=== PATIENT | male | born 1950 | race Caucasian/White ===

== ENCOUNTER 2019-01-13 21:15 | Inpatient (IN) | payer MEDICARE, OTHER ==
[~2019-01-13] VITALS: Ht 175.3 cm; Wt 74.3 kg
[2019-01-13 21:15] VITALS: BP 132/87
[~2019-01-13 21:15] MED LIST: MIDAZOLAM HCL 2 MG/2 ML VIAL ONE
[2019-01-14] VITALS (8 sets, daily range): BP systolic 121–137; BP diastolic 71–87
[2019-01-14] MEDS ORDERED: BISACODYL5 MG PR (00:28)
[2019-01-14] MEDS ORDERED: ASCORBIC ACID500 MG PO (00:28)
[2019-01-14] MEDS ORDERED: PANTOPRAZOLE SO40 MG PO (00:28)
[2019-01-14] MEDS ORDERED: LACTULOSE20 GM/30 M PO (00:28)
[2019-01-14] MEDS ORDERED: HEMATINIC-FOLI1 EACH PO (00:28)
[2019-01-14] MEDS ORDERED: ONDANSETRON ODT8 MG PO (00:28)
[2019-01-14] MEDS ORDERED: AMLODIPINE BESY10 MG PO (00:28)
[2019-01-14] MEDS ORDERED: MULTI-VITAMIN1 EACH PO (00:28)
[2019-01-14] MEDS ORDERED: VENELEX OINTMEN60 GM TOP (00:28)
[2019-01-14] MEDS ORDERED: MEGESTROL400 MG/10 PO (00:28)
[2019-01-14] MEDS ORDERED: MEROPENEM500 MG IV (00:28)
[2019-01-14] MEDS ORDERED: BACLOFEN10 MG PO (00:28)
[2019-01-14] MEDS ORDERED: ENOXAPARIN40 MG/0.4 SC (00:28)
[2019-01-14] MEDS ORDERED: SENNA-DOCUSATE1 EACH PO (00:28)
[2019-01-14] MEDS ORDERED: PROCHLORPERAZIN10 MG PO (00:28)
[2019-01-14] MEDS ORDERED: DOCUSATE SODIU100 MG PO (00:28)
[2019-01-14] MEDS ORDERED: FERROUS FUMARA324 MG PO (00:28)
[2019-01-14] MEDS ORDERED: FLEET ENEMA133 ML PR (00:28)
[2019-01-14] MEDS ORDERED: BISACODYL5 MG PO (00:28)
[2019-01-14] MEDS ORDERED: TRAZODONE HCL50 MG PO (00:28)
[2019-01-14] MEDS ORDERED: VANCOMYCIN HCL1 GM IV (00:28)
[2019-01-14] MEDS ORDERED: VALACYCLOVIR500 MG PO (00:28)
[2019-01-14] MEDS ORDERED: ZINC SULFATE220 M1 PO (00:28)
[2019-01-14] MEDS ORDERED: SOD PHOSPHATE/SOD BIPHOSPHATE ENEMA 132 ML BTL PR PRN (00:30)
[2019-01-14] MEDS ORDERED: PROCHLORPERAZINE MALEATE TAB 10 MG TAB PO PRN (00:30)
[2019-01-14] MEDS ORDERED: ONDANSETRON HCL 4 MG ORAL DISINTEGRATING TAB PO PRN (00:30)
[2019-01-14] MEDS ORDERED: DULCOLAX SUPP10 MG RC (00:39)
[2019-01-14] MEDS ORDERED: BISACODYL 10 MG SUPP PR PRN (00:45)
[2019-01-14] MEDS ORDERED: LACTULOSE SYRUP 20 GM/30 ML UDC PO PRN (00:45)
[2019-01-14] MEDS ORDERED: SODIUM CHLORIDE 0.9% 250ML 250 ML ONE (05:08)
[2019-01-14] MEDS: PANTOPRAZOLE SOD 40 MG TABEC PO SCH (05:28)
[2019-01-14] MEDS: MEROPENEM 500MG/ NS 50ML 500 MG in MEROPENEM 500MG/ NS 50ML 50 ML IV SCH ×3 (05:28→23:30)
[2019-01-14 05:30] LABS: BASOPHILS % 0.6 % (0.0-1.0); EOSINOPHILS # (AUTO) 0.3 (0.0-0.4); EOSINOPHILS % 5.6 % (0.0-6.0); HEMATOCRIT 32.5 % (38.2-49.6); HEMOGLOBIN 10.3 g/dL (14.0-18.0); LYMPHOCYTES # (AUTO) 1.5 (1.0-3.2); LYMPHOCYTES % 30.4 % (18.0-39.1); MEAN CORPUSCULAR HEMOGLOBIN 23.5 pg (28-32); MEAN CORPUSCULAR HGB CONC 31.7 g/dL (31-35); MONOCYTES # (AUTO) 0.5 (0.2-0.8); MONOCYTES % 9.4 % (4.4-11.3); NEUTROPHILS # (AUTO) 2.7 (2.1-6.9); NEUTROPHILS % 53.8 % (38.7-80.0); PLATELET COUNT 221 x10e3/uL (140-360); RED BLOOD COUNT 4.39 x10e6/uL (4.3-5.7); RED CELL DISTRIBUTION WIDTH 21.2 % (11.7-14.4)
[2019-01-14 05:44] LABS: ANION GAP 17.2 mmol/L (8-16); BLOOD UREA NITROGEN 14 mg/dL (7-26); BUN/CREATININE RATIO 22 (6-25); CARBON DIOXIDE 25 mmol/L (22-29); CHLORIDE 99 mmol/L (98-107); CREATININE, SERUM 0.63 mg/dL (0.72-1.25); EST GLOMERULAR FILTRATION RATE > 60 ML/MIN (60-); GLUCOSE 70 mg/dL (74-118); POTASSIUM 4.2 mmol/L (3.5-5.1); SODIUM 137 mmol/L (136-145)
[2019-01-14] MEDS ORDERED: MEROPENEM 500 MG VIAL IV SCH (06:00)
--- NOTE | 2019-01-14 07:30 | NUR ---
REC'D PT AAOX3, PICC LINE TO UPPER RIGHT ARM DOUBLE LUMEN CLEAR AND PATENT, ON ROOM AIR, DRESSING TO SACRUM STAGE 4 IS DRY AND INTACT, BRIEF IN PLACE, [place] [address]. PATIENT REPOSITIONED TO RIGHT SIDE. BED IN LOWEST POSITION, SIDE RAILS UP X2, AND CALL CASTILLO WITHIN REACH.
[2019-01-14] MEDS: AMLODIPINE BESYLATE 10 MG TAB PO SCH (09:00)
[2019-01-14] MEDS ORDERED: VANCOMYCIN HCL 1 GM VIAL IV SCH (09:00)
[2019-01-14] MEDS: SENNA-S TABLET PO SCH (09:00)
[2019-01-14] MEDS: FOLIC ACID PO SCH (09:00)
[2019-01-14] MEDS: BISACODYL 5 MG TAB EC PO SCH (09:00)
[2019-01-14] MEDS: MEGACE 400MG/ 10ML CUP PO SCH (09:00)
[2019-01-14] MEDS: [UNRECOGNIZED DRUG - OTHER] PO SCH (09:00)
[2019-01-14] MEDS: DOCUSATE SODIUM 100 MG CAP PO SCH ×2 (09:00→17:00)
[2019-01-14] MEDS: FERROUS FUMARATE PO SCH (09:00)
[2019-01-14] MEDS: VALACYCLOVIR HCL 500 MG TAB PO SCH (09:00)
[2019-01-14] MEDS: ZINC SULFATE 220 MG CAP PO SCH (09:00)
[2019-01-14] MEDS: ASCORBIC ACID 500 MG TAB PO SCH ×2 (09:00→17:00)
[2019-01-14] MEDS: MULTIVITAMINS/MINERALS TAB PO SCH (09:00)
--- NOTE | 2019-01-14 09:10 | NUR ---
DR. BERUMEN AND DR. MCMANUS IN ROOM WITH PATIENT DISCUSSING SURGERY FOR COLOSTOMY AND WOUND.
[2019-01-14] MEDS: VANCOMYCIN 1GM/NS 250 ML 250 ML IV SCH ×2 (09:41→22:00)
--- NOTE | 2019-01-14 10:00 | NUR ---
GOT CONSENT FROM PATIENT FOR PROCEDURE.
--- NOTE | 2019-01-14 10:25 | Consultation ---
DATE OF CONSULTATION: 01/14/2019 CHIEF COMPLAINT: Diverting colostomy for sacral ulcer. 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 The patient developed a sacral wound, which is nonhealing and a diverting colostomy with myocutaneous flap coverage would be required. PAST MEDICAL HISTORY: Significant for multiple myeloma diagnosed in July 2018. Paraplegia secondary to the above. Fecal incontinence. PAST SURGICAL HISTORY: Unremarkable. ALLERGIES: HE HAS NO KNOWN DRUG ALLERGIES. SOCIAL HABITS: No history of smoking or alcohol abuse. REVIEW OF SYSTEMS: No chest pain. No shortness of breath. PHYSICAL EXAMINATION: VITAL SIGNS: Stable. Afebrile. GENERAL: He is awake, alert, in no apparent distress. HEENT: Sclerae are nonicteric. NECK: Supple. LUNGS: Clear. HEART: Regular rate and rhythm. ABDOMEN: Soft and nontender. EXTREMITY: Hypotrophic. No motor or sensory function. LABORATORY DATA: White cell count is 5, hemoglobin of 10.3, platelet count of 221, creatinine of 0.6. ASSESSMENT: Decubitus ulcer in the sacral area secondary to paraplegia arising from multiple myeloma complicating the thoracic spine. PLAN: Placement of sigmoid colostomy for diversion of fecal stream. Attendant risks discussed. Adi Machado MD DNL/MODL /[id number]
--- NOTE | 2019-01-14 11:10 | NUR ---
PATIENT TURNED TO LEFT SIDE. PERFORMED SOAP SUDS ENEMA FOR PROCEDURE. PATIENT TOLERATED WELL. STOOL/LIQUID WENT FROM BROWN TO CLEAR. SIDE RAILS UPX2, PATIENT REPOSITIONED, AND CALL CASTILLO WITHIN REACH.
--- NOTE | 2019-01-14 12:10 | NUR ---
CALLED DR. BERUMEN'S OFFICE BACK REGARDING WOUND SURGERY. SURGERY IS SCHEDULED FOR JANUARY 16, 2019 AT 9:30AM. NOTIFIED PATIENT.
[2019-01-14] MEDS ORDERED: BUPIVACAINE 0.25%/EPI 30ML SDV INJ ONE (12:22)
[2019-01-14] MEDS ORDERED: LACTATED RINGER'S 1,000 ML ONE (12:50)
[2019-01-14] MEDS: BALSAM PERU/CASTOR OIL 60 GM OINT...G. TP SCH (13:33)
--- NOTE | 2019-01-14 13:57 | Consultation ---
DATE OF CONSULTATION: 01/14/2019 REQUESTING PHYSICIAN: Yareli Kimball MD. REASON FOR CONSULTATION: Stage 4 sacral pressure ulcer. HISTORY OF PRESENT ILLNESS: The patient is a 68-year-old male, who has multiple myeloma and is paraplegic. He had developed a stage 4 sacral ulcer, which apparently has been taken care of while the patient was in an LTAC. He was transferred last night to be admitted to the hospital. He is going to have a diverting colostomy placed. Once the diverting colostomy is functioning well, the patient is requesting closure of the stage 4 ulcer, that is the reason for the consultation today. PAST MEDICAL HISTORY: As noted above. PERTINENT PHYSICAL EXAMINATION: The patient is afebrile. Vital signs are stable. With the help of a nurse, he was rolled over onto his left lateral decubitus side. There is a 10 cm diameter full-thickness stage 4 pressure ulcer, which does not have significant devitalized tissue nor significant areas of obvious infection. IMPRESSION: Stage 4 sacral ulcer. PLAN: A diverting colostomy would be helpful to prevent fecal contamination of the proposed closure of the wound. The patient's most recent nutritional assessment reveals adequate nutrition for wound healing and recovery from chemotherapy for his multiple myeloma. I discussed the risks, benefits, and alternatives to treatment with the patient in detail. I have further explained to him that these flap closures do not always heal as expected and there may be small areas, which require local wound care. The patient is anxious to restart his chemotherapy for his multiple myeloma. I further explained to him that the chemotherapy would need to be held until the sacral flap closure is fully healed and this could be some 2-3 months. The patient is aware of this. I will discuss the case with Dr. Kimball and make plans to perform a flap closure once the colostomy has been performed. Thank you for allowing me to participate in the care of your patient. MD FREDDIE Hodges/VANEL /[id number]
--- NOTE | 2019-01-14 14:53 | NUR ---
WOUND CARE CONSULTATION: THIS IS A 68 YEAR OLD MALE PATIENT ADMITTED FOR MULTIPLE MYELOMA AND STAGE 4 SACRAL PRESSURE ULCER. PATIENT HAS A HISTORY OF PARAPLEGIA AND IS BED AND CHAIR BOUND. PATIENT IS SCHEDULED TODAY TO HAVE COLECTOMY SURGERY AND THEN HE IS SCHEDULED ON January TO HAVE A SKIN FLAP PROCEDURE TO THE STAGE 4 PRESSURE ULCER TO THE SACRUM BY DR. BERUMEN. HEAD TO TOE SKIN ASSESSMENT PERFORMED. PATIENT HAS A LEFT HEEL CALLUS MEASURING 2X2.5CM. PATIENT HAS A RIGHT HEEL CALLUS MEASURING 0.7X1CM. PATIENT HAS A STAGE 4 PRESSURE ULCER TO THE SACRUM MEASURING 7X6.5X4.4CM, WITH UNDERMINING FROM 9 O'CLOCK TO 5 O'CLOCK AT 6.2CM, WOUND BED IS 100% RED AND GRANULAR. FAMILY AT BEDSIDE DURING PATIENT ASSESSMENT. PATIENT LIVES AT HOME WITH HIS BROTHER, WHO ASSISTS HIM WITH HIS CARE. LABS: WBC5.0 [id number] MEDICATIONS: VANCOMYCIN MEROPENEM RECOMMENDATION: -CONTINUE ROTATING ALTERNATING PRESSURE RELIEF MATTRESS. -CONTINUE BILATERAL HEEL PROTECTORS WITH PILLOW SUSPENSION. -STRICT TURN EVERY 2 HOURS AND PRN. -NURSING TO CLEAN STAGE 4 PRESSURE ULCER TO SACRUM WITH NORMAL SALINE, PAT DRY, PACK WITH NORMAL SALINE MOISTENED AMD GAUZE, THEN COVER WITH ALLEVYN FOAM DRESSING; CHANGE DAILY AND PRN. THANK YOU FOR THIS WOUND CARE CONSULT. Addendum: 01/14/19 at 1507 by Susana Leal RN Amended: Links added.
--- NOTE | 2019-01-14 15:58 | Consultation ---
DATE OF CONSULTATION: 01/14/2019 REASON FOR CONSULTATION: Decubitus ulcer, osteomyelitis of the sacral area HISTORY OF PRESENT ILLNESS: Mr. Diaz is very pleasant and well known to me from [facility]. The patient who was recently diagnosed with multiple myeloma. He became paralyzed. He developed decubitus ulcer. He has been to several cities in [place]. Finally, he was admitted for IV antibiotic and local care in [place]. The patient was admitted and started on IV antibiotic. They plan for him to have a muscle flap, but he also may benefit from a colostomy, so he was transferred here. He has been seen by surgery and Plastic surgery was consulted. The patient is currently lying in bed, comfortable. REVIEW OF SYSTEMS: HEENT: Negative. PULMONARY: Negative. CARDIAC: Negative. : Negative. GI: Negative. SKIN: There is no other rash. A 14-point reviewed with the patient, all negative. MEDICATIONS: His home medication list reviewed. He is currently on vancomycin, meropenem, iron sulfate, valacyclovir, Dulcolax. PHYSICAL EXAMINATION: GENERAL: He is currently alert, oriented, does not seem to be in acute distress. VITAL SIGNS: Stable, currently afebrile. HEENT: Not icteric. NECK: Supple. CHEST: Clear. HEART: S1, S2. No murmur. ABDOMEN: Soft. Bowel sounds are present. No tenderness. EXTREMITIES: No edema. SKIN: No rash. He did have a stage IV decubitus ulcer in sacral area about 10 cm. There is no redness, no swelling. IMPRESSION: 1. Stage 4 sacral decubitus ulcer. 2. Osteomyelitis. 3. Multiple myeloma. 4. Agree with colostomy. 5. Agree with closure of the flap. The patient has the IV antibiotic for a few weeks. The patient does have history of multiple myeloma. 6. Discussed the patient the importance of meticulous care because he is at risk for developing decubitus ulcer and failure. He understands that. 7. Weekly CBC by weekly Chem panel by weekly vancomycin trough. Discussed with the patient at length. MD ROXY Carpenter/HUMA /[id number]
--- NOTE | 2019-01-14 16:00 | NUR ---
COLOSTOMY PROCEDURE TO BE SCHEDULED FOR TOMORROW AT 7AM PER DR. MCMANUS. CONSENT SIGNED ALREADY. TO BE NPO AFTER MIDNIGHT.
--- NOTE | 2019-01-14 16:06 | NUR ---
DISCUSSED IN BARRIER ROUNDS, ON 2 IV ABX, ON ROOM AIR, GETTING COLOSTOMY ON CONTACT ISO, WILL RETURN TO [facility] FOR DISCHARGE, NO ORDER AT THIS TIME FOR DISCHARGE.
--- NOTE | 2019-01-14 16:28 | NUR ---
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 Pt developed a sacral wound, which is non-healing. Planned for placement of sigmoid colostomy for diversion of fecal stream today. Visited pt in the room prior to surgery. Pt was diagnosed with multiple myeloma since 07/2018. Prior to cancer, pt weighted at 190lb. Pt started losing weight during chemotherapy. Pt was prescribed appetite stimulant, which has helped him to regain appetite and weight. He has gained ~20lbs in the past few months with adequate protein/ calorie intake. 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 No complains of nausea or vomiting. Pt complained of hunger but was NPO. Explained menu and ordering system in the hospital. No known food allergy. Pt denied any chewing or swallowing difficulty. Will continue to monitor and follow. Principal Problems/Diagnoses: multiple myeloma, stage IV sacral wound PMH: multiple myeloma diagnosed in July 2018, paraplegia, fecal incontinence GI: abdomen soft, non-tender, flatus present, LBM 01/14 Skin: stage 4 pressure ulcer, per wound care Labs: (01/14) creatinine 0.63 L, glucose 70 L Meds: vancomycin, zinc sulfate, protonix, MVi w/ minerals, megace, vitamin C, colace, dulcolax Ht: 69in Wt: 162.06lb BMI: 23.9kg/m2 IBW: 160lb +/- 10% Malnutrition Evaluation (01/14/2019) The patient does not meet criteria for a specified degree of malnutrition at this time. Will re-evaluate at follow-up as appropriate. Energy intake: Adequate intake Weight loss: Weight has fluctuated. 190lb > 144lb > 162lb Fat loss: None Muscle loss: None Supporting Evidence: Fluid accumulation: None Functional Status: paraplegia Nutrition Prescription (Diet Order): NPO Estimated Nutritional Needs: Calories: 2220 2590kcal(30-35kcal/kg/d) Weight used: CBW Protein: 111 148g(1.5-2g/kg/d) Weight used: CBW Diet Adequacy: Not meeting calorie needs, Not meeting protein needs Diet Education Needs Assessment: Diet education indicated, but patient not appropriate for education at this time. Nutrition Care Level: Mod Nutrition Diagnosis: Increase protein needs related to altered skin integrity as evidenced by stage IV sacral ulcer. Goal: Patient will meet 75-100% of estimated needs by follow up Progress: N/A Interventions: General healthful diet, Commercial beverage, Commercial food, Multivitamin/mineral supplement therapy, Collaboration with other providers Monitoring/Evaluation: Total energy intake, Total protein intake, Prescription medication, Modified diet, Liquid supplement, Weight change Signed: Georgina Phillips, MS, RD, LD
[2019-01-14] MEDS ORDERED: ENOXAPARIN SOD INJ 40 MG/0.4 ML SYR SC SCH (17:00)
--- NOTE | 2019-01-14 18:55 | NUR ---
PATIENT REPOSITIONED TO LEFT SIDE. NO S/S OF DISTRESS. BED IN LOWEST POSITION, SIDE RAILS UP X2, AND CALL CASTILLO WITHIN REACH.
--- NOTE | 2019-01-14 21:55 | NUR ---
PATIENT MOVED TO LEFT SIDE. DRESSING ON SACRUM CHANGED, WOUND IS CLEAN NO DRAINAGE NOTED. BED IN LOWEST POSITION, CALL LIGHT WITHIN EASY REACH WILL CONTINUE TO MONITOR.
[2019-01-14] MEDS: TRAZODONE HCL 50 MG TAB PO SCH (22:00)
[2019-01-14] MEDS: LACTATED RINGER'S 1,000 ML IV SCH (22:00)
[2019-01-15] VITALS (7 sets, daily range): BP systolic 120–128; BP diastolic 63–77
[2019-01-15] MEDS: PANTOPRAZOLE SOD 40 MG TABEC PO SCH (06:00)
[2019-01-15] MEDS: MEROPENEM 500MG/ NS 50ML 500 MG in MEROPENEM 500MG/ NS 50ML 50 ML IV SCH ×3 (06:00→22:45)
--- NOTE | 2019-01-15 06:16 | NUR ---
PATIENT PICKED UP BY OR FOR COLOSTOMY PROCEDURE.
[2019-01-15] MEDS ORDERED: BUPIVACAINE 0.5%/EPI 30 ML SDV INJ ONE (06:19)
--- NOTE | 2019-01-15 06:43 | NUR ---
MEROPENEM TAKEN FROM [employer] TO OR.
[2019-01-15] MEDS: DOCUSATE SODIUM 100 MG CAP PO SCH ×2 (09:00→16:30)
[2019-01-15] MEDS: SENNA-S TABLET PO SCH (09:00)
[2019-01-15] MEDS: FOLIC ACID PO SCH (09:00)
[2019-01-15] MEDS: MEGACE 400MG/ 10ML CUP PO SCH (09:00)
[2019-01-15] MEDS: ZINC SULFATE 220 MG CAP PO SCH (09:00)
[2019-01-15] MEDS: ASCORBIC ACID 500 MG TAB PO SCH ×2 (09:00→16:30)
[2019-01-15] MEDS: FERROUS FUMARATE PO SCH (09:00)
[2019-01-15] MEDS: [UNRECOGNIZED DRUG - OTHER] PO SCH (09:00)
[2019-01-15] MEDS: VALACYCLOVIR HCL 500 MG TAB PO SCH (09:00)
[2019-01-15] MEDS: MULTIVITAMINS/MINERALS TAB PO SCH (09:00)
[2019-01-15] MEDS: AMLODIPINE BESYLATE 10 MG TAB PO SCH (09:00)
[2019-01-15] MEDS: BISACODYL 5 MG TAB EC PO SCH (09:00)
[2019-01-15] MEDS ORDERED: MORPHINE SULFATE 5 MG/ML VIAL IV PRN (09:15)
[2019-01-15] MEDS ORDERED: FENTANYL CITRATE/PF 100MCG/2 ML INJ ONE ×2 (09:33→18:31)
--- NOTE | 2019-01-15 10:10 | NUR ---
Back from procedure. AAOX3 to time, person, place. Respirations even and unlabored. New colostomy to left abdomen. scant bloody drainage noted. Instructed to use call light for assistance. Voiced understanding.
[2019-01-15] MEDS: MORPHINE SULFATE INJ 4 MG/ML INJ 1ML IV PRN ×2 (10:34→21:25)
[2019-01-15] MEDS: VANCOMYCIN 1GM/NS 250 ML 250 ML IV SCH ×2 (10:34→21:30)
--- NOTE | 2019-01-15 11:23 | Operative Report ---
DATE OF PROCEDURE: 01/15/2019 SURGEON: Adi Machado MD PREOPERATIVE DIAGNOSES: Sacral decubitus ulcer and paraplegia. POSTOPERATIVE DIAGNOSES: Sacral decubitus ulcer, paraplegia, and sigmoid diverticulitis. OPERATIVE PROCEDURE: Laparoscopic sigmoid resection, splenic flexure mobilization, and colostomy. ANESTHESIA: General, Dr. Mcneil. INDICATIONS: This is a 68-year-old male with history of paraplegia from thoracic multiple myeloma. The patient developed extensive sacral ulcer, which required fecal diversion for planned myocutaneous rotational flap coverage. PROCEDURAL FINDINGS: Chronic sigmoid diverticulitis. DESCRIPTION: The patient brought to the OR intubated, abdomen prepped and draped in a sterile fashion. A supraumbilical incision was made and a 5 mm port inserted. Insufflation then began under direct vision, another port site placed in the right lower quadrant and suprapubic region. The sigmoid colon was noted to be adherent to the abdominal wall in the left lower quadrant from diverticulitis. With blunt and sharp dissection using the cautery of the LigaSure instrument, the sigmoid colon attachment to the abdominal wall was taken down. The sigmoid colon was then mobilized along the white line of Toldt towards the splenic flexure, which was taken down under direct vision. We then proceeded to transect the distal sigmoid colon at the rectosigmoid junction with the Endo EMILY stapler green load, the corresponding mesentery to the sigmoid colon was taken close to the mesenteric aspect of the colon using the LigaSure instrument and the operative field was then irrigated. Hemostasis was achieved. We then created a colostomy site in the left lower quadrant midway between the left anterior superior iliac spine and the umbilicus taking a circular piece of skin and subcutaneous tissue. The underlying anterior fascia was opened in a cruciate fashion and the rectus muscle was split and posterior fascia opened transversely allowing two fingers to pass easily. We then exteriorized the sigmoid colon through this opening and the area of noninflamed proximal sigmoid colon was divided with cautery, specimen removed from the operative field, and the colostomy was matured with eversion of the colonic edge to the skin with interrupted 3-0 Vicryl stitches. All ports removed under direct vision. Hemostasis achieved. We closed fascia with 0 Vicryl and skin with subcuticular stitch with Dermabond on the incisions. Dressing applied. The patient tolerated the procedure, was extubated and transported to recovery room. ESTIMATED BLOOD LOSS: 30 mL. MD CHRISTINA Alejo/HUMA /[id number]
[2019-01-15] MEDS: BALSAM PERU/CASTOR OIL 60 GM OINT...G. TP SCH (12:00)
[2019-01-15] MEDS: LACTATED RINGER'S 1,000 ML IV SCH ×3 (12:24→16:00)
--- NOTE | 2019-01-15 18:30 | NUR ---
Resting in bed, mid fowlers position, side rails upx3, call light within reach, talking on the phone. AAOX3 to time, person,place. Respirations even and unlabored. Dressing to sacrum clean, dry, and intact. Report to be given to oncoming nurse of patient's status.
--- NOTE | 2019-01-15 19:00 | NUR ---
RECEIVED PATIENT IN REPORT. PATIENT REPORTS SOME PAIN IN L SHOULDER, STATES HE BELIEVES IT IS GAS THE PAIN IS MOVING AROUND. NO S&S OF DISTRESS NOTED. BED LOCKED IN LOWEST POSITION, SIDE RAILS UPX2, CALL LIGHT IN REACH.
[2019-01-15] MEDS: TRAZODONE HCL 50 MG TAB PO SCH (21:30)
[2019-01-16] VITALS (8 sets, daily range): BP systolic 111–146; BP diastolic 67–83
[2019-01-16] MEDS: LACTATED RINGER'S 1,000 ML IV SCH ×2 (00:15→15:39)
[2019-01-16] MEDS: PANTOPRAZOLE SOD 40 MG TABEC PO SCH (06:00)
[2019-01-16] MEDS: MEROPENEM 500MG/ NS 50ML 500 MG in MEROPENEM 500MG/ NS 50ML 50 ML IV SCH ×3 (06:19→15:39)
[2019-01-16] MEDS: FOLIC ACID PO SCH (09:00)
[2019-01-16] MEDS: DOCUSATE SODIUM 100 MG CAP PO SCH ×2 (09:00→17:18)
[2019-01-16] MEDS: [UNRECOGNIZED DRUG - OTHER] PO SCH (09:00)
[2019-01-16] MEDS: ASCORBIC ACID 500 MG TAB PO SCH ×2 (09:00→17:18)
[2019-01-16] MEDS: FERROUS FUMARATE PO SCH (09:00)
--- NOTE | 2019-01-16 09:10 | NUR ---
TAKEN FOR PROCEDURE. NO S/S OF ACUTE DISTRESS NOTED
--- NOTE | 2019-01-16 11:50 | Operative Report ---
DATE OF PROCEDURE: 01/16/2019 SURGEON: Lewis Duong MD PREOPERATIVE DIAGNOSIS: Stage 4 sacral pressure ulcer. POSTOPERATIVE DIAGNOSIS: Stage 4 sacral pressure ulcer. PROCEDURE: Excision of sacral ulcer in preparation for flap closure. ANESTHESIA: MAC. HISTORY: The patient is a 68-year-old paraplegic secondary to multiple myeloma. He has a large stage 4 sacral ulcer. He underwent performance of a diverting colostomy yesterday and is now being taken to the OR for excision of the sacral ulcer in preparation for flap closure. The risks, benefits, and alternatives of treatment were discussed with the patient. He is prepared to undergo the procedure as outlined. PROCEDURE IN DETAIL: The patient was marked preoperatively in the holding area. He was brought to the operating theater and after the induction of adequate IV sedation, he was prepped and draped in the left lateral decubitus position. A time-out was performed. The procedure was begun by excising all of the devitalized tissue through the skin and subcutaneous as well as the superior portion of the gluteus viet muscles. The wounds were then made hemostatic using the electrocautery. At this point, once all the devitalized and infected tissue had appeared to be removed, the wound was pulse lavaged with 3 L of antibiotic-containing solution. Once again, the wound was inspected for hemostasis which was noted to be absolute. The wound was then packed with a saline-soaked Kerlix and ABD pads are applied. The patient was made supine and was returned to recovery room in satisfactory condition. The estimated blood loss for the procedure was approximately 50 mL. MD FREDDIE Hodges/MODL /[id number]
[2019-01-16] MEDS: VANCOMYCIN 1GM/NS 250 ML 250 ML IV SCH ×2 (11:53→22:08)
[2019-01-16] MEDS: ZINC SULFATE 220 MG CAP PO SCH (13:00)
[2019-01-16] MEDS: BISACODYL 5 MG TAB EC PO SCH (13:00)
[2019-01-16] MEDS: SENNA-S TABLET PO SCH (13:00)
[2019-01-16] MEDS: BALSAM PERU/CASTOR OIL 60 GM OINT...G. TP SCH (13:00)
[2019-01-16] MEDS: AMLODIPINE BESYLATE 10 MG TAB PO SCH (13:00)
[2019-01-16] MEDS: VALACYCLOVIR HCL 500 MG TAB PO SCH (13:00)
[2019-01-16] MEDS: MEGACE 400MG/ 10ML CUP PO SCH (13:00)
[2019-01-16] MEDS: MULTIVITAMINS/MINERALS TAB PO SCH (13:00)
[2019-01-16] MEDS: MORPHINE SULFATE INJ 4 MG/ML INJ 1ML IV PRN ×2 (15:40→21:00)
--- NOTE | 2019-01-16 16:27 | NUR ---
WOUND CARE CONSULTATION: RECONSULTATION FOR WOUND CARE FOR COLOSTOMY TEACHING. PATIENT HAD A DIVERSION SURGERY OF THE LARGE COLON YESTERDAY AND NOW HAS A LLQ COLOSTOMY IN PLACE. STOMA APPEARS RED, NONIRRITATED,AND APPLIANCE IS INTACT AND APPROPRIATE SIZE CUT TO FIT AROUND STOMA. BROWN, SEMI LOOSE STOOL NOTED TO DRAINAGE BAG. PATIENT HAS BEEN LOOKING AT HIS STOMA AND HIS APPLIANCE SINCE HIS SURGERY YESTERDAY AND IS WILLING AND READY FOR TEACHING. HANDOUTS GIVEN TO PATIENT ABOUT DIFFERENT OSTOMY TYPES, DIFFERENT APPLIANCES AND SUPPLIES USED TO SECURE APPLIANCE, AND MEDICATIONS THAT CAN AFFECT COLOSTOMY OUTPUT. I SHOWED THE PATIENT DIFFERENT APPLIANCE TYPES, WENT OVER SKIN CARE FOR STOMA AND SKIN SURROUNDING STOMA SITE. I SHOWED PATIENT HOW TO CUT THE WAFER TO FIT THE STOMA APPROPRIATELY. PATIENT VERBALIZED UNDERSTANDING OF SKIN AND STOMA CARE, INFORMATION ABOUT APPLIANCE, AND ALL QUESTIONS ANSWERED FOR PATIENT AND PATIENT'S BROTHER AT THE BEDSIDE, WHICH HE LIVES WITH. PATIENT HAD A EXCISION PROCEDURE OF A STAGE 4 SACRAL PRESSURE ULCER TODAY IN PREPARATION FOR FLAP CLOSURE SURGERY ON SUNDAY THE BOTH BY DR. BERUMEN. SURGICAL DRESSING IS INTACT, DRY, AND IN PLACE. PATIENT HAD A DRY CALLUS TO THE RIGHT HEEL FROM PREVIOUS SKIN ASSESSMENT THAT HAS LIFTED AND COME OFF REVEALING INTACT SKIN, ONLY A SMALL AREA OF 100% BLANCHABLE REDNESS NOTED MEASURING 0.3X0.5CM IS NOW NOTED WITH REASSESSMENT. PATIENT HAS HEEL PROTECTORS IN PLACE TO BILATERAL FEET WITH PILLOW SUSPENSION. RECOMMENDATION: -CONTINUE ALTERNATING ROTATING PRESSURE RELIEF MATTRESS. -CONTINUE BILATERAL HEEL PROTECTORS WITH PILLOW SUSPENSION. -STRICT TURN EVERY 2 HOURS AND PRN. -NURSING TO CONTINUE TO REEDUCATE AND ASSIST PATIENT WITH STOMA AND COLOSTOMY CARE NEEDED. RECONSULT WOUND CARE IF PATIENT IS NEEDING FURTHER EDUCATION/CONCERNS. -NURSING TO APPLY VENELEX THEN FOAM DRESSING TO RIGHT HEEL AREA OF BLANCHABLE REDNESS DAILY AND PRN. THANK YOU FOR THIS WOUND CARE CONSULTATION. Addendum: 01/16/19 at 1653 by Susana Leal RN Amended: Links added.
--- NOTE | 2019-01-16 17:16 | NUR ---
Patient refuses to have PICC line dressing changed at this time. Educated importance of changing dressing weekly or as needed. Patient voiced understanding and prefers to have it changed later on tonight. Dressing clean, dry, and intact. Report to be given to oncoming nurse.
[2019-01-16] MEDS: ENOXAPARIN SOD INJ 40 MG/0.4 ML SYR SC SCH (17:18)
--- NOTE | 2019-01-16 19:10 | NUR ---
Report given to oncoming nurse of patient's status. Resting in bed. No s/s of acute distress noted.
[2019-01-16] MEDS: TRAZODONE HCL 50 MG TAB PO SCH (22:08)
--- NOTE | 2019-01-16 23:20 | NUR ---
PICC LINE DRESSING CHANGED AT THIS TIME, STERILE PROCEDURE FOLLOWED. PATIENT TOLERATED WELL.
[2019-01-17] VITALS (8 sets, daily range): BP systolic 107–139; BP diastolic 57–80
[2019-01-17] MEDS: LACTATED RINGER'S 1,000 ML IV SCH ×5 (01:45→23:15)
[2019-01-17] MEDS: PANTOPRAZOLE SOD 40 MG TABEC PO SCH (06:23)
[2019-01-17] MEDS: MEROPENEM 500MG/ NS 50ML 500 MG in MEROPENEM 500MG/ NS 50ML 50 ML IV SCH ×3 (06:23→23:15)
--- NOTE | 2019-01-17 07:00 | NUR ---
RECEIVED BEDSIDE REPORT FROM NIGHT RN. PT DENIES NEEDS AT THIS TIME.
[2019-01-17 07:55] LABS: BASOPHILS % 0.4 % (0.0-1.0); EOSINOPHILS # (AUTO) 0.3 (0.0-0.4); EOSINOPHILS % 5.2 % (0.0-6.0); HEMATOCRIT 28.7 % (38.2-49.6); HEMOGLOBIN 9.3 g/dL (14.0-18.0); LYMPHOCYTES # (AUTO) 1.2 (1.0-3.2); LYMPHOCYTES % 24.4 % (18.0-39.1); MEAN CORPUSCULAR HEMOGLOBIN 23.6 pg (28-32); MEAN CORPUSCULAR HGB CONC 32.4 g/dL (31-35); MEAN CORPUSCULAR VOLUME 72.8 fL (81-99); MONOCYTES # (AUTO) 0.4 (0.2-0.8); NEUTROPHILS # (AUTO) 3.1 (2.1-6.9); NEUTROPHILS % 61.6 % (38.7-80.0); PLATELET COUNT 174 x10e3/uL (140-360); RED BLOOD COUNT 3.94 x10e6/uL (4.3-5.7); RED CELL DISTRIBUTION WIDTH 20.4 % (11.7-14.4)
[2019-01-17 08:22] LABS: ANION GAP 13.8 mmol/L (8-16); BLOOD UREA NITROGEN 13 mg/dL (7-26); BUN/CREATININE RATIO 20 (6-25); CALCIUM 9.1 mg/dL (8.4-10.2); CARBON DIOXIDE 25 mmol/L (22-29); CHLORIDE 101 mmol/L (98-107); CREATININE, SERUM 0.66 mg/dL (0.72-1.25); EST GLOMERULAR FILTRATION RATE > 60 ML/MIN (60-); GLUCOSE 86 mg/dL (74-118); POTASSIUM 3.8 mmol/L (3.5-5.1); SODIUM 136 mmol/L (136-145)
[2019-01-17] MEDS: [UNRECOGNIZED DRUG - OTHER] PO SCH (09:00)
[2019-01-17] MEDS: BISACODYL 5 MG TAB EC PO SCH ×2 (09:00→09:18)
[2019-01-17] MEDS: FERROUS FUMARATE PO SCH (09:00)
[2019-01-17] MEDS: FOLIC ACID PO SCH (09:00)
[2019-01-17] MEDS: VANCOMYCIN 1GM/NS 250 ML 250 ML IV SCH ×3 (09:00→21:40)
[2019-01-17] MEDS: AMLODIPINE BESYLATE 10 MG TAB PO SCH (09:18)
[2019-01-17] MEDS: DOCUSATE SODIUM 100 MG CAP PO SCH ×2 (09:18→17:31)
[2019-01-17] MEDS: MEGACE 400MG/ 10ML CUP PO SCH (09:18)
[2019-01-17] MEDS: BALSAM PERU/CASTOR OIL 60 GM OINT...G. TP SCH (09:18)
[2019-01-17] MEDS: ASCORBIC ACID 500 MG TAB PO SCH ×2 (09:18→17:31)
[2019-01-17] MEDS: VALACYCLOVIR HCL 500 MG TAB PO SCH (09:18)
[2019-01-17] MEDS: MULTIVITAMINS/MINERALS TAB PO SCH (09:18)
[2019-01-17] MEDS: BALSAM PERU/CASTOR OIL 5 GM OINT...G. TP SCH (09:18)
[2019-01-17] MEDS: SENNA-S TABLET PO SCH (09:18)
[2019-01-17] MEDS: ZINC SULFATE 220 MG CAP PO SCH (09:18)
--- NOTE | 2019-01-17 11:00 | NUR ---
EVER SPOKE TO DR. BERUMEN REGARDING PATIENT PLAN OF CARE AND DISCHARGE PLAN. AT THIS TIME PATIENT HAS RECEIVED I & D ON ON SACRAL WOUND. PATIENT TO RECEIVE FLAP ON NEXT SCHEDULED OR DAY SUNDAY 01/21. PATIENT CURRENTLY ON TWO IV ABX. EVER SPOKE TO DR. DE SOUZA REGARDING DISCHARGE PLAN. DUE TO PATIENT AGE, PATIENT MAY NEED HOME WITH HOME HEALTH WOUND CARE MANAGEMENT. PENDING POST PROCEDURE.
--- NOTE | 2019-01-17 11:44 | NUR ---
PT REFUSED TO BE TURNED.
[2019-01-17] MEDS: ENOXAPARIN SOD INJ 40 MG/0.4 ML SYR SC SCH (17:31)
--- NOTE | 2019-01-17 17:39 | NUR ---
Nutrition Follow-up Note RD Recommendation(s) for Physician: - Continue current diet as ordered - Continue MVi w/minerals, vitamin C and zinc sulfate for wound healing Plan of Care: RD following, monitoring for tolerance and adequacy Nutrition reason for involvement: Follow up RD Assessment 01/17 Visited pt in the room. Pt complained of portion size being too small. RN ordered regular diet with double portion. Pt with great appetite and 50-100% PO intake recorded. No complains of nausea or vomiting. Colostomy place on 01/15 and is working well. Discussed menu options. Pt has been asking family to bring pizza and fast foods for him. Current diet is adequate. Please consult if needed. 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 Pt developed a sacral wound, which is non-healing. Planned for placement of sigmoid colostomy for diversion of fecal stream today. Visited pt in the room prior to surgery. Pt was diagnosed with multiple myeloma since 07/2018. Prior to cancer, pt weighted at 190lb. Pt started losing weight during chemotherapy. Pt was prescribed appetite stimulant, which has helped him to regain appetite and weight. He has gained ~20lbs in the past few months with adequate protein/ calorie intake. 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 No complains of nausea or vomiting. Pt complained of hunger but was NPO. Explained menu and ordering system in the hospital. No known food allergy. Pt denied any chewing or swallowing difficulty. Will continue to monitor and follow. Principal Problems/Diagnoses: multiple myeloma, stage IV sacral wound PMH: multiple myeloma diagnosed in July 2018, paraplegia, fecal incontinence GI: abdomen soft, non-tender, flatus present, + colostomy Skin: stage 4 pressure ulcer, per wound care Labs: (01/17) Creatinine 0.66 L (01/14) creatinine 0.63 L, glucose 70 L Meds: lovenox, lactated ringer, colace, vitamin C, vancomycin, zinc sulfate, MVi w/ minerals, megace, protonix Ht: 69in Wt: 162.06lb; 163lb BMI: 23.9kg/m2 IBW: 160lb +/- 10% Malnutrition Evaluation (01/14/2019) The patient does not meet criteria for a specified degree of malnutrition at this time. Will re-evaluate at follow-up as appropriate. Energy intake: Adequate intake Weight loss: Weight has fluctuated. 190lb > 144lb > 162lb Fat loss: None Muscle loss: None Supporting Evidence: Fluid accumulation: None Functional Status: paraplegia Nutrition Prescription (Diet Order): Regular diet (double portion) Estimated Nutritional Needs: Calories: 2220 2590kcal (30-35kcal/kg/d) Weight used: CBW Protein: 111 148g (1.5-2g/kg/d) Weight used: CBW Diet Adequacy: Meeting calorie needs, meeting protein needs Diet Education Needs Assessment: Diet education indicated, but patient not appropriate for education at this time. Nutrition Care Level: Low Nutrition Diagnosis: Increase protein needs related to altered skin integrity as evidenced by stage IV sacral ulcer. Goal: Patient will meet 75-100% of estimated needs by follow up Progress: Goal met Interventions: General healthful diet, Multivitamin/mineral supplement therapy Monitoring/Evaluation: Total energy intake, Total protein intake, Diet, Weight change Signed: Georgina Phillips MS, RD, LD
--- NOTE | 2019-01-17 19:00 | NUR ---
RECEIVED PATIENT IN REPORT. PATIENT REPORTS NO PAIN AT THIS TIME. PATIENT RESTING IN BED IN GOOD SPIRITS. NO S&S OF DISTRESS NOTED. BED LOCKED IN LOWEST POSITION, SIDE RAILS UPX2, CALL LIGHT IN REACH.
[2019-01-17] MEDS: TRAZODONE HCL 50 MG TAB PO SCH (21:40)
[2019-01-17] MEDS: BACLOFEN 10 MG TAB PO PRN (21:57)
[2019-01-18] MEDS: MORPHINE SULFATE INJ 4 MG/ML INJ 1ML IV PRN (00:08)
[2019-01-18 00:53] VITALS: BP 127/60
[2019-01-18 06:02] VITALS: BP 122/63
[2019-01-18] MEDS: PANTOPRAZOLE SOD 40 MG TABEC PO SCH (06:14)
[2019-01-18] MEDS: MEROPENEM 500MG/ NS 50ML 500 MG in MEROPENEM 500MG/ NS 50ML 50 ML IV SCH ×3 (06:15→23:40)
--- NOTE | 2019-01-18 07:00 | NUR ---
RECEIVED BEDSIDE REPORT FROM NIGHT RN. PT DENIES NEEDS AT THIS TIME.
[2019-01-18 08:36] VITALS: BP 131/75
[2019-01-18] MEDS: DOCUSATE SODIUM 100 MG CAP PO SCH ×2 (08:36→17:19)
[2019-01-18] MEDS: FOLIC ACID PO SCH (08:36)
[2019-01-18] MEDS: BISACODYL 5 MG TAB EC PO SCH (08:36)
[2019-01-18] MEDS: [UNRECOGNIZED DRUG - OTHER] PO SCH (08:36)
[2019-01-18] MEDS: FERROUS FUMARATE PO SCH (08:36)
[2019-01-18] MEDS: VANCOMYCIN 1GM/NS 250 ML 250 ML IV SCH ×2 (08:36→22:10)
[2019-01-18] MEDS: LACTATED RINGER'S 1,000 ML IV SCH ×2 (08:37→17:19)
[2019-01-18] MEDS: ASCORBIC ACID 500 MG TAB PO SCH ×2 (08:37→17:19)
[2019-01-18] MEDS: MULTIVITAMINS/MINERALS TAB PO SCH (08:37)
[2019-01-18] MEDS: MEGACE 400MG/ 10ML CUP PO SCH (08:37)
[2019-01-18] MEDS: VALACYCLOVIR HCL 500 MG TAB PO SCH (08:37)
[2019-01-18] MEDS: SENNA-S TABLET PO SCH (08:37)
[2019-01-18] MEDS: AMLODIPINE BESYLATE 10 MG TAB PO SCH (08:37)
[2019-01-18] MEDS: BALSAM PERU/CASTOR OIL 60 GM OINT...G. TP SCH (08:37)
[2019-01-18] MEDS: ZINC SULFATE 220 MG CAP PO SCH (08:37)
[2019-01-18] MEDS: BALSAM PERU/CASTOR OIL 5 GM OINT...G. TP SCH (08:37)
[2019-01-18 09:00] VITALS: BP 131/75
[2019-01-18] MEDS ORDERED: ALTEPLASE RECOMBINANT 2 MG/2 ML VIAL IV PRN (13:45)
--- NOTE | 2019-01-18 14:48 | NUR ---
STAGE 4 SACRAL WOUND CHANGED AT THIS TIME PER ORDERS.
[2019-01-18 16:11] VITALS: BP 118/66
[2019-01-18] MEDS: ENOXAPARIN SOD INJ 40 MG/0.4 ML SYR SC SCH (17:19)
[2019-01-18] MEDS: BACLOFEN 10 MG TAB PO PRN (18:11)
--- NOTE | 2019-01-18 18:51 | NUR ---
CATHFLO TOLERATED AND AFTER DWELLING 30 MIN AND ASPIRATED, SUCCESSFUL.
--- NOTE | 2019-01-18 20:11 | Progress Note ---
DATE: 01/18/2019 SUBJECTIVE: Mr. Diaz is doing better. There is no complaint. REVIEW OF SYSTEMS: HEENT: Negative. PULMONARY: Negative. CARDIAC: Negative. PHYSICAL EXAMINATION: GENERAL: He is currently alert, oriented, does not seem to be in acute distress. VITAL SIGNS: Stable. Currently afebrile. HEENT: He is not icteric. NECK: Supple. CHEST: Clear. HEART: S1, S2. No S3, S4, or murmur. ABDOMEN: Soft. Bowel sounds present. No tenderness. EXTREMITIES: No edema. SKIN: There is no rash. All symptoms within normal limits. LABORATORY DATA: Reviewed. Chart reviewed. IMPRESSION AND PLAN: 1. Osteomyelitis, decubitus ulcer in the patient, who has been on IV antibiotics, treated. Plan for him to for flap closure on Sunday. Continue the current choice of IV antibiotics. 2. History of multiple myeloma. 3. Debility. 4. 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 5. Anemia of chronic disease. 6. We will follow. MD ROXY Carpenter/HUMA /[id number]
[2019-01-18 20:27] VITALS: BP 128/72
[2019-01-18] MEDS: TRAZODONE HCL 50 MG TAB PO SCH (22:10)
[2019-01-19] VITALS (7 sets, daily range): BP systolic 114–144; BP diastolic 62–72
[2019-01-19] MEDS: LACTATED RINGER'S 1,000 ML IV SCH ×3 (04:42→17:20)
[2019-01-19] MEDS: PANTOPRAZOLE SOD 40 MG TABEC PO SCH (05:28)
[2019-01-19] MEDS: MEROPENEM 500MG/ NS 50ML 500 MG in MEROPENEM 500MG/ NS 50ML 50 ML IV SCH ×3 (05:28→21:36)
--- NOTE | 2019-01-19 07:00 | NUR ---
RECEIVED BEDSIDE REPORT FROM NIGHT RN. PT DENIES NEEDS AT THIS TIME.
[2019-01-19] MEDS: FOLIC ACID PO SCH (09:00)
[2019-01-19] MEDS: FERROUS FUMARATE PO SCH (09:00)
[2019-01-19] MEDS: [UNRECOGNIZED DRUG - OTHER] PO SCH (09:00)
[2019-01-19] MEDS: BISACODYL 5 MG TAB EC PO SCH (09:13)
[2019-01-19] MEDS: MULTIVITAMINS/MINERALS TAB PO SCH (09:13)
[2019-01-19] MEDS: VANCOMYCIN 1GM/NS 250 ML 250 ML IV SCH ×2 (09:13→21:36)
[2019-01-19] MEDS: MEGACE 400MG/ 10ML CUP PO SCH (09:13)
[2019-01-19] MEDS: DOCUSATE SODIUM 100 MG CAP PO SCH ×2 (09:13→17:19)
[2019-01-19] MEDS: ASCORBIC ACID 500 MG TAB PO SCH ×2 (09:14→17:19)
[2019-01-19] MEDS: BALSAM PERU/CASTOR OIL 5 GM OINT...G. TP SCH (09:14)
[2019-01-19] MEDS: BALSAM PERU/CASTOR OIL 60 GM OINT...G. TP SCH (09:14)
[2019-01-19] MEDS: SENNA-S TABLET PO SCH (09:14)
[2019-01-19] MEDS: AMLODIPINE BESYLATE 10 MG TAB PO SCH (09:14)
[2019-01-19] MEDS: VALACYCLOVIR HCL 500 MG TAB PO SCH (09:14)
[2019-01-19] MEDS: ZINC SULFATE 220 MG CAP PO SCH (09:14)
--- NOTE | 2019-01-19 15:50 | NUR ---
Visit made by the Spiritual Care Department Pastoral Visitor, Meet Galan. PV provided pastoral presence, hospitality, and supportive listening. Pastoral Visitor informed pt/family of the scope of Modeling Agent Services and availability. TABBY GARCÍA E Commerce Strategist Spiritual Care Department O: [phone] Pager: [phone] ([phone] calling from)
[2019-01-19] MEDS: ENOXAPARIN SOD INJ 40 MG/0.4 ML SYR SC SCH (17:19)
--- NOTE | 2019-01-19 21:26 | Progress Note ---
DATE: 01/19/2019 SUBJECTIVE: Mr. Diaz is doing well. There are no new complaints. PHYSICAL EXAMINATION: GENERAL: He is currently alert, oriented, does not seem in acute distress. HEENT: Not icteric. NECK: Supple. No JVD. No lymphadenopathy. No thyromegaly. CHEST: Clear bilateral. HEART: S1, S2. No S3, no murmur. ABDOMEN: Soft. Bowel sounds present. No tenderness. EXTREMITIES: No edema. LABORATORY DATA: Reviewed. Chart reviewed. IMPRESSION: 1. From Infectious Disease point of view, the patient remained stable. 2. Osteomyelitis, decubitus ulcer, on intravenous antibiotic as ordered. Surgery on Sunday. 3. Continue monitoring him by weekly CBC, chemistry panel, vancomycin trough. 4. History of multiple myeloma, history of debility, and paraplegic. Discussed with the patient. MD ROXY Carpenter/HUMA /[id number]
[2019-01-19] MEDS: TRAZODONE HCL 50 MG TAB PO SCH (21:36)
[2019-01-20] VITALS (7 sets, daily range): BP systolic 111–127; BP diastolic 58–73
[2019-01-20 06:17] LABS: BASOPHILS % 0.4 % (0.0-1.0); EOSINOPHILS # (AUTO) 0.4 (0.0-0.4); EOSINOPHILS % 7.6 % (0.0-6.0); HEMATOCRIT 25.7 % (38.2-49.6); HEMOGLOBIN 8.3 g/dL (14.0-18.0); LYMPHOCYTES # (AUTO) 1.3 (1.0-3.2); LYMPHOCYTES % 27.4 % (18.0-39.1); MEAN CORPUSCULAR HEMOGLOBIN 23.4 pg (28-32); MEAN CORPUSCULAR HGB CONC 32.3 g/dL (31-35); MEAN CORPUSCULAR VOLUME 72.4 fL (81-99); MONOCYTES # (AUTO) 0.4 (0.2-0.8); MONOCYTES % 9.1 % (4.4-11.3); NEUTROPHILS # (AUTO) 2.7 (2.1-6.9); NEUTROPHILS % 55.1 % (38.7-80.0); PLATELET COUNT 225 x10e3/uL (140-360); RED BLOOD COUNT 3.55 x10e6/uL (4.3-5.7); RED CELL DISTRIBUTION WIDTH 20.4 % (11.7-14.4)
[2019-01-20] MEDS: PANTOPRAZOLE SOD 40 MG TABEC PO SCH (06:21)
[2019-01-20] MEDS: MEROPENEM 500MG/ NS 50ML 500 MG in MEROPENEM 500MG/ NS 50ML 50 ML IV SCH ×3 (06:21→22:30)
[2019-01-20 06:33] LABS: ANION GAP 14.9 mmol/L (8-16); BLOOD UREA NITROGEN 10 mg/dL (7-26); BUN/CREATININE RATIO 18 (6-25); CALCIUM 9.2 mg/dL (8.4-10.2); CARBON DIOXIDE 24 mmol/L (22-29); CHLORIDE 106 mmol/L (98-107); CREATININE, SERUM 0.56 mg/dL (0.72-1.25); EST GLOMERULAR FILTRATION RATE > 60 ML/MIN (60-); GLUCOSE 83 mg/dL (74-118); POTASSIUM 3.9 mmol/L (3.5-5.1); SODIUM 141 mmol/L (136-145)
[2019-01-20] MEDS: FOLIC ACID PO SCH (09:00)
[2019-01-20] MEDS: [UNRECOGNIZED DRUG - OTHER] PO SCH (09:00)
[2019-01-20] MEDS: FERROUS FUMARATE PO SCH (09:00)
[2019-01-20] MEDS: LACTATED RINGER'S 1,000 ML IV SCH ×3 (09:45→17:02)
[2019-01-20] MEDS: BALSAM PERU/CASTOR OIL 5 GM OINT...G. TP SCH (09:49)
[2019-01-20] MEDS: VALACYCLOVIR HCL 500 MG TAB PO SCH (09:49)
[2019-01-20] MEDS: BISACODYL 5 MG TAB EC PO SCH (09:49)
[2019-01-20] MEDS: SENNA-S TABLET PO SCH (09:49)
[2019-01-20] MEDS: MEGACE 400MG/ 10ML CUP PO SCH (09:49)
[2019-01-20] MEDS: VANCOMYCIN 1GM/NS 250 ML 250 ML IV SCH ×2 (09:49→21:09)
[2019-01-20] MEDS: DOCUSATE SODIUM 100 MG CAP PO SCH ×2 (09:49→17:02)
[2019-01-20] MEDS: BALSAM PERU/CASTOR OIL 60 GM OINT...G. TP SCH (09:49)
[2019-01-20] MEDS: MULTIVITAMINS/MINERALS TAB PO SCH (09:49)
[2019-01-20] MEDS: ASCORBIC ACID 500 MG TAB PO SCH ×2 (09:49→17:02)
[2019-01-20] MEDS: AMLODIPINE BESYLATE 10 MG TAB PO SCH (09:49)
[2019-01-20] MEDS: ZINC SULFATE 220 MG CAP PO SCH (09:49)
[2019-01-20] MEDS ORDERED: SODIUM CHLORIDE 0.9% 250ML 250 ML IV ONE (12:45)
[2019-01-20] MEDS ORDERED: SOD PHOSPHATE/SOD BIPHOSPHATE ENEMA 132 ML BTL PR ONE (14:30)
[2019-01-20] MEDS: ENOXAPARIN SOD INJ 40 MG/0.4 ML SYR SC SCH (15:39)
[2019-01-20] MEDS: TRAZODONE HCL 50 MG TAB PO SCH (21:09)
[2019-01-21] VITALS (7 sets, daily range): BP systolic 102–119; BP diastolic 57–69
--- NOTE | 2019-01-21 02:03 | NUR ---
THE PATIENT IS AAOX3 REPORTS NO PAIN AT THIS TIME. LAYING IN SPECIALTY BED WITH HOB SLIGHTLY ELEVATED. RIGHT UPPER ARM PICC LINE FLUSHES EASILY AND HAS BRISK BLOOD RETURN IN BOTH PORTS. ABDOMEN IS SOFT AND NON DISTENDED. COLOSTOMY BAG FULL AND NEW BAG WAS PLACED. HIS STOMA STILL RED/PINK WITH SCANT SEROSANGUINEOUS DRAINAGE WHEN CLEANING AROUND IT. NO S/S OF INFECTION NOTED. WELLINGTON PATENT, STRAPPED TO LEG AND DRAINING TO GRAVITY BELOW THE BLADDER. PATIENT HAS SOFT BOOTS IN BILATERAL FEET. HEELING AREAS NOTED ON BILATERAL HEELS AND UNDER PINKIE TOES. NO OPEN AREAS. DRESSING TO SACRUM INTACT. PATIENT AWARE OF BEING NPO AFTER MIDNIGHT FOR PROCEDURE. WILL CONTINUE MONITORING. Addendum: 01/21/19 at 0208 by Tara Lucas RN ASSESSMENT DONE ON 01/20/19 @ 1930
[2019-01-21] MEDS: LACTATED RINGER'S 1,000 ML IV SCH ×4 (04:18→22:50)
[2019-01-21] MEDS: MEROPENEM 500MG/ NS 50ML 500 MG in MEROPENEM 500MG/ NS 50ML 50 ML IV SCH ×3 (05:14→23:00)
[2019-01-21] MEDS: PANTOPRAZOLE SOD 40 MG TABEC PO SCH (05:17)
[2019-01-21] MEDS ORDERED: MUPIROCIN 2% OINT 22 GM TUBE ONE (06:29)
--- NOTE | 2019-01-21 06:41 | NUR ---
The patient is laying in bed, AAOx4 . 24hr report and pre-check list for surgery done and placed in chart. Right PICC line was disconnected and LR placed next to patient. Patient confirmed that he had not had anything to eat since last night. OR Staff taking the patient in bed for surgery.
[2019-01-21] MEDS ORDERED: LIDOCAINE 1% W/EPINEPHRINE 20 ML VIAL ONE (07:03)
[2019-01-21] MEDS ORDERED: BACITRACIN 50,000 UNIT VIAL ONE (07:19)
[2019-01-21] MEDS: FERROUS FUMARATE PO SCH (09:00)
[2019-01-21] MEDS: FOLIC ACID PO SCH (09:00)
[2019-01-21] MEDS: [UNRECOGNIZED DRUG - OTHER] PO SCH (09:00)
[2019-01-21] MEDS: BALSAM PERU/CASTOR OIL 60 GM OINT...G. TP SCH (09:00)
--- NOTE | 2019-01-21 10:10 | NUR ---
Patient s/p flap to the sacrum. In the OR, neg pressure therapy per flap protocol applied. Skin draped with NPWT drape to good skin over flap and edwina flap outside suture lines. Suture lines were already covered with Xeroform gauze and Bactroban per surgeon. Off set of track foam to left side. [employer] NPWT machine attatched and set to 80 mmHG continuous therapy. Stomahesive paste used for seal at the gluteal fold to obtain a seal. Good suction to sponge. No leak detected.
--- NOTE | 2019-01-21 13:25 | Operative Report ---
DATE OF PROCEDURE: 01/21/2019 SURGEON: Lewis Duong MD PREOPERATIVE DIAGNOSIS: Stage IV sacral ulcer with possible osteomyelitis. POSTOPERATIVE DIAGNOSIS: Stage IV sacral ulcer with possible osteomyelitis. PROCEDURES: 1. Debridement of sacrum. 2. Muscular cutaneous flap closures, stage IV sacral ulcer. ANESTHESIA: General. HISTORY: The patient is a 68-year-old male with a 10 cm x 8 cm stage IV sacral ulcer secondary to multiple myeloma and paraplegia. The patient underwent limited debridement last week with excision of the ulcer and he presents for definitive closure of the ulcer today. The risks, benefits, and alternatives were discussed with the patient and the family, and they are prepared to undergo the procedure as outlined. PROCEDURE IN DETAIL: The patient was marked preoperatively in the holding area. He was brought to the operating theater. After the induction of adequate general anesthesia, he was then placed in the prone position and prepped and draped, and a time-out was performed. The procedure was begun by first pulse lavaging the wound with antibiotic-containing solution, a total of 3 L was used. At this point, the prominence of the sacrum was taken down using a mallet and an osteotome. The bone was sent for quantitative bone culture to rule out osteomyelitis. Once the wound was clean, the ulcer was excised with a 1 cm margin into a good healthy tissue, the bleeding was controlled using electrocautery. The ulcer appeared to be more left-sided than the right side. Therefore, V to Y musculocutaneous flap based on superior portion of the gluteus viet muscle was marked out. The incision line was then infiltrated with 1% Xylocaine with epinephrine for hemostasis. The incision was made through the skin and subcutaneous tissue. Bleeding was controlled using electrocautery. The incision was deepened through the deep subcutaneous tissue until the gluteus viet muscle was identified. At this point, keeping the dominant vascular supply of the muscle in line, the muscle was then incised using the electrocautery. Once the muscle had been released, it was advanced towards the midline and to the patient's right side without any undue tension. At this point, the flap was inset into the left side of the ulcer wound for securing the muscle with 2-0 Vicryl sutures in an interrupted fashion. Once the muscle had been completely approximated and covered the entire depth of the wound, two 10 flat OTILIO drains were then placed percutaneously and tunneled underneath the muscular layer. They were secured to the skin using 3-0 nylon suture. At this point, the V to Y flap was inset on the deep dermal level using 3-0 Vicryl in an interrupted fashion to approximate the deep dermis. Finally, the skin was inset using 3-0 nylon in an interrupted horizontal mattress fashion. The capillary refill of the transposed flap was noted to be 2 seconds and without significant delay or briskness, and the incision was hemostatic. Bactroban ointment and Xeroform gauze were applied directly to the incision, then a VAC dressing was placed over the flap inset for pressure of 80 mmHg continuous suction. The seal was noted to be satisfactory. At this point, the drains were placed on suction. The patient was made supine onto the [facility] bed. He was returned to recovery room in satisfactory condition. He received 1 unit of packed red blood cells intraoperatively. The estimated blood loss of procedure was approximately 100 mL. The patient tolerated the procedure well and brought to his room in satisfactory condition for further care and treatment. MD FREDDIE Hodges/HUMA /[id number]
[2019-01-21] MEDS: AMLODIPINE BESYLATE 10 MG TAB PO SCH (13:43)
[2019-01-21] MEDS: MEGACE 400MG/ 10ML CUP PO SCH (13:43)
[2019-01-21] MEDS: DOCUSATE SODIUM 100 MG CAP PO SCH ×2 (13:43→17:30)
[2019-01-21] MEDS: BALSAM PERU/CASTOR OIL 5 GM OINT...G. TP SCH (13:43)
[2019-01-21] MEDS: BISACODYL 5 MG TAB EC PO SCH (13:43)
[2019-01-21] MEDS: SENNA-S TABLET PO SCH (13:43)
[2019-01-21] MEDS: VANCOMYCIN 1GM/NS 250 ML 250 ML IV SCH ×2 (13:43→21:33)
[2019-01-21] MEDS: ASCORBIC ACID 500 MG TAB PO SCH ×2 (13:43→17:30)
[2019-01-21] MEDS: MULTIVITAMINS/MINERALS TAB PO SCH (13:43)
[2019-01-21] MEDS: ZINC SULFATE 220 MG CAP PO SCH (13:43)
[2019-01-21] MEDS: ENOXAPARIN SOD INJ 40 MG/0.4 ML SYR SC SCH (17:30)
[2019-01-21] MEDS ORDERED: FENTANYL CITRATE/PF 100MCG/2 ML INJ ONE (18:09)
[2019-01-21] MEDS ORDERED: MIDAZOLAM HCL 2 MG/2 ML VIAL ONE (18:09)
[2019-01-21] MEDS ORDERED: ONDANSETRON HCL INJ 2MG/ML 2ML 2 MG/ML VIAL ONE (18:34)
[2019-01-21] MEDS ORDERED: DEXAMETHASONE SOD PHOS INJ 4 MG/ML VIAL ONE (18:34)
[2019-01-21] MEDS ORDERED: LIDOCAINE HCL 2% LOCAL INJ 5 ML SDV VIAL INJ ONE (18:34)
[2019-01-21] MEDS ORDERED: PROPOFOL IV EMULSION 10 MG/ML 20 ML VIAL ONE (18:34)
[2019-01-21] MEDS ORDERED: SEVOFLURANE INHAL SOLN 250 ML PEN BTL ONE (18:34)
--- NOTE | 2019-01-21 19:18 | NUR ---
WALKING ROUNDS PERFORMED, RECEIVED PT LAYING SEMI FOWLERS IN BED, AAOX3, RR EVEN AND NON-LABORED, ON ROOM AIR. NO S/SX OF DISTRESS NOTED. (L) LOWER ABDOMEN COLOSTOMY NOTED TO BE DRAINING SEMI SOLID STOOL. LEFT PT LAYING SEMI FOWLERS IN BED, BED IN LOW LOCKED POSITION, SIDE RAILS UPX2, CALL LIGHT AND PHONE WITHIN REACH.
--- NOTE | 2019-01-21 20:28 | NUR ---
SPOKE WITH MD Yareli DE SOUZA CONCERNING VANCOMYCIN TROUGH. NEW ORDER RECEIVED FOR VANC TROUGH AND TO HOLD VANCOMYCIN IF VANC TROUGH HIGHER THAN 20.
[2019-01-21] MEDS: TRAZODONE HCL 50 MG TAB PO SCH (21:33)
[2019-01-22] VITALS (8 sets, daily range): BP systolic 104–137; BP diastolic 58–71
[2019-01-22] MEDS: MEROPENEM 500MG/ NS 50ML 500 MG in MEROPENEM 500MG/ NS 50ML 50 ML IV SCH ×3 (06:01→21:59)
[2019-01-22] MEDS: PANTOPRAZOLE SOD 40 MG TABEC PO SCH (06:01)
[2019-01-22] MEDS: BALSAM PERU/CASTOR OIL 5 GM OINT...G. TP SCH (06:03)
[2019-01-22] MEDS: [UNRECOGNIZED DRUG - OTHER] PO SCH (09:00)
[2019-01-22] MEDS: FERROUS FUMARATE PO SCH (09:00)
[2019-01-22] MEDS: FOLIC ACID PO SCH (09:00)
[2019-01-22] MEDS: BALSAM PERU/CASTOR OIL 60 GM OINT...G. TP SCH (09:00)
[2019-01-22] MEDS: VANCOMYCIN 1GM/NS 250 ML 250 ML IV SCH ×2 (09:21→22:30)
[2019-01-22] MEDS: MEGACE 400MG/ 10ML CUP PO SCH (09:21)
[2019-01-22] MEDS: DOCUSATE SODIUM 100 MG CAP PO SCH ×2 (09:21→17:41)
[2019-01-22] MEDS: BISACODYL 5 MG TAB EC PO SCH (09:21)
[2019-01-22] MEDS: ZINC SULFATE 220 MG CAP PO SCH (09:22)
[2019-01-22] MEDS: ASCORBIC ACID 500 MG TAB PO SCH ×2 (09:22→17:41)
[2019-01-22] MEDS: MULTIVITAMINS/MINERALS TAB PO SCH (09:22)
[2019-01-22] MEDS: LACTATED RINGER'S 1,000 ML IV SCH ×2 (09:22→17:06)
[2019-01-22] MEDS: SENNA-S TABLET PO SCH (09:22)
[2019-01-22] MEDS: AMLODIPINE BESYLATE 10 MG TAB PO SCH (09:26)
[2019-01-22 12:27] LABS: BASOPHILS % 0.2 % (0.0-1.0); EOSINOPHILS # (AUTO) 0.3 (0.0-0.4); EOSINOPHILS % 2.9 % (0.0-6.0); HEMATOCRIT 24.4 % (38.2-49.6); HEMOGLOBIN 8.1 g/dL (14.0-18.0); LYMPHOCYTES # (AUTO) 1.2 (1.0-3.2); LYMPHOCYTES % 13.8 % (18.0-39.1); MEAN CORPUSCULAR HEMOGLOBIN 24.4 pg (28-32); MEAN CORPUSCULAR HGB CONC 33.2 g/dL (31-35); MEAN CORPUSCULAR VOLUME 73.5 fL (81-99); MONOCYTES # (AUTO) 0.6 (0.2-0.8); MONOCYTES % 7.1 % (4.4-11.3); NEUTROPHILS # (AUTO) 6.4 (2.1-6.9); NEUTROPHILS % 75.4 % (38.7-80.0); PLATELET COUNT 238 x10e3/uL (140-360); RED BLOOD COUNT 3.32 x10e6/uL (4.3-5.7); RED CELL DISTRIBUTION WIDTH 21.4 % (11.7-14.4)
[2019-01-22 12:39] LABS: BLOOD UREA NITROGEN 14 mg/dL (7-26); BUN/CREATININE RATIO 23 (6-25); CALCIUM 9.3 mg/dL (8.4-10.2); CARBON DIOXIDE 25 mmol/L (22-29); CHLORIDE 101 mmol/L (98-107); EST GLOMERULAR FILTRATION RATE > 60 ML/MIN (60-); GLUCOSE 105 mg/dL (74-118); SODIUM 137 mmol/L (136-145)
[2019-01-22] MEDS: ENOXAPARIN SOD INJ 40 MG/0.4 ML SYR SC SCH (17:41)
[2019-01-22] MEDS: TRAZODONE HCL 50 MG TAB PO SCH (21:59)
[2019-01-23] VITALS (8 sets, daily range): BP systolic 106–145; BP diastolic 56–65
[2019-01-23] MEDS: LACTATED RINGER'S 1,000 ML IV SCH ×4 (04:55→21:54)
[2019-01-23 05:20] LABS: BASOPHILS % 0.3 % (0.0-1.0); EOSINOPHILS # (AUTO) 0.4 (0.0-0.4); EOSINOPHILS % 5.9 % (0.0-6.0); LYMPHOCYTES # (AUTO) 1.2 (1.0-3.2); MEAN CORPUSCULAR HEMOGLOBIN 23.7 pg (28-32); MEAN CORPUSCULAR VOLUME 74.2 fL (81-99); MONOCYTES # (AUTO) 0.5 (0.2-0.8); MONOCYTES % 8.5 % (4.4-11.3); NEUTROPHILS % 64.6 % (38.7-80.0); PLATELET COUNT 237 x10e3/uL (140-360); RED BLOOD COUNT 3.37 x10e6/uL (4.3-5.7); RED CELL DISTRIBUTION WIDTH 21.4 % (11.7-14.4)
[2019-01-23 05:24] LABS: ANION GAP 14.8 mmol/L (8-16); BLOOD UREA NITROGEN 19 mg/dL (7-26); BUN/CREATININE RATIO 32 (6-25); CALCIUM 9.1 mg/dL (8.4-10.2); CARBON DIOXIDE 24 mmol/L (22-29); CHLORIDE 103 mmol/L (98-107); CREATININE, SERUM 0.59 mg/dL (0.72-1.25); EST GLOMERULAR FILTRATION RATE > 60 ML/MIN (60-); GLUCOSE 120 mg/dL (74-118); POTASSIUM 3.8 mmol/L (3.5-5.1); SODIUM 138 mmol/L (136-145)
[2019-01-23] MEDS: MEROPENEM 500MG/ NS 50ML 500 MG in MEROPENEM 500MG/ NS 50ML 50 ML IV SCH ×3 (06:00→21:54)
[2019-01-23] MEDS: FOLIC ACID PO SCH (09:00)
[2019-01-23] MEDS: [UNRECOGNIZED DRUG - OTHER] PO SCH (09:00)
[2019-01-23] MEDS: FERROUS FUMARATE PO SCH (09:00)
[2019-01-23] MEDS: BALSAM PERU/CASTOR OIL 60 GM OINT...G. TP SCH (09:00)
[2019-01-23] MEDS: SENNA-S TABLET PO SCH (09:35)
[2019-01-23] MEDS: BISACODYL 5 MG TAB EC PO SCH (09:35)
[2019-01-23] MEDS: PANTOPRAZOLE SOD 40 MG TABEC PO SCH (09:35)
[2019-01-23] MEDS: DOCUSATE SODIUM 100 MG CAP PO SCH ×2 (09:35→17:27)
[2019-01-23] MEDS: VANCOMYCIN 1GM/NS 250 ML 250 ML IV SCH ×2 (09:35→22:15)
[2019-01-23] MEDS: MULTIVITAMINS/MINERALS TAB PO SCH (09:35)
[2019-01-23] MEDS: ZINC SULFATE 220 MG CAP PO SCH (09:35)
[2019-01-23] MEDS: MEGACE 400MG/ 10ML CUP PO SCH (09:35)
[2019-01-23] MEDS: AMLODIPINE BESYLATE 10 MG TAB PO SCH (09:36)
[2019-01-23] MEDS: BALSAM PERU/CASTOR OIL 5 GM OINT...G. TP SCH (09:36)
[2019-01-23] MEDS: ASCORBIC ACID 500 MG TAB PO SCH ×2 (09:36→17:27)
--- NOTE | 2019-01-23 11:42 | NUR ---
WOUND CARE TREATMENT NOTE: WOUND VAC CHANGED TO SACRAL FLAP S/P SUNDAY SURGERY BY DR. BERUMEN. POST SURGICAL MEASUREMENTS ARE 38I59O1.1CM, SUTURES INTACT, NO DRAINAGE NOTED TO INCISION LINES. WOUND VAC CHANGED PER FLAP PROTOCOL; CLEANED INCISION LINES WITH NS AND PAT DRY, THEN APPLIED VAC DRAPE TO PROTECT THE SKIN, APPLIED XEROFORM TO INCISION; THEN COVERED WITH BLACK FOAM AND NPWT APPLIED AT 80mmHg CONT SUCTION; DR. BERUMEN NOTIFIED OF APPEARANCE OF FLAP INCISION. NO NEW ORDERS AT THIS TIME. Addendum: 01/23/19 at 1148 by Susana Leal RN Amended: Links added. Addendum: 01/23/19 at 1150 by Susana Leal RN (LATE ENTRY) PATIENT PLACED PRONE FOR POSITIONING TO PERFORM WOUND VAC DRESSING CHANGE PER DR. BERUMEN.
--- NOTE | 2019-01-23 13:00 | NUR ---
CM SPOKE TO PATIENT AT BEDSIDE REGARDING DISCHARGE PLAN. PATIENT AWARE OF NURSING HOME ACUTE CARE PLACEMENT. PATIENT GIVEN CHOICES OF ACADEMIC DIRECTOR ACUTE CARE PLACEMENTS. PATIENT SIGNED CHOICE TO RETURN TO [facility]. DOLORES LIATEE BANDA NOTIFIED AND PICKING UP CLINICAL. PENDING INSURANCE AUTH AND BED FOR TRANSFER. [facility] Address: [address], [place] [address] MOT INITIATED. PENDING AUTH AND BED ASSIGNMENT FOR TRANSFER Addendum: 01/23/19 at 1555 by Catie Ocampo CM CM SPOKE TO [facility] LIAISON SOLO VILLASEÑOR. PATIENT WILL BE NEEDING [facility] AT [facility]. SHE STATES SHE HAS A BED WITH THE SAME CAPABILITIES BUT DIFFERENT BRAND. EVER INFORMS LIAISON THAT DR. BERUMEN MADE IT CLEAR THAT HE IS TO HAVE SPECIALTY BED SET UP PRIOR TO TRANSFER DUE TO RECENT FLAP.
[2019-01-23] MEDS: TRAZODONE HCL 50 MG TAB PO SCH (21:54)
[2019-01-24] VITALS (7 sets, daily range): BP systolic 108–120; BP diastolic 58–68
[2019-01-24] MEDS: PANTOPRAZOLE SOD 40 MG TABEC PO SCH (06:17)
--- NOTE | 2019-01-24 07:00 | NUR ---
BEDSIDE SHIFT REPORT RECEIVED FROM THE [employer] RN. PT DENIES NEEDS AT THIS TIME.
[2019-01-24] MEDS: BALSAM PERU/CASTOR OIL 60 GM OINT...G. TP SCH (09:00)
[2019-01-24] MEDS: FOLIC ACID PO SCH (09:00)
[2019-01-24] MEDS: FERROUS FUMARATE PO SCH (09:00)
[2019-01-24] MEDS: [UNRECOGNIZED DRUG - OTHER] PO SCH (09:00)
[2019-01-24] MEDS: DOCUSATE SODIUM 100 MG CAP PO SCH ×2 (09:30→17:27)
[2019-01-24] MEDS: BISACODYL 5 MG TAB EC PO SCH (09:30)
[2019-01-24] MEDS: ZINC SULFATE 220 MG CAP PO SCH (09:30)
[2019-01-24] MEDS: MEGACE 400MG/ 10ML CUP PO SCH (09:30)
[2019-01-24] MEDS: AMLODIPINE BESYLATE 10 MG TAB PO SCH (09:30)
[2019-01-24] MEDS: MULTIVITAMINS/MINERALS TAB PO SCH (09:30)
[2019-01-24] MEDS: ASCORBIC ACID 500 MG TAB PO SCH ×2 (09:30→17:27)
[2019-01-24] MEDS: BALSAM PERU/CASTOR OIL 5 GM OINT...G. TP SCH (09:30)
[2019-01-24] MEDS: SENNA-S TABLET PO SCH (09:30)
[2019-01-24] MEDS: LACTATED RINGER'S 1,000 ML IV SCH ×2 (09:45→15:11)
--- NOTE | 2019-01-24 17:16 | NUR ---
PT STILL PENDING [facility] EVAL, BED HAS TO BE IN PLACE PRIOR TO DISCHARGE PER MD NOTE.
--- NOTE | 2019-01-24 17:19 | NUR ---
PAGED DR. RICHARDSON REGARDING ANTIBIOTICS.
--- NOTE | 2019-01-24 17:44 | NUR ---
RENEW THE ANTIBIOTICS MEROPENEM AND VANCOMYCIN FOR [address] RICHARDSON. INFORMED PHARMACY THE SAME.
[2019-01-24] MEDS: MEROPENEM 500MG/ NS 50ML 50 ML IV SCH (18:02)
--- NOTE | 2019-01-24 19:00 | NUR ---
BEDSIDE SHIFT REPORT GIVEN TO THE RN CARDIOLOGY RN. PT DENIED FURTHER NEEDS.
--- NOTE | 2019-01-24 19:30 | NUR ---
Pt visited in room during nursing rounds. Patient alert and oriented x3. Pt lying on air mattress on a specialty (bariatric) bed. Pt has stage 4 sacral ulcer and being treated with wound vac. Allevyn dressing (C/D/I) to right heel wound. Colostomy on lower abdomen with soft brown stool output. Two OTILIO drains (RLQ and LLQ) draining serosanguinous fluid. Gonzales catheter in place. Pt is paraplegic (bilateral lower extremities paralyzed). Pt on IVF (LR at 125ml/hr) and on scheduled IV antibiotics. Call cesar within reach. Will monitor closely.
[2019-01-24] MEDS: VANCOMYCIN 1GM/NS 250 ML 250 ML IV SCH (21:00)
[2019-01-24] MEDS: TRAZODONE HCL 50 MG TAB PO SCH (22:00)
[2019-01-25] VITALS (7 sets, daily range): BP systolic 107–119; BP diastolic 58–65
[2019-01-25] MEDS: MEROPENEM 500MG/ NS 50ML 50 ML IV SCH ×3 (02:55→19:50)
[2019-01-25] MEDS: LACTATED RINGER'S 1,000 ML IV SCH (03:00)
[2019-01-25] MEDS: PANTOPRAZOLE SOD 40 MG TABEC PO SCH (06:00)
--- NOTE | 2019-01-25 07:30 | NUR ---
REC'D PT SLEEPING WITH NO S/S OF DISTRESS. CHEST RISING UP AND DOWN EFFORTLESSLY. WOUND VAC IN SACRUM, RIGHT UA PICC LINE INTACT AND PATENT, COLOSTOMY BAG TO LLQ, OTILIO DRAINS ON RLQ AND LLQ, AND WELLINGTON IN PLACE. SIDE RAILS UP X3, BED IN LOWEST POSITION, AND CALL CASTILLO WITHIN REACH.
[2019-01-25] MEDS: FERROUS FUMARATE PO SCH (09:00)
[2019-01-25] MEDS: [UNRECOGNIZED DRUG - OTHER] PO SCH (09:00)
[2019-01-25] MEDS: FOLIC ACID PO SCH (09:00)
[2019-01-25] MEDS: BISACODYL 5 MG TAB EC PO SCH (09:05)
[2019-01-25] MEDS: DOCUSATE SODIUM 100 MG CAP PO SCH ×2 (09:05→17:13)
[2019-01-25] MEDS: MULTIVITAMINS/MINERALS TAB PO SCH (09:05)
[2019-01-25] MEDS: ZINC SULFATE 220 MG CAP PO SCH (09:05)
[2019-01-25] MEDS: MEGACE 400MG/ 10ML CUP PO SCH (09:05)
[2019-01-25] MEDS: ASCORBIC ACID 500 MG TAB PO SCH ×2 (09:05→17:13)
[2019-01-25] MEDS: SENNA-S TABLET PO SCH (09:08)
[2019-01-25] MEDS: AMLODIPINE BESYLATE 10 MG TAB PO SCH (09:08)
[2019-01-25] MEDS: VANCOMYCIN 1GM/NS 250 ML 250 ML IV SCH ×2 (10:11→21:00)
[2019-01-25] MEDS: BALSAM PERU/CASTOR OIL 60 GM OINT...G. TP SCH (10:11)
[2019-01-25] MEDS: BALSAM PERU/CASTOR OIL 5 GM OINT...G. TP SCH (10:12)
--- NOTE | 2019-01-25 11:07 | NUR ---
PT ACCEPTED TO [facility] CALL REPORT TO [phone] ROOM 223 BED IS ORDERED AND WILL BE AVAILABLE TO PT SOON DELIVERED TODAY. GAVE INFORMATION TO NURSE.
--- NOTE | 2019-01-25 12:00 | NUR ---
[facility] ELMORE NOTIFIED THAT PATIENT CANNOT BE TRANSFERRED OVER TO THEIR FACILITY UNTIL THE SPECIAL BED ARRIVES. STAFF SAID THEY WILL CALL BACK WHEN BED ARRIVES. NOTIFIED CHARGE NURSE AND IGNITION EXPERT.
--- NOTE | 2019-01-25 17:54 | NUR ---
PT RESTING IN BED QUIETLY. WELLINGTON IN PLACE, COLOSTOMY BAG INTACT, WOUND VAC INTACT. NO S/S OF DISTRESS. BED IN LOWEST POSITION, SIDE RAILS UP X3, AND CALL CASTILLO WITHIN REACH.
--- NOTE | 2019-01-25 19:30 | NUR ---
Pt visited in room during nursing rounds. Patient alert and oriented x3. Pt lying on air mattress on a specialty (bariatric) bed. Pt has stage 4 sacral ulcer and being treated with wound vac. Allevyn dressing (C/D/I) to right heel wound. Colostomy on lower abdomen with soft brown stool output. Two OTILIO drains (RLQ and LLQ) draining serosanguinous fluid. Gonzales catheter in place. Pt is paraplegic (bilateral lower extremities paralyzed). Pt on scheduled IV antibiotics. Call cesar within reach. Will monitor closely.
[2019-01-25] MEDS ORDERED: SODIUM CHLORIDE 0.9% 250ML 250 ML ONE (19:45)
[2019-01-25] MEDS: TRAZODONE HCL 50 MG TAB PO SCH (21:00)
[2019-01-26 00:34] VITALS: BP 118/60
[2019-01-26] MEDS: MEROPENEM 500MG/ NS 50ML 50 ML IV SCH ×2 (03:00→11:30)
[2019-01-26 05:15] VITALS: BP 123/66
[2019-01-26] MEDS: PANTOPRAZOLE SOD 40 MG TABEC PO SCH (06:52)
[2019-01-26 06:58] LABS: BASOPHILS % 0.4 % (0.0-1.0); EOSINOPHILS # (AUTO) 0.4 (0.0-0.4); EOSINOPHILS % 8.4 % (0.0-6.0); HEMATOCRIT 25.4 % (38.2-49.6); HEMOGLOBIN 8.1 g/dL (14.0-18.0); LYMPHOCYTES # (AUTO) 1.1 (1.0-3.2); MEAN CORPUSCULAR HEMOGLOBIN 23.3 pg (28-32); MEAN CORPUSCULAR HGB CONC 31.9 g/dL (31-35); MONOCYTES # (AUTO) 0.5 (0.2-0.8); MONOCYTES % 9.5 % (4.4-11.3); NEUTROPHILS # (AUTO) 2.7 (2.1-6.9); NEUTROPHILS % 57.3 % (38.7-80.0); PLATELET COUNT 276 x10e3/uL (140-360); RED BLOOD COUNT 3.48 x10e6/uL (4.3-5.7); RED CELL DISTRIBUTION WIDTH 21.2 % (11.7-14.4)
[2019-01-26 07:19] LABS: ALANINE AMINOTRANSFERASE 11 IU/L (0-55); ALBUMIN/GLOBULIN RATIO 0.3 (0.8-2.0); ALKALINE PHOSPHATASE 63 IU/L (40-150); ANION GAP 17.5 mmol/L (8-16); BLOOD UREA NITROGEN 15 mg/dL (7-26); BUN/CREATININE RATIO 24 (6-25); CALCIUM 9.9 mg/dL (8.4-10.2); CARBON DIOXIDE 24 mmol/L (22-29); CHLORIDE 105 mmol/L (98-107); CREATININE, SERUM 0.62 mg/dL (0.72-1.25); EST GLOMERULAR FILTRATION RATE > 60 ML/MIN (60-); GLUCOSE 78 mg/dL (74-118); POTASSIUM 4.5 mmol/L (3.5-5.1); SODIUM 142 mmol/L (136-145)
[2019-01-26 07:30] VITALS: BP 127/61
--- NOTE | 2019-01-26 07:30 | NUR ---
REC'D PT AAOX3, LAYING ON SPECIAL MATTRESS. PICC LINE TO THE RIGHT UPPER ARM INTACT AND PATENT. WOUND VAC INTACT, COLOSTOMY BAG INTACT, AND WELLINGTON CATHETER IN PLACE. SIDE RAILS UP3, BED IN LOWEST POSITION, AND CALL CASTILLO WITHIN REACH.
[2019-01-26 07:35] VITALS: BP 127/61
[2019-01-26] MEDS: [UNRECOGNIZED DRUG - OTHER] PO SCH (09:00)
[2019-01-26] MEDS: FERROUS FUMARATE PO SCH (09:00)
[2019-01-26] MEDS: FOLIC ACID PO SCH (09:00)
[2019-01-26] MEDS: VANCOMYCIN 1GM/NS 250 ML 250 ML IV SCH (09:17)
[2019-01-26] MEDS: MULTIVITAMINS/MINERALS TAB PO SCH (09:18)
[2019-01-26] MEDS: DOCUSATE SODIUM 100 MG CAP PO SCH ×2 (09:18→17:44)
[2019-01-26] MEDS: BISACODYL 5 MG TAB EC PO SCH (09:18)
[2019-01-26] MEDS: MEGACE 400MG/ 10ML CUP PO SCH (09:18)
[2019-01-26] MEDS: SENNA-S TABLET PO SCH (09:18)
[2019-01-26] MEDS: AMLODIPINE BESYLATE 10 MG TAB PO SCH (09:19)
[2019-01-26] MEDS: ASCORBIC ACID 500 MG TAB PO SCH ×2 (09:19→17:44)
[2019-01-26] MEDS: ZINC SULFATE 220 MG CAP PO SCH (09:19)
[2019-01-26] MEDS: BALSAM PERU/CASTOR OIL 60 GM OINT...G. TP SCH (09:20)
[2019-01-26] MEDS: BALSAM PERU/CASTOR OIL 5 GM OINT...G. TP SCH (09:20)
--- NOTE | 2019-01-26 11:04 | NUR ---
CALLED DR. RODRIGUEZ TO INFORM THAT [facility] HAS THE SPECIAL BED READY FOR PATIENT. DR. RODRIGUEZ SAID HE COULD BE TRANSFERED. ORDER HAS BEEN PLACED. Addendum: 01/26/19 at 1126 by HEDY PEÑA RN DR. RODRIGUEZ ALSO SAID TO CON'T ALL HIS MEDICATIONS AT [facility].
[2019-01-26 11:35] VITALS: BP 113/58
--- NOTE | 2019-01-26 11:36 | NUR ---
Dictated DC summary: [id number]
--- NOTE | 2019-01-26 12:11 | Discharge Summary ---
ADMIT DIAGNOSES: 1. Stage IV sacral decubitus ulcer. 2. Paraplegia secondary to multiple myeloma. 3. Multiple myeloma. 4. Severe protein calorie malnutrition. 5. Anemia secondary to chronic disease. DISCHARGE DIAGNOSES: 1. Status post laparoscopic sigmoid resection with diverting colostomy placement. 2. Status post sacral ulcer excision in preparation for flap closure. 3. Status post sacral debridement with muscular cutaneous flap closure of stage IV sacral decubitus ulcer. 4. Paraplegia secondary to multiple myeloma. 5. Multiple myeloma. 6. Anemia secondary to chronic disease. 7. Severe protein calorie malnutrition. HOSPITAL COURSE: This is a 68-year-old white man, who was initially admitted to [facility] with diagnosis of stage IV sacral decubitus ulcer. This gentleman has this sacral wound because of his paraplegia, which stems from his multiple myeloma. During this hospitalization, he was also found to have findings consistent with severe protein calorie malnutrition as well as anemia secondary to chronic disease. During this hospitalization, patient was seen by a plastic surgeon, namely Dr. Lewis Duong, who performed successful laparoscopic sigmoid resection with diverting colostomy placement. This procedure was performed to keep the sacral wound clean from any possible stool contamination. During this hospital stay, the same plastic surgeon, namely Dr. Lewis Duong initially performed sacral ulcer excision in preparation for flap closure. Five days later on January 21, 2019, the plastic surgeon performed a sacral wound debridement with muscular cutaneous flap closure. The patient tolerated this procedure quite well. The patient was placed on a special air mattress after the surgery. The decision was made to transfer patient to a long-term acute care facility namely [facility], where he could receive intravenous antibiotics as well as daily physician management and close observation of his recent sacral wound flap closure. On day of discharge, the patient's BUN and creatinine 15 and 0.62 respectively. Also on day of discharge, albumin was 2.0 g/dL. On day of discharge, hemoglobin was 8.1 g/dL. Also on day of discharge, white blood cell count was 4700 with 57% segmenters. CONDITION ON TRANSFER: Stable. DISCHARGE MEDICATIONS: 1. Zinc sulfate 220 mg daily. 2. Vitamin C 500 mg b.i.d. 3. Amlodipine 10 mg daily. 4. Senokot once daily. 5. Multivitamin daily. 6. Megace 400 mg daily. 7. Colace 100 mg b.i.d. 8. Bisacodyl 10 mg daily. 9. Vancomycin 1 g intravenous every 12 hours. 10. Pantoprazole 40 mg daily. 11. Meropenem 1 g q.8 hours. 12. Trazodone 100 mg at bedtime. 13. Baclofen 10 mg q.8 hours p.r.n. spasms. FOLLOWUP INSTRUCTIONS: As previously stated, the patient will be transferred to a local long-term acute care facility namely [facility], where he will be under the care of Dr. Reece Kimball. Now resolved correctly. MD ROCHELLE Villa/HUMA /[id number] cc: MD Reece Hodges MD MTDD
[2019-01-26 15:44] VITALS: BP 116/76
--- NOTE | 2019-01-26 18:44 | NUR ---
PT IS RESTING IN BED WITH NO S/S OF DISTRESS. BROTHER AT BEDSIDE. SIDE RAILS UP X3, CALL CASTILLO WITHIN REACH, AND BED IN LOWEST POSITION.
--- NOTE | 2019-01-26 19:15 | NUR ---
PT TRANSFERED TO [facility]. RIGHT UPPER ARM PICC LINE INTACT AND PATENT, COLOSTOMY BAG CLEAN, AND WELLINGTON IN PLACE. NO S/S OF DISTRESS. EMS PICKED UP PATIENT.
== END 2019-01-26 19:15 | DRG 579 ==
LOC: MED/SURG2 21:15
PROC: 0D1N4Z4 Bypass Sigmoid Colon to Cutaneous, Percutaneous Endoscopic Approach (ICD-10-PCS; principal; 2019-01-15 07:00)
PROC: 0KBP0ZZ Excision of Left Hip Muscle, Open Approach (ICD-10-PCS; 2019-01-16)
PROC: 0KBN0ZZ Excision of Right Hip Muscle, Open Approach (ICD-10-PCS; 2019-01-16)
PROC: 0QB10ZZ Excision of Sacrum, Open Approach (ICD-10-PCS; 2019-01-21)
PROC: 0KU Muscles, Supplement (ICD-10-PCS; 2019-01-21)
PROC: 30233N1 Transfusion of Nonautologous Red Blood Cells into Peripheral Vein, Percutaneous Approach (ICD-10-PCS; 2019-01-21)
DX: L89.154 Pressure ulcer of sacral region, stage 4 (principal); E43 Unspecified severe protein-calorie malnutrition; C90.00 Multiple myeloma not having achieved remission; G82.20 Paraplegia, unspecified; K57.32 Diverticulitis of large intestine without perforation or abscess without bleeding; M86.8X8 Other osteomyelitis, other site; R15.9 Full incontinence of feces; D63.8 Anemia in other chronic diseases classified elsewhere; I10 Essential (primary) hypertension; K59.00 Constipation, unspecified; B96.4 Proteus (mirabilis) (morganii) as the cause of diseases classified elsewhere; Z68.23 Body mass index [BMI] 23.0-23.9, adult
CPT/HCPCS: 36415; 80048; 80053; 80202; 82948; 85025; 86850; 86870; 86880; 86900; 86905; 86920; 86922; 87071; 87075; 87186; 87205; 88304; 88305; 88307; 88311; 93005; 97606; 99001; J1100; J1650; J2001; J2185; J2250; J2270; J2405; J2997; J3010; J3370; J7050; J7121; P9016; Q0162

== ENCOUNTER 2020-02-01 12:44 | Inpatient (IN) | payer MEDICARE, OTHER ==
[~2020-02-01] VITALS: Ht 175.3 cm; Wt 75.6 kg
[~2020-02-01 12:44] MED LIST changes: +AMLODIPINE BESY10 MG PO; +ASCORBIC ACID500 MG PO; +BACLOFEN10 MG PO; +BISACODYL5 MG PO; +BISACODYL5 MG PR; +DOCUSATE SODIU100 MG PO; +DULCOLAX SUPP10 MG RC; +ENOXAPARIN40 MG/0.4 SC; +FERROUS FUMARA324 MG PO; +FLEET ENEMA133 ML PR; +HEMATINIC-FOLI1 EACH PO; +LACTULOSE20 GM/30 M PO; +MEGESTROL400 MG/10 PO; +MEROPENEM500 MG IV; -MIDAZOLAM HCL 2 MG/2 ML VIAL ONE; +MULTI-VITAMIN1 EACH PO; +ONDANSETRON ODT8 MG PO; +PANTOPRAZOLE SO40 MG PO; +PROCHLORPERAZIN10 MG PO; +SENNA-DOCUSATE1 EACH PO; +TRAZODONE HCL50 MG PO; +VALACYCLOVIR500 MG PO; +VANCOMYCIN HCL1 GM IV; +VENELEX OINTMEN60 GM TOP; +ZINC SULFATE220 M1 PO
[2020-02-01] MEDS ORDERED: SODIUM CHLORIDE 0.9% 1000ML 1,000 ML IV STA (13:21)
[2020-02-01] MEDS ORDERED: VANCOMYCIN 1GM/NS 250 ML 250 ML IV ONE (13:30)
[2020-02-01 14:01] LABS: BASOPHILS % 0.5 % (0.0-1.0); EOSINOPHILS # (AUTO) 0.1 (0.0-0.4); EOSINOPHILS % 2.6 % (0.0-6.0); LYMPHOCYTES # (AUTO) 0.9 (1.0-3.2); LYMPHOCYTES % 22.9 % (18.0-39.1); MEAN CORPUSCULAR HEMOGLOBIN 22.5 pg (28-32); MEAN CORPUSCULAR HGB CONC 30.8 g/dL (31-35); MEAN CORPUSCULAR VOLUME 72.8 fL (81-99); MONOCYTES # (AUTO) 0.5 (0.2-0.8); MONOCYTES % 11.6 % (4.4-11.3); NEUTROPHILS # (AUTO) 2.4 (2.1-6.9); NEUTROPHILS % 61.9 % (38.7-80.0); PLATELET COUNT 147 x10e3/uL (140-360); RED CELL DISTRIBUTION WIDTH 19.4 % (11.7-14.4)
[2020-02-01 14:21] LABS: HEMOGLOBIN 6.2 g/dL (14.0-18.0)
[2020-02-01] MEDS: PIPER-TAZ 3.375 GM 50 ML IV SCH ×2 (14:21→18:00)
[2020-02-01 14:22] LABS: HEMATOCRIT 20.1 % (38.2-49.6); INR 1.37; PROTHROMBIN TIME 17.7 seconds (11.9-14.5); RED BLOOD COUNT 2.76 x10e6/uL (4.3-5.7)
[2020-02-01 14:23] LABS: PARTIAL THROMBOPLASTIN TIME 52.6 seconds (23.8-35.5)
[2020-02-01 14:32] LABS: CLARITY,URINE CLEAR (CLEAR); COLOR,URINE YELLOW (YELLOW); LEUKOCYTE ESTERASE ,URINE SMALL (NEGATIVE)
[2020-02-01 14:33] LABS: BILIRUBIN,URINE NEGATIVE (NEGATIVE); KETONES,URINE NEGATIVE (NEGATIVE); NITRITE,URINE POSITIVE (NEGATIVE); PROTEIN,URINE DIPSTICK >=300 (NEGATIVE); URINE UROBILINOGEN 0.2 mg/dL (0.2 - 1)
[2020-02-01 14:34] LABS: ALANINE AMINOTRANSFERASE 6 IU/L (0-55); ALBUMIN 1.9 g/dL (3.5-5.0); ALBUMIN/GLOBULIN RATIO 0.2 (0.8-2.0); ALKALINE PHOSPHATASE 34 IU/L (40-150); ANION GAP 19.3 mmol/L (8-16); BLOOD UREA NITROGEN 32 mg/dL (7-26); BUN/CREATININE RATIO 24 (6-25); CALCIUM 9.9 mg/dL (8.4-10.2); CARBON DIOXIDE 19 mmol/L (22-29); CHLORIDE 107 mmol/L (98-107); CREATINE KINASE 78 IU/L (30-200); CREATININE, SERUM 1.36 mg/dL (0.72-1.25); EST GLOMERULAR FILTRATION RATE 52 ML/MIN (60-); GLUCOSE 141 mg/dL (74-118); POTASSIUM 4.3 mmol/L (3.5-5.1); SODIUM 141 mmol/L (136-145)
[2020-02-01 14:39] LABS: BACTERIA,URINE MODERATE /HPF; EPITHELIAL CELLS,URINE FEW /LPF; RBC,URINE 21-50 /HPF (0-5); WBC,URINE (MAN) 21-50 /HPF (0-5)
--- NOTE | 2020-02-01 15:26 | Diagnostic Imaging Report ---
EXAMINATION: CHEST SINGLE (PORTABLE) INDICATION: SACRAL PRESSURE ULCERS COMPARISON: None FINDINGS: AP view TUBES and LINES: None. . LUNGS/PLEURA: Lungs are well inflated. There are bilateral patchy opacities. There is no pleural effusion or pneumothorax. HEART AND MEDIASTINUM: The cardiomediastinal silhouette is unremarkable. BONES AND SOFT TISSUES: No acute osseous lesion. Soft tissues are unremarkable. UPPER ABDOMEN: No free air under the diaphragm. IMPRESSION: Bilateral patchy opacities could represent multifocal pneumonia or edema. Signed by: Shun Boyd MD on 02/01/2020 3:23 PM
[2020-02-01] MEDS ORDERED: MORPHINE SULFATE 2 MG/ML SYR 1ML IV PRN (15:45)
--- NOTE | 2020-02-01 16:02 | Emergency Department Note ---
History of Present Illnes History of Present Illness Chief Complaint: General Medicine Complaints History of Present Illness This is a 69 year old male wounds to his lower back and his wound care nurse told him it looked infected, draining foul-smelling purulent discharge Historian: Patient Arrival Mode: Acadian Additional Treatment PODIATRY TEACHER: n/a Pesticide Applicator Required: No Onset (how long ago): day(s) Location: sacrum & buttocks Quality: discharge Radiation: Reports non-radiation Severity: moderate Onset quality: gradual Timing of current episode: constant Progression: worsening Chronicity: new Relieving factors: none Exacerbating factors: none Associated symptoms: Reports denies other symptoms Treatments prior to arrival: none Past Medical/Family History Physician Review I have reviewed the patient's past medical and family history. Any updates have been documented here. Past Medical History Recent Fever: No Clinical Suspicion of Infectio: No New/Unexplained Change in Ment: No Past Medical History: Hypertension, CHF Other Medical History: MULTIPLE MYELOMA CHEMOTHERAPY PARAPLEGIC Other Surgery: LAMINECTOMY Social History Smoking Cessation: Never Smoker Counseling Performed: No Alcohol Use: None Any Illegal Drug Use: No Physically hurt or threatened: No Family History Family history of heart diseas: No Other Any Pre-Existing Lines (PICC,: No Review of Systems Review of Systems Constitutional: Reports no symptoms EENTM: Reports no symptoms Cardiovascular: Reports no symptoms Respiratory: Reports no symptoms Gastrointestinal: Reports no symptoms Genitourinary: Reports no symptoms Musculoskeletal: Reports no symptoms Integumentary: Reports as per HPI Neurological: Reports no symptoms Psychological: Reports no symptoms Endocrine: Reports no symptoms Hematological/Lymphatic: Reports no symptoms Physical Exam Related Data Allergies: Coded Allergies: No Known Drug Allergies (Verified Allergy, Unknown, 01/13/19) Triage Vital Signs Vital Signs Date Time Temp Pulse Resp B/P (MAP) Pulse Ox O2 Delivery O2 Flow Rate FiO2 02/01/20 12:51 99.0 99 13 129/72 100 Room Air Vital signs reviewed: Yes Physical Exam CONSTITUTIONAL Constitutional: Present well-developed, Present well-nourished HENT HENT: Present normocephalic, Present atraumatic, Present oropharynx clear/moist, Present nose normal HENT L/R: Present left ext ear normal, Present right ext ear normal EYES Eyes: Reports PERRL, Reports conjunctivae normal NECK Neck: Present ROM normal PULMONARY Pulmonary: Present effort normal, Present breath sounds normal CARDIOVASCULAR Cardiovascular: Present regular rhythm, Present heart sounds normal, Present capillary refill normal, Present normal rate GASTROINTESTINAL Abdominal: Present soft, Present nontender, Present bowel sounds normal GENITOURINARY Genitourinary: Present exam deferred SKIN Skin: Present other (deep 3 cm Stage 4 ulcer left buttocks, stage 2 ulcers on right buttocks and sacrum, foul-smelling ds/c from left buttocks pressure ulcer) MUSCULOSKELETAL Musculoskeletal: Present ROM normal NEUROLOGICAL Neurological: Present alert, Present oriented x 3, Present weakness PSYCHOLOGICAL Psychological: Present mood/affect normal, Present judgement normal Results Laboratory Result Diagram: 02/01/20 1306 02/01/20 1306 Laboratory Laboratory Tests Test 02/01/20 13:06 White Blood Count 3.89 x10e3/uL (4.8-10.8) Red Blood Count 2.76 x10e6/uL (4.3-5.7) Hemoglobin 6.2 g/dL (14.0-18.0) Hematocrit 20.1 % (38.2-49.6) Mean Corpuscular Volume 72.8 fL (81-99) Mean Corpuscular Hemoglobin 22.5 pg (28-32) Mean Corpuscular Hemoglobin Concent 30.8 g/dL (31-35) Red Cell Distribution Width 19.4 % (11.7-14.4) Platelet Count 147 x10e3/uL (140-360) Neutrophils (%) (Auto) 61.9 % (38.7-80.0) Lymphocytes (%) (Auto) 22.9 % (18.0-39.1) Monocytes (%) (Auto) 11.6 % (4.4-11.3) Eosinophils (%) (Auto) 2.6 % (0.0-6.0) Basophils (%) (Auto) 0.5 % (0.0-1.0) Neutrophils # (Auto) 2.4 (2.1-6.9) Lymphocytes # (Auto) 0.9 (1.0-3.2) Monocytes # (Auto) 0.5 (0.2-0.8) Eosinophils # (Auto) 0.1 (0.0-0.4) Basophils # (Auto) 0.0 (0.0-0.1) Absolute Immature Granulocyte (auto 0.02 x10e3/uL (0-0.1) Prothrombin Time 17.7 seconds (11.9-14.5) Prothromb Time International Ratio 1.37 Activated Partial Thromboplast Time 52.6 seconds (23.8-35.5) Urine Color Yellow (YELLOW) Urine Clarity Clear (CLEAR) Urine pH 5.5 (5 - 7) Urine Specific [place] 1.025 (1.010-1.025) Urine Protein >=300 (NEGATIVE) Urine Glucose (UA) Negative (NEGATIVE) Urine Ketones Negative (NEGATIVE) Urine Blood Large (NEGATIVE) Urine Nitrite Positive (NEGATIVE) Urine Bilirubin Negative (NEGATIVE) Urine Urobilinogen 0.2 mg/dL (0.2 - 1) Urine Leukocyte Esterase Small (NEGATIVE) Urine RBC 21-50 /HPF (0-5) Urine WBC 21-50 /HPF (0-5) Urine Epithelial Cells Few /LPF (NONE) Urine Bacteria Moderate /HPF (NONE) Sodium Level 141 mmol/L (136-145) Potassium Level 4.3 mmol/L (3.5-5.1) Chloride Level 107 mmol/L (98-107) Carbon Dioxide Level 19 mmol/L (22-29) Anion Gap 19.3 mmol/L (8-16) Blood Urea Nitrogen 32 mg/dL (7-26) Creatinine 1.36 mg/dL (0.72-1.25) Estimat Glomerular Filtration Rate 52 ML/MIN (60-) BUN/Creatinine Ratio 24 (6-25) Glucose Level 141 mg/dL (74-118) Lactic Acid Level 1.0 mmol/L (0.5-2.0) Calcium Level 9.9 mg/dL (8.4-10.2) Total Bilirubin 0.4 mg/dL (0.2-1.2) Aspartate Amino Transf (AST/SGOT) 16 IU/L (5-34) Alanine Aminotransferase (ALT/SGPT) 6 IU/L (0-55) Alkaline Phosphatase 34 IU/L (40-150) Creatine Kinase 78 IU/L (30-200) Creatine Kinase MB 9.90 ng/mL (0-5.0) Troponin I < 0.001 ng/mL (0-0.300) Total Protein 11.2 g/dL (6.5-8.1) Albumin 1.9 g/dL (3.5-5.0) Globulin 9.3 g/dL (2.3-3.5) Albumin/Globulin Ratio 0.2 (0.8-2.0) Lab results reviewed: Yes Imaging Imaging results reviewed: Yes Impressions EXAMINATION: CHEST SINGLE (PORTABLE) INDICATION: SACRAL PRESSURE ULCERS COMPARISON: None FINDINGS: AP view TUBES and LINES: None. . LUNGS/PLEURA: Lungs are well inflated. There are bilateral patchy opacities. There is no pleural effusion or pneumothorax. HEART AND MEDIASTINUM: The cardiomediastinal silhouette is unremarkable. BONES AND SOFT TISSUES: No acute osseous lesion. Soft tissues are unremarkable. UPPER ABDOMEN: No free air under the diaphragm. IMPRESSION: Bilateral patchy opacities could represent multifocal pneumonia or edema. Signed by: Shun Boyd MD on 02/01/2020 3:23 PM Procedures 12 Lead ECG Interpretation ECG Interpretation : ECG: ECG 1 Pesticide Applicator: Interpreted by ED physician Date: Feb 01, 2020 Time: 12:57 Rhythm: sinus rhythm Rate: normal (97) QRS axis: normal ST segments normal: Yes T waves normal: Yes Clinical Impression: normal ECG Assessment & Plan Medical Decision Making MDM h/o multiple myeloma on chemo with infected pressure ulcers bilat buttocks and sacrum - check CBC, CHEM, CARDIACS, ECG, LACTIC, BLOOD CX'S, UA/CX, WOUND CX'S, CXR, COVID SWAB - R/O ANEMIA, LEUKOCYTOSIS, STEMI/NSTEMI, SEPSIS, UTI, PNEUMONIA, RENAL INSUFF, ELECTROLYTE ABNL Reassessment Reassessment D/W DR DE SOUZA FOR ADMISSION Assessment & Plan Final Impression: (1) Pressure ulcer of buttock (2) Pressure ulcer of sacrum (3) UTI (urinary tract infection) (4) Anemia (5) Multiple myeloma (6) Renal insufficiency Depart Disposition: ADMITTED Last Vital Signs Date Time Temp Pulse Resp B/P (MAP) Pulse Ox O2 Delivery O2 Flow Rate FiO2 02/01/20 15:00 84 16 123/75 100 Room Air 02/01/20 12:51 99.0 Home Meds Reported Medications Bisacodyl* (DULCOLAX SUPP*) 10 Mg Supp, 10 MG RC DAILY PRN for CONSTIPATION, SUPP 01/14/19 Zinc Sulfate (ZINC SULFATE) 220 Mg Capsule, 220 MG PO DAILY 01/14/19 Vancomycin Hcl (VANCOMYCIN HCL) 1 Gm Vial, 1 GM IV Q12H, VIAL 01/14/19 Valacyclovir Hcl (VALACYCLOVIR) 500 Mg Tablet, 500 MG PO DAILY, #30 TAB 01/14/19 Trazodone Hcl (TRAZODONE HCL) 50 Mg Tablet, 100 MG PO HS, #30 TAB 01/14/19 Sennosides/Docusate Sodium (SENNA-DOCUSATE SODIUM TABLET) 1 Each Tablet, 3 TAB PO DAILY 01/14/19 Prochlorperazine Maleate (PROCHLORPERAZINE MALEATE) 10 Mg Tablet, 10 MG PO Q6H PRN for NAUSEA 01/14/19 Na Phos,M-B/Na Phos,Di-Ba (FLEET ENEMA) 133 Ml Enema, 132 ML [place] Q48H PRN for CONSTIPATION, BOTTLE 01/14/19 Pantoprazole Sodium* (PROTONIX) 40 Mg Tablet.dr, 40 MG PO DAILY@0600, TAB 01/14/19 Ondansetron (ONDANSETRON ODT) 8 Mg Tab.rapdis, 8 MG PO Q8H PRN for NAUSEA 01/14/19 Multivitamin (MULTI-VITAMIN DAILY) 1 Each Tablet, 1 TAB PO DAILY 01/14/19 Meropenem (MEROPENEM) 500 Mg Vial, 500 MG IV Q8H 01/14/19 Megestrol Acetate (MEGESTROL ACETATE) 400 Mg/10 Ml Oral.susp, 400 MG PO DAILY, EA 01/14/19 Lactulose (LACTULOSE) 20 Gm/30 Ml Solution, 30 ML PO DAILY PRN for CONSTIPATION, EACH 01/14/19 Ferrous Fumarate/Folic Acid (HEMATINIC-FOLIC ACID TABLET) 1 Each Tablet, 1 TAB PO DAILY 01/14/19 Enoxaparin Sodium (ENOXAPARIN SODIUM) 40 Mg/0.4 Ml Disp.syrin, 40 MG SC DAILY@1700, SYR 01/14/19 Docusate Sodium (DOCUSATE SODIUM) 100 Mg Capsule, 100 MG PO BID, CAP 01/14/19 Bisacodyl (BISACODYL) 5 Mg Tablet.dr, 10 MG PO DAILY, TAB 01/14/19 Balsam [place] Oil (VENELEX OINTMENT) 60 Gm Oint...g., 1 APPLIC TOP DAILY 01/14/19 Baclofen (BACLOFEN) 10 Mg Tablet, 10 MG PO Q8H PRN for MUSCLE SPASMS, #90 TAB 01/14/19 Ascorbic Acid (ASCORBIC ACID) 500 Mg Tablet, 500 MG PO BID, #30 TAB 01/14/19 Amlodipine Besylate (AMLODIPINE BESYLATE) 10 Mg Tablet, 10 MG PO DAILY, #30 TAB 01/14/19 Medications in the ED Sodium Chloride 1,000 ml @ 0 mls/hr Q0M STAT IV Last administered on 02/01/20at 14:21; Admin Dose 999 MLS/HR; Start 02/01/20 at 13:21; Stop 02/01/20 at 13:25; Status DC Piperacillin Sod/ Tazobactam Sod 50 ml @ 50 mls/hr Q6H IV Last administered on 02/01/20at 14:21; Admin Dose 50 MLS/HR; Start 02/01/20 at 13:30; Stop 02/08/20 at 13:29 Vancomycin HCl 250 ml @ 200 mls/hr NOW ONCE IV Last administered on 02/01/20at 15:22; Admin Dose 200 MLS/HR; Start 02/01/20 at 13:30; Stop 02/01/20 at 14:44; Status DC JOANNA REDDY MD Feb 01, 2020 16:02
--- NOTE | 2020-02-01 16:49 | NUR ---
PATIENT ARRIVED ON THE UNIT AT 1626 PER STRETCHER FROM THE ER. PATIENT IS AWAKE, ALERT, AND IN STABLE CONDITION WITH NO S/S OF RESPIRATORY DISTRESS- NO PAIN VOICED. PATIENT ARRIVED WITH A WELLINGTON FROM HOME PER THE ER NURSE AND THE WELLINGTON WAS CHANGED OUT IN THE ER. COLOSTOMY NOTED TO LLQ. WOUNDS NOTED TO BILATERAL LOWER BUTTOCK AREAS, WOUND NOTED TO MEDIAL SACRUM AREA, AND SUSPECTED DTI NOTED TO LATERAL RIGHT SIDE OF SACRUM/UPPER BUTTOCK AREA- ALLEVYN PADS APPLIED TO ALL WOUND AREAS. PATIENT IS PARAPLEGIC; HEEL PROTECTORS APPLIED TO BILATERAL FEET. NO WOUNDS NOTED TO BILATERAL FEET. AIR PUMP APPLIED TO BED. CALL LIGHT IS WITHIN REACH, PATIENT INSTRUCTED TO CALL FOR ASSISTANCE NEEDED.
[2020-02-01 17:00] VITALS: BP 118/70
[2020-02-01 17:01] VITALS: BP 118/70
[2020-02-01 17:06] VITALS: BP 118/70
[2020-02-01] MEDS ORDERED: ELIQUIS2.5 MG PO (17:57)
[2020-02-01] MEDS ORDERED: ULTRAM50 MG PO (17:58)
[2020-02-01] MEDS ORDERED: FERROUS SULFAT325 MG PO (17:58)
[2020-02-01] MEDS ORDERED: DEXAMETHASONE4 MG PO (17:58)
[2020-02-01] MEDS ORDERED: NITROFURANTOIN100 MG PO (17:58)
[2020-02-01] MEDS ORDERED: MS CONTIN15 MG PO (17:58)
[2020-02-01] MEDS ORDERED: SODIUM CHLORIDE 0.9% 250ML 250 ML ONE ×2 (17:59→23:03)
[2020-02-01 19:15] VITALS: BP 115/68
--- NOTE | 2020-02-01 19:19 | NUR ---
PATIENT IN STABLE CONDITION WITH NO S/S OF RESPIRATORY DISTRESS. NO PAIN VOICED. IV SALINE LOCKED. HEEL PROTECTORS APPLIED. ALLEVYN PADS APPLIED TO WOUNDS. CALL LIGHT IS WITHIN REACH, PATIENT INSTRUCTED TO CALL FOR ASSISTANCE NEEDED. REPORT GIVEN TO ONCOMING NURSE.
--- NOTE | 2020-02-01 20:02 | NUR ---
RECEIVED PT IN BED AOX3 .PT HAS F/C , COLOSTOMY LLQ. WOUNDS AT BILATERAL LOWER BUTTOCK AND SACRUM AREA, L- ALLEVYN PADS THE WOUND AREA . PATIENT IS PARAPLEGIC; HEEL PROTECTORS TO BILATERAL FEET. CALL LIGHT IS WITHIN REACH, CONTINUE TO MONITOR
[2020-02-01 20:09] VITALS: BP 118/70
[2020-02-01 22:52] LABS: CREATINE KINASE MB 7.5 ng/mL (0-5.0)
[2020-02-02] VITALS (8 sets, daily range): BP systolic 112–131; BP diastolic 76–89
[2020-02-02] MEDS: ACETAMINOPHEN 325 MG TAB PO PRN (01:15)
[2020-02-02] MEDS ORDERED: SODIUM CHLORIDE 0.9% 250ML 250 ML ONE (02:06)
[2020-02-02] MEDS ORDERED: DEXAMETHASONE 4 MG TAB PO SCH (03:30)
[2020-02-02] MEDS: PIPER-TAZ 3.375 GM 50 ML IV SCH ×3 (06:00→11:01)
--- NOTE | 2020-02-02 06:00 | NUR ---
TRANSFUSED 2 UNIT OF [facility]BC NO REACTION NOTED ,CALL LIGHT WITH IN REACH ,CONTINUE TO MONITOR
--- NOTE | 2020-02-02 06:31 | NUR ---
PT HAD BED BATH AND CHANGED DRESSING,CONTINUE TO MONITOR
[2020-02-02 06:42] LABS: BASOPHILS % 0.3 % (0.0-1.0); EOSINOPHILS # (AUTO) 0.1 (0.0-0.4); EOSINOPHILS % 3.1 % (0.0-6.0); HEMATOCRIT 24.7 % (38.2-49.6); HEMOGLOBIN 7.9 g/dL (14.0-18.0); LYMPHOCYTES # (AUTO) 1.1 (1.0-3.2); LYMPHOCYTES % 29.2 % (18.0-39.1); MEAN CORPUSCULAR HEMOGLOBIN 23.4 pg (28-32); MEAN CORPUSCULAR VOLUME 73.1 fL (81-99); MONOCYTES # (AUTO) 0.4 (0.2-0.8); NEUTROPHILS % 55.1 % (38.7-80.0); PLATELET COUNT 161 x10e3/uL (140-360); RED BLOOD COUNT 3.38 x10e6/uL (4.3-5.7)
[2020-02-02 07:20] LABS: ALBUMIN 1.8 g/dL (3.5-5.0); ALBUMIN/GLOBULIN RATIO 0.2 (0.8-2.0); ANION GAP 19.4 mmol/L (8-16); CALCIUM 10.1 mg/dL (8.4-10.2); CREATININE, SERUM 1.31 mg/dL (0.72-1.25); POTASSIUM 4.4 mmol/L (3.5-5.1)
--- NOTE | 2020-02-02 07:21 | NUR ---
BEDSIDE REPORT GIVEN TO THE ONCOMING NURSE
--- NOTE | 2020-02-02 07:25 | NUR ---
PATIENT IS AWAKE, ALERT, AND IN STABLE CONDITION WITH NO S/S OF RESPIRATORY DISTRESS. PATIENT C/O OF GENERALIZE PAIN. WELLINGTON INTACT AND DRAINING; COLOSTOMY NOTED AND INTACT. DRESSING APPLIED TO BILATERAL BUTTOCK AND SACRUM WOUNDS. HEEL PROTECTORS APPLIED. PATIENT IS POSITION ON HIS RIGHT SIDE. CALL LIGHT IS WITHIN REACH, PATIENT INSTRUCTED TO CALL FOR ASSISTANCE NEEDED.
[2020-02-02 07:47] LABS: CREATINE KINASE MB 7.1 ng/mL (0-5.0)
[2020-02-02] MEDS: FERROUS SULFATE 325 MG TAB PO SCH ×2 (08:00→16:24)
[2020-02-02] MEDS: APIXAB 2.5 MG TABLET PO SCH ×2 (08:00→16:24)
[2020-02-02] MEDS: AMLODIPINE BESYLATE 10 MG TAB PO SCH (08:00)
[2020-02-02] MEDS: BACLOFEN 10 MG TAB PO SCH ×2 (08:00→16:24)
[2020-02-02] MEDS ORDERED: NITROFURANTOIN MACROCRYSTALS 100 MG CAP PO SCH (09:00)
[2020-02-02] MEDS ORDERED: VALACYCLOVIR HCL 500 MG TAB PO SCH (09:00)
--- NOTE | 2020-02-02 13:27 | NUR ---
WOUND CARE CONSULT FOR 69 YO MALE HX OF ANEMIA ,PRESSURE ULCERATIONS,MULTIPLE MYELOMA RIANA 17 ON MODERATE PUP STATUS AND INTERVENTIONS AND ALTERNATING PRESSURE MATTRESS LABS: WBC-3.59 HGB_7.9 GLUCOSE-76 SKIN ASSESSMENT COMPLETE PATIENT PRESENTS WITH SACRAL STAGE 2 ULCERATION SURROUNDED BY DTI AREA TOTAL MEASUREMENT IS 7CM X12CM X0.2CM RIGHT GLUTEAL LOWER UPPER THIGH CREASE UNSTAGEABLE ULCERATION ESCHAR LIGHT BROWN MEASURES 2.5CM X2.5CM LEFT GLUTEAL HAS STAGE 3 ULCERATION CLEAN GRANULAR WOUND BASE MEASURES 2CM X2.5CM X3CM RECOMMENDATIONS: NURSING TO CONTINUE TO MAINTAIN MODERATE PUP STATUS AND INTERVENTIONS AND ALTERNATING PRESSURE MATTRESS NURSING TO CONTINUE TO ASSIST PATIENT OUT OF BED FOR MEALS AND MUCH TOLERATED NURSING TO CONTINUE TO ASSIST PATIENT NEEDED WITH MEALS AND NUTRITIONAL SUPPLEMENTS TO ENSURE PROPER REQUIREMENTS FOR HEALING NURSING TO CONTINUE TO OFFLOAD FEET AND HEELS NEEDED WITH PILLOW SUSPENSION WHEN IN BED NURSING TO CLEAN SACRAL STAGE 2 ULCERATION WITH NORMAL SALINE DAILY AND APPLY VENELEX OINTMENT QUENTIN AREA AND COLLAGEN TO WOUND BASE COVER WITH ALLEVYN FOAM DRESSING NURSING TO CLEAN RIGHT GLUTEAL LOWER UPPER THIGH CREASE UNSTAGEABLE ULCERATION WITH NORMAL SALINE DAILY AND APPLY VENELEX OINTMENT AND ALLEVYN FOAM DRESSING NURSING TO CLEAN LEFT GLUTEAL HAS STAGE 3 ULCERATION WITH NORMAL SALINE SYRINGE LAVAGE AND APPLY NEGATIVE PRESSURE THERAPY BLACK FOAM CONTINUOUS SETTING AT [address] ON SUNDAY, SUNDAY ,SUNDAY CHANGE SCHEDULE IF LEAK DETECTED AND CAN'T BE RESEALED OR PRIOR TO DISCHARGE REMOVE BLACK FOAM AND PLACE WET TO DRY DRESSING UNTIL REAPPLICATION OF NEGATIVE PRESSURE THERAPY CAN BE ACHIEVED Addendum: 02/02/20 at 1344 by Shilo Harvey RN Amended: Links added.
--- NOTE | 2020-02-02 14:29 | NUR ---
Mr. Diaz is very pleasant and well known to me from [facility]. The patient who was recently diagnosed with multiple myeloma. He became paralyzed. He developed decubitus ulcer. He has been to several cities in [place]. Finally, he was admitted for IV antibiotic and local care in [place]. The patient was admitted and started on IV antibiotic. They plan for him to have a muscle flap, but he also may benefit from a colostomy, so he was transferred here. He has been seen by surgery and Plastic surgery was consulted. The patient is currently lying in bed, comfortable. REVIEW OF SYSTEMS: HEENT: Negative. PULMONARY: Negative. CARDIAC: Negative. : Negative. GI: Negative. SKIN: There is no other rash. [id number]
[2020-02-02] MEDS: CEFTRIAXONE SOD 1 GM/NS 50 ML 50 ML IV SCH (16:24)
--- NOTE | 2020-02-02 16:51 | NUR ---
Nutrition Intervention Note RD Recommendation(s) for Physician: -Recommend modifying diet to regular diet -If PO intake is <50% of meals, offer Ensure Enlive -Encourage Abhi BID and recommend zinc and vitamin C to promote wound healing Plan of Care: RD following, monitoring for tolerance and adequacy Nutrition reason for involvement: Nutrition Risk Trigger, pressure ulcer RD Assessment (02/02/20) Pt is a 69 year old male admitted with anemia, multiple myeloma, pressure ulcer of buttock, pressure ulcer of sacrum, renal insufficiency, and UTI. COVID test results are pending. RD called pt over the phone. Pt stated he has been eating about 50% of his meals. It is recorded pt consumed 100% of breakfast this morning. No weight loss reported and pt stated he usually weighs 170-175 lbs; however, pt currently has a weight of 183 lbs in chart. No N/V/D/C or chewing/swallowing issues. RD offered the pt Abhi to promote wound healing, but the pt declined. Will continue to monitor Principal Problems/Diagnoses: anemia, multiple myeloma, pressure ulcer of buttock, pressure ulcer of sacrum, renal insufficiency, and UTI PMH: multiple myeloma diagnosed in July 2018, paraplegia, fecal incontinence GI: soft, non-tender abdomen Skin: stage 2 sacral ulceration, right gluteal lower upper thigh crease unstageable ulceration, left gluteal stage 3 ulceration Labs: (02/01) Na 142, K 4.4, BUN 25, Cr 1.31, Glu 76 Meds: ferrous sulfate, antibiotic, dexmethasone, zofran Ht: 69 inches Wt: 183 lbs BMI: 27 kg/m2 IBW: 160 lbs Malnutrition Evaluation (02/02/20) The patient does not meet criteria for a specified degree of malnutrition at this time. Will re-evaluate at follow-up as appropriate. Nutrition Prescription (Diet Order): cardiac Estimated Nutritional Needs: 2717-9377 calories/day (30-35 kcal/kg CBW) 100-125 g protein/day (1.2-1.5 g pro/kg CBW) Diet Adequacy: Pt stated he has been eating about 50% of his meals. It is recorded pt consumed 100% of breakfast this morning. Tolerance: Tolerating PO Diet Education Needs Assessment: Diet education is not indicated Nutrition Care Level: low Nutrition Diagnosis: Increased nutrient needs related to increased demand for protein and calories as evidenced by pressure ulcers. Goal: Patient will meet 75-100% of estimated needs by follow up Progress: N/A Interventions: -General healthful diet, Commercial beverage, Recommended Modifications, Multivitamin/mineral supplement therapy Monitoring/Evaluation: -Total energy intake, Total protein intake, Liquid supplement, Weight change Signed: Crystal Gann RD, LD
[2020-02-02] MEDS: TRAMADOL HCL 50 MG TAB PO PRN (18:37)
--- NOTE | 2020-02-02 19:00 | NUR ---
Resumed care of patient. Patient awake and sitting up in bed, respirations even and unlabored on room air, no s/s of distress at this time. Gonzales catheter patent and draining to gravity, bag hung below bladder. Colostomy bag noted to LLQ, changed today per patient. Bed locked and in lowest position, side rails upx3, call light placed within reach. Patient instructed to call for assistance if needed, verbalized understanding. All safety measures in place.
--- NOTE | 2020-02-02 19:20 | NUR ---
PATIENT IN STABLE CONDITION WITH NO S/S OF RESPIRATORY DISTRESS. PATIENT RECENTLY RECEIVED ULTRAM. ALLEVYN DRESSINGS APPLIED TO POSTERIOR SACRUM AND BUTTOCK WOUNDS. WELLINGTON INTACT AND DRAINING; COLOSTOMY NOTED. BED ALARM APPLIED. HEEL PROTECTORS APPLIED. CALL LIGHT IS WITHIN REACH, PATIENT INSTRUCTED TO CALL FOR ASSISTANCE NEEDED. REPORT GIVEN TO ONCOMING NURSE.
[2020-02-02] MEDS: ONDANSETRON HCL INJ 2MG/ML 2ML 2 MG/ML VIAL IV PRN (19:46)
--- NOTE | 2020-02-02 20:00 | Consultation ---
DATE OF CONSULTATION: HISTORY OF PRESENT ILLNESS: Mr. Diaz is well known to me from previous admission. He is a very pleasant gentleman, who is bedbound. He was recently diagnosed with multiple myeloma, became paralyzed. He developed decubitus ulcer. He had surgical debridement. He has a flap back on 01/14/2019. He was sent to [place]. The patient from there went home. The patient, who is currently admitted because there were 3 wounds on the sacral area. The patient denies any fever or chills. He is otherwise lying in bed comfortably. PAST MEDICAL HISTORY: Multiple myeloma diagnosis. He was seen by MD Urias. PAST SURGICAL HISTORY: Otherwise is as above. ALLERGIES: NKA. SOCIAL HISTORY: There is no smoking, drug abuse, or alcohol abuse. FAMILY HISTORY: Unremarkable. REVIEW OF SYSTEMS: Otherwise, HEENT: Negative. PULMONARY: Negative. CARDIAC: Negative. LABORATORY DATA: The patient was anemic. When he first came, his hemoglobin was 6.2. Laboratory data reviewed. Chart reviewed. Wound also seen and examined. Sodium 142, potassium 4.4, and creatinine 1.31. IMPRESSION: 1. Decubitus ulcer. 2. Chronic kidney disease. 3. Multiple myeloma. 4. Bedridden. 5. The patient was started on Zosyn. He is also on valacyclovir. Recommend to change it to Rocephin 1 g daily. Surgical debridement once he is fit. He was given one dose of vancomycin. Continue dexamethasone. We will also discontinue nitrofurantoin. 6. Concerned about his kidney function. We will follow. MD ROXY Carpenter/MODL /[id number]
[2020-02-03] VITALS (8 sets, daily range): BP systolic 110–134; BP diastolic 59–81
[2020-02-03] MEDS: TRAMADOL HCL 50 MG TAB PO PRN (06:20)
[2020-02-03 08:40] LABS: BASOPHILS % 0.9 % (0.0-1.0); EOSINOPHILS # (AUTO) 0.2 (0.0-0.4); EOSINOPHILS % 4.7 % (0.0-6.0); HEMATOCRIT 24.3 % (38.2-49.6); HEMOGLOBIN 7.6 g/dL (14.0-18.0); LYMPHOCYTES # (AUTO) 1.1 (1.0-3.2); LYMPHOCYTES % 33.5 % (18.0-39.1); MEAN CORPUSCULAR HEMOGLOBIN 22.9 pg (28-32); MEAN CORPUSCULAR HGB CONC 31.3 g/dL (31-35); MEAN CORPUSCULAR VOLUME 73.2 fL (81-99); MONOCYTES # (AUTO) 0.5 (0.2-0.8); MONOCYTES % 14.7 % (4.4-11.3); NEUTROPHILS # (AUTO) 1.5 (2.1-6.9); NEUTROPHILS % 46.2 % (38.7-80.0); PLATELET COUNT 160 x10e3/uL (140-360); RED BLOOD COUNT 3.32 x10e6/uL (4.3-5.7); RED CELL DISTRIBUTION WIDTH 20.2 % (11.7-14.4)
[2020-02-03] MEDS: BALSAM PERU/CASTOR OIL 60 GM OINT...G. TP SCH (09:00)
[2020-02-03] MEDS: AMLODIPINE BESYLATE 10 MG TAB PO SCH (09:19)
[2020-02-03] MEDS: APIXAB 2.5 MG TABLET PO SCH ×2 (09:19→17:06)
[2020-02-03] MEDS: FERROUS SULFATE 325 MG TAB PO SCH ×2 (09:19→17:06)
[2020-02-03] MEDS: BACLOFEN 10 MG TAB PO SCH ×2 (09:19→17:06)
--- NOTE | 2020-02-03 09:33 | NUR ---
RECEIVED FAX FROM [facility] @ OFF: [phone] / FAX: [phone] REQUESTING DC ORDERS / SUMMARY TO RESUME HOME HEALTH SERVICES ONCE PT IS DISCHARGED FROM THE HOSPITAL.
[2020-02-03] MEDS: COLLAGENASE 5 GM TUBE TP SCH (12:00)
[2020-02-03] MEDS ORDERED: VANCOMYCIN 1GM/NS 250 ML 250 ML IV SCH (12:30)
--- NOTE | 2020-02-03 12:58 | NUR ---
WOUND CARE CONSULT FOR NEGATIVE PRESSURE THERAPY APPLICATION (ERNST&NEPHEW UNIT) BLACK FOAM PLACED IN LEFT GLUTEAL STAGE 3 ULCERATION QUENTIN SKIN PROTECTED SETTING CONTINUOUS AT 120MMHG PATIENT STATES NO COMPLAINT OF PAIN OR DISCOMFORT SEAL MAINTAINED CHANGE SCHEDULE TO BE SET FOR SUNDAY ,SUNDAY,SUNDAY CHANGE DAYS Addendum: 02/03/20 at 1303 by Shilo Harvey RN Amended: Links added.
--- NOTE | 2020-02-03 13:34 | Consultation ---
DATE OF CONSULTATION: Wound Consultation HISTORY OF PRESENT ILLNESS: A 69-year-old male patient, history of multiple myeloma, cervical laminectomy, paraplegic, suffers from chronic pressure ulcer. He had stage IV pressure ulcer in the past, for which he had flap. He had flap surgery by Dr. Lewis Duong on 01/21/2019. The patient developed new ulcer to the left ischium stage IV. The patient is admitted. He also has unstageable ulcer to the right ischium and coccyx and skin tear to the right upper buttock. PAST MEDICAL HISTORY: Multiple myeloma, paraplegia, history of pressure ulcer, and anemia. PERSONAL HISTORY: No history of smoking or alcohol. ALLERGIES: NONE. PHYSICAL EXAMINATION: VITAL SIGNS: Height 69 inches, weight 163 pounds. HEENT: Normal. NECK: No JVD. LUNGS: Bilaterally normal. ABDOMEN: Soft. The patient has colostomy and a Gonzales catheter. EXTREMITIES: Lower extremities, no edema. SKIN: Left ischium, the patient has stage IV pressure ulcer, measures 2 x 2 x 3 cm. Muscle exposed. Ischial bone palpable, not exposed. Right ischium has necrotic eschar, unstageable ulcer, measures 1.5 x 1.5 cm. Coccyx area, the patient has a previous flap surgery. At that surgical site, the patient has another area of pressure injury and unstageable ulcer with necrotic area. Right buttock, the patient has skin tears, pink. ASSESSMENT: Multiple pressure ulcer stage IV to the left ischium, unstageable to the sacrum and unstageable to the right ischium, and stage II to the right buttock. PLAN: Continue wound VAC as ordered by Dr. Duong to the left ischium with a black foam and Santyl, Hydrogel unstageable to the right ischium, and sacrum and collagen dressing to the right buttock. Thank you for consultation. We will follow up. MD RONNA Salazar/MODL /[id number]
[2020-02-03] MEDS: CEFTRIAXONE SOD 1 GM/NS 50 ML 50 ML IV SCH (15:37)
--- NOTE | 2020-02-03 19:00 | NUR ---
RECEIVED PATIENT IN BEDSIDE SHIFT REPORT. PATIENT RESTING AT THIS TIME. NO PAIN REPORTED. NO S&S OF DISTRESS NOTED. WELLINGTON DRAINING TO GRAVITY YELLOW URINE, SOME SEDIMENT NOTED, BAG OFF OF FLOOR. HELL PROTECTORS IN PLACE. AIR PUMP ACTIVE ON BED. WOUND VAC ACTIVE TO L BUTTOCK. TELE MONITOR ON AND ACTIVE. BED LOCKED IN LOWEST POSITION, SIDE RAILS UPX2, CALL LIGHT IN REACH.
--- NOTE | 2020-02-03 20:45 | Progress Note ---
DATE: SUBJECTIVE: Mr. Diaz is doing well. He is status post debridement. There is no new complaint. PHYSICAL EXAMINATION: GENERAL: He is currently alert and oriented. VITAL SIGNS: Stable, afebrile. HEENT: He is not icteric. NECK: Supple. CHEST: Clear. HEART: S1 and S2. No murmur. ABDOMEN: Soft. IMPRESSION: 1. Decubitus ulcer, infected. He is growing Enterobacter cloacae as well as methicillin-resistant Staphylococcus aureus, but clinically doing well. Continue with Rocephin and vancomycin. Await sensitivity modify. Plan on 2 weeks of antibiotic, weekly CBC, weekly chem panel. 2. Enterobacter cloacae sensitivity did come back. We will change him to meropenem 500 q.12. We will adjust vancomycin to 1 g q.24 kidney function, chronic kidney disease. 3. Anemia . Would need a PICC line, 2 weeks of antibiotic. To be evaluated by case management. MD ROXY Carpenter/HUMA /[id number]
[2020-02-03] MEDS: MEROPENEM 500MG/ NS 50ML 50 ML IV SCH (21:52)
[2020-02-03] MEDS: ACETAMINOPHEN 325 MG TAB PO PRN (21:57)
[2020-02-04] VITALS (8 sets, daily range): BP systolic 117–141; BP diastolic 72–80
--- NOTE | 2020-02-04 07:10 | NUR ---
PATIENT IS AWAKE, ALERT, AND IN STABLE CONDITION WITH NO S/S OF RESPIRATORY DISTRESS. NO PAIN VOICED. DRESSING APPLIED TO POSTERIOR SACRUM/BUTTOCK; WOUND VAC APPLIED. WELLINGTON INTACT AND DRAINING. COLOSTOMY NOTED TO LLQ- STOOL NOTED. HEEL PROTECTORS APPLIED TO BILATERAL FEET. CALL LIGHT IS WITHIN REACH, PATIENT INSTRUCTED TO CALL FOR ASSISTANCE NEEDED.
[2020-02-04] MEDS: BACLOFEN 10 MG TAB PO SCH ×2 (08:13→16:08)
[2020-02-04] MEDS: MEROPENEM 500MG/ NS 50ML 50 ML IV SCH (08:13)
[2020-02-04] MEDS: FERROUS SULFATE 325 MG TAB PO SCH ×2 (08:13→16:08)
[2020-02-04] MEDS: APIXAB 2.5 MG TABLET PO SCH ×2 (08:13→16:08)
[2020-02-04] MEDS: AMLODIPINE BESYLATE 10 MG TAB PO SCH (08:13)
[2020-02-04] MEDS: COLLAGENASE 5 GM TUBE TP SCH (09:00)
--- NOTE | 2020-02-04 09:01 | NUR ---
DR. DE SOUZA AND DR. RICHARDSON HAVE BEEN INFORMED OF URINE CULTURE RESULTS OF ESBL- NO ORDERS RECEIVED.
[2020-02-04] MEDS: BALSAM PERU/CASTOR OIL 60 GM OINT...G. TP SCH (11:20)
[2020-02-04] MEDS: VANCOMYCIN 1GM/NS 250 ML 250 ML IV SCH (11:20)
--- NOTE | 2020-02-04 19:15 | NUR ---
Patient visited in room during nursing rounds. Patient alert and oriented x3. Pt on strict bedrest at this time. Multiple wounds noted (left buttock - with wound VAC, right buttock - with Allevyn foam, stage 2 sacral ulcer - with Allevyn foam). Pt on Contact Isolation for MRSA of wound and ESBL of urine. LLQ colostomy noted draining watery brown stool. Call cesar within reach. Will monitor closely.
--- NOTE | 2020-02-04 19:28 | NUR ---
PATIENT IN STABLE CONDITION WITH NO S/S OF RESPIRATORY DISTRESS- NO PAIN VOICED. TELEMETRY APPLIED. COLOSTOMY AND WELLINGTON INTACT. HEEL PROTECTORS APPLIED. BED ALARM APPLIED. CALL LIGHT IS WITHIN REACH, PATIENT INSTRUCTED TO CALL FOR ASSISTANCE NEEDED. REPORT GIVEN TO ONCOMING NURSE.
--- NOTE | 2020-02-04 20:15 | Progress Note ---
DATE: SUBJECTIVE: Mr. Diaz is doing well. There are no new complaints. His cultures had MRSA. PHYSICAL EXAMINATION: GENERAL: Currently alert and oriented. VITAL SIGNS: Stable, afebrile. HEENT: He is not icteric. NECK: Supple. CHEST: Clear. IMPRESSION: Decubitus, ulcer infected, status post debridement. Can discontinue meropenem. Continue vancomycin. Continue with local care. We can do 2 weeks of IV medications of vancomycin. We will follow trough. Follow with trough for the next dose. MD ROXY Carpenter/MODL /[id number]
--- NOTE | 2020-02-04 22:00 | NUR ---
Patient laying in bed with HOB elevated 60 degrees. Patient felt nauseated and vomited. Patient refused to be turned in bed at this time. Will give patient Zofran 4mg IV.
[2020-02-04] MEDS: ONDANSETRON HCL INJ 2MG/ML 2ML 2 MG/ML VIAL IV PRN (22:10)
[2020-02-05] VITALS (8 sets, daily range): BP systolic 121–135; BP diastolic 71–80
--- NOTE | 2020-02-05 06:00 | NUR ---
Since 0200 (02/05/20), patient has been refusing to be turned in bed. Patient prefers to lay on his back.
--- NOTE | 2020-02-05 07:00 | NUR ---
RECEIVED BEDSIDE SHIFT REPORT FROM OFF GOING NIGHT NURSE. PATIENT IN STABLE CONDITION, NO S/S OF DISTRESS NOTED. TELEMETRY APPLIED. WELLINGTON APPLIED DRAINING YELLOW URINE INTO DRAINAGE BAG. WOUNDS NOTED, ALONG WITH A WOUND VAC, PATIENT IS RECEIVING WOUND CARE TREATMENT. IV SITE ASYMPTOMATIC AND PATENT, TRANSPARENT DRESSING C/D/I. HEELS PROCTORS APPLIED. BED IN LOWEST POSITION AND LOCKED, SIDE RAILS X 2, NONSKID SOCKS APPLIED.
[2020-02-05] MEDS: COLLAGENASE 5 GM TUBE TP SCH (09:00)
[2020-02-05] MEDS: BALSAM PERU/CASTOR OIL 60 GM OINT...G. TP SCH (09:00)
[2020-02-05] MEDS: APIXAB 2.5 MG TABLET PO SCH ×2 (09:17→18:19)
[2020-02-05] MEDS: AMLODIPINE BESYLATE 10 MG TAB PO SCH (09:18)
[2020-02-05] MEDS: FERROUS SULFATE 325 MG TAB PO SCH ×2 (09:18→18:19)
[2020-02-05] MEDS: BACLOFEN 10 MG TAB PO SCH ×2 (09:18→18:19)
[2020-02-05] MEDS ORDERED: ALPRAZOLAM 0.5 MG TAB PO ONE (09:45)
[2020-02-05] MEDS: VANCOMYCIN 1GM/NS 250 ML 250 ML IV SCH (12:09)
--- NOTE | 2020-02-05 15:56 | NUR ---
LTGILBERTO AMBROSE ORDERED CHOICE LETTER FOR [facility] RESENDIZ FAXED CLINICAL TO [facility] AT [phone] CONFIRMATION REC'D
[2020-02-05] MEDS: BUSPIRONE HCL 5 MG TAB PO SCH (18:19)
--- NOTE | 2020-02-05 23:32 | Progress Note ---
DATE: SUBJECTIVE: Mr. Diaz is doing well. There is no new complaint. He is weak. PHYSICAL EXAMINATION: GENERAL: He is currently alert, oriented. VITAL SIGNS: Stable, afebrile. HEENT: He is not icteric. NECK: Supple. CHEST: Clear. IMPRESSION: 1. Multiple wound debridement, infected decubitus ulcer, grew methicillin-resistant Staphylococcus aureus bacteremia, multiple pathogen. 2. Continue IV antibiotic. We will discuss with Dr. Kimball to continue discharge planning. Continue with local care. 3. The patient with multiple myeloma, history of paraplegic. MD ROXY Carpenter/HUMA /[id number]
[2020-02-06] VITALS (8 sets, daily range): BP systolic 124–138; BP diastolic 69–83
[2020-02-06] MEDS: COLLAGENASE 5 GM TUBE TP SCH (09:00)
[2020-02-06] MEDS: FERROUS SULFATE 325 MG TAB PO SCH ×2 (10:23→17:43)
[2020-02-06] MEDS: APIXAB 2.5 MG TABLET PO SCH ×2 (10:23→17:43)
[2020-02-06] MEDS: BUSPIRONE HCL 5 MG TAB PO SCH ×2 (10:23→17:42)
[2020-02-06] MEDS: BACLOFEN 10 MG TAB PO SCH ×2 (10:23→17:43)
[2020-02-06] MEDS: AMLODIPINE BESYLATE 10 MG TAB PO SCH (10:24)
[2020-02-06] MEDS: SERTRALINE HCL 50 MG TAB PO SCH (10:24)
[2020-02-06] MEDS: BALSAM PERU/CASTOR OIL 60 GM OINT...G. TP SCH (10:25)
[2020-02-06] MEDS: VANCOMYCIN 1GM/NS 250 ML 250 ML IV SCH (14:40)
--- NOTE | 2020-02-06 16:16 | NUR ---
WOUND CARE CONSULT TO APPLY NEGATIVE PRESSURE THERAPY (ERNST AND NEPHEW) @ [facility] CONTINUOS PRESSURE FOR 69 YO MALE AD[facility]ITTED TO [facility] WITH A PRESENT HX PRESSURE ULCERATIONS, ANEMIA, AND MULTIPLE MYELOMA. PT PRESENTS WITH A NEGATIVE PRESSURE THERAPY WOUND VAC TO LEFT BUTTOCKS PRESSURE ULCER STAGE 3, NEGATIVE PRESSURE REMOVED; 98% GRANULATION PRESENT AND 2% FIBRIN TO WOUND BED; MEASURES 2 CM X 2.4 CM X 2.8 CM. SEROSANGUINEOUS DRAINAGE PRESENT IN CANISTER. LEFT GLUTEAL ULCER PACKED WITH BLACK FOAM, PERIWOUND SKIN PROTECTED AND COVERED WITH DRAPE AND BRIDGED TO LEFT HIP AREA TO OFF LOAD SACRUM; SET AT [facility] CONTINUOS PRESSURE; SEALED. CANISTER CHANGED. PT REPORTS NO PAIN OR DISCOMFORT. WOUND VAC AND CANISTER TO BE CHANGED SUNDAY, SUNDAY AND SUNDAY. FLOOR NURSE INSTRUCTED TO MONITOR WOUND VAC SEAL, TO MAINTAIN SEAL, TO AVOID GETTING WET, TO MAINTAIN CONNECTION AND TO DO NOT DISCONNECT FOR MORE THAN 2 HOURS. IF UNABLE TO MAINTAIN SEAL FOR MORE THAN 2 HOURS, NOTIFY MD AND WOUND CARE NURSE AND APPLY A DRY DRESSING. THANK YOU FOR THIS CONSULTATION. Addendum: 02/06/20 at 1617 by Ruth Oakes RN Amended: Links added.
--- NOTE | 2020-02-06 16:53 | NUR ---
progress note Mr. Diaz is doing well. There is no new complaint. He is weak. PHYSICAL EXAMINATION: GENERAL: He is currently alert, oriented. VITAL SIGNS: Stable, afebrile. HEENT: He is not icteric. NECK: Supple. CHEST: Clear. IMPRESSION: 1. Multiple wound debridement, infected decubitus ulcer, grew methicillin-resistant Staphylococcus aureus bacteremia, multiple pathogen. 2. Continue IV antibiotic. We will discuss with Dr. Kimball to continue discharge planning. Continue with local care. 3. The patient with multiple myeloma, history of paraplegic.
--- NOTE | 2020-02-06 18:30 | Consultation ---
DATE OF CONSULTATION: Neurology Consultation HISTORY OF PRESENT ILLNESS: I am seeing Mr. Diaz for myoclonia. Mr. Diaz also has a known past medical history of multiple myeloma, hypertension. He has bilateral lower extremity paralysis and decubitus ulcer as well and he comes in now with concerns about wounds in the sacral area. Denies any fevers or chills, but does complain of . PAST MEDICAL HISTORY: Multiple myeloma. Past medical history also includes pressure ulcers and hypertension. The patient denies any history of seizures or tremors in the past. Denies head trauma. Denies strokes or physiological tremors. ALLERGIES: NO KNOWN DRUG ALLERGIES. SOCIAL HISTORY: Denies tobacco, alcohol, or drugs. FAMILY HISTORY: No history of tremors, essential tremors. REVIEW OF SYSTEMS: Negative myoclonia or asterixis that he has and paralysis. Otherwise, 10-point review of systems is negative. PHYSICAL EXAMINATION: GENERAL: Shows the patient is awake, alert, oriented x3, responsive and pleasant. HEENT: Extraocular muscles intact. Face symmetric. Tongue is midline. Speech is clear. There is no nuchal rigidity. CARDIOVASCULAR: Regular rate and rhythm. PULMONARY: Clear to auscultation. ABDOMEN: Soft and nontender. EXTREMITIES: Lower extremities are paralyzed to apparently 0/5 movement with some sensory, but minimal sensory modality, upper extremities are 5/5. Normal sensory. Not able to elicit the negative myoclonia, asterixis, or tremors at this time. VITAL SIGNS: Temperature is afebrile, blood pressure 131/76, and heart rate is 83. ASSESSMENT AND PLAN: I am seeing the patient for possible asterixis. We are going to check his uric acid and ammonia levels. Get an EEG and we will address it from there and EMG might be helpful as an outpatient, but not able to be done as an inpatient. Overall, there does not appear to be a concerning finding based on the patient's complaints so it does appear to be asterixis based on his description of it, however, I was not able to see it. MD ARELY HORN/HUMA /[id number]
--- OUTSIDE RECORDS SUMMARY | 2020-02-06 18:31 | XMS REPORT | Continuity of Care Document ---
Author Author [facility] t Organization [facility] Address [address] [place] [address] Phone Unavailable Care Team Providers Care Cut Off Man Name Role Phone AAN DE SOUZA MD PCP SYSTEM, NOT IN PROVIDER Attphys Unavailable REBEKAH NEWELL Attphys Unavailable ROSHNI LEMOS Attphys Unavailable Gage STEIN Attphys Unavailable Lei REDDY Attphys Unavailable Lei GRIMALDO Attphys Unavailable HALLIE ALONZO Attphys Unavailable Orquidea LOZANO Attphys Unavailable Orquidea LOZANO Admphys Unavailable Payers Payer Name Policy Type Policy Number Effective Date Expiration Date S tito [employer] CHOICE MEDICARE PPO [id number] 2018 00:00:00 MEDICAID [place] TRADITIONAL STAR [place] SSI [id number] 2019 00:00:00 Problems This patient has no known problems. Allergies, Adverse Reactions, Alerts This patient has no known allergies or adverse reactions. Medications Ordered Medication Name Filled Medication Name Start Date Stop Da te Current Medication? Ordering Clinician Indication Dosage Frequency Signature (SIG) Comments Components Source Amlodipine Besylate 10 Mg Tablet Amlodipine Besylate 10 Mg Tablet Yes 10 Daily [facility] Ascorbic Acid 500 Mg Tablet Ascorbic Acid 500 Mg Tablet Yes 500 Twice A Day [facility] Baclofen 10 Mg Tablet Baclofen 10 Mg Tablet Yes 10 Every 8 Hours as needed for Muscle Spasms [facility] Balsam [place] (Venelex Ointment) 60 Gm Oint.. .g. Balsam [place] (Venelex Ointment) 60 Gm Oint...g. Yes 1 Krysta ly [facility] Bisacodyl 5 Mg Tablet. Bisacodyl 5 Mg Tablet. Yes 10 Daily [facility] Bisacodyl (Dulcolax Supp*) 10 Mg Supp Bisacodyl (Dulcolax Supp*) 10 Mg Supp Yes 10 Daily as needed for Constipation [facility] Docusate Sodium 100 Mg Capsule Docusate Sodium 100 Mg Capsule Yes 100 Twice A Day [facility] Enoxaparin Sodium 40 Mg/0.4 Ml Disp.syrin Enoxaparin S odium 40 Mg/0.4 Ml Disp.syrin Yes 40 Daily@1700 [facility] Ferrous Fumarate/Folic Acid (Hematinic-Folic Acid Tabl et) 1 Each Tablet Ferrous Fumarate/Folic Acid (Hematinic-Folic Acid Tablet) 1 Each Tablet Yes 1 Daily [facility] Lactulose 20 Gm/30 Ml Solution Lactulose 20 Gm/30 Ml Solution Yes 30 Daily as needed for Constipation [facility] Megestrol Acetate 400 Mg/10 Ml Oral.susp Megestrol [place] 400 Mg/10 Ml Oral.susp Yes 400 Daily [facility] Meropenem 500 Mg Vial Meropenem 500 Mg Vial Yes 500 Every 8 Hours [facility] Multivitamin (Multi-Vitamin Daily) 1 Each Tablet Multi vitamin (Multi-Vitamin Daily) 1 Each Tablet Yes 1 Daily [facility] Na Phos,M-B/Na Phos,Di-Ba (Fleet Enema) 133 Ml Enema N a Phos,M-B/Na Phos,Di-Ba (Fleet Enema) 133 Ml Enema Yes 132 Every 48 Hours as needed for Constipation [facility] Ondansetron (Ondansetron Odt) 8 Mg Tab.rapdis Ondanset mayelin (Ondansetron Odt) 8 Mg Tab.rapdis Yes 8 Every 8 Hours as needed for Nausea [facility] Pantoprazole Sodium (Protonix) 40 Mg Tablet. Pantopr azole Sodium (Protonix) 40 Mg Tablet. Yes 40 Daily@[address] [facility] [address] [facility] Prochlorperazine Maleate 10 Mg Tablet Prochlorperazine Maleate 10 M g Tablet Yes 10 Every 6 Hours as needed for Nausea [facility] Sennosides/Docusate Sodium (Senna-Docusate Sodium Tabl et) 1 Each Tablet Sennosides/Docusate Sodium (Senna-Docusate Sodium Tablet) 1 Each Tablet Yes 3 Daily [facility] Trazodone Hcl 50 Mg Tablet Trazodone Hcl 50 Mg Tablet Yes 100 Bedtime [facility] Valacyclovir Hcl (Valacyclovir) 500 Mg Tablet Valacycl ovir Hcl (Valacyclovir) 500 Mg Tablet Yes 500 Daily [facility] Vancomycin Hcl 1 Gm Vial Vancomycin Hcl 1 Gm Vial Yes 1 Every 12 Hours [facility] Zinc Sulfate 220 Mg Capsule Zinc Sulfate 220 Mg Capsule Yes 220 Daily [facility] Bisacodyl 5 Mg Tablet., 10 Mg Rectal Bisacodyl 5 Mg Tablet.dr 10 Mg Rectal 2019-01-14 00:00:00 No 10 Daily as needed for Constipation [facility] Ferrous Fumarate 324 Mg Tablet, 324 Mg Oral Ferrous Fu marate 324 Mg Tablet, 324 Mg Oral 2019-01-14 00:00:00 No 324 Daily [facility] Procedures Procedure Date / Time Performed Performing Clinician [facility] Laparoscopic colectomy 2019-01-15 00:00:00 TANIA MCMANUS [facility] Colostomy 2019-01-15 00:00:00 TANIA MCMANUS [facility] Encounters Start Date/Time End Date/Time Encounter Type Admission Type [facility] Care Department Encounter ID Source 2020-01-13 10:53:17 Outpatient SYSTEM, PROVIDER PERLA DUNCAN [id number] [facility] 2019-12-31 10:04:12 Outpatient BRITNEY NEWELL MDA, MD [id number] [facility] 2019-12-05 10:12:43 Inpatient PERLA DUNCAN [id number] [facility] 2019-12-03 13:32:57 Inpatient ROSHNI LEMOS MDA, MD [id number] [facility] 2019-12-02 20:34:23 Inpatient ROSHNI LEMOS MDA, MD [id number] [facility] 2019-12-02 00:00:00 Inpatient MDA MDA [id number] MD [place] 2019-12-02 00:00:00 Inpatient MDA MDA [id number] MD [place] 2019-12-02 00:00:00 Inpatient MDA MDA [id number] MD [place] 2019-01-13 21:15:00 Admitted Inpatient [facility] [id number] [facility] 2020-02-05 00:00:00 2020-02-05 00:00:00 Outpatient GILDARDO JOHNSON MDA MDA [id number] MD [place] 2020-02-03 00:00:00 2020-02-03 00:00:00 Outpatient GILDARDO JOHNSON MDA MDA [id number] MD [place] 2020-01-16 00:00:00 2020-01-16 00:00:00 Outpatient GILDARDO JOHNSON MDA MDA [id number] MD [place] 2020-01-16 00:00:00 2020-01-16 00:00:00 Outpatient GILDARDO JOHNSON MDA MDA [id number] MD [place] 2020-01-14 00:00:00 2020-01-14 00:00:00 Outpatient NANETTE MAXWELL MDA MDA [id number] MD [place] 2020-01-08 14:00:00 2020-01-08 23:59:00 Outpatient GILDARDO JOHNSON MDA MDA [id number] MD [place] 2020-01-08 11:30:12 2020-01-08 14:08:30 Outpatient GILDARDO JOHNSON MDA MDA [id number] MD [place] 2020-01-08 11:00:00 2020-01-08 13:59:00 Outpatient GILDARDO JOHNSON MDA MDA [id number] MD [place] 2020-01-08 13:58:08 2020-01-08 13:58:08 Outpatient GILDARDO JOHNSON MDA MDA [id number] MD [place] 2020-01-08 00:00:00 2020-01-08 00:00:00 Outpatient GILDARDO JOHNSON MDA MDA [id number] MD [place] 2020-01-06 10:27:17 2020-01-06 10:35:54 Outpatient GILDARDO JOHNSON MDA MDA [id number] MD [place] 2020-01-01 00:00:00 2020-01-01 00:00:00 Outpatient GILDARDO JOHNSON MDA MDA [id number] MD [place] 2020-01-01 00:00:00 2020-01-01 00:00:00 Outpatient NANETTE MAXWELL PERLA MDA [id number] MD [place] 2019-12-17 13:25:48 2019-12-17 17:45:51 Outpatient GILDARDO JOHNSON PERLA MDA [id number] MD [place] 2019-12-02 07:07:32 2019-12-09 11:27:00 Inpatient ER [place] [facility] Lymphoma/Mye [id number] MD Urias 2019-12-08 16:06:28 2019-12-08 16:08:17 Inpatient RAIN LOZANO PERLA MDA [id number] MD [place] 2019-12-05 00:00:00 2019-12-05 00:00:00 Outpatient GILDARDO JOHNSON PERLA [facility] [id number] MD [place] Results Test Description Test Time Test Comments Results Result Comments Source CHEST SINGLE (PORTABLE) 2020-02-01 15:22:00 [place] [address] Patient Name: SHADI BERTRAND MR #: [id number] : 1950 Age/Sex: 69/M Req #: [id number] Adm Physician: Ordered by: JOANNA REDDY MD Report #: [id number] Location: ER Room/Bed: Procedure: [id number] DX/CHEST SINGLE (PORTABLE) Exam Date: 02/01/20 Exam Time: 1432 REPORT STATUS: Signed EXAMINATION: CHEST SINGLE (PORTABLE) INDICATION: SACRAL PRESSURE ULCERS COMPARISON: None FINDINGS: AP view TUBES and LINES: None. . LUNGS/PLEURA: Lungs are well inflated. There are bilateral patchy opacities. There is no pleural effusion or pneumothorax. HEART AND MEDIASTINUM: The cardiomediastinal silhouette is unremarkable. BONES AND SOFT TISSUES: No acute osseous lesion. Soft tissues are unremarkable. UPPER ABDOMEN: No free air under the diaphragm. IMPRESSION: Bilateral patchy opacities could represent multifocal pneumonia or edema. Signed by: Shun Nova MD on 02/01/2020 3:23 PM Dictated By: SHUN NOVA MD 1523 Transcribed By: TAM on 02/01/20 1523 COPY TO: JOANNA REDDY MD Sodium Level 2019-01-26 07:20:00 Test Item Sodium Level (test code = 2951-2) 142 136-145 [facility] Uasrx1037-75-29 07:20:00* Test Item Value Reference Range Interpretation Comments Potassium Level (test code = 2823-3) 4.5 3.5-5.1 [facility] TexasChloride Ftird2919-50-99 07:20:00* Test Item Value Reference Range Interpretation Comments Chloride Level (test code = 2075-0) 105 98-107 [facility] TexasCarbon Dioxide Exkjw5884-95-05 07:20:00* Test Item Value Reference Range Interpretation Comments Carbon Dioxide Level (test code = 2028-9) 24 - [facility] TexasAnion Ouu0976-28-27 07:20:00* Test Item Value Reference Range Interpretation Comments Anion Gap (test code = 64078-2) 17.5 8-16 H [facility] TexasBlood Urea Kdwbivhc9301-71-68 07:20:00* Test Item Value Reference Range Interpretation Comments Blood Urea Nitrogen (test code = 3094-0) 15 7-26 [facility] TexasCreatinine2019-07-21 07:20:00* Test Item Value Reference Range Interpretation Comments Creatinine (test code = 2160-0) 0.62 0.72-1.25 L [facility] TexasBUN/Creatinine Olnpx4721-76-84 07:20:00* Test Item Value Reference Range Interpretation Comments BUN/Creatinine Ratio (test code = 3097-3) 24 6-25 [facility] TexasEstimat Glomerular Filtration Rate 2019-01-26 07:20:00* Test Item Value Reference Range Interpretation Comments Estimat Glomerular Filtration Rate (test code = 795643918) > 60 >60 Ranges were taken from the National Kidney Disease Education Program and the [facility] Kidney Foundation literature.Reference ranges:60 or greater: Jaiclb01-15 ( for 3 consecutive months): Chronic kidney disease 15 or less: Kidney failureWoman's Hospital of TexasGlucose Hxwsf9818-02-06 07:20:00* Test Item Value Reference Range Interpretation Comments Glucose Level (test code = NRU8605) 78 74-118 [facility] TexasCalcium Qnuly0162-17-10 07:20:00* Test Item Value Reference Range Interpretation Comments Calcium Level (test code = 11166-3) 9.9 8.4-10.2 [facility] TexasTotal Nkakupgrz8064-54-92 07:20:00* Test Item Value Reference Range Interpretation Comments Total Bilirubin (test code = 1975-2) 0.3 0.2-1.2 [facility] TexasAspartate Amino Transf (AST/SGOT) 2019-01-26 07:20:00* Test Item Value Reference Range Interpretation Comments Aspartate Amino Transf (AST/SGOT) (test code = Aspartate Amino Transf (AST/SGOT)) 20 5-34 [facility] TexasAlanine Aminotransferase (ALT/SGPT) 2019-01-26 07:20:00* Test Item Value Reference Range Interpretation Comments Alanine Aminotransferase (ALT/SGPT) (test code = 1742-6) 11 0-55 [facility] TexasTotal Ipqutao7636-79-37 07:20:00* Test Item Value Reference Range Interpretation Comments Total Protein (test code = 2885-2) 8.6 6.5-8.1 H [facility] TexasAlbumin2019-07-21 07:20:00* Test Item Value Reference Range Interpretation Comments Albumin (test code = 1751-7) 2.0 3.5-5.0 L [facility] TexasGlobulin2019-07-21 07:20:00* Test Item Value Reference Range Interpretation Comments Globulin (test code = 98772-0) 6.6 2.3-3.5 H [facility] TexasAlbumin/Globulin Srckg0518-65-09 07:20:00 * Test Item Value Reference Range Interpretation Comments Albumin/Globulin Ratio (test code = 1759-0) 0.3 0.8-2.0 L [facility] TexasAlkaline Lhvcgxkwypj7198-77-44 07:20:00* Test Item Value Reference Range Interpretation Comments Alkaline Phosphatase (test code = 6768-6) 63 40-150 [facility] TexasWhite Blood Rlyyy8830-87-54 06:59:00* Test Item Value Reference Range Interpretation Comments White Blood Count (test code = 6690-2) 4.75 4.8-10.8 L [facility] TexasRed Blood Sbegg8723-27-35 06:59:00* Test Item Value Reference Range Interpretation Comments Red Blood Count (test code = 789-8) 3.48 4.3-5.7 L [facility] TexasHemoglobin2019-07-21 06:59:00* Test Item Value Reference Range Interpretation Comments Hemoglobin (test code = 83657-7) 8.1 14.0-18.0 L [facility] TexasHematocrit2019-07-21 06:59:00* Test Item Value Reference Range Interpretation Comments Hematocrit (test code = 4544-3) 25.4 38.2-49.6 L [facility] TexasMean Corpuscular Vrqtqx6287-74-49 06:59:00* Test Item Value Reference Range Interpretation Comments Mean Corpuscular Volume (test code = 787-2) 73.0 81-99 L [facility] TexasMean Corpuscular Unfrarefrk7238-40-85 06:59:00* Test Item Value Reference Range Interpretation Comments Mean Corpuscular Hemoglobin (test code = 785-6) 23.3 28-32 L [facility] TexasMean Corpuscular Hemoglobin Concent 2019-01-26 06:59:00* Test Item Value Reference Range Interpretation Comments Mean Corpuscular Hemoglobin Concent (test code = 786-4) 31.9 31-35 [facility] TexasRed Cell Distribution Fflpm6266-12-84 06:59:00* Test Item Value Reference Range Interpretation Comments Red Cell Distribution Width (test code = 70553-5) 21.2 11.7 -14.4 H [facility] TexasPlatelet Ncvic1967-60-19 06:59:00* Test Item Value Reference Range Interpretation Comments Platelet Count (test code = 777-3) 276 140-360 [facility] TexasNeutrophils (%) (Auto)2019-01-26 06:59:00 * Test Item Value Reference Range Interpretation Comments Neutrophils (%) (Auto) (test code = 91698-1) 57.3 38.7-80.0 [facility] TexasLymphocytes (%) (Auto)2019-01-26 06:59:00 * Test Item Value Reference Range Interpretation Comments Lymphocytes (%) (Auto) (test code = 736-9) 24.0 18.0-39.1 [facility] TexasMonocytes (%) (Auto)2019-01-26 06:59:00* Test Item Value Reference Range Interpretation Comments Monocytes (%) (Auto) (test code = 5905-5) 9.5 4.4-11.3 [facility] TexasEosinophils (%) (Auto)2019-01-26 06:59:00 * Test Item Value Reference Range Interpretation Comments Eosinophils (%) (Auto) (test code = 713-8) 8.4 0.0-6.0 H [facility] TexasBasophils (%) (Auto)2019-01-26 06:59:00* Test Item Value Reference Range Interpretation Comments Basophils (%) (Auto) (test code = 706-2) 0.4 0.0-1.0 [facility] TexasIM GRANULOCYTES %2019-01-26 06:59:00* Test Item Value Reference Range Interpretation Comments IM GRANULOCYTES % (test code = IM GRANULOCYTES %) 0.4 0.0- 1.0 [facility] TexasNeutrophils # (Auto)2019-01-26 06:59:00* Test Item Value Reference Range Interpretation Comments Neutrophils # (Auto) (test code = 751-8) 2.7 2.1-6.9 [facility] TexasLymphocytes # (Auto)2019-01-26 06:59:00* Test Item Value Reference Range Interpretation Comments Lymphocytes # (Auto) (test code = 69486-1) 1.1 1.0-3.2 [facility] TexasMonocytes # (Auto)2019-01-26 06:59:00* Test Item Value Reference Range Interpretation Comments Monocytes # (Auto) (test code = 742-7) 0.5 0.2-0.8 [facility] TexasEosinophils # (Auto)2019-01-26 06:59:00* Test Item Value Reference Range Interpretation Comments Eosinophils # (Auto) (test code = 711-2) 0.4 0.0-0.4 [facility] TexasBasophils # (Auto)2019-01-26 06:59:00* Test Item Value Reference Range Interpretation Comments Basophils # (Auto) (test code = 704-7) 0.0 0.0-0.1 [facility] TexasAbsolute Immature Granulocyte (auto 2019-01-26 06:59:00* Test Item Value Reference Range Interpretation Comments Absolute Immature Granulocyte (auto (misha t code = Absolute Immature Granulocyte (auto) 0.02 0-0.1 [facility] TexasVancomycin Level Bvsgse1317-80-87 09:42:00* Test Item Value Reference Range Interpretation Comments Vancomycin Level Trough (test code = 4092-3) 10.2 5.0-10.0 Results repeated and called to JERI PEÑA RN at 0941 on 01/25/19 by Aida wei. Read back and verified.[facility] TexasWound Ayaglby1849-97-72 07:21:00* Test Item Value Reference Range Interpretation Comments Wound Culture (test code = 6462-6) Organism: PROTEUS MIRABILIS [facility] TexasBedside Iuvjlrs8596-27-40 06:42:00* Test Item Value Reference Range Interpretation Comments Bedside Glucose (test code = 40771-6) 97 70-120 Meter ID[id number]
--- OUTSIDE RECORDS SUMMARY | 2020-02-06 18:35 | XMS REPORT | Continuity of Care Document ---
Author Author [facility] t Organization [facility] Address [address] Sarmiento [address] [place] [id number] Phone Unavailable Care Team Providers Care Injection Specialist Name Role Phone NOLVIA LAZCANO, ANA PCP SYSTEM, NOT IN PROVIDER Attphys Unavailable REBEKAH NEWELL Attphys Unavailable ZOFIA LEMOS Attphys Unavailable Gage ZEPEDA Attphys Unavailable Duane LAZCANO, Gage Rubalcava Attphys Lei REDDY Attphys Unavailable Anurag HAND STAMPER, Lei Youngy Attphys Lei GRIMALDO NESHA Attphys Unavailable Heidi RN, Alan Attphys Unavailable Phyllis LAZCANOiv, Doug Joshi Attphys Unavailable Jovan MORALES MSN, Blanco Attphys Unavailable Vipul LAZCANO, Toney Attphys Ben Hoyos RN Attphys Unavailable Obey MORALES, R Anabel Attphys Yoav GOLDEN, Nicole Copeland Attphys Mavis MORALES, Ben Ventura Attphys Rivas WALLACE, Gracia Rico Attphys HALLIE ALONZO Attphys Unavailable Nicolas LAZCANO, Tomasa Attphys Low LAZCANO, Orquidea Galarza Attphys Hallie Alonzo MD Attphys Magdaleno HAND STAMPER, Moriah Sy Attphys Orquidea KELSEY Attphys Unavailable Alec HAND STAMPER, G Salena Attphys Cherri LAZCANO, Chester Attphys Mazin RN, Rebekah Xavier Attphys Unavailable Omer RN, Katelynn Jay Attphys Unavailable Sobia RN, E Ramachandran Attphys Unavailable Johnnie HAND STAMPER, Verona Attphys Soco HAND STAMPER, P Allyson Attphys Robert LAZCANO, John Flores Attphys Jenny LAZCANO, Aelx Attphys Iraida LAZCANO, Julio Attphys Pierce LAZCANO, Mitra Attphys Nik HAND STAMPER, T Jaimole Attphys Kelvin LAZCANO, Ester Attphys Ehsan MORALES, P Mikayla Attphys Unavailable Ann-Marie RN, Roxana Coleman Attphys Unavailable Glenn HAND STAMPER, R Shahrzad Attphys Daniel RN, Tonja Attphys Unavailable Mary LAZCANO, Presley Attphys Joao Romero MD, T Ruth Attphys Sean HAND STAMPER, Yanna Attphys Clive LAZCANO, Bandar Attphys [phone] Mady CABRERA, Roxana Lennon Attphys Greg HAND STAMPER, Veronika Attphys Rivas LAZCANO, Nicole Alonzo Attphys Mike MORALES, Italia Attphys Unavailable Kassidy RN, P Estefany Attphys Unavailable Hardik RN, A James Attphys Unavailable Fletcher MORALES, B Herb Attphys Unavailable Sung LAZCANO, Rosalind Attphys Sybil RN, L Anabelle Attphys Sylvain LAZCANO, Aren Garcia Attphys Brandin PA, Reshma Attphys Saroj LAZCANO, A Lexy Attphys Unavailable Rob HAND STAMPER, Umm Attphys Esdras LAZCANO, Shirley Attphys Rey RN, D Ana Attphys Nik WET CROWN BLOCKING OPERATOR, D Anju Attphys Milad RN, E Madelyn Attphys Unavailable Giovanni HAND STAMPER, Venus Berkowitz Attphys Tresa HAND STAMPER, C Wendy Attphys Samantha RN, Ruth Attphys Unavailable Herve LAZCANO PhD, June Joshi Attphys William RN, B Chester Attphys Unavailable Rolando HAND STAMPER, Zofia Attphys Marily LAZCANO, Darell Attphys Kylie LAZCANO, Yuan Attphys Rolando OD, Raphael Attphys Kasi LAZCANO, Karlee Attphys Javier RN, Dario Venegas Attphys [phone] Boudreaux RN, Bebe Attphys Unavailable Azul MORALES, S Aimee Attphys Unavailable Marcus MORALES, O Nia Attphys Unavailable Rajan RN, A Sonia Attphys Unavailable Shawn RN, Kim Attphys Unavailable Rishabh MORALES, A Josephine Attphys Rozina LAZCANO, Gisel Peters Attphys Adan Hamilton MDiv Attphys Douglas LAZCANO, Rashi Attphys Unavailable Ever LAZCANO, Antoinette Attphys Chelsea Hamilton MD Attphys Migue LAZCANO, Colby Vogt Attphys Orquidea KELSEY Admphys Unavailable Payers Payer Name Policy Type Policy Number Effective Date Expiration Date S tito [employer] CHO[employer] MEDICARE PPO [id number] 2018 00:00:00 [place]ICAID [place] TRADITIONAL ST[place] SSI [id number] 2019 00:00:00 Problems Condition Name Condition Details Condition Category Status Onset Date Resolution Date Last Treatment Date Treating Clinician Comments Source At risk of deep vein thrombosis At risk of deep vein thrombosis Dis ease Active 2019-12-30 00:00:00 MD Bogdan gomez Anemia due to antineoplastic chemotherapy Anemia due t o antineoplastic chemotherapy Disease Active 2019-11-06 00:00:00 MD Tenorio Encounter for other specified prophylactic measure Enc ounter for other specified prophylactic measure Disease Active 2019-11-06 00:00:00 MD eTnorio Physical deconditioning Physical deconditioning Disease Active 2019-10-24 00:00:00 MD Tenorio Fatigue Fatigue Disease Active 2019-10-19 00:00:00 MD Tenorio Elevated liver enzymes level Elevated liver enzymes level Disease Active 2019-09-27 00:00:00 Bogdan patricia Unstageable pressure ulcer of left heel Unstageable pressure ulcer of left heel Disease Active 2019-09-26 00:00:00 MD Tenorio Stage 3 pressure ulcer of other site Stage 3 pressure ulcer of other site Disease Active 2019-09-26 00:00:00 Overview: Stage 3 PI left Ishium MD Tenorio Neoplasm related pain (acute) (chronic) Neoplasm related sebastian n (acute) (chronic) Disease Active 2019-09-26 00:00:00 MD Tenorio Fall (on) (from) unspecified stairs and steps Fall (on ) (from) unspecified stairs and steps Disease Active 2019-08-28 00:00:00 MD Tenorio Pain and tenderness Pain and tenderness Disease Active 2019-08-28 00:00 :00 MD Tenorio Pain in left shoulder Pain in left shoulder Disease Active 00:00:00 MD Tenorio Pathological fracture of left clavicle Pathological fracture of left clavicle Disease Active 2019-08-27 00:00:00 MD Tenorio 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 Disease Active 2019-08-11 00:00:00 MD Tenorio Dyspepsia Dyspepsia Disease Active 2019-08-02 00:00:00 MD Tenorio 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 Disease Active 2019-08-02 00:00:00 MD Tenorio Blurring of visual image Blurring of visual image Disease Acti ve 2019-07-10 00:00:00 MD Tenorio 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 Disease Active 2019-06-06 00:00:00 MD Tenorio Edema of lower leg Edema of lower leg Disease Active 2019-04-24 00:00:0 0 MD Tenorio Hypercalcemia Hypercalcemia Disease Active 2019-04-24 00:00:00 MD Tenorio Paraplegia with neurogenic bladder Paraplegia with neurogenic bl adder Disease Active 2019-04-11 00:00:00 MD Elinor garcia Anemia in malignant neoplastic disease Anemia in malignant n eoplastic disease Disease Active 2018-12-05 00:00:00 MD Tenorio Antibiotic prophylaxis indicated Antibiotic prophylaxis indicate d Disease Active 2018-11-05 00:00:00 MD Elinor garcia Multiple myeloma Multiple myeloma Disease Active 2018-09-19 00:00:00 MD Tenorio Headache Headache Disease Active 2018-09-19 00:00:00 MD Tenorio Constipation Constipation Disease Active 2018-09-19 00:00:00 MD Tenorio Elevated blood pressure Elevated blood pressure Disease Active 2018-09-18 00:00:00 MD Tenorio Anemia in neoplastic disease Anemia in neoplastic disease Disease Active 2018-09-18 00:00:00 MD Bogdan gomez Paraplegia Paraplegia Disease Active 2018-09-18 00:00:00 MD Tenorio High troponin I level High troponin I level Disease Active 201 03-11-13 00:00:00 MD Tneorio Chronic kidney disease stage 3 Chronic kidney disease stage 3 Disea se Active 2018-08-08 00:00:00 MD Bogdan gomez Spinal cord compression Spinal cord compression Disease Active 2018-08-08 00:00:00 MD Tenorio Benign essential hypertension Benign essential hypertension Disease Active 2018-07-16 00:00:00 MD Bogdan gomez Hyperlipidemia Hyperlipidemia Disease Active 2018-07-16 00:00:00 MD Tenorio Adjustment disorder with depressed mood Adjustment disorder with depressed mood Disease Active MD Kedar weaver Difficulty coping with grief responses Difficulty coping wit h grief responses Disease Active MD Kedar weaver Normal grief reaction Normal grief reaction Disease Active MD Tenorio Hypertension Hypertension Disease Active MD Tenorio Bacteremia Bacteremia Disease Resolved 2019-12-02 00:00:00 00:00:00 2019-12-30 17:09:20 MD Tenorio History of Past Illness Condition Name Condition Details Condition Category Status Onset Date Resolution Date Last Treatment Date Treating Clinician Comments Source Hypokalemia Hypokalemia Disease Resolved 2019-10-24 00:00:00 00:00:00 2019-12-30 17:09:16 MD Tenorio Hypomagnesemia Hypomagnesemia Disease Resolved 2019-10-24 00:00: 00 2019-12-30 00:00:00 2019-12-30 17:09:18 MD Tenorio Sepsis due to Gram negative bacteria Sepsis due to Gram nega tive bacteria Disease Resolved 2019-10-19 00:00:00 2019-12-30 00:00:00 2019-12-30 18:02:3 8 MD Tenorio Pneumonia Pneumonia Disease Resolved 2019-10-18 00:00:00 2019-12-30 00:00:00 2019-12-30 18:02:40 MD Tenorio Protein-calorie malnutrition Protein-calorie malnutrition Disease Resolved 2019-09-27 00:00:00 2019-12-30 00:00:00 2019-12-30 17:09:22 MD Tenorio Fever Fever Disease Resolved 2019-03-12 00:00:00 2019-12-30 00:00:00 2019-12-30 17:09:07 MD Tenorio Urinary tract infection Urinary tract infection Disease Resolv ed 2019-03-12 00:00:00 2019-12-30 00:00:00 2019-12-30 18:02:22 Gage Tenorio Pressure-induced deep tissue damage of other site Pres sure-induced deep tissue damage of other site Disease Resolved 2019-09-26 00:00:00 2019-10-20 00 :00:00 2019-10-20 19:20:55 MD Tenorio Stage 4 pressure ulcer of sacral region Stage 4 pressure ulc er of sacral region Disease Resolved 2018-09-18 00:00:00 2019-09-26 00:00:00 2019-09-26 20:30:5 1 MD Tenorio Epistaxis Epistaxis Disease Resolved 2019-04-24 00:00:00 2019-08-01 00:00:00 2019-08-01 18:54:28 MD Tenorio Thrombocytopenia Thrombocytopenia Disease Resolved 2019-06-09 00 :00:00 2019-06-20 00:00:00 2019-06-20 23:23:26 MD Bogdan gomez Orbital cellulitis Orbital cellulitis Disease Resolved 00:00:00 2019-06-20 00:00:00 2019-06-20 23:23:21 MD Bogdan gomez Upper respiratory infection Upper respiratory infection Disease Resolved 2019-06-06 00:00:00 2019-06-20 00:00:00 2019-06-20 23:23:20 MD Tenorio Gastrointestinal hemorrhage Gastrointestinal hemorrhage Disease Resolved 2019-03-12 00:00:00 2019-06-20 00:00:00 2019-06-20 23:22:59 MD Tenorio Hyposmolality and/or hyponatremia Hyposmolality and/or hyponatre adina Disease Resolved 2018-11-05 00:00:00 2019-06-20 00:00:00 2019-06-20 23:22:50 MD Tenorio Injury, unspecified Injury, unspecified Disease Resolved 2018-10 00:00:00 2019-06-20 00:00:00 2019-06-20 23:22:51 MD Bogdan gomez Chest pain Chest pain Disease Resolved 2018-09-19 00:00:00 00:00:00 2019-06-20 23:23:44 MD Tenorio Nausea alone Nausea alone Disease Resolved 2018-09-19 00:00:00 2 00:00:00 2019-06-20 23:23:45 MD Tenorio Severe protein-calorie malnutrition Severe protein-calorie malnu trition Disease Resolved 2018-09-19 00:00:00 2019-06-20 00:00:00 2019-06-20 23:22:44 MD Tenroio Melena Melena Disease Resolved 2018-09-18 00:00:00 2019-06-20 00:00:00 2019-06-20 23:22:48 MD Tenorio Allergies, Adverse Reactions, Alerts This patient has no known allergies or adverse reactions. Social History Social Habit Start Date Stop Date Quantity Comments Source Sex Assigned At MD Tenorio Exposure to SARS-CoV-2 (event) Not sure MD Tenorio Tobacco use and exposure 2019-12-02 00:00:00 2019-12-02 00:00:00 Lc fagan used MD Tenorio Alcohol intake 2019-12-02 00:00:00 2019-12-02 00:00:00 Current drinker of alcohol (finding) MD Tenorio Smoking Status Start Date Stop Date Source Never smoker MD Tenorio Medications Ordered Medication Name Filled Medication Name Start Date Stop Da te Current Medication? Ordering Clinician Indication Dosage Frequency Signature (SIG) Comments Components Source dexamethasone (DECADRON) 4 mg tablet 2020-01-16 00:00: 00 2020-02-08 04:59:00 Yes Multiple myeloma 40mg Take 10 tab lets (40 mg) by mouth once a week for 4 doses. on days 1, 8, 15, and 22 of each cycle. MD Tenorio dexamethasone (DECADRON) 4 mg tablet 2020-01-14 00:00: 00 2020-02-06 04:59:00 No Multiple myeloma 40mg Take 10 tab lets (40 mg) by mouth once a week for 4 doses. on days 1, 8, 15, and 22 of each cycle. MD Tenorio lenalidomide (REVLIMID) capsule 25 mg 2020-01-14 00:00 :00 2020-02-05 04:59:00 No Multiple myeloma 25mg Take 1 capsule (25 mg) by mouth daily for 21 days. MD Tenorio traMADol (ULTRAM) 50 mg tablet 2020-01-08 18:37:25 Yes 50mg Take 50 mg by mouth as needed. MD Tenorio ferrous sulfate 325 mg (65 mg elemental iron per tablet) tab let 2020-01-08 16:55:22 Yes 325mg Take 325 mg by mouth daily. 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 Begin on 12/15 MD Tenorio DAPTOmycin (CUBICIN) 50 mg/mL injection 00:00:00 2019-12-16 04:59:00 No Urinary tract infection, not otherwise specifie d 650mg Infuse 13 mL (650 mg) intravenously daily for 6 days. Thru 12/14 MD Tenorio fluconazole (Diflucan) 100 mg tablet 2019-11-29 00:00: 00 2019-12-09 00:00:00 No Candiduria 100mg Take 1 tablet (100 mg) by mouth daily . MD Tenorio nitrofurantoin (Macrodantin) 100 mg capsule 2019 00:00:00 2019-12-09 00:00:00 No Candiduria 100mg Take 1 capsule (100 mg) by mouth 4 (four) times a day. MD Tenorio megestroL (MEGACE ES) 625 mg/5 mL suspension 00:00:00 2020-01-08 00:00:00 No Take by mouth daily. MD Tenorio fluconazole (Diflucan) 100 mg tablet 2019-11-28 00:00: 00 2019-11-29 00:00:00 No Candiduria 100mg Take 1 tablet (100 mg) by mouth daily . MD Tenorio nitrofurantoin (Macrodantin) 100 mg capsule 2019 00:00:00 2019-11-29 00:00:00 No Candiduria 100mg Take 1 capsule (100 mg) by mouth 4 (four) times a day. MD Tenorio atorvastatin (LIPITOR) 10 mg tablet 2019-11-23 00:00:00 Yes 1{tbl} Take 1 tablet by mouth daily. MD Kedar weaver baclofen (LIORESAL) 10 mg tablet 2019-11-23 00:00:00 Yes 1{tbl} Take 1 tablet by mouth every morning. MD Andrea alcaraz apixaban (Eliquis) 2.5 mg tablet 2019-11-12 00:00:00 Yes Multiple myeloma 2.5mg Take 1 tablet (2.5 mg) by mouth every 12 (twelve) hour s. MD Tenorio dexamethasone (DECADRON) 4 mg tablet 2019-11-12 00:00: 00 2019-12-09 00:00:00 No Multiple myeloma 40mg Take 10 tab lets (40 mg) by mouth once a week for 5 doses. on days 1, 8, 15, and 22 of each cycle. MD Tenorio lenalidomide (REVLIMID) capsule 25 mg 2019-11-10 00:00 :00 2019-12-09 00:00:00 No Multiple myeloma 25mg Take 1 capsule (25 mg) by mouth daily for 21 days. MD Tenorio lenalidomide (REVLIMID) capsule 25 mg 2019-11-07 00:00 :00 2019-11-29 04:59:00 No Multiple myeloma 25mg Take 1 capsule (25 mg) by mouth daily for 21 days. MD Tenorio dexamethasone (DECADRON) 4 mg tablet 2019-11-07 00:00: 00 2019-11-12 00:00:00 No Multiple myeloma 40mg Take 10 tab lets (40 mg) by mouth once a week for 5 doses. on days 1, 8, 15, and 22 of each cycle. MD Tenorio apixaban (Eliquis) 2.5 mg tablet 2019-11-05 00:00:00 2019-11 00:00:00 No Multiple myeloma 2.5mg Take 1 tablet (2.5 m g) by mouth every 12 (twelve) hours. MD Tenorio polyethylene glycol (MIRALAX) 17 g packet 10-28 00:00:00 2019-12-17 00:00:00 No Multiple myeloma Stir and dissolve one packet of powder (17 g) in any 4 to 8 ounces of beverage (cold, hot or room temperature) then drink once a day. MD Tenorio baclofen 5 mg tab 2019-10-28 00:00:00 2019-12-02 00:00:00 No Other muscle spasm 5mg Take 5 mg by mouth e very 8 (eight) hours as needed for muscle spasms or hiccups. MD Tenorio sodium chloride (OCEAN) 0.65% nasal spray 2019-10-27 00:00:0 0 Yes Multiple myeloma 1{spray} Apply 1 spray to eac h nare every 6 (six) hours as needed (nasal dryness). MD Tenorio lidocaine (LIDODERM) 5% (700 mg/patch) transdermal patch 2019-10-27 00:00:00 2019-12-30 00:00:00 No Chronic pain 1{patch} Xiao ce 1 patch on the skin daily. Remove & Discard patch within 12 hours or as directed by . Remove old patch(es) before replacing new patch(es). MD Tenorio baclofen (LIORESAL) 10 mg tablet 2019-10-27 00:00:00 2019-10 00:00:00 No Paraplegia, not otherwise specified 10mg Take 1 tablet (10 mg) by mouth every 8 (eight) hours as needed for muscle spasms. MD Tenorio morphine (MSIR) 15 mg IR tablet 2019-10-22 00:00:00 Yes Neoplasm related pain (acute) (chronic) 15mg Take 1 tablet (15 mg) by mouth every 4 (four) hours as needed for moderate pain or severe pain. MD Tenorio docusate sodium (COLACE) 100 mg capsule 00:00:00 2019-12-17 00:00:00 No Multiple myeloma 100mg Take 1 c apsule (100 mg) by mouth twice daily. Hold for loose stools. MD Simental on levoFLOXacin (Levaquin) 500 mg tablet 2019-09-29 00:00 :00 2019-10-10 04:59:00 No Multiple myeloma 500mg Take 1 tabl et (500 mg) by mouth daily for 10 days. Starting on Day 8 of each cycle. fluconazole (Diflucan) 100 mg tablet 2019-09-29 00:00: 00 2019-10-10 04:59:00 No Multiple myeloma 100mg Take 1 tabl et (100 mg) by mouth daily for 10 days. Starting on Day 8 of each cycle. dexamethasone (DECADRON) 4 mg tablet 2019-09-29 00:00: 00 2019-09-30 04:59:00 No Multiple myeloma 40mg Take 10 tab lets (40 mg) by mouth once for 1 dose. Take 40 mg (10 tablets) by mouth in the morning on 10/04/2019. Take with food. MD Tenorio dexamethasone (DECADRON) 4 mg tablet 2019-09-26 00:00: 00 2019-09-29 00:00:00 No Multiple myeloma Take 40 mg (10 tablets) by mouth once daily on days 10, 11, 17 and 18. MD Tenorio morphine (MSIR) 15 mg IR tablet 2019-09-01 00:00:00 00:00:00 No Neoplasm related pain (acute) (chronic) 7.5mg Take 0.5-1 tablets (7.5-15 mg) by mouth every 4 (four) hours as needed for moderate pain. MD Tenorio morphine (MSIR) 15 mg IR tablet 2019-08-28 00:00:00 00:00:00 No Pain in left shoulder 15mg Take 1 tablet (15 mg) by mouth every 4 (four) hours as needed for severe pain. MD Tenorio nitrofurantoin (MACRODANTIN) 100 mg capsule 2019 00:00:00 2019-08-27 00:00:00 No Antibiotic prophylaxis indicated 100mg Take 1 capsule (100 mg) by mouth daily for 21 days. MD Tenorio fluconazole (DIFLUCAN) 100 mg tablet 2019-08-05 00:00: 00 2019-08-16 05:59:00 No Multiple myeloma 100mg Take 1 tabl et (100 mg) by mouth daily for 10 days. Starting on Day 8 of each cycle. levoFLOXacin (LEVAQUIN) 500 mg tablet 2019-08-05 00:00 :00 2019-08-16 05:59:00 No Multiple myeloma 500mg Take 1 tabl et (500 mg) by mouth daily for 10 days. Begin on Day 8 of each cycle. MD Simental on levoFLOXacin (LEVAQUIN) 250 mg tablet 2019-08-05 00:00 :00 2019-08-05 00:00:00 No Multiple myeloma 500mg Take 2 tabl ets (500 mg) by mouth once for 1 dose. Then take 250 mg (1 tablet) daily for 9 days.Starting on Day 8 of each cycle. MD Tenorio baclofen (LIORESAL) 10 mg tablet 2019-08-04 00:00:00 2019-10 00:00:00 No Paraplegia, not otherwise specified 5mg Take 0.5 tablets (5 mg) by mouth every 8 (eight) hours as needed for muscle spasms. MD Tenorio dexamethasone (DECADRON) 4 mg tablet 2019-08-02 00:00: 00 2019-08-27 00:00:00 No Multiple myeloma Take 40 mg (10 tablets) by mouth once daily on days 10, 11, 17 and 18. MD Tenorio acetaminophen (TYLENOL) 325 mg tablet 2019-07-22 01: :2019-07-21 00:00:00 No 650mg Take 650 mg by mouth every 4 (four) hours as needed for mild pain. MD Tenorio sulfamethoxazole-trimethoprim (BACTRIM DS) 800 mg-160 mg per tablet 2019-07-21 00:00:00 2019-07-29 05:59:00 No Urinary tract infection 1{tbl} Take 1 tablet by mouth twice daily for 7 days. MD Andrea alcaraz ergocalciferol (DRISDOL) 50,000 units capsule 20 26-06-19 00:51:51 2019-06-25 00:00:00 No [id number] Take 50,000 Units by mouth ever y 7 days. MD Tenorio valACYclovir (VALTREX) 500 mg tablet 2019-06-25 00:00:00 Yes Multiple myeloma 500mg Take 1 tablet (500 m g) by mouth daily. To prevent viral infection. MD Tenorio bacitracin 500 units/g pack ointment packet 2018 00:00:00 2019-10-28 00:00:00 No Multiple myeloma Apply to pically to affected area(s) at bedtime. MD Tenorio sodium chloride (OCEAN) 0.65% nasal spray 2018-07 00:00:00 2019-10-27 00:00:00 No Multiple myeloma 1{spray} Apply 1 spray to each nare 4 (four) times a day. MD Tenorio benzonatate (TESSALON PERLES) 100 mg capsule 201 03-20-18 00:00:00 2019-08-27 00:00:00 No Cough 100mg Take 1 capsule (100 mg) by mouth every 8 (eight) hours as needed for cough. MD Tenorio baclofen (LIORESAL) 10 mg tablet 2019-06-25 00:00:00 2019-07 00:00:00 No Paraplegia, not otherwise specified 10mg Take 1 tablet (10 mg) by mouth every 8 (eight) hours as needed for muscle spasms. MD Tenorio dexamethasone (DECADRON) 4 mg tablet 2019-06-22 00:00: 00 2019-07-21 00:00:00 No Multiple myeloma Take 20 mg (5 tablets) by mouth once on day 23. MD Tenorio linezolid (ZYVOX) 600 mg tablet 2019-06-14 00:00:00 00:00:00 No Multiple myeloma 600mg Take 1 tablet (600 m g) by mouth twice daily for 7 days. MD Tenorio senna-docusate (SENOKOT-S) 8.6 mg-50 mg tablet 2 00:00:00 2019-10-28 00:00:00 No Multiple myeloma 1{tbl} Take 1 t ablet by mouth 2 (two) times a day as needed for constipation. MD Bogdan gomez ciprofloxacin HCl (CIPRO) 500 mg tablet 00:00:00 2019-06-25 00:00:00 No Multiple myeloma 500mg Take 1 t ablet (500 mg) by mouth every 12 (twelve) hours for 8 days. MD Tenorio ibuprofen (ADVIL,MOTRIN) 400 mg tablet 6 00:00:00 2019-06-25 00:00:00 No Multiple myeloma 400mg Take 1 t ablet (400 mg) by mouth every 8 (eight) hours as needed for headaches (unrelieved by tramadol). MD Tenorio traMADol (ULTRAM) 50 mg tablet 2019-06-12 00:00:00 2019-08-10 4 00:00:00 No Headache 50mg Take 1 tablet (50 mg ) by mouth every 6 (six) hours as needed for severe pain. MD Tenorio baclofen (LIORESAL) 10 mg tablet 2019-05-28 00:00:00 2019-06 00:00:00 No Paraplegia, not otherwise specified 10mg Take 1 tablet (10 mg) by mouth every 8 (eight) hours as needed for muscle spasms. MD Tenorio benzonatate (TESSALON PERLES) 100 mg capsule 201 03-19-20 00:00:00 2019-06-25 00:00:00 No Cough 100mg Take 1 capsule (100 mg) by mouth every 8 (eight) hours as needed for cough. MD Tenorio levoFLOXacin (LEVAQUIN) 500 mg tablet 2019-05-24 00:00 :00 2019-06-04 05:59:00 No Multiple myeloma 500mg Take 1 tabl et (500 mg) by mouth daily for 10 days. Starting on Day 8 of each cycle. fluconazole (DIFLUCAN) 100 mg tablet 2019-05-24 00:00: 00 2019-06-04 05:59:00 No Multiple myeloma 100mg Take 1 tabl et (100 mg) by mouth daily for 10 days. Starting on Day 8 of each cycle. megestrol (MEGACE ES) 625 mg/5 mL suspension 201 03-18-22 18:16:58 2019-04-29 00:00:00 No 625mg Take 625 mg by mouth daily. MD Tenorio allopurinol (ZYLOPRIM) 300 mg tablet 2019-04-29 00:00: 00 2019-06-25 00:00:00 No Multiple myeloma 300mg Take 1 tablet (300 mg) by mouth daily. MD Tenorio chlorhexidine (PERIDEX) 0.12% solution 2019-04-28 00:00:00 Yes Multiple myeloma 15mL Swish and spit 15 mL twice daily. MD Tenorio fluoride, sodium, (DENTAGEL) 1.1% dental gel 2019-04-28 00:0 0:00 Yes Multiple myeloma Apply to teeth twice daily. MD Tenorio ondansetron (ZOFRAN) 8 mg tablet 2019-04-28 00:00:00 Yes Multiple myeloma 8mg Take 1 tablet (8 mg) by mout h every 8 (eight) hours as needed for nausea or vomiting. MD Tenorio prochlorperazine (COMPAZINE) 10 mg tablet 2019-04-28 00:00:0 0 Yes Multiple myeloma 10mg Take 1 tablet (10 mg ) by mouth every 6 (six) hours as needed for nausea or vomiting. MD Tenorio dexamethasone (DECADRON) 4 mg tablet 2019-04-28 00:00: 00 2019-04-29 04:59:00 No Multiple myeloma 40mg Take 10 tab lets (40 mg) by mouth once for 1 dose. On 05/17. MD Tenorio ciprofloxacin HCl (CIPRO) 500 mg tablet 00:00:00 2019-04-29 00:00:00 No Cystitis without hematuria, not otherwise speci fied 500mg Take 1 tablet (500 mg) by mouth twice daily. MD Tenorio traMADol (ULTRAM) 50 mg tablet 2019-03-15 18:18: 00:00:00 No pain 50mg Take 50 mg by mouth every 4 (four) hours as needed for moderate pain. MD Tenorio traZODone (DESYREL) 100 mg tablet 2019-03-15 18:18:02 2018 00:00:00 No 100mg Take 100 mg by mouth at bedtime. MD Tenorio ascorbic acid (ascorbic acid with henry hips) 500 mg tablet 2019-03-15 18:18:02 2019-03-15 00:00:00 No 500mg Take 500 mg by mary th twice daily. MD Tenorio zinc sulfate (ZINCATE) 220 mg capsule 2019-03-15 18:18 :02 2019-03-15 00:00:00 No 220mg Take 220 mg by mouth daily. MD Tenorio morphine (MSIR) 15 mg IR tablet 2019-03-15 18:18:02 00:00:00 No 7.5mg Take 7.5 mg by mouth every 4 (four) hours as needed for severe pain. MD Tenorio valACYclovir (VALTREX) 500 mg tablet 2019-03-15 00:00: 00 2019-06-25 00:00:00 No Multiple myeloma 500mg Take 1 tabl et (500 mg) by mouth daily. To prevent viral infection. MD Tenorio cefPODoxime (VANTIN) 200 mg tablet 2019-03-15 00:00:00 201 03-17-20 04:59:00 No Urinary tract infection 200mg Take 1 t ablet (200 mg) by mouth twice daily for 12 days. MD Tenorio ixazomib (NINLARO) capsule 4 mg 2019-03-14 00:00:00 00:00:00 No Multiple myeloma 4mg Take 1 capsule (4 mg ) by mouth once a week. Take at least 1 hour before or at least 2 hours after food on Days 1, 8, and 15 of each cycle. MD Tenorio lenalidomide (REVLIMID) capsule 25 mg 2019-03-14 00:00 :00 2019-03-15 00:00:00 No Multiple myeloma 25mg Take 1 capsule (25 mg) by mouth daily for 21 days. MD Tenorio dexamethasone (DECADRON) 4 mg tablet 2018-11-06 00:00: 00 2019-03-15 00:00:00 No Multiple myeloma 32mg Take 8 tabl ets (32 mg) by mouth daily with breakfast. On days 22 and 23 of chemotherapy. MD Tenorio bisacodyl (DULCOLAX) 5 mg EC tablet 2018-10-22 00:00:0 0 2019-03-15 00:00:00 No Constipation, not otherwise specified 10mg Take 2 tablets (10 mg) by mouth daily. Hold for loose stools. MD Simental on enoxaparin (LOVENOX) 40 mg/0.4 mL prefilled syringe 2018-10-22 00:00:00 2019-03-15 00:00:00 No Paraplegia, not otherwise specified 40 mg Inject 0.4 mL (40 mg) under the skin daily. Hold for platelets less than 50 k/uL or bleeding. MD Tenorio multivitamin (THERAGRAN) tablet 2018-10-22 00:00:00 00:00:00 No Severe protein-calorie malnutrition, not otherwise specified 1{tbl} Take 1 tablet by mouth daily. MD Tenorio valACYclovir (VALTREX) 500 mg tablet 2018-10-22 00:00: 00 2019-03-15 00:00:00 No Multiple myeloma 500mg Take 1 tabl et (500 mg) by mouth daily. To prevent viral infection. MD Tenorio senna-docusate (SENOKOT-S) 8.6 mg-50 mg tablet 2 00:00:00 2019-03-15 00:00:00 No Constipation, not otherwise specified 3{tbl} Take 3 tablets by mouth daily. Hold for loose stools. MD Tenorio baclofen (LIORESAL) 10 mg tablet 2018-10-21 00:00:00 2019-05 00:00:00 No Paraplegia, not otherwise specified 10mg Take 1 tablet (10 mg) by mouth every 8 (eight) hours as needed for muscle spasms. MD Tenorio calcium carbonate (TUMS) 500 mg (200 mg elemental calcium per tablet) chewable tablet 2018-10-21 00:00:00 2019-03-15 00:00:00 No Acid ref lux 500mg Chew 1 tablet (500 mg) every 4 (four) hours as needed for indigestion or heartburn. MD Tenorio prochlorperazine (COMPAZINE) 10 mg tablet 10-21 00:00:00 2019-03-15 00:00:00 No Nausea alone 10mg Take 1 table t (10 mg) by mouth every 6 (six) hours as needed for nausea or vomiting. Hold for sedation. MD Tenorio ondansetron (ZOFRAN) 8 mg tablet 2018-10-21 00:00:00 2019-03 00:00:00 No Nausea alone 8mg Take 1 tablet (8 mg) by mouth every 8 (eight) hours as needed for nausea or vomiting. Do not exceed a maximum daily dose of 24 mg/day. MD Tenorio pantoprazole (PROTONIX) 40 mg EC tablet 2018-07-21 00:00:00 Yes 1{tbl} Take 1 tablet by mouth daily. MD Tenorio amLODIPine (NORVASC) 10 mg tablet 2018-07-21 00:00:00 2019 00:00:00 No 1{tbl} Take 1 tablet by mouth daily. Hold for SBP less than 110mmHg. MD Tenorio Amlodipine Besylate 10 Mg Tablet Amlodipine Besylate 10 Mg Tablet Yes 10 Daily [facility] Ascorbic Acid 500 Mg Tablet Ascorbic Acid 500 Mg Tablet Yes 500 Twice A Day [facility] Baclofen 10 Mg Tablet Baclofen 10 Mg Tablet Yes 10 Every 8 Hours as needed for Muscle Spasms [facility] Balsam [place] Oil (Venelex Ointment) 60 Gm Oint.. .g. Balsam [place] Oil (Venelex Ointment) 60 Gm Oint...g. Yes 1 Krysta ly [facility] Bisacodyl 5 Mg Tablet. Bisacomadil 5 Mg Tablet. Yes 10 Daily [facility] Bisacodyl (Dulcolax Supp*) 10 Mg Supp Bisacodyl (Dulcolax Supp*) 10 Mg Supp Yes 10 Daily as needed for Constipation [facility] Docusate Sodium 100 Mg Capsule Docusate Sodium 100 Mg Capsule Yes 100 Twice A Day [facility] Enoxaparin Sodium 40 Mg/0.4 Ml Disp.syrin Enoxaparin S odium 40 Mg/0.4 Ml Disp.syrin Yes 40 Daily@1700 [facility] Ferrous Fumarate/Folic Acid (Hematinic-Folic Acid Tabl et) 1 Each Tablet Ferrous Fumarate/Folic Acid (Hematinic-Folic Acid Tablet) 1 Each Tablet Yes 1 Daily [facility] Lactulose 20 Gm/30 Ml Solution Lactulose 20 Gm/30 Ml Solution Yes 30 Daily as needed for Constipation [facility] Megestrol Acetate 400 Mg/10 Ml Oral.susp Megestrol Mariann montague 400 Mg/10 Ml Oral.susp Yes 400 Daily [facility] Meropenem 500 Mg Vial Meropenem 500 Mg Vial Yes 500 Every 8 Hours [facility] Multivitamin (Multi-Vitamin Daily) 1 Each Tablet Multi vitamin (Multi-Vitamin Daily) 1 Each Tablet Yes 1 Daily [facility] Na Phos,M-B/Na Phos,Di-Ba (Fleet Enema) 133 Ml Enema N a Phos,M-B/Na Phos,Di-Ba (Fleet Enema) 133 Ml Enema Yes 132 Every 48 Hours as needed for Constipation [facility] Ondansetron (Ondansetron Odt) 8 Mg Tab.rapdis Ondanset mayelin (Ondansetron Odt) 8 Mg Tab.rapdis Yes 8 Every 8 Hours as needed for Nausea [facility] Pantoprazole Sodium (Protonix) 40 Mg Tablet. Pantopr azole Sodium (Protonix) 40 Mg Tablet. Yes 40 Daily@0600 [facility] Prochlorperazine Maleate 10 Mg Tablet Prochlorperazine Maleate 10 M g Tablet Yes 10 Every 6 Hours as needed for Nausea [facility] Sennosides/Docusate Sodium (Senna-Docusate Sodium Tabl et) 1 Each Tablet Sennosides/Docusate Sodium (Senna-Docusate Sodium Tablet) 1 Each Tablet Yes 3 Daily [facility] Trazodone Hcl 50 Mg Tablet Trazodone Hcl 50 Mg Tablet Yes 100 Bedtime [facility] Valacyclovir Hcl (Valacyclovir) 500 Mg Tablet Valacycl ovir Hcl (Valacyclovir) 500 Mg Tablet Yes 500 Daily [facility] Vancomycin Hcl 1 Gm Vial Vancomycin Hcl 1 Gm Vial Yes 1 Every 12 Hours [facility] Zinc Sulfate 220 Mg Capsule Zinc Sulfate 220 Mg Capsule Yes 220 Daily [facility] Bisacodyl 5 Mg Tablet.dr, 10 Mg Rectal Bisacodyl 5 Mg Tablet.dr, 10 Mg Rectal 2019-01-14 00:00:00 No 10 Daily as needed for Constipation [facility] Ferrous Fumarate 324 Mg Tablet, 324 Mg Oral Ferrous Fu marate 324 Mg Tablet, 324 Mg Oral 2019-01-14 00:00:00 No 324 Daily [facility] Vital Signs Vital Name Observation Time Observation Value Comments Source Systolic blood pressure 2020-01-09 03:10:00 115 mm[Hg] MD Tenorio Diastolic blood pressure 2020-01-09 03:10:00 66 mm[Hg] MD Tenorio Heart rate 2020-01-09 03:10:00 73 /min MD Bogdan gomez Body temperature 2020-01-09 03:10:00 36.33 Sylvie MD Lei rico Respiratory rate 2020-01-09 03:10:00 19 /min MD Lei rico Oxygen saturation in Arterial blood by Pulse oximetry 01-07 23:16:00 98 /min MD Tenorio Body weight 2019-12-09 09:19:00 78.4 kg bed weight MD Bogdan gomez BMI 2019-12-09 09:19:00 26.50 kg/m2 MD Bogdan gomez Body height 2019-12-02 12:05:00 172 cm MD Bogdan gomez Procedures Procedure Date / Time Performed Performing Clinician [facility] e TRANSFUSE RED BLOOD CELLS 2020-01-09 03:42:13 Gildardo Zepeda MD CREATINE KINASE 2020-01-08 19:21:00 Gildardo Zepeda MD COMPLETE BLOOD COUNT W/ DIFFERENTIAL 2020-01-08 19:21:00 Gildardo Zepeda MD CALCIUM IONIZED, VENOUS 2020-01-08 19:21:00 Gildardo Zepeda MD CALCIUM LEVEL TOTAL 2020-01-08 19:21:00 Gildardo Zepeda MD Bogdanciara gomez Results CBC 2020-01-08 19:21:00 Gildardo Zepeda MD MANUAL DIFFERENTIAL 2020-01-08 19:21:00 Gildardo Zepeda MD PREPARE RBC 2020-01-08 18:34:00 Gildardo Zepeda MD AMB PATIENT NEEDS REFERRAL TO SPIRITUAL CARE 2020-01-08 17:02:30 Gildardo Zepeda MD TYPE AND SCREEN 2020-01-08 16:21:00 Gildardo Zepeda MD ANTIBODY SCREEN 2020-01-08 16:21:00 Gildardo Zepeda MD ABORH MANUAL 2020-01-08 16:21:00 Gildardo Zepeda MD TMP INTERP AUTO ANTIBODY SCREEN POSITIVE 2020-01-08 16:21:00 Web Gildardo urbina MD CLOT EXPIRATION DATE 2020-01-08 16:21:00 Gildardo Zepeda MD Andrea rson TMP ABORH DISCREPANCY INTERPRETATION 2020-01-08 16:21:00 Gildardo Zepeda MD TMP INTERPRETATION DIRECT ANTIGLOBULIN TEST 2020-01-08 16:21:00 Gildardo Zepeda MD TMP INTERPRETATION ANTIBODY IDENTIFICATION 2020-01-08 16:21:00 Gildardo Grullon MD TMP CROSSMATCH INTERPRETATION 2020-01-08 16:21:00 Gildardo Zepeda MD COMPLETE BLOOD COUNT W/ DIFFERENTIAL 2020-01-06 15:35:45 Gildardo Zepeda MD COMPREHENSIVE METABOLIC PANEL 2020-01-06 15:35:45 Gildardo Zepeda MD MAGNESIUM LEVEL 2020-01-06 15:35:45 Gildardo Zepeda MD PHOSPHORUS LEVEL 2020-01-06 15:35:45 Gildardo Zepeda MD URIC ACID 2020-01-06 15:35:45 Gildardo Zepeda MD IMMUNOGLOBULIN M SERUM 2020-01-06 15:35:45 Gildardo Zepeda MD derson FREE LAMBDA LIGHT CHAIN 2020-01-06 15:35:45 Gildardo Zepeda MD nderson BETA 2 MICROGLOBULIN 2020-01-06 15:35:45 Gildardo Zepeda MD Andrea rson LACTATE DEHYDROGENASE 2020-01-06 15:35:45 Gildardo Zepeda MD And erson Results CBC 2020-01-06 15:35:45 Gildardo Zepeda MD MANUAL DIFFERENTIAL 2020-01-06 15:35:45 Gildardo Zepeda MD Bogdan son GLUCOSE LEVEL 2020-01-06 15:35:45 Gildardo Zepeda MD BLOOD UREA NITROGEN 2020-01-06 15:35:45 [facility] 2020-01-06 15:35:45 Gildardo Zepeda MD Andbetoo n SERUM CREATININE 2020-01-06 15:35:45 Gildardo Zepeda MD .GLOMERULAR FILTRATION RATE 2020-01-06 15:35:45 Gildardo Zepeda MD CALCIUM LEVEL TOTAL 2020-01-06 15:35:45 Gildardo Zepeda MD Bogdan son ALBUMIN LEVEL 2020-01-06 15:35:45 Gildardo Zepeda MD ALKALINE PHOSPHATASE 2020-01-06 15:35:45 Gildardo Zepeda MD Andrea rson ALANINE AMINOTRANSFERASE 2020-01-06 15:35:45 Gildardo Zepeda MD ASPARTATE AMINOTRANSFERASE 2020-01-06 15:35:45 Gildardo Zepeda TOTAL PROTEIN 2020-01-06 15:35:45 Gildardo Zepeda MD FRACTIONATED BILIRUBIN 2020-01-06 15:35:45 Gildardo Zepeda MDson FREE KAPPA/FREE LAMBDA RATIO 2020-01-06 15:35:45 Gildardo Zepeda MD .DR. LI PROT ELEC PATH REVIEW 2020-01-06 15:35:45 Gume Zepeda MD .DR. LI YUMIKO PATH REVIEW 2020-01-06 15:35:45 Gildardo Zepeda US LEG VENOUS DOPPLER RIGHT 2019-12-17 22:00:02 Tata Grimaldo MD PROTEIN ELECTROPHORESIS, SERUM 2019-12-17 18:16:00 Lucía Cason MD IMMUNOGLOBULIN M SERUM 2019-12-17 18:16:00 Dinorah Cason MD FREE LAMBDA LIGHT CHAIN 2019-12-17 18:16:00 Dinorah Cason MD BETA 2 MICROGLOBULIN 2019-12-17 18:16:00 Dinorah Cason MD COMPLETE BLOOD COUNT W/ DIFFERENTIAL 2019-12-17 18:16:00 Dinorah Cason MD TOTAL PROTEIN 2019-12-17 18:16:00 Dinorah Cason MD Andjewels weaver ALBUMIN LEVEL 2019-12-17 18:16:00 Dinorah Cason MD Andjewels weaver ELECTROLYTE PANEL 2019-12-17 18:16:00 Dinorah Cason MD Bogdan son MAGNESIUM LEVEL 2019-12-17 18:16:00 Dinorah Cason MD Andjewels weaver PHOSPHORUS LEVEL 2019-12-17 18:16:00 Demeza, Dinorah G MD Hola on CALCIUM LEVEL TOTAL 2019-12-17 18:16:00 Dinorah Cason MD And erson GLUCOSE, RANDOM 2019-12-17 18:16:00 Dinorah Cason MD Andjewels weaver BLOOD UREA NITROGEN 2019-12-17 18:16:00 Dinorah Cason MD And erson SERUM CREATININE 2019-12-17 18:16:00 Dinorah Cason MD Hola on URIC ACID 2019-12-17 18:16:00 Dinorah Cason MD Andjewels n ALANINE AMINOTRANSFERASE 2019-12-17 18:16:00 Dinorah Cason ASPARTATE AMINOTRANSFERASE 2019-12-17 18:16:00 Dinorah Cason MD ALKALINE PHOSPHATASE 2019-12-17 18:16:00 Dinorah Cason MD derson FRACTIONATED BILIRUBIN 2019-12-17 18:16:00 Dinorah Cason MD LACTATE DEHYDROGENASE 2019-12-17 18:16:00 Dinorah Cason MD nderson Results CBC 2019-12-17 18:16:00 Dinorah Cason MD Andjewels weaver MANUAL DIFFERENTIAL 2019-12-17 18:16:00 Dinorah Cason MD And erson SERUM CREATININE 2019-12-17 18:16:00 Dinorah Cason MD Hola on .GLOMERULAR FILTRATION RATE 2019-12-17 18:16:00 Dinorah Cason MD FREE KAPPA/FREE LAMBDA RATIO 2019-12-17 18:16:00 Dinorah Cason MD .DR. WILDER PROT ELEC PATH REVIEW 2019-12-17 18:16:00 Lucía Cason MD URINE TOTAL PROTEIN 2019-12-17 18:01:00 Dinorah Cason MD And erson .TOTAL VOLUME 2019-12-17 18:01:00 Dinorah Cason MD .DR. JEN Haynes PROT ELEC PATH REVIEW 2019-12-17 18:01:00 Doug Cason MD COMPLETE BLOOD COUNT W/ DIFFERENTIAL 2019-12-09 10:22:00 Debbie Kelly MD SODIUM LEVEL 2019-12-09 10:22:00 Debbie Kelly MD POTASSIUM LEVEL 2019-12-09 10:22:00 Debbie Kelly MD CHLORIDE LEVEL 2019-12-09 10:22:00 Debbie Kelly MD CARBON DIOXIDE LEVEL 2019-12-09 10:22:00 Debbie Kelly MD And erson BLOOD UREA NITROGEN 2019-12-09 10:22:00 Debbie Kelly MD Andrea rson SERUM CREATININE 2019-12-09 10:22:00 Debbie Kelly MD GLUCOSE, RANDOM 2019-12-09 10:22:00 Debbie Kelly MD LACTATE DEHYDROGENASE 2019-12-09 10:22:00 Debbie Kelly MD derson URIC ACID 2019-12-09 10:22:00 Debbie Kelly MD PHOSPHORUS LEVEL 2019-12-09 10:22:00 Debbie Kelly MD FRACTIONATED BILIRUBIN 2019-12-09 10:22:00 Debbie Kelly MD nderson ALBUMIN LEVEL 2019-12-09 10:22:00 Debbie Kelly MD CALCIUM LEVEL TOTAL 2019-12-09 10:22:00 Debbie Kelly MD Andrea rson MAGNESIUM LEVEL 2019-12-09 10:22:00 Debbie Kelly MD ALANINE AMINOTRANSFERASE 2019-12-09 10:22:00 Debbie Kelly MD ASPARTATE AMINOTRANSFERASE 2019-12-09 10:22:00 Debbie Kelly MD ALKALINE PHOSPHATASE 2019-12-09 10:22:00 Debbie Kelly MD And erson CREATINE KINASE 2019-12-09 10:22:00 Dinorah Cason MD Andjewels weaver Results CBC 2019-12-09 10:22:00 Debbie Kelly MD MANUAL DIFFERENTIAL 2019-12-09 10:22:00 Debbie Kelly MD Andrae rson SERUM CREATININE 2019-12-09 10:22:00 Debbie Kelly MD .GLOMERULAR FILTRATION RATE 2019-12-09 10:22:00 Debbie Kelly MD ANION GAP 2019-12-09 10:22:00 Debbie Kelly MD TRANSFUSE RED BLOOD CELLS 2019-12-09 04:42:37 Dinorah Cason MD PREPARE RBC 2019-12-08 13:47:00 Dinorah Cason MD ANTIBODY SCREEN 2019-12-08 13:06:00 Nadia Briceño MD TMP INTERP AUTO ANTIBODY SCREEN POSITIVE 2019-12-08 13:06:00 Nadia Barnd MD ABORH MANUAL 2019-12-08 13:06:00 Nadia Briceño MD CLOT EXPIRATION DATE 2019-12-08 13:06:00 Nadia Briceño MD rson TMP INTERPRETATION DIRECT ANTIGLOBULIN TEST 2019-12-08 13:06:00 Nadia Briceño MD TMP INTERPRETATION ANTIBODY IDENTIFICATION 2019-12-08 13:06:00 Nadia Aleman MD TMP CROSSMATCH INTERPRETATION 2019-12-08 13:06:00 Nadia Briceño MD COMPLETE BLOOD COUNT W/ DIFFERENTIAL 2019-12-08 09:03:00 Debbie Kelly MD SODIUM LEVEL 2019-12-08 09:03:00 Debbie Kelly MD POTASSIUM LEVEL 2019-12-08 09:03:00 Debbie Kelly MD CHLORIDE LEVEL 2019-12-08 09:03:00 Debbie Kelyl MD CARBON DIOXIDE LEVEL 2019-12-08 09:03:00 Debbie Kelly MD And erson BLOOD UREA NITROGEN 2019-12-08 09:03:00 Debbie Kelly MD Andrea rson SERUM CREATININE 2019-12-08 09:03:00 Debbie Kelly MD GLUCOSE, RANDOM 2019-12-08 09:03:00 Debbie Kelly MD LACTATE DEHYDROGENASE 2019-12-08 09:03:00 Debbie Kelly MDson URIC ACID 2019-12-08 09:03:00 Debbie Kelly MD PHOSPHORUS LEVEL 2019-12-08 09:03:00 Debbie Kelly MD Andbetoo n FRACTIONATED BILIRUBIN 2019-12-08 09:03:00 Debbie Kelly MD A nderson ALBUMIN LEVEL 2019-12-08 09:03:00 Debbie Kelly MD CALCIUM LEVEL TOTAL 2019-12-08 09:03:00 Debbie Kelly MD Andrea rson MAGNESIUM LEVEL 2019-12-08 09:03:00 Debbie Kelly MD ALANINE AMINOTRANSFERASE 2019-12-08 09:03:00 Debbie Kelly MD ASPARTATE AMINOTRANSFERASE 2019-12-08 09:03:00 Debbie Kelly MD ALKALINE PHOSPHATASE 2019-12-08 09:03:00 Debbie Kelly MD And erson Results CBC 2019-12-08 09:03:00 Debbie Kelly MD MANUAL DIFFERENTIAL 2019-12-08 09:03:00 Debbie Kelly MD Andrea rson SERUM CREATININE 2019-12-08 09:03:00 Debbie Kelly MD Andjewels RussellGLOMERULAR FILTRATION RATE 2019-12-08 09:03:00 Debbie Kelly MD ANION GAP 2019-12-08 09:03:00 Debbie Kelly MD COMPLETE BLOOD COUNT W/ DIFFERENTIAL 2019-12-07 08:44:00 Debbie Kelly MD SODIUM LEVEL 2019-12-07 08:44:00 Dbebie Kelly MD POTASSIUM LEVEL 2019-12-07 08:44:00 Debbie Kelly MD CHLORIDE LEVEL 2019-12-07 08:44:00 Debbie Kelly MD CARBON DIOXIDE LEVEL 2019-12-07 08:44:00 Debbie Kelly MD And erson BLOOD UREA NITROGEN 2019-12-07 08:44:00 Debbie Kelly MD Andrea rson SERUM CREATININE 2019-12-07 08:44:00 KellyDebbie machuca MD GLUCOSE, RANDOM 2019-12-07 08:44:00 Debbie Kelly MD LACTATE DEHYDROGENASE 2019-12-07 08:44:00 Debbie Kelly MD derson URIC ACID 2019-12-07 08:44:00 Debbie Kelly MD PHOSPHORUS LEVEL 2019-12-07 08:44:00 Debbie Kelly MD FRACTIONATED BILIRUBIN 2019-12-07 08:44:00 Debbie Kelly MD nderson ALBUMIN LEVEL 2019-12-07 08:44:00 Debbie Kelly MD CALCIUM LEVEL TOTAL 2019-12-07 08:44:00 Debbie Kelly MD Andrea rson MAGNESIUM LEVEL 2019-12-07 08:44:00 Debbie Kelly MD ALANINE AMINOTRANSFERASE 2019-12-07 08:44:00 Debbie Kelly MD ASPARTATE AMINOTRANSFERASE 2019-12-07 08:44:00 Debbie Kelly MD ALKALINE PHOSPHATASE 2019-12-07 08:44:00 Debbie Kelly MD And erson Results CBC 2019-12-07 08:44:00 Debbie Kelly MD MANUAL DIFFERENTIAL 2019-12-07 08:44:00 Debbie Kelly MD Andrea rson SERUM CREATININE 2019-12-07 08:44:00 Debbie Kelly MD .GLOMERULAR FILTRATION RATE 2019-12-07 08:44:00 Debbie Kelly MD ANION GAP 2019-12-07 08:44:00 Debbie Kelly MD COMPLETE BLOOD COUNT W/ DIFFERENTIAL 2019-12-06 09:32:00 Debbie Kelly MD SODIUM LEVEL 2019-12-06 09:32:00 Debbie Kelly MD POTASSIUM LEVEL 2019-12-06 09:32:00 Debbie Kelly MD CHLORIDE LEVEL 2019-12-06 09:32:00 Debbie Kelly MD CARBON DIOXIDE LEVEL 2019-12-06 09:32:00 Debbie Kelly MD And erson BLOOD UREA NITROGEN 2019-12-06 09:32:00 Debbie Kelly MD Andrea rson SERUM CREATININE 2019-12-06 09:32:00 Debbie Kelly MD GLUCOSE, RANDOM 2019-12-06 09:32:00 Debbie Kelly MD LACTATE DEHYDROGENASE 2019-12-06 09:32:00 Debbie Kelly MD derson URIC ACID 2019-12-06 09:32:00 Debbie Kelly MD PHOSPHORUS LEVEL 2019-12-06 09:32:00 Debbie Kelly MD FRACTIONATED BILIRUBIN 2019-12-06 09:32:00 Debbie Kelly MD nderson ALBUMIN LEVEL 2019-12-06 09:32:00 Debbie Kelly MD CALCIUM LEVEL TOTAL 2019-12-06 09:32:00 Debbie Kelly MD Andrea rson MAGNESIUM LEVEL 2019-12-06 09:32:00 Debbie Kelly MD ALANINE AMINOTRANSFERASE 2019-12-06 09:32:00 Debbie Kelly MD ASPARTATE AMINOTRANSFERASE 2019-12-06 09:32:00 Debbie Kelly MD ALKALINE PHOSPHATASE 2019-12-06 09:32:00 Debbie Kelly MD And erson Results CBC 2019-12-06 09:32:00 Debbie Kelly MD MANUAL DIFFERENTIAL 2019-12-06 09:32:00 Debbie Kelly MD Andrea rson SERUM CREATININE 2019-12-06 09:32:00 Debbie Kelly MD .GLOMERULAR FILTRATION RATE 2019-12-06 09:32:00 Debbie Kelly MD ANION GAP 2019-12-06 09:32:00 Debbie Kelly MD ECHOCARDIOGRAM 2D COMPLETE 2019-12-05 17:18:08 Jamie Mckinney MD COMPLETE BLOOD COUNT W/ DIFFERENTIAL 2019-12-05 08:35:00 Debbie Kelly MD SODIUM LEVEL 2019-12-05 08:35:00 Debbie Kelly MD POTASSIUM LEVEL 2019-12-05 08:35:00 Debbie Kelly MD CHLORIDE LEVEL 2019-12-05 08:35:00 Debbie Kelly MD CARBON DIOXIDE LEVEL 2019-12-05 08:35:00 Debbie Kelly MD And erson BLOOD UREA NITROGEN 2019-12-05 08:35:00 Debbie Kelly MD Andrea rson SERUM CREATININE 2019-12-05 08:35:00 Debbie Kelly MD Andjewels weaver GLUCOSE, RANDOM 2019-12-05 08:35:00 Debbie Kelly MD LACTATE DEHYDROGENASE 2019-12-05 08:35:00 Debbie Kelly MD derson URIC ACID 2019-12-05 08:35:00 Debbie Kelly MD PHOSPHORUS LEVEL 2019-12-05 08:35:00 Debbie Kelly MD Andjewels weaver FRACTIONATED BILIRUBIN 2019-12-05 08:35:00 Debbie Kelly MD nderson ALBUMIN LEVEL 2019-12-05 08:35:00 Debbie Kelly MD CALCIUM LEVEL TOTAL 2019-12-05 08:35:00 Debbie Kelly MD Andrea rson MAGNESIUM LEVEL 2019-12-05 08:35:00 Debbie Kelly MD ALANINE AMINOTRANSFERASE 2019-12-05 08:35:00 Debbie Kelly MD ASPARTATE AMINOTRANSFERASE 2019-12-05 08:35:00 Debbie Kelly MD ALKALINE PHOSPHATASE 2019-12-05 08:35:00 Debbie Kelly MD And erson CREATINE KINASE 2019-12-05 08:35:00 Irene Narayan MD Results CBC 2019-12-05 08:35:00 Debbie Kelly MD MANUAL DIFFERENTIAL 2019-12-05 08:35:00 Debbie Kelly MD Andrea rson SERUM CREATININE 2019-12-05 08:35:00 Debbie Kelly MD .GLOMERULAR FILTRATION RATE 2019-12-05 08:35:00 Debbie Kelly MD ANION GAP 2019-12-05 08:35:00 Debbie Kelly MD EKG, 12-LEAD (PORTABLE) 2019-12-05 00:00:00 Jamie Mckinney MD PREPARE RBC 2019-12-04 12:30:00 Geovanni Kelsey MD COMPLETE BLOOD COUNT W/ DIFFERENTIAL 2019-12-04 08:23:00 Debbie Kelly MD SODIUM LEVEL 2019-12-04 08:23:00 Debbie Kelly MD POTASSIUM LEVEL 2019-12-04 08:23:00 Debbie Kelly MD CHLORIDE LEVEL 2019-12-04 08:23:00 Debbie Kelly MD CARBON DIOXIDE LEVEL 2019-12-04 08:23:00 Debbie Kelly erson BLOOD UREA NITROGEN 2019-12-04 08:23:00 Debbie Kelly MD Andrea rson SERUM CREATININE 2019-12-04 08:23:00 Debbie Kelly MD GLUCOSE, RANDOM 2019-12-04 08:23:00 Debbie Kelly MD LACTATE DEHYDROGENASE 2019-12-04 08:23:00 Debbie Kelly MD derson URIC ACID 2019-12-04 08:23:00 Debbie Kelly MD PHOSPHORUS LEVEL 2019-12-04 08:23:00 Debbie Kelly MD FRACTIONATED BILIRUBIN 2019-12-04 08:23:00 Debbie Kelly MD nderson ALBUMIN LEVEL 2019-12-04 08:23:00 Debbie Kelly MD CALCIUM LEVEL TOTAL 2019-12-04 08:23:00 Debbie Kelly MD Andrea rson MAGNESIUM LEVEL 2019-12-04 08:23:00 Debbie Kelly MD ALANINE AMINOTRANSFERASE 2019-12-04 08:23:00 Debbie Kelly MD ASPARTATE AMINOTRANSFERASE 2019-12-04 08:23:00 Debbie Kelly MD ALKALINE PHOSPHATASE 2019-12-04 08:23:00 Debbie Kelly MD And erson Results CBC 2019-12-04 08:23:00 Debbie Kelly MD MANUAL DIFFERENTIAL 2019-12-04 08:23:00 Debbie Kelly MD Andrea rson SERUM CREATININE 2019-12-04 08:23:00 Debbie Kelly MDGLOMERULAR FILTRATION RATE 2019-12-04 08:23:00 Debbie Kelly MD ANION GAP 2019-12-04 08:23:00 Debbie Kelly MD VANCOMYCIN LEVEL TROUGH 2019-12-04 00:21:00 Josy Schwartz MD nderson GENITAL CULTURE 2019-12-03 22:33:00 Zofia Lemos MD URINE TOTAL PROTEIN 2019-12-03 21:00:00 Geovanni Kelsey MD Bogdan son .TOTAL VOLUME 2019-12-03 21:00:00 Geovanni Kelsey MD .DR. JEN Haynes PROT ELEC PATH REVIEW 2019-12-03 21:00:00 Gage Kelly MD XR CHEST 1 VW 2019-12-03 19:09:47 Zofia Lemos MD VANCOMYCIN LEVEL RANDOM 2019-12-03 18:52:00 Josy Schwartz MDrson IMMUNOGLOBULIN M SERUM 2019-12-03 09:51:00 Debbie Kelly MDrson FREE LAMBDA LIGHT CHAIN 2019-12-03 09:51:00 Debbie Kelly MD IMMUNOFIXATION ELECTROPHORESIS 2019-12-03 09:51:00 Nelly Kelly MD COMPLETE BLOOD COUNT W/ DIFFERENTIAL 2019-12-03 09:51:00 Debbie Kelly MD SODIUM LEVEL 2019-12-03 09:51:00 Debbie Kelly MD POTASSIUM LEVEL 2019-12-03 09:51:00 Debbie Kelly MD CHLORIDE LEVEL 2019-12-03 09:51:00 Debbie Kelly MD CARBON DIOXIDE LEVEL 2019-12-03 09:51:00 Debbie Kelly MD And erson BLOOD UREA NITROGEN 2019-12-03 09:51:00 Debbie Kelly MD Andrea rson SERUM CREATININE 2019-12-03 09:51:00 Debbie Kelly MD Andjewels weaver GLUCOSE, RANDOM 2019-12-03 09:51:00 Debbie Kelly MD LACTATE DEHYDROGENASE 2019-12-03 09:51:00 Debbie Kelly MD derson URIC ACID 2019-12-03 09:51:00 Debbie Kelly MD PHOSPHORUS LEVEL 2019-12-03 09:51:00 Debbie Kelly MD FRACTIONATED BILIRUBIN 2019-12-03 09:51:00 Debbie Kelly MD nderson ALBUMIN LEVEL 2019-12-03 09:51:00 Debbie Kelly MD CALCIUM LEVEL TOTAL 2019-12-03 09:51:00 Debbie Kelly MD Andrea rson MAGNESIUM LEVEL 2019-12-03 09:51:00 Debbie Kelly MD ALANINE AMINOTRANSFERASE 2019-12-03 09:51:00 Debbie Kelly MD ASPARTATE AMINOTRANSFERASE 2019-12-03 09:51:00 Debbie Kelly MD ALKALINE PHOSPHATASE 2019-12-03 09:51:00 Debbie Kelly MD And erson Results CBC 2019-12-03 09:51:00 Debbie Kelly MD MANUAL DIFFERENTIAL 2019-12-03 09:51:00 Debbie Kelly MD Andrea rson SERUM CREATININE 2019-12-03 09:51:00 Debbie Kelly MD Andbetoo n .GLOMERULAR FILTRATION RATE 2019-12-03 09:51:00 Debbie Kelly MD ANION GAP 2019-12-03 09:51:00 Debbie Kelly MD ABORH MANUAL 2019-12-03 09:51:00 Debbie Kelly MD FREE KAPPA/FREE LAMBDA RATIO 2019-12-03 09:51:00 Jerry Kelly MD CLOT EXPIRATION DATE 2019-12-03 09:51:00 Debbie Kelly .DR. MURPHY PROT ELEC PATH REVIEW 2019-12-03 09:51:00 Edwardo Kelly MD .DR. MURPHY YUMIKO PATH REVIEW 2019-12-03 09:51:00 Debbie Kelly MD RENAL 2019-12-03 02:03:59 Zofia Lemos MD TRANSFUSE RED BLOOD CELLS 2019-12-03 00:35:40 Tomasa Valenzuela MD URINE CULTURE 2019-12-02 21:16:00 Tomasa Valenzuela MD URINALYSIS WITH MICROSCOPIC IF INDICATED 2019-12-02 [facility] URINALYS[facility] MICROSCOPIC 2019-12-02 21:16:00 Tomasa Valenzuela MD ANTIBODY SCREEN 2019-12-02 13:44:00 Tomasa Valenzuela MD ABORH MANUAL 2019-12-02 13:44:00 Tomasa Valenzuela MD TMP INTERP AUTO ANTIBODY SCREEN POSITIVE 2019-12-02 13:44[facility] CLOT EXPIRATION DATE 2019-12-02 13:44:00 Tomasa Valenzuela MD TMP INTERPRETATION ANTIBODY IDENTIFICATION 2019-12-02 13:44: 00 Tomasa Valenzuela MD TMP CROSSMATCH INTERPRETATION 2019-12-02 13:44:00 Sonny Valenzuela MD PREPARE RBC 2019-12-02 13:29:00 Tomasa Valenzuela MD BLOODCULTURE 2019-12-02 12:41:00 Tomasa Valenzuela MD COMPLETE BLOOD COUNT W/ DIFFERENTIAL 2019-12-02 12:41:00 Tomasa Toribio MD COMPREHENSIVE METABOLIC PANEL 2019-12-02 12:41:00 Sonny Valenzuela MD MAGNESIUM LEVEL 2019-12-02 12:41:00 Tomasa Valenzuela MD PHOSPHORUS LEVEL 2019-12-02 12:41:00 Tomasa Valenzuela MD on PROTHROMBIN TIME 2019-12-02 12:41:00 Tomasa Valenzuela MD Hola on PARTIAL THROMBOPLASTIN TIME 2019-12-02 12:41:00 Mika Valenzuela MD Results CBC 2019-12-02 12:41:00 Tomasa Valenzuela MD MANUAL DIFFERENTIAL 2019-12-02 12:41:00 Tomasa Valenzuela MD And erson GLUCOSE LEVEL 2019-12-02 12:41:00 Tomasa Valenzuela MD BLOOD UREA NITROGEN 2019-12-02 12:41:00 Tomasa Valenzuela MD And erson ELECTROLYTE PANEL 2019-12-02 12:41:00 Tomasa Valenzuela MD Bogdan son SERUM CREATININE 2019-12-02 12:41:00 Tomasa Valenzuela MD Hola on .GLOMERULAR FILTRATION RATE 2019-12-02 12:41:00 Mika Valenzuela MD CALCIUM LEVEL TOTAL 2019-12-02 12:41:00 Tomasa Valenzuela MD And erson ALBUMIN LEVEL 2019-12-02 12:41:00 Tomasa Valenzuela MD ALKALINE PHOSPHATASE 2019-12-02 12:41:00 Tomasa Valenzuela MD ALANINE AMINOTRANSFERASE 2019-12-02 12:41:00 Tomasa Valenzuela ASPARTATE AMINOTRANSFERASE 2019-12-02 12:41:00 Tomasa Valenzuela MD TOTAL PROTEIN 2019-12-02 12:41:00 Tomasa Valenzuela MD FRACTIONATED BILIRUBIN 2019-12-02 12:41:00 Tomasa Valenzuela MD TRANSFUSE RED BLOOD CELLS 2019-11-29 10:28:36 Chester Harley MD ANTIBODY SCREEN 2019-11-29 03:27:00 Chester Harley MD ABORH MANUAL 2019-11-29 03:27:00 Chester Harley MD CLOT EXPIRATION DATE 2019-11-29 03:27:00 Chester Harley MD rssummer TMP INTERP AUTO ANTIBODY SCREEN POSITIVE 2019-11-29 03:27:00 Chester Moe MD TMP INTERPRETATION DIRECT ANTIGLOBULIN TEST 2019-11-29 03:27:00 Chester Harley MD TMP INTERPRETATION ANTIBODY IDENTIFICATION 2019-11-29 03:27:00 T Chester lawton MD TMP CROSSMATCH INTERPRETATION 2019-11-29 03:27:00 Chester Harley MD PREPARE RBC 2019-11-29 03:09:00 Chester Harley MD URINE CULTURE 2019-11-29 02:24:00 Cherri, Chester Tenorio URINALYSIS WITH MICROSCOPIC IF INDICATED 2019-11-29 02:24:00 Chester Moe MD URINALYSIS MICROSCOPIC 2019-11-29 02:24:00 Chester Harley MD derson POC GLUCOSE SCREEN 2019-11-29 00:10:00 Chester Harleyers on BLOODCULTURE 2019-11-29 00:08:00 Chester Harley MD AMMONIA LEVEL 2019-11-29 00:08:00 Chester Harley MD COMPLETE BLOOD COUNT W/ DIFFERENTIAL 2019-11-29 00:08:00 Roxana Harley MD PROTHROMBIN TIME 2019-11-29 00:08:00 Chester Harley MD PARTIAL THROMBOPLASTIN TIME 2019-11-29 00:08:00 Chester Harley MD Results CBC 2019-11-29 00:08:00 Chester Harley MD MANUAL DIFFERENTIAL 2019-11-29 00:08:00 Chester Harley MD Bogdan son COMPLETE BLOOD COUNT W/ DIFFERENTIAL 2019-11-19 16:30:00 Nesha Wylie MD Results CBC 2019-11-19 16:30:00 [facility] 2019-11-19 16:30:00 Nesha [facility]imaldo [facility] MANUAL DIFFERENTIAL 2019-11-19 16:30:00 Nesha Grimaldo MD nderson ABORH MANUAL 2019-11-19 16:30:00 Nesha [facility]imaldo [facility] TMP INTERP AUTO ANTIBODY SCREEN POSITIVE 2019-11-19 16:30:00 Nesha Grimaldo MD CLOT EXPIRATION DATE 2019-11-19 16:30:00 Nesha Grimaldo MD PROTEIN ELECTROPHORESIS, SERUM 2019-11-05 13:32:00 Verona Blair MD FREE LAMBDA LIGHT CHAIN 2019-11-05 13:32:00 Verona Blair MD nderssummer TOTAL PROTEIN 2019-11-05 13:32:00 Verona Blair MD ALBUMIN LEVEL 2019-11-05 13:32:00 Verona Blair MD ELECTROLYTE PANEL 2019-11-05 13:32:00 Verona Blair MD MAGNESIUM LEVEL 2019-11-05 13:32:00 AoVerona lewis MD PHOSPHORUS LEVEL 2019-11-05 13:32:00 Verona Blair MD CALCIUM LEVEL TOTAL 2019-11-05 13:32:00 Verona Blair MD GLUCOSE, RANDOM 2019-11-05 13:32:00 AoVerona lewis MD BLOOD UREA NITROGEN 2019-11-05 13:32:00 AoVerona lewis MD SERUM CREATININE 2019-11-05 13:32:00 Verona Blair MD URIC ACID 2019-11-05 13:32:00 Verona Blair MD ALANINE AMINOTRANSFERASE 2019-11-05 13:32:00 AoVerona lewis MD ASPARTATE AMINOTRANSFERASE 2019-11-05 13:32:00 Verona Blair ALKALINE PHOSPHATASE 2019-11-05 13:32:00 Verona Blair MD Andrea rson FRACTIONATED BILIRUBIN 2019-11-05 13:32:00 AoVerona lewis MDson LACTATE DEHYDROGENASE 2019-11-05 13:32:00 Verona Blair MD And erson IMMUNOGLOBULIN G SERUM 2019-11-05 13:32:00 Verona Blair MD COMPLETE BLOOD COUNT W/ DIFFERENTIAL 2019-11-05 13:32:00 Verona Blair MD SERUM CREATININE 2019-11-05 13:32:00 Verona Blair MD .GLOMERULAR FILTRATION RATE 2019-11-05 13:32:00 Verona Blair MD Results CBC 2019-11-05 13:32:00 Verona Blair MD MANUAL DIFFERENTIAL 2019-11-05 13:32:00 Verona Blair MD FREE KAPPA/FREE LAMBDA RATIO 2019-11-05 13:32:00 Verona Blair MD .DR. LI PROT ELEC PATH REVIEW 2019-11-05 13:32:00 Verona Blair MD URINE TOTAL PROTEIN 2019-11-05 13:21:00 Verona Blair MD .TOTAL VOLUME 2019-11-05 13:21:00 Verona Blair MD .DR. JEN Haynes PROT ELEC PATH REVIEW 2019-11-05 13:21:00 Arlette Blair sa, MD FREE LAMBDA LIGHT CHAIN 2019-10-28 17:40:00 Verona Blair MD nderson IMMUNOGLOBULIN M SERUM 2019-10-28 17:40:00 Verona Blair MD FREE KAPPA/FREE LAMBDA RATIO 2019-10-28 17:40:00 Verona Blair MD IMMUNOFIXATION ELECTROPHORESIS 2019-10-28 17:40:00 Verona Blair MD .DR. MURPHY PROT ELEC PATH REVIEW 2019-10-28 17:40:00 Verona Blair MD .DR. MURPHY YUMIKO PATH REVIEW 2019-10-28 17:40:00 Verona Blair PHOSPHORUS LEVEL 2019-10-28 08:41:00 Naseem Vaca MD on MAGNESIUM LEVEL 2019-10-28 08:41:00 Naseem Vaca MD Anderso n COMPLETE BLOOD COUNT W/ DIFFERENTIAL 2019-10-28 08:41:00 Ciara Eason MD SODIUM LEVEL 2019-10-28 08:41:00 Tonya Eason MD POTASSIUM LEVEL 2019-10-28 08:41:00 Tonya Eason MD CHLORIDE LEVEL 2019-10-28 08:41:00 Tonya Eason MD CARBON DIOXIDE LEVEL 2019-10-28 08:41:00 Tonya Eason MD Andrea rson BLOOD UREA NITROGEN 2019-10-28 08:41:00 Tonya Eason MD Bogdan son SERUM CREATININE 2019-10-28 08:41:00 Tonya Eason MD GLUCOSE, RANDOM 2019-10-28 08:41:00 Tonya Eason MD LACTATE DEHYDROGENASE 2019-10-28 08:41:00 Tonya Eason MD And erson URIC ACID 2019-10-28 08:41:00 Tonya Eason MD FRACTIONATED BILIRUBIN 2019-10-28 08:41:00 Tonya Eason MDson ALBUMIN LEVEL 2019-10-28 08:41:00 Tonya Eason MD CALCIUM LEVEL TOTAL 2019-10-28 08:41:00 Tonya Eason MD Bogdan son ALANINE AMINOTRANSFERASE 2019-10-28 08:41:00 Tonya Eason MD ASPARTATE AMINOTRANSFERASE 2019-10-28 08:41:00 Tonya Eason ALKALINE PHOSPHATASE 2019-10-28 08:41:00 Tonya Eason MD Andrea rson SERUM CREATININE 2019-10-28 08:41:00 Tonya Eason MD .GLOMERULAR FILTRATION RATE 2019-10-28 08:41:00 Tonya Eason MD Results CBC 2019-10-28 08:41:00 Tonya Eason MD MANUAL DIFFERENTIAL 2019-10-28 08:41:00 Tonya Eason MD Bogdanciara gomez ANION GAP 2019-10-28 08:41:00 Tonya Eason MD PHOSPHORUS LEVEL 2019-10-27 08:37:00 Naseem Vaca MD Hola on MAGNESIUM LEVEL 2019-10-27 08:37:00 Naseem Vaca MD Andbeto n COMPLETE BLOOD COUNT W/ DIFFERENTIAL 2019-10-27 08:37:00 Ciara Eason MD SODIUM LEVEL 2019-10-27 08:37:00 Tonya Eason MD POTASSIUM LEVEL 2019-10-27 08:37:00 Tonya Eason MD CHLORIDE LEVEL 2019-10-27 08:37:00 Tonya Eason MD CARBON DIOXIDE LEVEL 2019-10-27 08:37:00 Tonya Eason MD Andrea rson BLOOD UREA NITROGEN 2019-10-27 08:37:00 Tonya Eason MD Bogdan patricia SERUM CREATININE 2019-10-27 08:37:00 Tonya Eason MD GLUCOSE, RANDOM 2019-10-27 08:37:00 Tonya Eason MD LACTATE DEHYDROGENASE 2019-10-27 08:37:00 Tonya Eason MD And erssummer URIC ACID 2019-10-27 08:37:00 Tonya Eason MD FRACTIONATED BILIRUBIN 2019-10-27 08:37:00 Tonya Eason MD derson ALBUMIN LEVEL 2019-10-27 08:37:00 Tonya Eason MD CALCIUM LEVEL TOTAL 2019-10-27 08:37:00 Tonya Eason MD Bogdanciara gomez ALANINE AMINOTRANSFERASE 2019-10-27 08:37:00 Tonya Eason MD ASPARTATE AMINOTRANSFERASE 2019-10-27 08:37:00 Tonya Eason ALKALINE PHOSPHATASE 2019-10-27 08:37:00 Tonya Eason MD Andrea rson SERUM CREATININE 2019-10-27 08:37:00 Tonya Eason MD .GLOMERULAR FILTRATION RATE 2019-10-27 08:37:00 Tonya Eason MD Results CBC 2019-10-27 08:37:00 Tonya Eason MD MANUAL DIFFERENTIAL 2019-10-27 08:37:00 Tonya Eaosn MD Bogdan patricia ANION GAP 2019-10-27 08:37:00 Tonya Eason MD PHOSPHORUS LEVEL 2019-10-26 09:43:00 Naseem Vaca MD on MAGNESIUM LEVEL 2019-10-26 09:43:00 Naseem Vaca MD Andbeto n COMPLETE BLOOD COUNT W/ DIFFERENTIAL 2019-10-26 09:43:00 Ciara Eason MD SODIUM LEVEL 2019-10-26 09:43:00 Tonya Eason MD POTASSIUM LEVEL 2019-10-26 09:43:00 Tonya Eason MD CHLORIDE LEVEL 2019-10-26 09:43:00 Tonya Eason MD CARBON DIOXIDE LEVEL 2019-10-26 09:43:00 Tonya Eason MD Andrea rson BLOOD UREA NITROGEN 2019-10-26 09:43:00 Tonya Easonciara gomez SERUM CREATININE 2019-10-26 09:43:00 Tonya Eason MD GLUCOSE, RANDOM 2019-10-26 09:43:00 Tonya Eason MD LACTATE DEHYDROGENASE 2019-10-26 09:43:00 Tonya Eason erson URIC ACID 2019-10-26 09:43:00 Tonya Eason MD FRACTIONATED BILIRUBIN 2019-10-26 09:43:00 Tonya Eason MD derson ALBUMIN LEVEL 2019-10-26 09:43:00 Tonya Eason MD CALCIUM LEVEL TOTAL 2019-10-26 09:43:00 Tonya Eason MD Bogdan gomez ALANINE AMINOTRANSFERASE 2019-10-26 09:43:00 Tonya Eason MD ASPARTATE AMINOTRANSFERASE 2019-10-26 09:43:00 Tonya Eason ALKALINE PHOSPHATASE 2019-10-26 09:43:00 Tonya Eason MD rson PROTHROMBIN TIME 2019-10-26 09:43:00 Tonya Eason MD PARTIAL THROMBOPLASTIN TIME 2019-10-26 09:43:00 Tonya Eason MD ANTIBODY SCREEN 2019-10-26 09:43:00 Tonya Eason MD SERUM CREATININE 2019-10-26 09:43:00 Tonya Eason MD .GLOMERULAR FILTRATION RATE 2019-10-26 09:43:00 Tonya Eason MD Results CBC 2019-10-26 09:43:00 Tonya Eason MD MANUAL DIFFERENTIAL 2019-10-26 09:43:00 Tonya Eason MD Bogdanciara gomez ANION GAP 2019-10-26 09:43:00 Tonya Eason MD TMP INTERP AUTO ANTIBODY SCREEN POSITIVE 2019-10-26 09:43:00 Tonya Veliz MD ABORH MANUAL 2019-10-26 09:43:00 Tonya Eason MD CLOT EXPIRATION DATE 2019-10-26 09:43:00 Tonya Eason MD rson PHOSPHORUS LEVEL 2019-10-25 08:37:00 Naseem Vaca MD on MAGNESIUM LEVEL 2019-10-25 08:37:00 Naseem Vaca MD [facility] n COMPLETE BLOOD COUNT W/ DIFFERENTIAL 2019-10-25 08:37:00 Ciara Eason MD SODIUM LEVEL 2019-10-25 08:37:00 Tonya Eason MD POTASSIUM LEVEL 2019-10-25 08:37:00 Tonya Eason MD CHLORIDE LEVEL 2019-10-25 08:37:00 Tonya Eason MD CARBON DIOXIDE LEVEL 2019-10-25 08:37:00 Tonya Eason MD rson BLOOD UREA NITROGEN 2019-10-25 08:37:00 Tonya Eason MD Bogdan patricia SERUM CREATININE 2019-10-25 08:37:00 Tonya Eason MD GLUCOSE, RANDOM 2019-10-25 08:37:00 Tonya Eason MD LACTATE DEHYDROGENASE 2019-10-25 08:37:00 Tonya Eason erson URIC ACID 2019-10-25 08:37:00 Tonya Eason MD FRACTIONATED BILIRUBIN 2019-10-25 08:37:00 Tonya Eason MD derson ALBUMIN LEVEL 2019-10-25 08:37:00 Tonya Eason MD CALCIUM LEVEL TOTAL 2019-10-25 08:37:00 Tonya Eason MD Bogdanciara gomez ALANINE AMINOTRANSFERASE 2019-10-25 08:37:00 Tonya Eason MD ASPARTATE AMINOTRANSFERASE 2019-10-25 08:37:00 Tonya Eason ALKALINE PHOSPHATASE 2019-10-25 08:37:00 Tonya Eason MD rson SERUM CREATININE 2019-10-25 08:37:00 Tonya Eason MD .GLOMERULAR FILTRATION RATE 2019-10-25 08:37:00 Tonya Eason MD Results CBC 2019-10-25 08:37:00 Tonya Eason MD MANUAL DIFFERENTIAL 2019-10-25 08:37:00 Tonya Eason MD Bogdan patricia ANION GAP 2019-10-25 08:37:00 Tonya Eason MD ERYTHROPOIETIN LEVEL 2019-10-24 12:34:00 Gildardo Zepeda MD Andrea rson PHOSPHORUS LEVEL 2019-10-24 09:46:00 Naseem Vaca MD Hola on MAGNESIUM LEVEL 2019-10-24 09:46:00 [facility] W/ DIFFERENTIAL 2019-10-24 09:46:00 Ciara Eason MD SODIUM LEVEL 2019-10-24 09:46:00 Tonya Eason MD POTASSIUM LEVEL 2019-10-24 09:46:00 Tonya Eason MD CHLORIDE LEVEL 2019-10-24 09:46:00 Tonya Eason MD CARBON DIOXIDE LEVEL 2019-10-24 09:46:00 Tonya Eason MD Andrea rson BLOOD UREA NITROGEN 2019-10-24 09:46:00 Tonya Eason MD Bogdan son SERUM CREATININE 2019-10-24 09:46:00 Tonya Eason MD GLUCOSE, RANDOM 2019-10-24 09:46:00 Tonya Eason MD LACTATE DEHYDROGENASE 2019-10-24 09:46:00 Tonya Eason MD And erson URIC ACID 2019-10-24 09:46:00 Tonya Eason MD FRACTIONATED BILIRUBIN 2019-10-24 09:46:00 Tonya Eason MDson ALBUMIN LEVEL 2019-10-24 09:46:00 Tonya Eason MD CALCIUM LEVEL TOTAL 2019-10-24 09:46:00 Tonya Eason MD ALANINE AMINOTRANSFERASE 2019-10-24 09:46:00 Tonya Eason MD ASPARTATE AMINOTRANSFERASE 2019-10-24 09:46:00 Tonya Eason ALKALINE PHOSPHATASE 2019-10-24 09:46:00 Tonya Eason MD rson SERUM CREATININE 2019-10-24 09:46:00 Tonya Eason MD .GLOMERULAR FILTRATION RATE 2019-10-24 09:46:00 Tonya Eason MD Results CBC 2019-10-24 09:46:00 Tonya Eason MD MANUAL DIFFERENTIAL 2019-10-24 09:46:00 Tonya Eason MD Bogdan patricia ANION GAP 2019-10-24 09:46:00 Tonya Eason MD POC GLUCOSE SCREEN 2019-10-23 17:02:00 Gildardo Zepeda MD on PHOSPHORUS LEVEL 2019-10-23 09:04:00 Naseem Vaca MD on MAGNESIUM LEVEL 2019-10-23 09:04:00 Naseem Vaca MD n COMPLETE BLOOD COUNT W/ DIFFERENTIAL 2019-10-23 09:04:00 Ciara Eason MD SODIUM LEVEL 2019-10-23 09:04:00 Tonya Eason MD POTASSIUM LEVEL 2019-10-23 09:04:00 Tonya Eason MD CHLORIDE LEVEL 2019-10-23 09:04:00 Tonya Eason MD CARBON DIOXIDE LEVEL 2019-10-23 09:04:00 Tonya Eason MD rson BLOOD UREA NITROGEN 2019-10-23 09:04:00 Tonya Eason MD SERUM CREATININE 2019-10-23 09:04:00 Tonya Eason MD GLUCOSE, RANDOM 2019-10-23 09:04:00 Tonya Eason MD LACTATE DEHYDROGENASE 2019-10-23 09:04:00 Tonya Eason MD And erssummer URIC ACID 2019-10-23 09:04:00 Tonya Eason MD FRACTIONATED BILIRUBIN 2019-10-23 09:04:00 Tonya Eason MD derson ALBUMIN LEVEL 2019-10-23 09:04:00 Tonya Eason MD CALCIUM LEVEL TOTAL 2019-10-23 09:04:00 Tonya Eason MD ALANINE AMINOTRANSFERASE 2019-10-23 09:04:00 Tonya Eason MD ASPARTATE AMINOTRANSFERASE 2019-10-23 09:04:00 Tonya Eason ALKALINE PHOSPHATASE 2019-10-23 09:04:00 Tonya Eason MD rson TYPE AND SCREEN 2019-10-23 09:04:00 Tonya Eason MD PROTHROMBIN TIME 2019-10-23 09:04:00 Tonya Eason MD PARTIAL THROMBOPLASTIN TIME 2019-10-23 09:04:00 Tonya Eason MD ANTIBODY SCREEN 2019-10-23 09:04:00 Tonya Eason MD SERUM CREATININE 2019-10-23 09:04:00 Tonya Eason MD .GLOMERULAR FILTRATION RATE 2019-10-23 09:04:00 Tonya Eason MD Results CBC 2019-10-23 09:04:00 Tonya Eason MD MANUAL DIFFERENTIAL 2019-10-23 09:04:00 Tonya Eason MD Bogdanciara gomez ANION GAP 2019-10-23 09:04:00 Tonya Eason MD ABORH MANUAL 2019-10-23 09:04:00 Tonya Eason MD TMP INTERP AUTO ANTIBODY SCREEN POSITIVE 2019-10-23 09:04:00 Tonya Veliz MD CLOT EXPIRATION DATE 2019-10-23 09:04:00 Tonya Eason MD rson TRANSFUSE RED BLOOD CELLS 2019-10-23 02:22:44 Gildardo Zepeda MD PROTEIN ELECTROPHORESIS URINE 2019-10-22 16:00:00 Verona Blair MD URINE TOTAL PROTEIN 2019-10-22 16:00:00 Gildardo Zepeda MD Bogdanciara gomez .TOTAL VOLUME 2019-10-22 16:00:00 Gildardo Zepeda MD .DR. JEFFREY Haynes PROT ELEC PATH REVIEW 2019-10-22 16:00:00 Arlette Blair sa, MD PETCT WB SUBSEQUENT TREATMENT STRATEGY 2019-10-22 15:56:43 Odilon Arellano MD PREPARE RBC 2019-10-22 13:00:00 Gildardo Zepeda MD PHOSPHORUS LEVEL 2019-10-22 12:05:00 Naseem Vaca MD on MAGNESIUM LEVEL 2019-10-22 12:05:00 Naseem Vaca MD COMPLETE BLOOD COUNT W/ DIFFERENTIAL 2019-10-22 12:05:00 Ciara Eason MD SODIUM LEVEL 2019-10-22 12:05:00 Tonya Eason MD POTASSIUM LEVEL 2019-10-22 12:05:00 Tonya Eason MD CHLORIDE LEVEL 2019-10-22 12:05:00 Tonya Eason MD CARBON DIOXIDE LEVEL 2019-10-22 12:05:00 Tonya Eason MD rson BLOOD UREA NITROGEN 2019-10-22 12:05:00 Tonya Eason MD Bogdan patricia SERUM CREATININE 2019-10-22 12:05:00 Tonya Eason MD GLUCOSE, RANDOM 2019-10-22 12:05:00 Tonya Eason MD LACTATE DEHYDROGENASE 2019-10-22 12:05:00 Tonya Eason erssummer URIC ACID 2019-10-22 12:05:00 Tonya Eason MD FRACTIONATED BILIRUBIN 2019-10-22 12:05:00 Tonya Eason MD derson ALBUMIN LEVEL 2019-10-22 12:05:00 Tonya Eason MD CALCIUM LEVEL TOTAL 2019-10-22 12:05:00 Tonya Eason MD Bogdan gomez ALANINE AMINOTRANSFERASE 2019-10-22 12:05:00 Tonya Eason MD ASPARTATE AMINOTRANSFERASE 2019-10-22 12:05:00 Tonya Eason ALKALINE PHOSPHATASE 2019-10-22 12:05:00 Tonya Eason MD rson SERUM CREATININE 2019-10-22 12:05:00 Tonya Eason MD .GLOMERULAR FILTRATION RATE 2019-10-22 12:05:00 Tonya Eason MD Results CBC 2019-10-22 12:05:00 Tonya Eason MD MANUAL DIFFERENTIAL 2019-10-22 12:05:00 Tonya Eason MD Bogdan gomez ANION GAP 2019-10-22 12:05:00 Tonya Eason MD FREE KAPPA LIGHT CHAIN 2019-10-21 16:06:00 Verona Blair MD IMMUNOGLOBULIN A SERUM 2019-10-21 16:06:00 Verona Blair MD FREE KAPPA/FREE LAMBDA RATIO 2019-10-21 16:06:00 Verona Blair MD .DR. WILDER PROT ELEC PATH REVIEW 2019-10-21 16:06:00 Verona Blair MD PHOSPHORUS LEVEL 2019-10-21 09:10:00 Naseem Vaca MD on MAGNESIUM LEVEL 2019-10-21 09:10:00 Naseem Vaca MD COMPLETE BLOOD COUNT W/ DIFFERENTIAL 2019-10-21 09:10:00 Ciara Eason MD SODIUM LEVEL 2019-10-21 09:10:00 Tonya Eason MD POTASSIUM LEVEL 2019-10-21 09:10:00 Tonya Eason MD CHLORIDE LEVEL 2019-10-21 09:10:00 Tonya Eason MD CARBON DIOXIDE LEVEL 2019-10-21 09:10:00 Tonya Eason MD Andrea rson BLOOD UREA NITROGEN 2019-10-21 09:10:00 [facility] SERUM CREATININE 2019-10-21 09:10:00 Tonya Eason MD GLUCOSE, RANDOM 2019-10-21 09:10:00 Tonya Eason MD LACTATE DEHYDROGENASE 2019-10-21 09:10:00 Tonya Eason erson URIC ACID 2019-10-21 09:10:00 Tonya Eason MD FRACTIONATED BILIRUBIN 2019-10-21 09:10:00 Tonya Eason MD derson ALBUMIN LEVEL 2019-10-21 09:10:00 Tonya Eason MD CALCIUM LEVEL TOTAL 2019-10-21 09:10:00 Tonya Eason MD [facility] ALANINE AMINOTRANSFERASE 2019-10-21 09:10:00 Tonya Eason MD ASPARTATE AMINOTRANSFERASE 2019-10-21 09:10:00 Tonya Eason ALKALINE PHOSPHATASE 2019-10-21 09:10:00 Tonya Eason MD Andrea rson SERUM CREATININE 2019-10-21 09:10:00 Tonya Eason MD .GLOMERULAR FILTRATION RATE 2019-10-21 09:10:00 Tonya Eason MD Results CBC 2019-10-21 09:10:00 Tonya Eason MD MANUAL DIFFERENTIAL 2019-10-21 09:10:00 Tonya Eason MD Bogdanciara gomez ANION GAP 2019-10-21 09:10:00 Tonya Eason MD TRANSFUSE RED BLOOD CELLS 2019-10-20 21:59:56 Odilon Zaragoza MD BLOODCULTURE 2019-10-20 15:29:00 Odilon Zaragoza MD ABORH MANUAL 2019-10-20 15:29:00 Hallie Alonzo MD CLOT EXPIRATION DATE 2019-10-20 15:29:00 Hallie Alonzo MD rson XR CLAVICLE LEFT 2019-10-20 15:00:15 Odilon Zaragoza MD Andrea rson PREPARE RBC 2019-10-20 14:13:00 Odilon Zaragoza MD PHOSPHORUS LEVEL 2019-10-20 10:06:00 Naseem Vaca MD on MAGNESIUM LEVEL 2019-10-20 10:06:00 Naseem Vaca MD n COMPLETE BLOOD COUNT W/ DIFFERENTIAL 2019-10-20 10:06:00 Ciara Eason MD SODIUM LEVEL 2019-10-20 10:06:00 Tonya Eason MD POTASSIUM LEVEL 2019-10-20 10:06:00 Tonya Eason MD CHLORIDE LEVEL 2019-10-20 10:06:00 Tonya Eason MD CARBON DIOXIDE LEVEL 2019-10-20 10:06:00 Tonya Eason MD rson BLOOD UREA NITROGEN 2019-10-20 10:06:00 Tonya Eason MD SERUM CREATININE 2019-10-20 10:06:00 Tonya Eason MD GLUCOSE, RANDOM 2019-10-20 10:06:00 Tonya Eason MD LACTATE DEHYDROGENASE 2019-10-20 10:06:00 Tonya Eason erson URIC ACID 2019-10-20 10:06:00 Tonya Eason MD FRACTIONATED BILIRUBIN 2019-10-20 10:06:00 Tonya Eason MD derson ALBUMIN LEVEL 2019-10-20 10:06:00 Tonya Eason MD CALCIUM LEVEL TOTAL 2019-10-20 10:06:00 Tonya Eason MD Bogdan [facility] ALANINE AMINOTRANSFERASE 2019-10-20 10:06:00 Tonya Eason MD ASPARTATE AMINOTRANSFERASE 2019-10-20 10:06:00 Tonya Eason ALKALINE PHOSPHATASE 2019-10-20 10:06:00 Tonya Eason MD rson PROTHROMBIN TIME 2019-10-20 10:06:00 Tonya Eason MD PARTIAL THROMBOPLASTIN TIME 2019-10-20 10:06:00 Tonya Eason MD ANTIBODY SCREEN 2019-10-20 10:06:00 Tonya Eason MD SERUM CREATININE 2019-10-20 10:06:00 Tonya Eason MD .GLOMERULAR FILTRATION RATE 2019-10-20 10:06:00 Tonya Eason MD Results CBC 2019-10-20 10:06:00 Tonya Eason MD MANUAL DIFFERENTIAL 2019-10-20 10:06:00 Tonya Eason MD ANION GAP 2019-10-20 10:06:00 Tonya Eason MD TMP INTERP AUTO ANTIBODY SCREEN POSITIVE 2019-10-20 10:06:00 Tonya Veliz MD ABORH MANUAL 2019-10-20 10:06:00 Tonya Eason MD CLOT EXPIRATION DATE 2019-10-20 10:06:00 Tonya Eason MD Andrea rson TMP INTERPRETATION ANTIBODY IDENTIFICATION 2019-10-20 10:06:00 Tonya Justin MD TMP CROSSMATCH INTERPRETATION 2019-10-20 10:06:00 Tonya Eason MD URINALYSIS WITH MICROSCOPIC IF INDICATED 2019-10-19 17:30:00 Bret Woods MD URINALYSIS MICROSCOPIC 2019-10-19 17:30:00 Bret Reece MD AMIKACIN LEVEL RANDOM 2019-10-19 13:15:00 Mark Jones MD COMPREHENSIVE METABOLIC PANEL 2019-10-19 13:15:00 HitaMark MD GLUCOSE LEVEL 2019-10-19 13:15:00 HitaMark MD ELECTROLYTE PANEL 2019-10-19 13:15:00 HitaMark MD Bogdan [facility] SERUM CREATININE 2019-10-19 13:15:00 HitaMark MD Hola on .GLOMERULAR FILTRATION RATE 2019-10-19 13:15:00 HitaMark MD CALCIUM LEVEL TOTAL 2019-10-19 13:15:00 HitaMark MD And ers ALBUMIN LEVEL 2019-10-19 13:15:00 HitaMark MD ALKALINE PHOSPHATASE 2019-10-19 13:15:00 HitaMark MD ALANINE AMINOTRANSFERASE 2019-10-19 13:15:00 HitaMark ASPARTATE AMINOTRANSFERASE 2019-10-19 13:15:00 HitaMark MD TOTAL PROTEIN 2019-10-19 13:15:00 HitaMark MD FRACTIONATED BILIRUBIN 2019-10-19 13:15:00 HitMark wetzel MD LACTATE DEHYDROGENASE 2019-10-19 07:12:00 Naseem Vaca MD nderson COMPREHENSIVE METABOLIC PANEL 2019-10-19 07:12:00 Marylou Vaca MD COMPLETE BLOOD COUNT W/ DIFFERENTIAL 2019-10-19 07:12:00 Naseem Olson MD GLUCOSE LEVEL 2019-10-19 07:12:00 Naseem Vaca MD Andbetoo owen BLOOD UREA NITROGEN 2019-10-19 07:12:00 Naseem Vaca MD And erson ELECTROLYTE PANEL 2019-10-19 07:12:00 Naseem Vaca MD Bogdan son SERUM CREATININE 2019-10-19 07:12:00 Naseem Vaca MD Hola on .GLOMERULAR FILTRATION RATE 2019-10-19 07:12:00 Naseem Vaca MD CALCIUM LEVEL TOTAL 2019-10-19 07:12:00 Naseem Vaca MD And erson ALBUMIN LEVEL 2019-10-19 07:12:00 Naseem Vaca MD Andbetoo owen ALKALINE PHOSPHATASE 2019-10-19 07:12:00 Naseem Vaca MD ALANINE AMINOTRANSFERASE 2019-10-19 07:12:00 Naseem Vaca ASPARTATE AMINOTRANSFERASE 2019-10-19 07:12:00 Naseem Vaca MD TOTAL PROTEIN 2019-10-19 07:12:00 Naseem Vaca MD FRACTIONATED BILIRUBIN 2019-10-19 07:12:00 Naseem Vaca MD Results CBC 2019-10-19 07:12:00 Naseem Vaca MD Andjewels weaver MANUAL DIFFERENTIAL 2019-10-19 07:12:00 Naseem Vaca MD And erson AMIKACIN LEVEL RANDOM 2019-10-19 06:58:00 Mark Jones MDrson MAGNESIUM LEVEL 2019-10-19 06:58:00 Mark Jones MD PHOSPHORUS LEVEL 2019-10-19 06:58:00 Mark Jones MD Hola on HC 2019-NCOV COVID-19 2019-10-18 23:52:00 Mark Jones MD, MD COVID-19 (SARS-COV-2) PCR REPORT 2019-10-18 23:52:00 Elinor Jones MD URINE CULTURE 2019-10-18 19:42:00 Mark Jones MD BLOODCULTURE 2019-10-18 19:42:00 Mark Jones MD RESPIRATORY VIRAL PANEL, NASOPHARYNGEAL SWAB 2019-10-18 19:4 2:00 Mark Jones MD RESPIRATORY PCR PANEL, HAND STAMPER SWAB 2019-10-18 19:42:00 Mark Jones MD RESPIRATORY PCR PANEL PATH REVIEW 2019-10-18 19:42:00 Patricia Jones MD LACTIC ACID, VENOUS 2019-10-18 19:42:00 Mark Jones MD And erson XR ABDOMEN AP 2019-10-18 19:27:28 Mark Jones MD XR CHEST 1 VW 2019-10-18 19:27:11 Mark Jones MD COMPLETE BLOOD COUNT W/ DIFFERENTIAL 2019-10-18 15:18:00 Mitra Chawla ch, MD SERUM CREATININE 2019-10-18 15:18:00 Mitra Pelayo MD Andrea rson MAGNESIUM LEVEL 2019-10-18 15:18:00 Mitra Pelayo MD Bogdan son ELECTROLYTE PANEL 2019-10-18 15:18:00 Mitra Pelayo MD And erson Results CBC 2019-10-18 15:18:00 Mitra Pelayo MD Bogdan son MANUAL DIFFERENTIAL 2019-10-18 15:18:00 Mitra Pelayo MD nderson SERUM CREATININE 2019-10-18 15:18:00 Mitra Pelayo MD Andrea rson .GLOMERULAR FILTRATION RATE 2019-10-18 15:18:00 Luda Pelayo MD COMPLETE BLOOD COUNT W/ DIFFERENTIAL 2019-10-11 16:11:00 Nesha Wylie MD COMPREHENSIVE METABOLIC PANEL 2019-10-11 16:11:00 Stephanie Grimaldo MD Results CBC 2019-10-11 16:11:00 Nesha Grimaldo MD Bogdan son MANUAL DIFFERENTIAL 2019-10-11 16:11:00 Nesha Grimaldo MD nderson GLUCOSE LEVEL 2019-10-11 16:11:00 Nesha Grimaldo MD Bogdan son BLOOD UREA NITROGEN 2019-10-11 16:11:00 Nesha Grimaldo MD nderson ELECTROLYTE PANEL 2019-10-11 16:11:00 Nesha Grimaldo MD And erson SERUM CREATININE 2019-10-11 16:11:00 Nesha Grimaldo MD Andrea rson .GLOMERULAR FILTRATION RATE 2019-10-11 16:11:00 Tata Grimaldo MD CALCIUM LEVEL TOTAL 2019-10-11 16:11:00 Nesha Grimaldo MD nderson ALBUMIN LEVEL 2019-10-11 16:11:00 Nesha Grimaldo MD [facility] son ALKALINE PHOSPHATASE 2019-10-11 16:11:00 Nesha Grimaldo MD ALANINE AMINOTRANSFERASE 2019-10-11 16:11:00 Nesha Grimaldo MD ASPARTATE AMINOTRANSFERASE 2019-10-11 16:11:00 Nesha Grimaldo MD TOTAL PROTEIN 2019-10-11 16:11:00 Nesha Grimaldo MD [facility] son FRACTIONATED BILIRUBIN 2019-10-11 16:11:00 Nesha Grimaldo ANTIBODY SCREEN 2019-10-11 16:11:00 Nesha Grimaldo MD [facility] ABORH MANUAL 2019-10-11 16:11:00 Nesha Grimaldo MD [facility] son TMP INTERP AUTO ANTIBODY SCREEN POSITIVE 2019-10-11 16:11:00 Nesha Grimaldo MD CLOT EXPIRATION DATE 2019-10-11 16:11:00 Nesha Grimaldo MD PREPARE RBC 2019-09-30 21:20:00 Shahrzad Elizabeth MD COMPLETE BLOOD COUNT W/ DIFFERENTIAL 2019-09-30 10:05:00 Gildardo Zepeda MD SODIUM LEVEL 2019-09-30 10:05:00 Gildardo Zepeda MD POTASSIUM LEVEL 2019-09-30 10:05:00 Gildardo Zepeda MD CHLORIDE LEVEL 2019-09-30 10:05:00 Gildardo Zepeda MD CARBON DIOXIDE LEVEL 2019-09-30 10:05:00 Gildardo Zepeda MD Andrea rson BLOOD UREA NITROGEN 2019-09-30 10:05:00 [facility] SER[facility] CREATININE 2019-09-30 10:05:00 Gildardo Zepeda MD GLUCOSE, RANDOM 2019-09-30 10:05:00 Gildardo Zepeda MD LACTATE DEHYDROGENASE 2019-09-30 10:05:00 Gildardo Zepeda [facility] URIC ACID 2019-09-30 10:05:00 Gildardo Zepeda MD PHOSPHORUS LEVEL 2019-09-30 10:05:00 Gildardo Zepeda MD FRACTIONATED BILIRUBIN 2019-09-30 10:05:00 Gildardo Zepeda MDson ALBUMIN LEVEL 2019-09-30 10:05:00 Gildardo Zepeda MD CALCIUM LEVEL TOTAL 2019-09-30 10:05:00 Gildardo Zepeda MD Bog[facility] MAGNESIUM LEVEL 2019-09-30 10:05:00 Gildardo Zepeda MD ALANINE AMINOTRANSFERASE 2019-09-30 10:05:00 Gildardo Zepeda MD ASPARTATE AMINOTRANSFERASE 2019-09-30 10:05:00 Gildardo Zepeda ALKALINE PHOSPHATASE 2019-09-30 10:05:00 Gildardo Zepeda MD rson ANTIBODY SCREEN 2019-09-30 10:05:00 Angie Bragg MD Results CBC 2019-09-30 10:05:00 Gildardo Zepeda MD MANUAL DIFFERENTIAL 2019-09-30 10:05:00 Gildardo Zepeda MD Bogdan [facility] SERUM CREATININE 2019-09-30 10:05:00 Gildardo Zepeda MD .GLOMERULAR FILTRATION RATE 2019-09-30 10:05:00 Gildardo Zepeda MD ANION GAP 2019-09-30 10:05:00 Gildardo Zepeda MD ABORH MANUAL 2019-09-30 10:05:00 Angie Bragg MD TMP INTERP AUTO ANTIBODY SCREEN POSITIVE 2019-09-30 10:05:00 Angie Lawton MD CLOT EXPIRATION DATE 2019-09-30 10:05:00 Angie Bragg MD rson COMPLETE BLOOD COUNT W/ DIFFERENTIAL 2019-09-29 11:29:00 Gildardo Zepeda MD SODIUM LEVEL 2019-09-29 11:29:00 Gildardo Zepeda MD POTASSIUM LEVEL 2019-09-29 11:29:00 Gildardo Zepeda MD CHLORIDE LEVEL 2019-09-29 11:29:00 Gildardo Zepeda MD CARBON DIOXIDE LEVEL 2019-09-29 11:29:00 Gildardo Zepeda MD Andrea rson BLOOD UREA NITROGEN 2019-09-29 11:29:00 Gildardo Zepeda MD Bogdan son SERUM CREATININE 2019-09-29 11:29:00 Gildardo Zepeda MD GLUCOSE, RANDOM 2019-09-29 11:29:00 Gildardo Zepeda MD LACTATE DEHYDROGENASE 2019-09-29 11:29:00 Gildardo Zepeda MD And erson URIC ACID 2019-09-29 11:29:00 Gildardo Zepeda MD PHOSPHORUS LEVEL 2019-09-29 11:29:00 Gildardo Zepeda MD FRACTIONATED BILIRUBIN 2019-09-29 11:29:00 Gildardo Zepeda MD derson ALBUMIN LEVEL 2019-09-29 11:29:00 Gildardo Zepeda MD CALCIUM LEVEL TOTAL 2019-09-29 11:29:00 Gildardo Zepeda MD Bogdan gomez MAGNESIUM LEVEL 2019-09-29 11:29:00 Gildardo Zepeda MD ALANINE AMINOTRANSFERASE 2019-09-29 11:29:00 Gildardo Zepeda MD ASPARTATE AMINOTRANSFERASE 2019-09-29 11:29:00 Gildardo Zepeda ALKALINE PHOSPHATASE 2019-09-29 11:29:00 Gildardo Zepeda MD Andrea rson Results CBC 2019-09-29 11:29:00 Gildardo Zepeda MD MANUAL DIFFERENTIAL 2019-09-29 11:29:00 Gildardo Zepeda MD Bogdan gomez SERUM CREATININE 2019-09-29 11:29:00 Gildardo Zepeda MD .GLOMERULAR FILTRATION RATE 2019-09-29 11:29:00 Gildardo Zepeda MD ANION GAP 2019-09-29 11:29:00 Gildardo Zepeda MD TRANSFUSE RED BLOOD CELLS 2019-09-28 21:30:38 Tonya Eason MD PREPARE RBC 2019-09-28 13:21:00 Tonya Eason MD COMPLETE BLOOD COUNT W/ DIFFERENTIAL 2019-09-28 11:36:00 Gildardo Zepeda MD SODIUM LEVEL 2019-09-28 11:36:00 Gildardo Zepeda MD POTASSIUM LEVEL 2019-09-28 11:36:00 Gildardo Zepeda MD CHLORIDE LEVEL 2019-09-28 11:36:00 Gildardo Zepeda MD CARBON DIOXIDE LEVEL 2019-09-28 11:36:00 Gildardo Zepeda MD Andrea rson BLOOD UREA NITROGEN 2019-09-28 11:36:00 [facility] SERUM CREATININE 2019-09-28 11:36:00 Gildardo Zepeda MD GLUCOSE, RANDOM 2019-09-28 11:36:00 Gildardo Zepeda MD LACTATE DEHYDROGENASE 2019-09-28 11:36:00 Gildardo Zepeda MD And erson URIC ACID 2019-09-28 11:36:00 Gildardo Zepeda MD PHOSPHORUS LEVEL 2019-09-28 11:36:00 Gildardo Zepeda MD FRACTIONATED BILIRUBIN 2019-09-28 11:36:00 Gildardo Zepeda MD derson ALBUMIN LEVEL 2019-09-28 11:36:00 Gildardo Zepeda MD CALCIUM LEVEL TOTAL 2019-09-28 11:36:00 Gildardo Zepeda MD [facility] MAGNESIUM LEVEL 2019-09-28 11:36:00 Gildardo Zepeda MD ALANINE AMINOTRANSFERASE 2019-09-28 11:36:00 Gildardo Zepeda MD ASPARTATE AMINOTRANSFERASE 2019-09-28 11:36:00 Gildardo Zepeda ALKALINE PHOSPHATASE 2019-09-28 11:36:00 Gildardo Zepeda MD Andrea rson PREALBUMIN 2019-09-28 11:36:00 Tonya Eason MD Results CBC 2019-09-28 11:36:00 Gildardo Zepeda MD MANUAL DIFFERENTIAL 2019-09-28 11:36:00 Gildardo Zepeda MD [facility] SERUM CREATININE 2019-09-28 11:36:00 Gildardo Zepeda MD .GLOMERULAR FILTRATION RATE 2019-09-28 11:36:00 Gildardo Zepeda MD ANION GAP 2019-09-28 11:36:00 Gildardo Zepeda MD XR CLAVICLE LEFT 2019-09-27 18:47:59 Tonya Eason MD COMPLETE BLOOD COUNT W/ DIFFERENTIAL 2019-09-27 12:17:00 Gildardo Zepeda MD SODIUM LEVEL 2019-09-27 12:17:00 Gildardo Zepeda MD POTASSIUM LEVEL 2019-09-27 12:17:00 Gildardo Zepeda MD CHLORIDE LEVEL 2019-09-27 12:17:00 Gildardo Zepeda MD CARBON DIOXIDE LEVEL 2019-09-27 12:17:00 Gildardo Zepeda MD Andrea rson BLOOD UREA NITROGEN 2019-09-27 12:17:00 Gildardo [facility]eda MD [facility] SERUM CREATININE 2019-09-27 12:17:00 Gildardo Zepeda MD GLUCOSE, RANDOM 2019-09-27 12:17:00 Gildardo Zepeda MD LACTATE DEHYDROGENASE 2019-09-27 12:17:00 Gildardo Zepeda MD And erson URIC ACID 2019-09-27 12:17:00 Gildardo Zepeda MD PHOSPHORUS LEVEL 2019-09-27 12:17:00 Gildardo Zepeda MD FRACTIONATED BILIRUBIN 2019-09-27 12:17:00 Gildardo Zepeda MD derson ALBUMIN LEVEL 2019-09-27 12:17:00 Gildardo Zepeda MD CALCIUM LEVEL TOTAL 2019-09-27 12:17:00 Gidlardo Zepeda MD [facility] MAGNESIUM LEVEL 2019-09-27 12:17:00 Gildardo Zepeda MD ALANINE AMINOTRANSFERASE 2019-09-27 12:17:00 Gildardo Zepeda MD ASPARTATE AMINOTRANSFERASE 2019-09-27 12:17:00 Gildardo Zepeda ALKALINE PHOSPHATASE 2019-09-27 12:17:00 Gildardo Zepedae rson Results CBC 2019-09-27 12:17:00 Gildardo Zepeda MD MANUAL DIFFERENTIAL 2019-09-27 12:17:00 Gildardo Zepeda MD [facility] SERUM CREATININE 2019-09-27 12:17:00 Gildardo Zepeda MD .GLOMERULAR FILTRATION RATE 2019-09-27 12:17:00 Gildardo Zepeda MD ANION GAP 2019-09-27 12:17:00 Gildardo Zepeda MD ABORH MANUAL 2019-09-27 12:17:00 Angie Bragg MD CLOT EXPIRATION DATE 2019-09-27 12:17:00 Angie Bragg MD rson TMP ABORH DISCREPANCY INTERPRETATION 2019-09-27 12:17:00 Canelo Bragg MD TMP INTERPRETATION ANTIBODY IDENTIFICATION 2019-09-27 12:17:00 Angie Spring MD TMP INTERPRETATION MANUAL ANTIBODY SCREEN POSITIVE 2020-03-2 1 12:17:00 Angie Bragg MD TMP INTERPRETATION DIRECT ANTIGLOBULIN TEST 2019-09-27 12:17:00 Angie Bragg MD TMP CROSSMATCH INTERPRETATION 2019-09-27 12:17:00 Angie Bragg MD COMPLETE BLOOD COUNT W/ DIFFERENTIAL 2019-09-26 03:30:00 Gildardo Zepeda MD SODIUM LEVEL 2019-09-26 03:30:00 Gildardo Zepeda MD POTASSIUM LEVEL 2019-09-26 03:30:00 Gildardo Zepeda MD CHLORIDE LEVEL 2019-09-26 03:30:00 Gildardo Zepeda MD CARBON DIOXIDE LEVEL 2019-09-26 03:30:00 Gildardo Zepeda MD Andrea rson BLOOD UREA NITROGEN 2019-09-26 03:30:00 G[facility] SERUM CREATININE 2019-09-26 03:30:00 Gildardo Zepeda MD GLUCOSE, RANDOM 2019-09-26 03:30:00 Gildardo Zepeda MD LACTATE DEHYDROGENASE 2019-09-26 03:30:00 Gildardo Zepeda MD And erson URIC ACID 2019-09-26 03:30:00 Gildardo Zepeda MD PHOSPHORUS LEVEL 2019-09-26 03:30:00 Gildardo Zepeda MD FRACTIONATED BILIRUBIN 2019-09-26 03:30:00 Gildardo Zepeda MD ALBUMIN LEVEL 2019-09-26 03:30:00 Gildardo Zepeda MD CALCIUM LEVEL TOTAL 2019-09-26 03:30:00 Gildardo Zepeda MD [facility] MAGNESIUM LEVEL 2019-09-26 03:30:00 Gildardo Zepeda MD ALANINE AMINOTRANSFERASE 2019-09-26 03:30:00 Gildardo Zepeda MD ASPARTATE AMINOTRANSFERASE 2019-09-26 03:30:00 Gildardo Zepeda ALKALINE PHOSPHATASE 2019-09-26 03:30:00 Gildardo Zepeda MD Andrea rson PARTIAL THROMBOPLASTIN TIME 2019-09-26 03:30:00 Gildardo Zepeda MD PROTHROMBIN TIME 2019-09-26 03:30:00 Gildardo Zepeda MD IMMUNOGLOBULIN M SERUM 2019-09-26 03:30:00 Gildardo Zepeda MD BETA 2 MICROGLOBULIN 2019-09-26 03:30:00 Gildardo Zepeda MD rson FREE LAMBDA LIGHT CHAIN 2019-09-26 03:30:00 Gildardo Zepeda MD nderson ANTIBODY SCREEN 2019-09-26 03:30:00 Gildardo Zepeda MD Results CBC 2019-09-26 03:30:00 Gildardo Zepeda MD MANUAL DIFFERENTIAL 2019-09-26 03:30:00 Gildardo Zepeda MD Bogdan son SERUM CREATININE 2019-09-26 03:30:00 Gildardo Zepeda MD .GLOMERULAR FILTRATION RATE 2019-09-26 03:30:00 Gildardo Zepeda MD ANION GAP 2019-09-26 03:30:00 Gildardo Zepeda MD ABORH MANUAL 2019-09-26 03:30:00 Gildardo Zepeda MD TMP INTERP AUTO ANTIBODY SCREEN POSITIVE 2019-09-26 03:30:00 Web Gildardo urbina MD CLOT EXPIRATION DATE 2019-09-26 03:30:00 Gildardo Zepeda MD rson FREE KAPPA/FREE LAMBDA RATIO 2019-09-26 03:30:00 Gildardo Zepeda MD .DR. LI PROT ELEC PATH REVIEW 2019-09-26 03:30:00 Gume Zepeda MD COMPLETE BLOOD COUNT W/ DIFFERENTIAL 2019-09-25 19:18:00 Nesha Wylie MD Results CBC 2019-09-25 19:18:00 Nesha Grimaldo MD Bogdan son MANUAL DIFFERENTIAL 2019-09-25 19:18:00 Nesha Grimaldo MD nderson PROTEIN ELECTROPHORESIS, SERUM 2019-09-15 15:21:00 Yanna Estrada MD IMMUNOGLOBULIN M SERUM 2019-09-15 15:21:00 Yanna Estrada MD derson FREE LAMBDA LIGHT CHAIN 2019-09-15 15:21:00 Yanna Estrada MD nderson BETA 2 MICROGLOBULIN 2019-09-15 15:21:00 Yanna Estrada MD rson COMPLETE BLOOD COUNT W/ DIFFERENTIAL 2019-09-15 15:21:00 Yanna Estrada MD TOTAL PROTEIN 2019-09-15 15:21:00 Yanna Estrada MD ALBUMIN LEVEL 2019-09-15 15:21:00 Yanna Estrada MD ELECTROLYTE PANEL 2019-09-15 15:21:00 Yanna Estrada MD MAGNESIUM LEVEL 2019-09-15 15:21:00 Yanna Estrada MD PHOSPHORUS LEVEL 2019-09-15 15:21:00 aYnna Estrada MD CALCIUM LEVEL TOTAL 2019-09-15 15:21:00 Yanna Estrada MD Bogdan gomez GLUCOSE, RANDOM 2019-09-15 15:21:00 Yanna Estrada MD BLOOD UREA NITROGEN 2019-09-15 15:21:00 Yanna Estrada MD Bogdan gomez SERUM CREATININE 2019-09-15 15:21:00 Yanna Estrada MD URIC ACID 2019-09-15 15:21:00 Yanna Estrada MD ALANINE AMINOTRANSFERASE 2019-09-15 15:21:00 Yanna Estrada MD ASPARTATE AMINOTRANSFERASE 2019-09-15 15:21:00 Yanna Estrada ALKALINE PHOSPHATASE 2019-09-15 15:21:00 Yanna Estrada MD Andrea rson FRACTIONATED BILIRUBIN 2019-09-15 15:21:00 Yanna Estrada MD derson LACTATE DEHYDROGENASE 2019-09-15 15:21:00 Yanna Estrada MD And erson Results CBC 2019-09-15 15:21:00 Yanna Estrada MD MANUAL DIFFERENTIAL 2019-09-15 15:21:00 Yanna Estrada MD Bogdan gomez SERUM CREATININE 2019-09-15 15:21:00 Yanna Estrada MD .GLOMERULAR FILTRATION RATE 2019-09-15 15:21:00 Yanna Estrada MD ANTIBODY SCREEN 2019-09-15 15:21:00 Yanna Estrada MD FREE KAPPA/FREE LAMBDA RATIO 2019-09-15 15:21:00 Yanna Estrada MD ABORH MANUAL 2019-09-15 15:21:00 Yanna Estrada MD TMP INTERP AUTO ANTIBODY SCREEN POSITIVE 2019-09-15 15:21:00 Yanna Jakc MD CLOT EXPIRATION DATE 2019-09-15 15:21:00 Yanna Estrada MD Andrea rson .DR. MURPHY PROT ELEC PATH REVIEW 2019-09-15 15:21:00 Low Estrada MD PROTEIN ELECTROPHORESIS URINE 2019-09-15 14:00:00 Yanna Estrada MD URINE TOTAL PROTEIN 2019-09-15 14:00:00 Provider, Alyssa LAZCANO And erssummer .TOTAL VOLUME 2019-09-15 14:00:00 ProviderAlyssa MD .DR. JEFFREY Haynes PROT ELEC PATH REVIEW 2019-09-15 14:00:00 Amauri Estrada MD COMPLETE BLOOD COUNT W/ DIFFERENTIAL 2019-09-01 11:42:00 Yanna Estrada MD COMPREHENSIVE METABOLIC PANEL 2019-09-01 11:42:00 Yanna Estrada MD MAGNESIUM LEVEL 2019-09-01 11:42:00 Yanna Estrada MD PHOSPHORUS LEVEL 2019-09-01 11:42:00 Yanna Estrada MD LACTATE DEHYDROGENASE 2019-09-01 11:42:00 Yanna Estrada MD And betoon URIC ACID 2019-09-01 11:42:00 Yanna Estrada MD Results CBC 2019-09-01 11:42:00 Yanna Estrada MD MANUAL DIFFERENTIAL 2019-09-01 11:42:00 Yanna Estrada MD Bogdan patricia GLUCOSE LEVEL 2019-09-01 11:42:00 Yanna Estrada MD BLOOD UREA NITROGEN 2019-09-01 11:42:00 Yanna Estrada MD Bogdan son ELECTROLYTE PANEL 2019-09-01 11:42:00 Yanna Estrada MD SERUM CREATININE 2019-09-01 11:42:00 Yanna Estrada MD .GLOMERULAR FILTRATION RATE 2019-09-01 11:42:00 Yanna Estrada MD CALCIUM LEVEL TOTAL 2019-09-01 11:42:00 Yanna Estrada MD Bogdan son ALBUMIN LEVEL 2019-09-01 11:42:00 Yanna Estrada MD ALKALINE PHOSPHATASE 2019-09-01 11:42:00 Yanna Estrada MD rson ALANINE AMINOTRANSFERASE 2019-09-01 11:42:00 Yanna Estrada MD ASPARTATE AMINOTRANSFERASE 2019-09-01 11:42:00 Yanna Estrada TOTAL PROTEIN 2019-09-01 11:42:00 Yanna Estrada MD FRACTIONATED BILIRUBIN 2019-09-01 11:42:00 Yanna Estrada MD COMPLETE BLOOD COUNT W/ DIFFERENTIAL 2019-08-31 10:10:00 Yanna Estrada MD COMPREHENSIVE METABOLIC PANEL 2019-08-31 10:10:00 Yanna Estrada MD MAGNESIUM LEVEL 2019-08-31 10:10:00 Yanna Estrada MD PHOSPHORUS LEVEL 2019-08-31 10:10:00 Yanna Estrada MD LACTATE DEHYDROGENASE 2019-08-31 10:10:00 Yanna Estrada MD And erson URIC ACID 2019-08-31 10:10:00 Yanna Estrada MD Results CBC 2019-08-31 10:10:00 Yanna Estrada MD MANUAL DIFFERENTIAL 2019-08-31 10:10:00 Yanna Estrada MD Bogdan [facility] GLUCOSE LEVEL 2019-08-31 10:10:00 Yanna Estrada MD BLOOD UREA NITROGEN 2019-08-31 10:10:00 Yanna [facility]ada [facility] ELECTROLYTE PANEL 2019-08-31 10:10:00 Yanna Estrada MD n SERUM CREATININE 2019-08-31 10:10:00 Yanna Estrada MD .GLOMERULAR FILTRATION RATE 2019-08-31 10:10:00 Yanna Estrada MD CALCIUM LEVEL TOTAL 2019-08-31 10:10:00 Yanna [facility]strada MD [facility] ALBUMIN LEVEL 2019-08-31 10:10:00 Yanna Estrada MD ALKALINE PHOSPHATASE 2019-08-31 10:10:00 Yanna Estrada MD Andrea rson ALANINE AMINOTRANSFERASE 2019-08-31 10:10:00 Yanna Estrada MD ASPARTATE AMINOTRANSFERASE 2019-08-31 10:10:00 Yanna Estrada TOTAL PROTEIN 2019-08-31 10:10:00 Yanna Estrada MD FRACTIONATED BILIRUBIN 2019-08-31 10:10:00 Yanna Estrada MD COMPLETE BLOOD COUNT W/ DIFFERENTIAL 2019-08-30 10:29:00 Yanna Estrada MD COMPREHENSIVE METABOLIC PANEL 2019-08-30 10:29:00 Yanna Estrada MD MAGNESIUM LEVEL 2019-08-30 10:29:00 Yanna Estrada MD PHOSPHORUS LEVEL 2019-08-30 10:29:00 Yanna Estrada MD LACTATE DEHYDROGENASE 2019-08-30 10:29:00 Yanna Estrada MD And erson URIC ACID 2019-08-30 10:29:00 Yanna Estrada MD ANTIBODY SCREEN 2019-08-30 10:29:00 Yanna Estrada MD Results CBC 2019-08-30 10:29:00 Yanna Estrada MD MANUAL DIFFERENTIAL 2019-08-30 10:29:00 Yanna Estrada MD GLUCOSE LEVEL 2019-08-30 10:29:00 Yanna Estrada MD BLOOD UREA NITROGEN 2019-08-30 10:29:00 Yanna Estrada MD Bogdanciara gomez ELECTROLYTE PANEL 2019-08-30 10:29:00 Yanna Estrada MDo n SERUM CREATININE 2019-08-30 10:29:00 Yanna Estrada MD .GLOMERULAR FILTRATION RATE 2019-08-30 10:29:00 Yanna Estrada MD CALCIUM LEVEL TOTAL 2019-08-30 10:29:00 Yanna Estrada MD [facility] ALBUMIN LEVEL 2019-08-30 10:29:00 Yanna Estrada MD ALKALINE PHOSPHATASE 2019-08-30 10:29:00 Yanna Estrada MD rssummer ALANINE AMINOTRANSFERASE 2019-08-30 10:29:00 Yanna Estrada MD ASPARTATE AMINOTRANSFERASE 2019-08-30 10:29:00 Yanna Estrada TOTAL PROTEIN 2019-08-30 10:29:00 Yanna Estrada MD FRACTIONATED BILIRUBIN 2019-08-30 10:29:00 Yanna Estrada MD TMP INTERP AUTO ANTIBODY SCREEN POSITIVE 2019-08-30 10:29:00 Yanna Jack MD ABORH MANUAL 2019-08-30 10:29:00 Yanna Estrada MD CLOT EXPIRATION DATE 2019-08-30 10:29:00 Yanna Estrada MD Andrea rssummer BASIC METABOLIC PANEL, CALCIUM IONIZED 2019-08-29 09:29:00 Elinor Leonardo MD MAGNESIUM LEVEL 2019-08-29 09:29:00 Elinor Leonardo MD CALCIUM LEVEL TOTAL 2019-08-29 09:29:00 Elinor Leonardo MD Bogdan [facility] PHOSPHORUS LEVEL 2019-08-29 09:29:00 Elinor Leonardo MD COMPLETE BLOOD COUNT W/ DIFFERENTIAL 2019-08-29 09:29:00 Lei Leonardo MD GLUCOSE LEVEL 2019-08-29 09:29:00 Elinor Leonardo MD BLOOD UREA NITROGEN 2019-08-29 09:29:00 Elinor Leonardo MD Bogdanciara gomez ELECTROLYTE PANEL 2019-08-29 09:29:00 Elinor Leonardo MD SERUM CREATININE 2019-08-29 09:29:00 Elinor Leonardo MD .GLOMERULAR FILTRATION RATE 2019-08-29 09:29:00 Elinor Leonardo MD CALCIUM IONIZED, VENOUS 2019-08-29 09:29:00 Elinor Leonardo MDrson Results CBC 2019-08-29 09:29:00 Elinor Leonardo MD MANUAL DIFFERENTIAL 2019-08-29 09:29:00 Elinor Leonardo MD Bogdanciara gomez BASIC METABOLIC PANEL, CALCIUM IONIZED 2019-08-28 10:56:00 Elinor Leonardo MD MAGNESIUM LEVEL 2019-08-28 10:56:00 Elinor Leonardo MD CALCIUM LEVEL TOTAL 2019-08-28 10:56:00 Elinor Leonardo MD Bogdan [facility] PHOSPHORUS LEVEL 2019-08-28 10:56:00 Elinor Leonardo MD COMPLETE BLOOD COUNT W/ DIFFERENTIAL 2019-08-28 10:56:00 Lei Leonardo MD HEMOGLOBIN A1C 2019-08-28 10:56:00 Elinor Leonardo MD GLUCOSE LEVEL 2019-08-28 10:56:00 Elinor Leonardo MD BLOOD UREA NITROGEN 2019-08-28 10:56:00 Elinor Leonardo MD Bogdan [facility] ELECTROLYTE PANEL 2019-08-28 10:56:00 Elinor Leonardo MD SERUM CREATININE 2019-08-28 10:56:00 Elinor Leonardo MD .GLOMERULAR FILTRATION RATE 2019-08-28 10:56:00 Elinor Leonardo MD CALCIUM IONIZED, VENOUS 2019-08-28 10:56:00 Elinor Leonardo MDrson Results CBC 2019-08-28 10:56:00 Elinor Leonardo MD MANUAL DIFFERENTIAL 2019-08-28 10:56:00 Elinor Leonardo MD Bogdan [facility] XR CLAVICLE LEFT 2019-08-28 00:29:[address] HEAD WO CONTRAST 2019-08-27 23:02:52 Presley Hernandez MD Bogdan son XR CHEST 1 VW 2019-08-27 22:41:46 Presley Hernandez MD XR SHOULDER 2+ VW LEFT 2019-08-27 22:40:43 Presley Hernandez MD COMPLETE BLOOD COUNT W/ DIFFERENTIAL 2019-08-27 22:14:00 Presley Hernandez MD COMPREHENSIVE METABOLIC PANEL 2019-08-27 22:14:00 Presley Hernandez MD MAGNESIUM LEVEL 2019-08-27 22:14:00 Presley Hernandez MD PHOSPHORUS LEVEL 2019-08-27 22:14:00 Presley Hernandez MD PROTHROMBIN TIME 2019-08-27 22:14:00 ElsayPresley west MD PARTIAL THROMBOPLASTIN TIME 2019-08-27 22:14:00 Presley Hernandez MD Results CBC 2019-08-27 22:14:00 Presley Hernandez MD MANUAL DIFFERENTIAL 2019-08-27 22:14:00 Presley Hernandez MD son GLUCOSE LEVEL 2019-08-27 22:14:00 Presley Hernandez MD BLOOD UREA NITROGEN 2019-08-27 22:14:00 Presley Hernandez MD ELECTROLYTE PANEL 2019-08-27 22:14:00 ElsayPresley west MD n SERUM CREATININE 2019-08-27 22:14:00 Presley Hernandez MD .GLOMERULAR FILTRATION RATE 2019-08-27 22:14:00 Presley Hernandez MD CALCIUM LEVEL TOTAL 2019-08-27 22:14:00 Presley Hernandez MD Bogdan son ALBUMIN LEVEL 2019-08-27 22:14:00 Presley Hernandez MD ALKALINE PHOSPHATASE 2019-08-27 22:14:00 Presley Hernandez MD rssummer ALANINE AMINOTRANSFERASE 2019-08-27 22:14:00 ElsayPresley west MD ASPARTATE AMINOTRANSFERASE 2019-08-27 22:14:00 Presley Hernandez TOTAL PROTEIN 2019-08-27 22:14:00 Presley Hernandez MD FRACTIONATED BILIRUBIN 2019-08-27 22:14:00 Presley Hernandez MD IMMUNOGLOBULIN M SERUM 2019-08-25 17:01:00 Veronika Garza MD FREE LAMBDA LIGHT CHAIN 2019-08-25 17:01:00 Veronika Garza MDon BETA 2 MICROGLOBULIN 2019-08-25 17:01:00 Veronika Garza MD Andrea rson COMPLETE BLOOD COUNT W/ DIFFERENTIAL 2019-08-25 17:01:00 Veronika Garza MD TOTAL PROTEIN 2019-08-25 17:01:00 Veronika Garza MD ALBUMIN LEVEL 2019-08-25 17:01:00 Veronika Garza MD ELECTROLYTE PANEL 2019-08-25 17:01:00 Veronika Garza MD n MAGNESIUM LEVEL 2019-08-25 17:01:00 Veronika Garza MD PHOSPHORUS LEVEL 2019-08-25 17:01:00 Veronika Garza MD CALCIUM LEVEL TOTAL 2019-08-25 17:01:00 Veronika Garza MD GLUCOSE, RANDOM 2019-08-25 17:01:00 Veronika Garza MD BLOOD UREA NITROGEN 2019-08-25 17:01:00 Veronika Garza MD SERUM CREATININE 2019-08-25 17:01:00 Veronika Garza MD URIC ACID 2019-08-25 17:01:00 Veronika Garza MD ALANINE AMINOTRANSFERASE 2019-08-25 17:01:00 Veronika Garza MD ASPARTATE AMINOTRANSFERASE 2019-08-25 17:01:00 Veronika Garza ALKALINE PHOSPHATASE 2019-08-25 17:01:00 Veronika Garza MD rssummer FRACTIONATED BILIRUBIN 2019-08-25 17:01:00 Veronika Garza MD derson LACTATE DEHYDROGENASE 2019-08-25 17:01:00 Veronika Garza MD And erson Results CBC 2019-08-25 17:01:00 Veronika Garza MD MANUAL DIFFERENTIAL 2019-08-25 17:01:00 Veronika Garza MD SERUM CREATININE 2019-08-25 17:01:00 Veronika Garza MD .GLOMERULAR FILTRATION RATE 2019-08-25 17:01:00 Veronika Garza MD ABORH 2019-08-25 17:01:00 Veronika Garza MD ANTIBODY SCREEN 2019-08-25 17:01:00 Veronika Garza MD FREE KAPPA/FREE LAMBDA RATIO 2019-08-25 17:01:00 Veronika Garza MD TMP INTERP AUTO ANTIBODY SCREEN POSITIVE 2019-08-25 17:01:00 Veronika Bhatt MD CLOT EXPIRATION DATE 2019-08-25 17:01:00 Veronika Garza MD Andrea rssummer .DR. TINA ELIZABETH ELEC PATH REVIEW 2019-08-25 17:01:00 Veronika Garza MD URINE TOTAL PROTEIN 2019-08-25 14:00:00 Veronika Garza MD Bogdan patricia .TOTAL VOLUME 2019-08-25 14:00:00 Veronika Garza MD .DR. JEN Haynes PROT ELEC PATH REVIEW 2019-08-25 14:00:00 Kendall Garza MD COMPLETE BLOOD COUNT W/ DIFFERENTIAL 2019-08-15 17:03:52 Veronika Garza MD TOTAL PROTEIN 2019-08-15 17:03:52 Veronika Garza MD ALBUMIN LEVEL 2019-08-15 17:03:52 Veronika Garza MD CALCIUM LEVEL TOTAL 2019-08-15 17:03:52 [facility] PHOS[facility] 2019-08-15 17:03:52 Veronika Garza MD GLUCOSE, RANDOM 2019-08-15 17:03:52 Veronika Garza MD BLOOD UREA NITROGEN 2019-08-15 17:03:52 Veronika [facility]za MD [facility] SERUM CREATININE 2019-08-15 17:03:52 Veronika Garza MD URIC ACID 2019-08-15 17:03:52 Veronika Garza MD FRACTIONATED BILIRUBIN 2019-08-15 17:03:52 Veronika Garza MD derson ALKALINE PHOSPHATASE 2019-08-15 17:03:52 Veronika Garza MD Andreamoriah alcaraz LACTATE DEHYDROGENASE 2019-08-15 17:03:52 Veronika Garza MD And tyron ALANINE AMINOTRANSFERASE 2019-08-15 17:03:52 Veronika Garza MD MAGNESIUM LEVEL 2019-08-15 17:03:52 Veronika Garza MD ASPARTATE AMINOTRANSFERASE 2019-08-15 17:03:52 Veronika Garza ELECTROLYTE PANEL 2019-08-15 17:03:52 Veronika Garza MD Andbetoo n TYPE AND SCREEN 2019-08-15 17:03:52 Veronika Garza MD Results CBC 2019-08-15 17:03:52 Veronika Garza MD MANUAL DIFFERENTIAL 2019-08-15 17:03:52 Ver[facility] SERUM CREATININE 2019-08-15 17:03:52 Veronika Garza MD .GLOMERULAR FILTRATION RATE 2019-08-15 17:03:52 Veronika Garza MD ABORH 2019-08-15 17:03:52 Veronika Garza MD ANTIBODY SCREEN 2019-08-15 17:03:52 Veronika Garza MD CLOT EXPIRATION DATE 2019-08-15 17:03:52 Veronika Garza MD Andrea rson TMP INTERP AUTO ANTIBODY SCREEN POSITIVE 2019-08-15 17:03:52 Veronika Bhatt MD COMPLETE BLOOD COUNT W/ DIFFERENTIAL 2019-08-12 11:57:00 Nesha Wylie MD SODIUM LEVEL 2019-08-12 11:57:00 Nesha Grimaldo MD [facility] POTASSIUM LEVEL 2019-08-12 11:57:00 Nesha Grimaldo MD [facility] CHLORIDE LEVEL 2019-08-12 11:57:00 Nesha [facility]imaldo MD [facility] CARBON DIOXIDE LEVEL 2019-08-12 11:57:00 Nesha Grimaldo MD BLOOD UREA NITROGEN 2019-08-12 11:57:00 Nesha Grimaldo MD nderson SERUM CREATININE 2019-08-12 11:57:00 Nesha Grimaldo MD Andrea rson GLUCOSE, RANDOM 2019-08-12 11:57:00 Nesha Grimaldo MD Bogdan son LACTATE DEHYDROGENASE 2019-08-12 11:57:00 Nesha Grimaldo MD URIC ACID 2019-08-12 11:57:00 Nesha [facility]imaldo [facility] PHOSPHORUS LEVEL 2019-08-12 11:57:00 Nesha Grimaldo MD Andrea rson FRACTIONATED BILIRUBIN 2019-08-12 11:57:00 Nesha Grimaldo ALBUMIN LEVEL 2019-08-12 11:57:00 Nesha Grimaldo MD [facility] CALCIUM LEVEL TOTAL 2019-08-12 11:57:00 Nesha Grimaldo MD nderson MAGNESIUM LEVEL 2019-08-12 11:57:00 Nesha [facility]imaldo [facility] ALANINE AMINOTRANSFERASE 2019-08-12 11:57:00 Nesha Grimaldo MD ASPARTATE AMINOTRANSFERASE 2019-08-12 11:57:00 Nesha Grimaldo MD ALKALINE PHOSPHATASE 2019-08-12 11:57:00 Nesha Grimaldo MD Results CBC 2019-08-12 11:57:00 Nesha Grimaldo MD Bogdan son SERUM CREATININE 2019-08-12 11:57:00 Nesha Grimaldo MD Andrea rssummer .GLOMERULAR FILTRATION RATE 2019-08-12 11:57:00 Tata Grimaldo MD ANION GAP 2019-08-12 11:57:00 [facility] DIFFERENTIAL CANCEL 2019-08-12 11:57:00 Nesha Grimaldo MDrson TRANSFUSE RED BLOOD CELLS 2019-08-12 01:11:54 Gildardo Zepeda MD PREPARE RBC 2019-08-11 12:28:00 Gildardo Zepeda MD TYPE AND SCREEN 2019-08-11 12:00:00 Nesha Grimaldo MD Bogdan son COMPLETE BLOOD COUNT W/ DIFFERENTIAL 2019-08-11 12:00:00 Nesha Wylie MD SODIUM LEVEL 2019-08-11 12:00:00 Nesha Grimaldo MD Bogdan son POTASSIUM LEVEL 2019-08-11 12:00:00 Nesha Grimaldo MD Bogdan son CHLORIDE LEVEL 2019-08-11 12:00:00 Nesha Grimaldo MD Bogdan son CARBON DIOXIDE LEVEL 2019-08-11 12:00:00 Nesha Grimaldo MD BLOOD UREA NITROGEN 2019-08-11 12:00:00 Nesha Grimaldo MD [facility]erson SERUM CREATININE 2019-08-11 12:00:00 Nesha Grimaldo MD Andrea rssummer GLUCOSE, RANDOM 2019-08-11 12:00:00 Nesha Grimaldo MD Bogdan son LACTATE DEHYDROGENASE 2019-08-11 12:00:00 Nesha Grimaldo MD URIC ACID 2019-08-11 12:00:00 Nesha Grimaldo MD Bogdan son PHOSPHORUS LEVEL 2019-08-11 12:00:00 Nesha Grimaldo MD Andrea rssummer FRACTIONATED BILIRUBIN 2019-08-11 12:00:00 Nesha Grimaldo ALBUMIN LEVEL 2019-08-11 12:00:00 Nesha [facility] CALCIUM LEVEL TOTAL 2019-08-11 12:00:00 Nesha Grimaldo MD MAGNESIUM LEVEL 2019-08-11 12:00:00 Nesha [facility]imaldo [facility] ALANINE AMINOTRANSFERASE 2019-08-11 12:00:00 Nesha Grimaldo MD ASPARTATE AMINOTRANSFERASE 2019-08-11 12:00:00 Nesha Grimaldo MD ALKALINE PHOSPHATASE 2019-08-11 12:00:00 Nesha Grimaldo MD ANTIBODY SCREEN 2019-08-11 12:00:00 Nesha [facility]imaldo [facility] Results CBC 2019-08-11 12:00:00 Nesha Grimaldo [facility] SERUM CREATININE 2019-08-11 12:00:00 [facility]TRATION RATE 2019-08-11 12:00:00 Tata Grimaldo MD ANION GAP 2019-08-11 12:00:00 Nesha [facility]imaldo [facility] DIFFERENTIAL CANCEL 2019-08-11 12:00:00 Nesha Grimaldo MD ABORH MANUAL 2019-08-11 12:00:00 Nesha Grimaldo MD [facility] TMP INTERP AUTO ANTIBODY SCREEN POSITIVE 2019-08-11 12:00:00 Nesha Grimaldo MD CLOT EXPIRATION DATE 2019-08-11 12:00:00 Nesha Grimaldo MD TMP INTERPRETATION ANTIBODY IDENTIFICATION 2019-08-11 12:00: 00 Nesha Grimaldo MD TMP CROSSMATCH INTERPRETATION 2019-08-11 12:00:00 Stephanie Grimaldo MD COMPLETE BLOOD COUNT W/ DIFFERENTIAL 2019-08-10 12:12:00 Nesha Wylie MD SODIUM LEVEL 2019-08-10 12:12:00 Nesha [facility]imaldo [facility] POTASSIUM LEVEL 2019-08-10 12:12:00 Nesha [facility]imaldo [facility] CHLORIDE LEVEL 2019-08-10 12:12:00 Nesha Grimaldo [facility] CARBON DIOXIDE LEVEL 2019-08-10 12:12:00 Nesha Grimaldo MD BLOOD UREA NITROGEN 2019-08-10 12:12:00 Nesha Grimaldo MD SERUM CREATININE 2019-08-10 12:12:00 Nesha Grimaldo MD Andrea rson GLUCOSE, RANDOM 2019-08-10 12:12:00 Nesha [facility]imaldo [facility] LACTATE DEHYDROGENASE 2019-08-10 12:12:00 Nesha Grimaldo MD URIC ACID 2019-08-10 12:12:00 Nesha Grimaldo [facility] PHOSPHORUS LEVEL 2019-08-10 12:12:00 Nesha Grimaldo MD Andrea rson FRACTIONATED BILIRUBIN 2019-08-10 12:12:00 Nesha Grimaldo ALBUMIN LEVEL 2019-08-10 12:12:00 Nesha [facility]imaldo [facility] CALCIUM LEVEL TOTAL 2019-08-10 12:12:00 eNsha Grimaldo MDrson MAGNESIUM LEVEL 2019-08-10 12:12:00 Nesha Grimaldo MD [facility] ALANINE AMINOTRANSFERASE 2019-08-10 12:12:00 Nesha Grimaldo MD ASPARTATE AMINOTRANSFERASE 2019-08-10 12:12:00 Nesha Grimaldo MD ALKALINE PHOSPHATASE 2019-08-10 12:12:00 Nesha Grimaldo MD Results CBC 2019-08-10 12:12:00 Nesha [facility]imaldo [facility] SERUM CREATININE 2019-08-10 12:12:00 Nesha Grimaldo MD Andrea rson .GLOMERULAR FILTRATION RATE 2019-08-10 12:12:00 Tata Grimaldo MD ANION GAP 2019-08-10 12:12:00 Nesha Grimaldo MD [facility] DIFFERENTIAL CANCEL 2019-08-10 12:12:00 Nesha Grimaldo MDrson OSMOLALITY URINE 2019-08-09 20:17:00 Gildardo Zepeda MD SODIUM LEVEL 2019-08-09 19:00:00 Gildardo Zepeda MD OSMOLALITY 2019-08-09 19:00:00 Gildardo Zepeda MD SODIUM URINE 2019-08-09 17:20:00 Gildardo Zepeda MD COMPLETE BLOOD COUNT W/ DIFFERENTIAL 2019-08-09 12:32:00 Nesha Wylie MD SODIUM LEVEL 2019-08-09 12:32:00 Nesha Grimaldo [facility] POTASSIUM LEVEL 2019-08-09 12:32:00 Nesha Grimaldo MD [facility] CHLORIDE LEVEL 2019-08-09 12:32:00 Nesha Grimaldo [facility] CARBON DIOXIDE LEVEL 2019-08-09 12:32:00 Nesha Grimaldo MD BLOOD UREA NITROGEN 2019-08-09 12:32:00 Nesha Grimaldo MD [facility] SERUM CREATININE 2019-08-09 12:32:00 Nesha Grimaldo MD Andrea rson GLUCOSE, RANDOM 2019-08-09 12:32:00 Nesha Grimaldo [facility] LACTATE DEHYDROGENASE 2019-08-09 12:32:00 Nesha Grimaldo MD URIC ACID 2019-08-09 12:32:00 Nesha Grimaldo MD [facility] PHOSPHORUS LEVEL 2019-08-09 12:32:00 Nesha Grimaldo MD Andrea rson FRACTIONATED BILIRUBIN 2019-08-09 12:32:00 Nesha Grimaldo ALBUMIN LEVEL 2019-08-09 12:32:00 Nesha Grimaldo [facility] CALCIUM LEVEL TOTAL 2019-08-09 12:32:00 Nesha Grimaldo MD [facility] MAGNESIUM LEVEL 2019-08-09 12:32:00 Nesha Grimaldo MD [facility] ALANINE AMINOTRANSFERASE 2019-08-09 12:32:00 Nesha Grimaldo MD ASPARTATE AMINOTRANSFERASE 2019-08-09 12:32:00 Nesha Grimaldo MD ALKALINE PHOSPHATASE 2019-08-09 12:32:00 Nesha Grimaldo MD Results CBC 2019-08-09 12:32:00 Nesha Grimaldo MD [facility] MANUAL DIFFERENTIAL 2019-08-09 12:32:00 Nesha Grimaldo MD [facility] SERUM CREATININE 2019-08-09 12:32:00 Nesha Grimaldo MD Andrea rson .GLOMERULAR FILTRATION RATE 2019-08-09 12:32:00 Tata Grimaldo MD ANION GAP 2019-08-09 12:32:00 Nesha Grimaldo [facility] COMPLETE BLOOD COUNT W/ DIFFERENTIAL 2019-08-08 12:13:00 Nesha Wylie MD SODIUM LEVEL 2019-08-08 12:13:00 Nesha Grimaldo MD [facility] POTASSIUM LEVEL 2019-08-08 12:13:00 Nesha Grimaldo MD [facility] CHLORIDE LEVEL 2019-08-08 12:13:00 Nesha Grimaldo MD [facility] CARBON DIOXIDE LEVEL 2019-08-08 12:13:00 Nesha Grimaldo MD BLOOD UREA NITROGEN 2019-08-08 12:13:00 Nesha Grimaldo MD [facility] SERUM CREATININE 2019-08-08 12:13:00 Nesha Grimaldo MD Andrea rson GLUCOSE, RANDOM 2019-08-08 12:13:00 Nesha Grimaldo [facility] LACTATE DEHYDROGENASE 2019-08-08 12:13:00 Nesha Grimaldo MD URIC ACID 2019-08-08 12:13:00 Nesha Grimaldo MD [facility] PHOSPHORUS LEVEL 2019-08-08 12:13:00 Nesha Grimaldo MD Andrea rson FRACTIONATED BILIRUBIN 2019-08-08 12:13:00 Nesha Grimaldo ALBUMIN LEVEL 2019-08-08 12:13:00 Nesha Grimaldo MD [facility] CALCIUM LEVEL TOTAL 2019-08-08 12:13:00 Nesha Grimaldo MD [facility] MAGNESIUM LEVEL 2019-08-08 12:13:00 Nesha Grimaldo MD [facility] ALANINE AMINOTRANSFERASE 2019-08-08 12:13:00 Nesha Grimaldo MD ASPARTATE AMINOTRANSFERASE 2019-08-08 12:13:00 Nesha Grimaldo MD ALKALINE PHOSPHATASE 2019-08-08 12:13:00 Nesha Grimaldo MD ANTIBODY SCREEN 2019-08-08 12:13:00 Nesha Grimaldo [facility] Results CBC 2019-08-08 12:13:00 Nesha Grimaldo MD [facility] MANUAL DIFFERENTIAL 2019-08-08 12:13:00 Nesha Grimaldo MD [facility] SERUM CREATININE 2019-08-08 12:13:00 Nesha Grimaldo MD Andrea rson .GLOMERULAR FILTRATION RATE 2019-08-08 12:13:00 Tata Grimaldo MD ANION GAP 2019-08-08 12:13:00 Nesha Grimaldo MD Bogdan son ABORH MANUAL 2019-08-08 12:13:00 Nesha Grimaldo [facility] TMP INTERP AUTO ANTIBODY SCREEN POSITIVE 2019-08-08 12:13:00 Nesha Grimaldo MD CLOT EXPIRATION DATE 2019-08-08 12:13:00 Nesha Grimaldo MD TMP ABORH DISCREPANCY INTERPRETATION 2019-08-08 12:13:00 Nesha Wylie MD COMPLETE BLOOD COUNT W/ DIFFERENTIAL 2019-08-07 11:54:00 Nesha Wylie MD SODIUM LEVEL 2019-08-07 11:54:00 Nesha Grimaldo MD [facility] POTASSIUM LEVEL 2019-08-07 11:54:00 Nesha Grimaldo MD Bogdan son CHLORIDE LEVEL 2019-08-07 11:54:00 Nesha Grimaldo MD [facility] CARBON DIOXIDE LEVEL 2019-08-07 11:54:00 Nesha Grimaldo MD BLOOD UREA NITROGEN 2019-08-07 11:54:00 Nesha Grimaldo MD [facility] SERUM CREATININE 2019-08-07 11:54:00 Nesha Grimaldo MD Andrea rson GLUCOSE, RANDOM 2019-08-07 11:54:00 Nesha Grimaldo [facility] LACTATE DEHYDROGENASE 2019-08-07 11:54:00 Nesha Grimaldo MD URIC ACID 2019-08-07 11:54:00 Nesha Grimaldo MD [facility] PHOSPHORUS LEVEL 2019-08-07 11:54:00 Nesha Grimaldo MD Andrea rson FRACTIONATED BILIRUBIN 2019-08-07 11:54:00 Nesha Grimaldo ALBUMIN LEVEL 2019-08-07 11:54:00 Nesha Grimaldo MD [facility] CALCIUM LEVEL TOTAL 2019-08-07 11:54:00 Nesha Grimaldo MD [facility] MAGNESIUM LEVEL 2019-08-07 11:54:00 Nesha Grimaldo MD [facility] ALANINE AMINOTRANSFERASE 2019-08-07 11:54:00 Nesha Grimaldo MD ASPARTATE AMINOTRANSFERASE 2019-08-07 11:54:00 Nesha Grimaldo MD ALKALINE PHOSPHATASE 2019-08-07 11:54:00 Nesha Grimaldo MD Results CBC 2019-08-07 11:54:00 Nesha Grimaldo MD Bogdan son MANUAL DIFFERENTIAL 2019-08-07 11:54:00 Nesha Grimaldo MD [facility] SERUM CREATININE 2019-08-07 11:54:00 Nesha Grimaldo MD Andrea rson .GLOMERULAR FILTRATION RATE 2019-08-07 11:54:00 Tata Grimaldo MD ANION GAP 2019-08-07 11:54:00 Nesha Grimaldo MD Bogdan son COMPLETE BLOOD COUNT W/ DIFFERENTIAL 2019-08-06 12:28:00 Nesha Wylie MD SODIUM LEVEL 2019-08-06 12:28:00 Nesha Grimaldo MD Bogdan son POTASSIUM LEVEL 2019-08-06 12:28:00 Nesha Grimaldo MD Bogdan son CHLORIDE LEVEL 2019-08-06 12:28:00 Nesha Grimaldo MD Bogdan son CARBON DIOXIDE LEVEL 2019-08-06 12:28:00 Nesha Grimaldo MD BLOOD UREA NITROGEN 2019-08-06 12:28:00 Nesha Grimaldo MD [facility] SERUM CREATININE 2019-08-06 12:28:00 Nesha Grimaldo MD Andrea rson GLUCOSE, RANDOM 2019-08-06 12:28:00 Nesha Grimaldo MD Bogdan son LACTATE DEHYDROGENASE 2019-08-06 12:28:00 Nesha Grimaldo MD URIC ACID 2019-08-06 12:28:00 Nesha Grimaldo MD Bogdan son PHOSPHORUS LEVEL 2019-08-06 12:28:00 Nesha Grimaldo MD Andrea rson FRACTIONATED BILIRUBIN 2019-08-06 12:28:00 Nesha Grimaldo ALBUMIN LEVEL 2019-08-06 12:28:00 Nesha Grimaldo MD Bogdan son CALCIUM LEVEL TOTAL 2019-08-06 12:28:00 Nesha Grimaldo MD [facility] MAGNESIUM LEVEL 2019-08-06 12:28:00 Nesha Grimaldo MD [facility] ALANINE AMINOTRANSFERASE 2019-08-06 12:28:00 Nesha Grimaldo MD ASPARTATE AMINOTRANSFERASE 2019-08-06 12:28:00 Nesha Grimaldo MD ALKALINE PHOSPHATASE 2019-08-06 12:28:00 Nesha Grimaldo MD Results CBC 2019-08-06 12:28:00 Nesha Grimaldo [facility] MANUAL DIFFERENTIAL 2019-08-06 12:28:00 Nesha Grimaldo MD [facility] SERUM CREATININE 2019-08-06 12:28:00 Nesha Grimaldo MD Andrea rson .GLOMERULAR FILTRATION RATE 2019-08-06 12:28:00 Tata Grimaldo MD ANION GAP 2019-08-06 12:28:00 Nesha Grimaldo MD [facility] URINE CULTURE 2019-08-05 21:48:00 Veronika Garza MD COMPLETE BLOOD COUNT W/ DIFFERENTIAL 2019-08-05 11:55:00 Nesha Wylie MD SODIUM LEVEL 2019-08-05 11:55:00 Nesha Grimaldo MD [facility] POTASSIUM LEVEL 2019-08-05 11:55:00 Nesha Grimaldo [facility] CHLORIDE LEVEL 2019-08-05 11:55:00 Nesha Grimaldo MD [facility] CARBON DIOXIDE LEVEL 2019-08-05 11:55:00 Nesha Grimaldo MD BLOOD UREA NITROGEN 2019-08-05 11:55:00 Nesha Grimaldo MD [facility] SERUM CREATININE 2019-08-05 11:55:00 Nesha Grimaldo MD Andrea rson GLUCOSE, RANDOM 2019-08-05 11:55:00 Nesha Grimaldo [facility] LACTATE DEHYDROGENASE 2019-08-05 11:55:00 Nesha Grimaldo MD URIC ACID 2019-08-05 11:55:00 Nesha Grimaldo MD [facility] PHOSPHORUS LEVEL 2019-08-05 11:55:00 Nesha Grimaldo MD Andrea rson FRACTIONATED BILIRUBIN 2019-08-05 11:55:00 Nesha Grimaldo ALBUMIN LEVEL 2019-08-05 11:55:00 Nesha Grimaldo [facility] CALCIUM LEVEL TOTAL 2019-08-05 11:55:00 Nesha Grimaldo MD [facility] MAGNESIUM LEVEL 2019-08-05 11:55:00 Nesha Grimaldo [facility] ALANINE AMINOTRANSFERASE 2019-08-05 11:55:00 Nesha Grimaldo MD ASPARTATE AMINOTRANSFERASE 2019-08-05 11:55:00 Nesha Grimaldo MD ALKALINE PHOSPHATASE 2019-08-05 11:55:00 Nesha Grimaldo MD ANTIBODY SCREEN 2019-08-05 11:55:00 Nesha Grimaldo [facility] Results CBC 2019-08-05 11:55:00 Nesha Grimaldo MD [facility] MANUAL DIFFERENTIAL 2019-08-05 11:55:00 Nesha Grimaldo MDrson SERUM CREATININE 2019-08-05 11:55:00 Nesha Grimaldo MD Andrea rson .GLOMERULAR FILTRATION RATE 2019-08-05 11:55:00 Tata Grimaldo MD ANION GAP 2019-08-05 11:55:00 Nesha Grimaldo MD [facility] ABORH MANUAL 2019-08-05 11:55:00 Nesha Grimaldo MD [facility] TMP INTERP AUTO ANTIBODY SCREEN POSITIVE 2019-08-05 11:55:00 Nesha Grimaldo MD CLOT EXPIRATION DATE 2019-08-05 11:55:00 Nesha Grimaldo MD TRANSFUSE RED BLOOD CELLS 2019-08-05 06:36:29 Julio Khoury EKG, 12-LEAD (PORTABLE) 2019-08-05 00:00:00 Veronika Garza MD [facility] ABDOMEN PELVIS W CONTRAST 2019-08-04 21:42:10 Veronika Garza MD PREPARE RBC 2019-08-04 16:04:00 Julio Khoury MD COMPLETE BLOOD COUNT W/ DIFFERENTIAL 2019-08-04 11:50:00 Nesha Wylie MD SODIUM LEVEL 2019-08-04 11:50:00 Nesha Grimaldo [facility] POTASSIUM LEVEL 2019-08-04 11:50:00 Nesha Grimaldo MD [facility] CHLORIDE LEVEL 2019-08-04 11:50:00 Nesha Grimaldo MD [facility] CARBON DIOXIDE LEVEL 2019-08-04 11:50:00 Nesha Grimaldo MD BLOOD UREA NITROGEN 2019-08-04 11:50:00 Nesha Grimaldo MD [place] SERUM CREATININE 2019-08-04 11:50:00 Nesha Grimaldo MD Andrea rson GLUCOSE, RANDOM 2019-08-04 11:50:00 Nesha Grimaldo MD [facility] LACTATE DEHYDROGENASE 2019-08-04 11:50:00 Nesha Grimaldo MD URIC ACID 2019-08-04 11:50:00 Nesha Grimaldo MD [facility] PHOSPHORUS LEVEL 2019-08-04 11:50:00 Nesha Grimaldo MD Andrea rson FRACTIONATED BILIRUBIN 2019-08-04 11:50:00 Nesha Grimaldo ALBUMIN LEVEL 2019-08-04 11:50:00 Nesha Grimaldo MD [facility] CALCIUM LEVEL TOTAL 2019-08-04 11:50:00 Nesha Grimaldo MD [facility] MAGNESIUM LEVEL 2019-08-04 11:50:00 Nesha Grimaldo MD [facility] ALANINE AMINOTRANSFERASE 2019-08-04 11:50:00 Nesha Grimaldo MD ASPARTATE AMINOTRANSFERASE 2019-08-04 11:50:00 Nesha Grimaldo MD ALKALINE PHOSPHATASE 2019-08-04 11:50:00 Nesha Grimaldo MD Results CBC 2019-08-04 11:50:00 Nesha Grimaldo MD [facility] MANUAL DIFFERENTIAL 2019-08-04 11:50:00 Nesha Grimaldo MD [facility] SERUM CREATININE 2019-08-04 11:50:00 Nesha Grimaldo MD Andrea rson .GLOMERULAR FILTRATION RATE 2019-08-04 11:50:00 Tata Grimaldo MD ANION GAP 2019-08-04 11:50:00 Nesha Grimaldo MD [facility] TRANSFUSE RED BLOOD CELLS 2019-08-04 03:31:53 Julio Khoury PREPARE RBC 2019-08-03 15:34:00 Julio Khoury MD COMPLETE BLOOD COUNT W/ DIFFERENTIAL 2019-08-03 12:03:00 Nesha Wylie MD SODIUM LEVEL 2019-08-03 12:03:00 Nesha Grimaldo MD [facility] POTASSIUM LEVEL 2019-08-03 12:03:00 Nesha Grimaldo MD [facility] CHLORIDE LEVEL 2019-08-03 12:03:00 Nesha Grimaldo MD [facility] CARBON DIOXIDE LEVEL 2019-08-03 12:03:00 Nesha Grimaldo MD BLOOD UREA NITROGEN 2019-08-03 12:03:00 Nesha Grimaldo MD [facility] SERUM CREATININE 2019-08-03 12:03:00 Nesha Grimaldo MD Andrea rson GLUCOSE, RANDOM 2019-08-03 12:03:00 Nesha Grimaldo MD [facility] LACTATE DEHYDROGENASE 2019-08-03 12:03:00 Nesha Grimaldo MD URIC ACID 2019-08-03 12:03:00 Nesha Grimaldo MD [facility] PHOSPHORUS LEVEL 2019-08-03 12:03:00 Nesha Grimaldo MD Andrea rson FRACTIONATED BILIRUBIN 2019-08-03 12:03:00 Nesha Grimaldo ALBUMIN LEVEL 2019-08-03 12:03:00 Nesha Grimaldo MD [facility] CALCIUM LEVEL TOTAL 2019-08-03 12:03:00 Nesha Grimaldo MD [facility] MAGNESIUM LEVEL 2019-08-03 12:03:00 Nesha Grimaldo MD [facility] ALANINE AMINOTRANSFERASE 2019-08-03 12:03:00 Nesha Grimaldo MD ASPARTATE AMINOTRANSFERASE 2019-08-03 12:03:00 Nesha Grimaldo MD ALKALINE PHOSPHATASE 2019-08-03 12:03:00 Nesha Grimaldo MD IRON LEVEL 2019-08-03 12:03:00 Julio Khoury MD FERRITIN LVL 2019-08-03 12:03:00 Julio Khoury MD TRANSFERRIN 2019-08-03 12:03:00 Julio Khoury MD RETICULOCYTE COUNT AUTOMATED 2019-08-03 12:03:00 Kory Khoury MD Results CBC 2019-08-03 12:03:00 Nesha Grimaldo [facility] MANUAL DIFFERENTIAL 2019-08-03 12:03:00 Nesha Grimaldo MD [facility] SERUM CREATININE 2019-08-03 12:03:00 Nesha Grimaldo MD Andrea rson .GLOMERULAR FILTRATION RATE 2019-08-03 12:03:00 Tata Grimaldo MD ANION GAP 2019-08-03 12:03:00 Nesha Grimaldo MD [facility] ABORH MANUAL 2019-08-03 12:03:00 Julio Khoury MD CLOT EXPIRATION DATE 2019-08-03 12:03:00 Julio Khoury MD And tyron TRANSFUSE RED BLOOD CELLS 2019-08-03 05:52:54 Julio Khoury US RENAL 2019-08-02 23:01:02 Nesha Grimaldo MD [facility] PREPARE RBC 2019-08-02 15:51:00 Julio Khoury MD COMPLETE BLOOD COUNT W/ DIFFERENTIAL 2019-08-02 11:39:00 Nesha Wylie MD SODIUM LEVEL 2019-08-02 11:39:00 Nesha Grimaldo MD [facility] POTASSIUM LEVEL 2019-08-02 11:39:00 Nesha Grimaldo MD [facility] CHLORIDE LEVEL 2019-08-02 11:39:00 Nesha Grimaldo MD [facility] CARBON DIOXIDE LEVEL 2019-08-02 11:39:00 Nesha Grimaldo MD BLOOD UREA NITROGEN 2019-08-02 11:39:00 Nesha Grimaldo MD [facility] SERUM CREATININE 2019-08-02 11:39:00 Nesha Grimaldo MD Andrea rson GLUCOSE, RANDOM 2019-08-02 11:39:00 Nesha Grimaldo MD [facility] LACTATE DEHYDROGENASE 2019-08-02 11:39:00 Nesha Grimaldo MD URIC ACID 2019-08-02 11:39:00 Nesha Grimaldo MD [facility] PHOSPHORUS LEVEL 2019-08-02 11:39:00 Nesha Grimaldo MD Andrea rson FRACTIONATED BILIRUBIN 2019-08-02 11:39:00 Nesha Grimaldo ALBUMIN LEVEL 2019-08-02 11:39:00 Nesha Grimaldo [facility] CALCIUM LEVEL TOTAL 2019-08-02 11:39:00 Nesha Grimaldo MD [facility] MAGNESIUM LEVEL 2019-08-02 11:39:00 Nesha Grimaldo MD [facility] ALANINE AMINOTRANSFERASE 2019-08-02 11:39:00 Nesha Grimaldo MD ASPARTATE AMINOTRANSFERASE 2019-08-02 11:39:00 Nesha Grimaldo MD ALKALINE PHOSPHATASE 2019-08-02 11:39:00 Nesha Grimaldo MD Results CBC 2019-08-02 11:39:00 Nesha Grimaldo [facility] MANUAL DIFFERENTIAL 2019-08-02 11:39:00 Nesha Grimaldo MD [facility] SERUM CREATININE 2019-08-02 11:39:00 Nesha Grimaldo MD Andrea rson .GLOMERULAR FILTRATION RATE 2019-08-02 11:39:00 Tata Grimaldo MD ANION GAP 2019-08-02 11:39:00 Nesha Grimaldo [facility] COMPLETE BLOOD COUNT W/ DIFFERENTIAL 2019-08-02 00:56:00 Nesha Wylie MD SODIUM LEVEL 2019-08-02 00:56:00 Nesha Grimaldo [facility] POTASSIUM LEVEL 2019-08-02 00:56:00 Nesha Grimaldo MD [facility] CHLORIDE LEVEL 2019-08-02 00:56:00 Nesha Grimaldo [facility] CARBON DIOXIDE LEVEL 2019-08-02 00:56:00 Nesha Grimaldo MD BLOOD UREA NITROGEN 2019-08-02 00:56:00 Nesha Grimaldo MD [facility] SERUM CREATININE 2019-08-02 00:56:00 Nesha Grimaldo MD Andrea rson GLUCOSE, RANDOM 2019-08-02 00:56:00 Nesha Grimaldo [facility] LACTATE DEHYDROGENASE 2019-08-02 00:56:00 Nesha Grimaldo MD URIC ACID 2019-08-02 00:56:00 Nesha Grimaldo MD [facility] PHOSPHORUS LEVEL 2019-08-02 00:56:00 Nesha Grimaldo MD Andrea rson FRACTIONATED BILIRUBIN 2019-08-02 00:56:00 Nesha Grimaldo ALBUMIN LEVEL 2019-08-02 00:56:00 Nesha Grimaldo [facility] CALCIUM LEVEL TOTAL 2019-08-02 00:56:00 Nesha Grimaldo MD [facility] MAGNESIUM LEVEL 2019-08-02 00:56:00 Nesha Grimaldo MD [facility] ALANINE AMINOTRANSFERASE 2019-08-02 00:56:00 Nesha Grimaldo MD ASPARTATE AMINOTRANSFERASE 2019-08-02 00:56:00 Nesha Grimaldo MD ALKALINE PHOSPHATASE 2019-08-02 00:56:00 Nesha Grimaldo MD PARTIAL THROMBOPLASTIN TIME 2019-08-02 00:56:00 Tata Grimaldo MD PROTHROMBIN TIME 2019-08-02 00:56:00 Nesha Grimaldo MD Andrea rson ANTIBODY SCREEN 2019-08-02 00:56:00 Nesha Grimaldo MD [facility] Results CBC 2019-08-02 00:56:00 Nesha Grimaldo MD [facility] MANUAL DIFFERENTIAL 2019-08-02 00:56:00 Nesha Grimaldo MD nderson SERUM CREATININE 2019-08-02 00:56:00 Nesha Grimaldo MD Andrea rson .GLOMERULAR FILTRATION RATE 2019-08-02 00:56:00 Tata Grimaldo MD ANION GAP 2019-08-02 00:56:00 Nesha Grimaldo MD Bogdan son ABORH MANUAL 2019-08-02 00:56:00 Nesha Grimaldo MD [facility] TMP INTERP AUTO ANTIBODY SCREEN POSITIVE 2019-08-02 00:56:00 Nesha Grimaldo MD CLOT EXPIRATION DATE 2019-08-02 00:56:00 Nesha Grimaldo MD TMP ABORH DISCREPANCY INTERPRETATION 2019-08-02 00:56:00 Nesha Wylie MD TMP CROSSMATCH INTERPRETATION 2019-08-02 00:56:00 Stephanie Grimaldo MD TMP INTERPRETATION ANTIBODY IDENTIFICATION 2019-08-02 00:56: 00 Nesha Grimaldo MD TMP INTERPRETATION DIRECT ANTIGLOBULIN TEST 2019-08-02 00:56 :00 Nesha Grimaldo MD PROTEIN ELECTROPHORESIS, SERUM 2019-07-30 17:23:00 Umm Rivas MD IMMUNOGLOBULIN M SERUM 2019-07-30 17:23:00 Umm Rivas MDson FREE LAMBDA LIGHT CHAIN 2019-07-30 17:23:00 Umm Rivas MD nderson BETA 2 MICROGLOBULIN 2019-07-30 17:23:00 Umm Rivas MD Andrea rson COMPLETE BLOOD COUNT W/ DIFFERENTIAL 2019-07-30 17:23:00 Umm Rivas MD TOTAL PROTEIN 2019-07-30 17:23:00 Umm Rivas MD ALBUMIN LEVEL 2019-07-30 17:23:00 Umm Rivas MD ELECTROLYTE PANEL 2019-07-30 17:23:00 Umm Rivas MD Anderso n MAGNESIUM LEVEL 2019-07-30 17:23:00 Umm Rivas MD PHOSPHORUS LEVEL 2019-07-30 17:23:00 Umm Rivas MD CALCIUM LEVEL TOTAL 2019-07-30 17:23:00 Umm Rivas MD Bogdan patricia GLUCOSE, RANDOM 2019-07-30 17:23:00 Umm Rivas MD BLOOD UREA NITROGEN 2019-07-30 17:23:00 [facility] SER[facility] CREATININE 2019-07-30 17:23:00 Umm Rivas MD URIC ACID 2019-07-30 17:23:00 Umm Rivas MD ALANINE AMINOTRANSFERASE 2019-07-30 17:23:00 Umm Rivas MD ASPARTATE AMINOTRANSFERASE 2019-07-30 17:23:00 Umm Rivas ALKALINE PHOSPHATASE 2019-07-30 17:23:00 Umm Rivas MD Andrea rson FRACTIONATED BILIRUBIN 2019-07-30 17:23:00 Umm Rivas MD LACTATE DEHYDROGENASE 2019-07-30 17:23:00 Umm Rivas MD And erson Results CBC 2019-07-30 17:23:00 Umm Rivas MD MANUAL DIFFERENTIAL 2019-07-30 17:23:00 Umm Rivas MD Bogdan son SERUM CREATININE 2019-07-30 17:23:00 Umm Rivas MD .GLOMERULAR FILTRATION RATE 2019-07-30 17:23:00 Umm Rivas MD FREE KAPPA/FREE LAMBDA RATIO 2019-07-30 17:23:00 Umm Rivas MD .DR. WILDER PROT ELEC PATH REVIEW 2019-07-30 17:23:00 Umm Rivas MD COMPLETE BLOOD COUNT W/ DIFFERENTIAL 2019-07-21 09:50:00 Nola Shea MD SODIUM LEVEL 2019-07-21 09:50:00 Nola Shea MD Andrea rson POTASSIUM LEVEL 2019-07-21 09:50:00 Nola Shea MD Andrea rson CHLORIDE LEVEL 2019-07-21 09:50:00 Nola Shea MD Andrea rson CARBON DIOXIDE LEVEL 2019-07-21 09:50:00 Nola Shea MD BLOOD UREA NITROGEN 2019-07-21 09:50:00 Nola Shea MD SERUM CREATININE 2019-07-21 09:50:00 Nola Shea MD And erson GLUCOSE, RANDOM 2019-07-21 09:50:00 Nola Shea MD Andrea rson LACTATE DEHYDROGENASE 2019-07-21 09:50:00 Nola Shea URIC ACID 2019-07-21 09:50:00 Nola Shea MD Andrea rson PHOSPHORUS LEVEL 2019-07-21 09:50:00 Nola Shea MD And erson FRACTIONATED BILIRUBIN 2019-07-21 09:50:00 Nola Shea MD ALBUMIN LEVEL 2019-07-21 09:50:00 Nola Shea MD Andrea rson CALCIUM LEVEL TOTAL 2019-07-21 09:50:00 Nola Shea MD MAGNESIUM LEVEL 2019-07-21 09:50:00 Nola Shea MD Andrea rson ALANINE AMINOTRANSFERASE 2019-07-21 09:50:00 Nola Shea ASPARTATE AMINOTRANSFERASE 2019-07-21 09:50:00 Nola Shea MD ALKALINE PHOSPHATASE 2019-07-21 09:50:00 Nola Shea MD Results CBC 2019-07-21 09:50:00 Hallie Alonzo MD MANUAL DIFFERENTIAL 2019-07-21 09:50:00 Hallie Alonzo MD Bogdan son SERUM CREATININE 2019-07-21 09:50:00 Hallie Alonzo MD .GLOMERULAR FILTRATION RATE 2019-07-21 09:50:00 Hallie Alonzo MD ANION GAP 2019-07-21 09:50:00 Hallie Alonzo MD TRANSFUSE RED BLOOD CELLS 2019-07-20 22:46:26 Hallie Alonzo MD HSV/VZV DNA DETECTION 2019-07-20 15:41:00 Ely Lorenzana MD PREPARE RBC 2019-07-20 13:37:00 Hallie Alonzo MD COMPLETE BLOOD COUNT W/ DIFFERENTIAL 2019-07-20 09:29:00 Nola Shea MD SODIUM LEVEL 2019-07-20 09:29:00 Nola Shea MD Andrea rson POTASSIUM LEVEL 2019-07-20 09:29:00 Nola Shea MD Andrea rson CHLORIDE LEVEL 2019-07-20 09:29:00 Nola Shea MD Andrea rson CARBON DIOXIDE LEVEL 2019-07-20 09:29:00 Nola Shea MD BLOOD UREA NITROGEN 2019-07-20 09:29:00 Nola Shea MD SERUM CREATININE 2019-07-20 09:29:00 Nola Shea MD And erson GLUCOSE, RANDOM 2019-07-20 09:29:00 Nola Shea MD Andrea rson LACTATE DEHYDROGENASE 2019-07-20 09:29:00 Nola Shea URIC ACID 2019-07-20 09:29:00 Nola Shea MD Andrea rson PHOSPHORUS LEVEL 2019-07-20 09:29:00 Nola Shea MD And erson FRACTIONATED BILIRUBIN 2019-07-20 09:29:00 Nola Shea MD ALBUMIN LEVEL 2019-07-20 09:29:00 Nola Shea MD Andrea rson CALCIUM LEVEL TOTAL 2019-07-20 09:29:00 Nola Shea MD MAGNESIUM LEVEL 2019-07-20 09:29:00 Nola Shea MD Andrea rson ALANINE AMINOTRANSFERASE 2019-07-20 09:29:00 Nola Shea ASPARTATE AMINOTRANSFERASE 2019-07-20 09:29:00 Nola Shea MD ALKALINE PHOSPHATASE 2019-07-20 09:29:00 Nola Shea MD Results CBC 2019-07-20 09:29:00 Hallie Alonzo MD MANUAL DIFFERENTIAL 2019-07-20 09:29:00 Hallie Alonzo MD Bogdan son SERUM CREATININE 2019-07-20 09:29:00 Hallie Alonzo MD .GLOMERULAR FILTRATION RATE 2019-07-20 09:29:00 Hallie Alonzo MD ANION GAP 2019-07-20 09:29:00 Hallie Alonzo MD TRANSFUSE RED BLOOD CELLS 2019-07-20 07:31:51 Hallie Alonzo MD TOBRAMYCIN LEVEL RANDOM 2019-07-19 22:58:00 Ely Lorenzana MD PREPARE RBC 2019-07-19 19:41:00 Hallie Alonzo MD TOBRAMYCIN LEVEL RANDOM 2019-07-19 17:49:00 Ely Lorenzana MD COMPLETE BLOOD COUNT W/ DIFFERENTIAL 2019-07-19 17:49:00 Nola Shea MD SODIUM LEVEL 2019-07-19 17:49:00 Nola Shea MD Andrea rson POTASSIUM LEVEL 2019-07-19 17:49:00 Nola Shea MD Andrea rson CHLORIDE LEVEL 2019-07-19 17:49:00 Nola Shea MD Andrea rson CARBON DIOXIDE LEVEL 2019-07-19 17:49:00 Nola Shea MD BLOOD UREA NITROGEN 2019-07-19 17:49:00 Nola Shea MD SERUM CREATININE 2019-07-19 17:49:00 Nola Shea MD And erson GLUCOSE, RANDOM 2019-07-19 17:49:00 Nola Shea MD Andrea rson LACTATE DEHYDROGENASE 2019-07-19 17:49:00 Nola Shea URIC ACID 2019-07-19 17:49:00 Nola Shea MD Andrea rson PHOSPHORUS LEVEL 2019-07-19 17:49:00 Nola Shea MD And erson FRACTIONATED BILIRUBIN 2019-07-19 17:49:00 Nola Shea MD ALBUMIN LEVEL 2019-07-19 17:49:00 Nola Shea MD Andrea rson CALCIUM LEVEL TOTAL 2019-07-19 17:49:00 Nola Shea MD MAGNESIUM LEVEL 2019-07-19 17:49:00 Nola Shea MD Andrea rson ALANINE AMINOTRANSFERASE 2019-07-19 17:49:00 Nola Shea ASPARTATE AMINOTRANSFERASE 2019-07-19 17:49:00 Nola Shea MD ALKALINE PHOSPHATASE 2019-07-19 17:49:00 Nola Shea MD PARTIAL THROMBOPLASTIN TIME 2019-07-19 17:49:00 Nola Shea MD PROTHROMBIN TIME 2019-07-19 17:49:00 Nola Shea MD And erson ANTIBODY SCREEN 2019-07-19 17:49:00 Hallie Alonzo MD Results CBC 2019-07-19 17:49:00 Hallie Alonzo MD MANUAL DIFFERENTIAL 2019-07-19 17:49:00 Hallie Alonzo MD Bogdan son SERUM CREATININE 2019-07-19 17:49:00 Hallie Alonzo MD .GLOMERULAR FILTRATION RATE 2019-07-19 17:49:00 Hallie Alonzo MD ANION GAP 2019-07-19 17:49:00 Hallie Alonzo MD TMP INTERP AUTO ANTIBODY SCREEN POSITIVE 2019-07-19 17:49:00 Hallie Ayala MD ABORH MANUAL 2019-07-19 17:49:00 Hallie Alonzo MD CLOT EXPIRATION DATE 2019-07-19 17:49:00 Hallie Alozno MD rson TMP ABORH DISCREPANCY INTERPRETATION 2019-07-19 17:49:00 Hallie Alonzo MD TMP INTERPRETATION ANTIBODY IDENTIFICATION 2019-07-19 17:49:00 Hallie Young MD DIRECT ANTIGLOBULIN TEST 2019-07-19 17:49:00 Hallie Alonzo MD TMP CROSSMATCH INTERPRETATION 2019-07-19 17:49:00 Hallie Alonzo MD LOWER RESPIRATORY CULTURE W/ GRAM STAIN 2019-07-19 15:47:00 Shirley Mondragon MD COMPLETE BLOOD COUNT W/ DIFFERENTIAL 2019-07-19 13:28:00 Shirley Dewitt MD BASIC METABOLIC PANEL, CALCIUM TOTAL 2019-07-19 13:28:00 Shirley Dewitt MD MAGNESIUM LEVEL 2019-07-19 13:28:00 Jose AntoniosShirley MD PHOSPHORUS LEVEL 2019-07-19 13:28:00 Shirley Dewitt MD Results CBC 2019-07-19 13:28:00 Jose Antonios, Shirley Tenorio MANUAL DIFFERENTIAL 2019-07-19 13:28:00 Shirley Dewitt MD GLUCOSE LEVEL 2019-07-19 13:28:00 Jose Antonios, Shirley Tenorio BLOOD UREA NITROGEN 2019-07-19 13:28:00 Jose Antonios, Shirley gomez ELECTROLYTE PANEL 2019-07-19 13:28:00 Jose Antonios, Shirley weaver SERUM CREATININE 2019-07-19 13:28:00 Shirley Dewitt MD .GLOMERULAR FILTRATION RATE 2019-07-19 13:28:00 Shirley Dewitt MD CALCIUM LEVEL TOTAL 2019-07-19 13:28:00 Shirley Dewitt MD URINE CULTURE 2019-07-18 11:28:00 Shirley Dewitt MD URINALYSIS WITH MICROSCOPIC IF INDICATED 2019-07-18 11:28:00 Shirley Eastman MD URINALYSIS MICROSCOPIC 2019-07-18 11:28:00 Shirley Dewitt MD BLOODCULTURE 2019-07-18 07:40:00 Shirley Dewitt MD RESPIRATORY VIRAL PANEL, NASOPHARYNGEAL SWAB 2019-07-18 07:40:00 Shirley Dewitt MD RESPIRATORY PCR PANEL, HAND STAMPER SWAB 2019-07-18 07:40:00 Shirley Dewitt MD RESPIRATORY PCR PANEL PATH REVIEW 2019-07-18 07:40:00 Ministerio Dewitt MD COMPLETE BLOOD COUNT W/ DIFFERENTIAL 2019-07-18 07:40:00 Shirley Dewitt MD CALCIUM LEVEL TOTAL 2019-07-18 07:40:00 Shirley Dewitt MD CHLORIDE LEVEL 2019-07-18 07:40:00 Shirley Dewitt MD CARBON DIOXIDE LEVEL 2019-07-18 07:40:00 Esdras, Shirley MD Andrea rson SERUM CREATININE 2019-07-18 07:40:00 Viets, Shirley Tenorio BLOOD UREA NITROGEN 2019-07-18 07:40:00 Viets, Shirley gomez GLUCOSE, RANDOM 2019-07-18 07:40:00 Viets, Shirley Tenorio SODIUM LEVEL 2019-07-18 07:40:00 Viets, Shirley Tenorio POTASSIUM LEVEL 2019-07-18 07:40:00 Viets, Shirley Tenorio MAGNESIUM LEVEL 2019-07-18 07:40:00 Viets, Shirley Tenorio PHOSPHORUS LEVEL 2019-07-18 07:40:00 Viets, Shirley Tenorio ALBUMIN LEVEL 2019-07-18 07:40:00 Viets, Shirley Tenorio ALKALINE PHOSPHATASE 2019-07-18 07:40:00 Viets, Shirley Mendez rson ALANINE AMINOTRANSFERASE 2019-07-18 07:40:00 Viets, Shirley Tenorio ASPARTATE AMINOTRANSFERASE 2019-07-18 07:40:00 Viets, Shirley Tenorio FRACTIONATED BILIRUBIN 2019-07-18 07:40:00 Viets, Shirley garcia LACTATE DEHYDROGENASE 2019-07-18 07:40:00 Viets, Shirley Del Rio LACTIC ACID 2019-07-18 07:40:00 VietsShirley MD C REACTIVE PROTEIN 2019-07-18 07:40:00 Jose Antonios, Shirley Simental on HC PROCALCITONIN (PCT) 2019-07-18 07:40:00 Jose Antonios, Shirley garcia Results CBC 2019-07-18 07:40:00 Jose AntoniosShirley MD MANUAL DIFFERENTIAL 2019-07-18 07:40:00 Esdras, Shirley gomez SERUM CREATININE 2019-07-18 07:40:00 Shirley Dewitt MD .GLOMERULAR FILTRATION RATE 2019-07-18 07:40:00 Shirley Dewitt MD ANION GAP 2019-07-18 07:40:00 Shirley Dewitt MD XR CHEST 1 VW PORTABLE 2019-07-18 07:27:51 Shirley Dewitt MD COMPLETE BLOOD COUNT W/ DIFFERENTIAL 2019-07-16 17:28:00 Nesha Wylie MD COMPREHENSIVE METABOLIC PANEL 2019-07-16 17:28:00 Stephanie Grimaldo MD MAGNESIUM LEVEL 2019-07-16 17:28:00 [facility] 2019-07-16 17:28:00 Nesha Grimaldo MD Andrea rson URIC ACID 2019-07-16 17:28:00 Nes[facility]imal[facility] LACTATE DEHYDROGENASE 2019-07-16 17:28:00 Nesha Grimaldo MD BETA 2 MICROGLOBULIN 2019-07-16 17:28:00 Nesha Grimaldo MD IMMUNOGLOBULIN M SERUM 2019-07-16 17:28:00 Nesha Grimaldo FREE LAMBDA LIGHT CHAIN 2019-07-16 17:28:00 Nesha Grimaldo MD Results CBC 2019-07-16 17:28:00 Nes[facility] MANUAL DIFFERENTIAL 2019-07-16 17:28:00 Nesha Grimaldo MD nderson GLUCOSE LEVEL 2019-07-16 17:28:00 Nes[facility] BLOOD UREA NITROGEN 2019-07-16 17:28:00 Nesha Grimaldo MD nderson ELECTROLYTE PANEL 2019-07-16 17:28:00 Nesha Grimaldo MD And [facility] SERUM CREATININE 2019-07-16 17:28:00 Nesha Grimaldo MD Andrea rson .GLOMERULAR FILTRATION RATE 2019-07-16 17:28:00 Tata Grimaldo MD CALCIUM LEVEL TOTAL 2019-07-16 17:28:00 Nesha Grimaldo MD nderson ALBUMIN LEVEL 2019-07-16 17:28:00 Nes[facility] ALKALINE PHOSPHATASE 2019-07-16 17:28:00 Nesha Grimaldo MD ALANINE AMINOTRANSFERASE 2019-07-16 17:28:00 Nesha Grimaldo MD ASPARTATE AMINOTRANSFERASE 2019-07-16 17:28:00 Nesha Grimaldo MD TOTAL PROTEIN 2019-07-16 17:28:00 Nesha Grimaldo MD [facility] FRACTIONATED BILIRUBIN 2019-07-16 17:28:00 Nesha Grimaldo FREE KAPPA/FREE LAMBDA RATIO 2019-07-16 17:28:00 Alejandra Grimaldo MD .DR. WALTER PROT ELEC PATH REVIEW 2019-07-16 17:28:00 Nesha Grimaldo MD .DR. WALTER YUMIKO PATH REVIEW 2019-07-16 17:28:00 Stephanie Grimaldo MD TRANSFUSE RED BLOOD CELLS 2019-07-08 08:47:50 Wendy Gtz MD PREPARE RBC 2019-07-07 22:35:00 Wendy Gtz MD COMPLETE BLOOD COUNT W/ DIFFERENTIAL 2019-07-07 19:42:00 Sho Anders MD TOTAL PROTEIN 2019-07-07 19:42:00 Sho Davila MD Andrea rson ALBUMIN LEVEL 2019-07-07 19:42:00 Sho Davila MD Andrea rson CALCIUM LEVEL TOTAL 2019-07-07 19:42:00 Sho Davila MD PHOSPHORUS LEVEL 2019-07-07 19:42:00 Sho Davila MD And erson GLUCOSE, RANDOM 2019-07-07 19:42:00 Sho Davila MD Andrea rson BLOOD UREA NITROGEN 2019-07-07 19:42:00 Sho Davila MD SERUM CREATININE 2019-07-07 19:42:00 Sho Davila MD And erson URIC ACID 2019-07-07 19:42:00 Sho Davila MD Andrea rson FRACTIONATED BILIRUBIN 2019-07-07 19:42:00 Sho Davila MD ALKALINE PHOSPHATASE 2019-07-07 19:42:00 Sho Davila MD LACTATE DEHYDROGENASE 2019-07-07 19:42:00 Sho Davila ALANINE AMINOTRANSFERASE 2019-07-07 19:42:00 Sho Davila i, MD MAGNESIUM LEVEL 2019-07-07 19:42:00 Sho Davila MD Andrea rson ASPARTATE AMINOTRANSFERASE 2019-07-07 19:42:00 Sho Davila MD ELECTROLYTE PANEL 2019-07-07 19:42:00 Sho Davila MD An derson Results CBC 2019-07-07 19:42:00 Sho Davila MD Andrea rson MANUAL DIFFERENTIAL 2019-07-07 19:42:00 Sho Davila MD SERUM CREATININE 2019-07-07 19:42:00 Sho Davila MD And erson .GLOMERULAR FILTRATION RATE 2019-07-07 19:42:00 Sho Davila MD ANTIBODY SCREEN 2019-07-07 19:42:00 Sho Davila MD Andrea rson ABORH MANUAL 2019-07-07 19:42:00 Sho Davila MD Andrea rssummer TMP INTERP AUTO ANTIBODY SCREEN POSITIVE 2019-07-07 19:42:00 Sho Davila MD CLOT EXPIRATION DATE 2019-07-07 19:42:00 Sho Davila MD TMP INTERPRETATION ANTIBODY IDENTIFICATION 2019-07-07 19:42: 00 Sho Davila MD TMP INTERPRETATION DIRECT ANTIGLOBULIN TEST 2019-07-07 19:42 :00 Sho Davila MD TMP CROSSMATCH INTERPRETATION 2019-07-07 19:42:00 Leeann Davila MD COMPLETE BLOOD COUNT W/ DIFFERENTIAL 2019-07-04 16:14:00 Sho Anders MD TOTAL PROTEIN 2019-07-04 16:14:00 Sho Davila MD Andrea rson ALBUMIN LEVEL 2019-07-04 16:14:00 Sho Davila MD Andrea rson CALCIUM LEVEL TOTAL 2019-07-04 16:14:00 Sho Davila MD PHOSPHORUS LEVEL 2019-07-04 16:14:00 Sho Davila MD And erson GLUCOSE, RANDOM 2019-07-04 16:14:00 Sho Davila MD Andrea rson BLOOD UREA NITROGEN 2019-07-04 16:14:00 Sho Davila MD SERUM CREATININE 2019-07-04 16:14:00 Sho Davila MD And erson URIC ACID 2019-07-04 16:14:00 Sho Davila MD Andrea rson FRACTIONATED BILIRUBIN 2019-07-04 16:14:00 Sho Davila MD ALKALINE PHOSPHATASE 2019-07-04 16:14:00 Sho Davila MD LACTATE DEHYDROGENASE 2019-07-04 16:14:00 Sho Davila ALANINE AMINOTRANSFERASE 2019-07-04 16:14:00 Sho Davila i, MD MAGNESIUM LEVEL 2019-07-04 16:14:00 Sho Davila MD Andrea rson ASPARTATE AMINOTRANSFERASE 2019-07-04 16:14:00 Sho Davila MD ELECTROLYTE PANEL 2019-07-04 16:14:00 Sho Davila MD An derson Results CBC 2019-07-04 16:14:00 Sho Davila MD Andrea rson MANUAL DIFFERENTIAL 2019-07-04 16:14:00 Sho Davila MD SERUM CREATININE 2019-07-04 16:14:00 Sho Davila MD And erson .GLOMERULAR FILTRATION RATE 2019-07-04 16:14:00 Sho Davila MD ANTIBODY SCREEN 2019-07-04 16:14:00 Sho Davila MD Andrea rson TMP INTERP AUTO ANTIBODY SCREEN POSITIVE 2019-07-04 16:14:00 Sho Davila MD ABORH MANUAL 2019-07-04 16:14:00 Sho Davila MD Andrea rson CLOT EXPIRATION DATE 2019-07-04 16:14:00 Sho Davila MD COMPLETE BLOOD COUNT W/ DIFFERENTIAL 2019-06-29 19:17:00 Sho Anders MD TOTAL PROTEIN 2019-06-29 19:17:00 Sho Davila MD Andrea rson ALBUMIN LEVEL 2019-06-29 19:17:00 Sho Davila MD Andrea rson CALCIUM LEVEL TOTAL 2019-06-29 19:17:00 Sho Davila MD PHOSPHORUS LEVEL 2019-06-29 19:17:00 Sho Davila MD And erson GLUCOSE, RANDOM 2019-06-29 19:17:00 Sho Davila MD Andrea rson BLOOD UREA NITROGEN 2019-06-29 19:17:00 Sho Davila MD SERUM CREATININE 2019-06-29 19:17:00 Sho Davila MD And erson URIC ACID 2019-06-29 19:17:00 Sho Davila MD Andrea rson FRACTIONATED BILIRUBIN 2019-06-29 19:17:00 Sho Davila MD ALKALINE PHOSPHATASE 2019-06-29 19:17:00 Sho Davila MD LACTATE DEHYDROGENASE 2019-06-29 19:17:00 Sho Davila ALANINE AMINOTRANSFERASE 2019-06-29 19:17:00 Sho Davila i, MD MAGNESIUM LEVEL 2019-06-29 19:17:00 Sho Davila MD Andrea rson ASPARTATE AMINOTRANSFERASE 2019-06-29 19:17:00 Sho Davila MD ELECTROLYTE PANEL 2019-06-29 19:17:00 Sho Davila MD An derson Results CBC 2019-06-29 19:17:00 Sho Davila MD Andrea rson MANUAL DIFFERENTIAL 2019-06-29 19:17:00 Sho Davila MD SERUM CREATININE 2019-06-29 19:17:00 Sho Davila MD And erson .GLOMERULAR FILTRATION RATE 2019-06-29 19:17:00 Sho Davila MD ANTIBODY SCREEN 2019-06-29 19:17:00 Sho Davila MD Andrea rson ABORH MANUAL 2019-06-29 19:17:00 Sho Davila MD Andrea rson TMP INTERP AUTO ANTIBODY SCREEN POSITIVE 2019-06-29 19:17:00 Sho Davila MD CLOT EXPIRATION DATE 2019-06-29 19:17:00 Sho Davila MD TRANSFUSE RED BLOOD CELLS 2019-06-25 23:42:11 Sonia Pelayo MD PREPARE RBC 2019-06-25 14:32:00 Mitra Pelayo MD Bogdan [facility] COMPLETE BLOOD COUNT W/ DIFFERENTIAL 2019-06-25 12:52:00 Hanh Rea MD SODIUM LEVEL 2019-06-25 12:52:00 Hanh Rea MD Andjewels weaver POTASSIUM LEVEL 2019-06-25 12:52:00 Hanh Rea MD Andbetoo owen CHLORIDE LEVEL 2019-06-25 12:52:00 Hanh Rea MD Andbetoo owen CARBON DIOXIDE LEVEL 2019-06-25 12:52:00 Hanh Rea MD derson BLOOD UREA NITROGEN 2019-06-25 12:52:00 Hanh Rea MD And erson SERUM CREATININE 2019-06-25 12:52:00 Hanh Rea MD Hola on GLUCOSE, RANDOM 2019-06-25 12:52:00 Hanh Rea MD Anderso n LACTATE DEHYDROGENASE 2019-06-25 12:52:00 Hanh Rea MD nderson URIC ACID 2019-06-25 12:52:00 Hahn Rea MD Andbetoo owen PHOSPHORUS LEVEL 2019-06-25 12:52:00 Hanh Rea MD Hola on FRACTIONATED BILIRUBIN 2019-06-25 12:52:00 Hanh Rea MD ALBUMIN LEVEL 2019-06-25 12:52:00 Hanh Rea MD Andbetoo n CALCIUM LEVEL TOTAL 2019-06-25 12:52:00 Hanh Rea MD And erson MAGNESIUM LEVEL 2019-06-25 12:52:00 Hanh Rea MD Andbetoo n ALANINE AMINOTRANSFERASE 2019-06-25 12:52:00 Hanh Rea ASPARTATE AMINOTRANSFERASE 2019-06-25 12:52:00 Hanh Rea MD ALKALINE PHOSPHATASE 2019-06-25 12:52:00 Hanh Rea MDson Results CBC 2019-06-25 12:52:00 Hanh Rea MD MANUAL DIFFERENTIAL 2019-06-25 12:52:00 Hanh Rea MD And erson SERUM CREATININE 2019-06-25 12:52:00 Hanh Rea MD Hola on .GLOMERULAR FILTRATION RATE 2019-06-25 12:52:00 Hanh Rea MD ANION GAP 2019-06-25 12:52:00 Hanh Rea MD TRANSFUSE RED BLOOD CELLS 2019-06-25 09:43:47 Sonia Pelayo MD TRANSFUSE RED BLOOD CELLS 2019-06-25 07:15:01 Nesha Grimaldo MD PREPARE RBC 2019-06-24 15:33:00 Mitra Pelayo MD Bogdan son COMPLETE BLOOD COUNT W/ DIFFERENTIAL 2019-06-24 13:19:00 Hanh Rea MD SODIUM LEVEL 2019-06-24 13:19:00 Hanh Rea MD POTASSIUM LEVEL 2019-06-24 13:19:00 Hanh Rea MD CHLORIDE LEVEL 2019-06-24 13:19:00 Hanh Rea MD CARBON DIOXIDE LEVEL 2019-06-24 13:19:00 Hanh Rea MD BLOOD UREA NITROGEN 2019-06-24 13:19:00 Hanh Rea MD And erson SERUM CREATININE 2019-06-24 13:19:00 Hanh Rea MD Hola on GLUCOSE, RANDOM 2019-06-24 13:19:00 Hanh Rea MD LACTATE DEHYDROGENASE 2019-06-24 13:19:00 Hanh Rea MD nderson URIC ACID 2019-06-24 13:19:00 Hanh Rea MD PHOSPHORUS LEVEL 2019-06-24 13:19:00 Hanh Rea MD Hola on FRACTIONATED BILIRUBIN 2019-06-24 13:19:00 Hanh Rea MD ALBUMIN LEVEL 2019-06-24 13:19:00 Hanh Rea MD CALCIUM LEVEL TOTAL 2019-06-24 13:19:00 Hanh Rea MD And erson MAGNESIUM LEVEL 2019-06-24 13:19:00 Hanh Rea MD ALANINE AMINOTRANSFERASE 2019-06-24 13:19:00 Hanh Rea ASPARTATE AMINOTRANSFERASE 2019-06-24 13:19:00 Hanh Rea MD ALKALINE PHOSPHATASE 2019-06-24 13:19:00 Hanh Rea MDson IMMUNOGLOBULIN M SERUM 2019-06-24 13:19:00 Sho Davila MD ANTIBODY SCREEN 2019-06-24 13:19:00 Hanh Rea MD Results CBC 2019-06-24 13:19:00 Hanh Rea MD MANUAL DIFFERENTIAL 2019-06-24 13:19:00 Hanh Rea MD And erson SERUM CREATININE 2019-06-24 13:19:00 Hanh Rea MD Hola on .GLOMERULAR FILTRATION RATE 2019-06-24 13:19:00 Hanh Rea MD ANION GAP 2019-06-24 13:19:00 Hanh Rea MD TMP INTERP AUTO ANTIBODY SCREEN POSITIVE 2019-06-24 13:19:00 Hanh Paz MD ABORH MANUAL 2019-06-24 13:19:00 Hanh Rea MD CLOT EXPIRATION DATE 2019-06-24 13:19:00 Hanh Rea MD TMP INTERPRETATION ANTIBODY IDENTIFICATION 2019-06-24 13:19: 00 Hanh Rea MD TMP CROSSMATCH INTERPRETATION 2019-06-24 13:19:00 Linda Rea MD COMPLETE BLOOD COUNT W/ DIFFERENTIAL 2019-06-23 13:54:00 Hanh Rea MD SODIUM LEVEL 2019-06-23 13:54:00 Hanh Rea MD POTASSIUM LEVEL 2019-06-23 13:54:00 Hanh Rea MD CHLORIDE LEVEL 2019-06-23 13:54:00 Hanh Rea MD CARBON DIOXIDE LEVEL 2019-06-23 13:54:00 Hanh Rea MD BLOOD UREA NITROGEN 2019-06-23 13:54:00 Hanh Rea MD And erson SERUM CREATININE 2019-06-23 13:54:00 Hanh Rea MD Hola on GLUCOSE, RANDOM 2019-06-23 13:54:00 Hanh Rea MD Andjewels weaver LACTATE DEHYDROGENASE 2019-06-23 13:54:00 Hanh Rea MD nderson URIC ACID 2019-06-23 13:54:00 Hanh Rea MD PHOSPHORUS LEVEL 2019-06-23 13:54:00 Hanh Rea MD Hola on FRACTIONATED BILIRUBIN 2019-06-23 13:54:00 Hanh Rea MD ALBUMIN LEVEL 2019-06-23 13:54:00 Hanh Rea MD Andjewels weaver CALCIUM LEVEL TOTAL 2019-06-23 13:54:00 Hanh Rea MD And erson MAGNESIUM LEVEL 2019-06-23 13:54:00 Hanh Rea MD ALANINE AMINOTRANSFERASE 2019-06-23 13:54:00 Hanh Rea ASPARTATE AMINOTRANSFERASE 2019-06-23 13:54:00 Hanh Rea MD ALKALINE PHOSPHATASE 2019-06-23 13:54:00 Hanh Rea MD Results CBC 2019-06-23 13:54:00 Hanh Rea MD MANUAL DIFFERENTIAL 2019-06-23 13:54:00 Hanh Rea MD And erson SERUM CREATININE 2019-06-23 13:54:00 Hanh Rea MD Hola on .GLOMERULAR FILTRATION RATE 2019-06-23 13:54:00 Hanh Rea MD ANION GAP 2019-06-23 13:54:00 Hanh Rea MD Andjewels weaver TMP INTERPRETATION RBC PHENOTYPE BY MOLECULAR METHODS 2018-07 04:07:00 Hanh Rea MD CORTISOL FREE 2019-06-22 17:14:00 Néstor Briceño MD SODIUM LEVEL 2019-06-22 17:14:00 Hanh Rea MD POTASSIUM LEVEL 2019-06-22 17:14:00 Hanh Rea MD Andbetoo owen CHLORIDE LEVEL 2019-06-22 17:14:00 Hanh Rea MD Andbetoo owen CARBON DIOXIDE LEVEL 2019-06-22 17:14:00 Hanh Rea MD BLOOD UREA NITROGEN 2019-06-22 17:14:00 Hanh Rea MD And erson SERUM CREATININE 2019-06-22 17:14:00 Hanh Rea MD Hola on LACTATE DEHYDROGENASE 2019-06-22 17:14:00 Hanh Rea MD nderson URIC ACID 2019-06-22 17:14:00 Hanh Rea MD Andbetoo owen PHOSPHORUS LEVEL 2019-06-22 17:14:00 Hanh Rea MD Hola on FRACTIONATED BILIRUBIN 2019-06-22 17:14:00 Hanh Rea MD ALBUMIN LEVEL 2019-06-22 17:14:00 Hanh Rea MD Andbetoo owen CALCIUM LEVEL TOTAL 2019-06-22 17:14:00 Hanh Rea MD And erson MAGNESIUM LEVEL 2019-06-22 17:14:00 Hanh Rea MD Andbetoo n ALANINE AMINOTRANSFERASE 2019-06-22 17:14:00 Hanh Rea ASPARTATE AMINOTRANSFERASE 2019-06-22 17:14:00 Hanh Rea MD ALKALINE PHOSPHATASE 2019-06-22 17:14:00 Hanh Rea MDson BASIC METABOLIC PANEL, CALCIUM IONIZED 2019-06-22 17:14:00 Néstor Briceño MD OSMOLALITY 2019-06-22 17:14:00 Néstor Briceño MD GLUCOSE LEVEL 2019-06-22 17:14:00 Gladys Clark MD BLOOD UREA NITROGEN 2019-06-22 17:14:00 Gladys Clark MD Bogdan son ELECTROLYTE PANEL 2019-06-22 17:14:00 Gladys Clark MD SERUM CREATININE 2019-06-22 17:14:00 Gladys Clark MD .GLOMERULAR FILTRATION RATE 2019-06-22 17:14:00 Gladys Clark MD CALCIUM IONIZED, VENOUS 2019-06-22 17:14:00 Gladys Clark MD nderson ANION GAP 2019-06-22 17:14:00 Hanh Rea MD COMPLETE BLOOD COUNT W/ DIFFERENTIAL 2019-06-22 13:12:00 Hanh Rea MD Results CBC 2019-06-22 13:12:00 Hanh Rea MD MANUAL DIFFERENTIAL 2019-06-22 13:12:00 Hanh Rea MD And tyron TRANSFUSE FRESH FROZEN PLASMA 2019-06-22 01:41:01 Im, Tadeo Tenorio TRANSFUSE FRESH FROZEN PLASMA 2019-06-22 01:39:01 Im, Tadeo Tenorio TRANSFUSE FRESH FROZEN PLASMA 2019-06-22 01:23:43 Im, Tadeo Tenorio TRANSFUSE FRESH FROZEN PLASMA 2019-06-22 01:23:18 Im, Tadeo Tenorio TRANSFUSE FRESH FROZEN PLASMA 2019-06-22 01:09:59 Im, Tadeo Tenorio TRANSFUSE FRESH FROZEN PLASMA 2019-06-22 01:08:59 Im, Tadeo Tenorio TRANSFUSE FRESH FROZEN PLASMA 2019-06-22 01:08:39 Im, Tadeo Tenorio COMPREHENSIVE METABOLIC PANEL 2019-06-22 00:44:00 Néstor Bricñeo MD OSMOLALITY 2019-06-22 00:44:00 Néstor Briceño MD VENOUS BLOOD GAS 2019-06-22 00:44:00 Néstor Briceño MD GLUCOSE LEVEL 2019-06-22 00:44:00 Gladys Clark MD BLOOD UREA NITROGEN 2019-06-22 00:44:00 Gladys Clark MD son ELECTROLYTE PANEL 2019-06-22 00:44:00 Gladys Clark MD SERUM CREATININE 2019-06-22 00:44:00 Gladys Clark MD .GLOMERULAR FILTRATION RATE 2019-06-22 00:44:00 Gladys Clark MD CALCIUM LEVEL TOTAL 2019-06-22 00:44:00 Gladys Clark MD Bogdan son ALBUMIN LEVEL 2019-06-22 00:44:00 Gladys Clark MD ALKALINE PHOSPHATASE 2019-06-22 00:44:00 Gladys Clark MD Andrea rson ALANINE AMINOTRANSFERASE 2019-06-22 00:44:00 Gladys Clark MD ASPARTATE AMINOTRANSFERASE 2019-06-22 00:44:00 Gladys Clark TOTAL PROTEIN 2019-06-22 00:44:00 Gladys Clark MD FRACTIONATED BILIRUBIN 2019-06-22 00:44:00 Gladys Clark MD ND INSERT NON-TUNNEL CV CATH 2019-06-21 22:59:21 Hanh Rea MD ND CHG US GUIDE, VASCULAR ACCESS 2019-06-21 22:59:21 Khoa Rea MD XR CHEST 1 VW POST IMPLANT 2019-06-21 21:16:22 Lucia Tolbert MD GENERAL LABORATORY ADD ON TEST 2019-06-21 17:51:00 Néstor Briceño MD PREPARE FRESH FROZEN PLASMA 2019-06-21 17:49:00 Tadeo Verduzco MD OSMOLALITY URINE 2019-06-21 17:06:00 Hanh Rea MD Hola on SODIUM URINE 2019-06-21 17:06:00 Néstor Briceño MD CREATININE URINE, RANDOM 2019-06-21 17:06:00 Néstor Briceño MD CHLORIDE LEVEL URINE 2019-06-21 17:06:00 Néstor Briceño MD Andrea rson URINALYSIS WITH MICROSCOPIC IF INDICATED 2019-06-21 17:06:00 Néstor Poole MD POTASSIUM LEVEL URINE 2019-06-21 17:06:00 Néstor Briceño MD And erson URINALYSIS MICROSCOPIC 2019-06-21 17:06:00 Gladys Clark MD derson OSMOLALITY 2019-06-21 15:57:00 Hanh Rea MD Anderso n FIBRINOGEN ACTIVITY 2019-06-21 15:57:00 Hanh Rea MD And erson PARTIAL THROMBOPLASTIN TIME 2019-06-21 15:57:00 Hanh Rea MD PROTHROMBIN TIME 2019-06-21 15:57:00 Hanh Rea MD Hola on THYROID STIMULATING HORMONE 2019-06-21 15:57:00 Néstor Briceño MD ARTERIAL BLOOD GAS 2019-06-21 15:57:00 Néstor Briceño MD Hola on LACTIC ACID 2019-06-21 15:57:00 Néstor Briceño MD GLUCOSE LEVEL 2019-06-21 15:57:00 Hanh Rea MD Anderso n BLOOD UREA NITROGEN 2019-06-21 15:57:00 Hanh Rea MD And erson ELECTROLYTE PANEL 2019-06-21 15:57:00 Hanh Rea MD Bogdan son SERUM CREATININE 2019-06-21 15:57:00 Hanh Rea MD Hola on .GLOMERULAR FILTRATION RATE 2019-06-21 15:57:00 Hanh Rea MD CALCIUM LEVEL TOTAL 2019-06-21 15:57:00 Hanh Rea MD And erson COMPLETE BLOOD COUNT W/ DIFFERENTIAL 2019-06-21 10:56:00 Hanh Rea MD SODIUM LEVEL 2019-06-21 10:56:00 Hanh Rea MD Anderso n POTASSIUM LEVEL 2019-06-21 10:56:00 Hanh Rea MD Anderso n CHLORIDE LEVEL 2019-06-21 10:56:00 Hanh Rea MD Anderso n CARBON DIOXIDE LEVEL 2019-06-21 10:56:00 Hanh Rea MD derson BLOOD UREA NITROGEN 2019-06-21 10:56:00 Hanh Rea MD And erson SERUM CREATININE 2019-06-21 10:56:00 Hanh Rea MD Hola on GLUCOSE, RANDOM 2019-06-21 10:56:00 Hanh Rea MD Anderso n LACTATE DEHYDROGENASE 2019-06-21 10:56:00 Hanh Rea MD nderson URIC ACID 2019-06-21 10:56:00 Hanh Rea MD Anderso n PHOSPHORUS LEVEL 2019-06-21 10:56:00 Hanh Rea MD on FRACTIONATED BILIRUBIN 2019-06-21 10:56:00 Hanh Rea MD ALBUMIN LEVEL 2019-06-21 10:56:00 Hanh Rea MD CALCIUM LEVEL TOTAL 2019-06-21 10:56:00 Hanh Rea MD And erson MAGNESIUM LEVEL 2019-06-21 10:56:00 Hanh Rea MD ALANINE AMINOTRANSFERASE 2019-06-21 10:56:00 Hanh Rea ASPARTATE AMINOTRANSFERASE 2019-06-21 10:56:00 Hanh Rea MD ALKALINE PHOSPHATASE 2019-06-21 10:56:00 Hanh Rea MD derson Results CBC 2019-06-21 10:56:00 Gildardo Zepeda MD MANUAL DIFFERENTIAL 2019-06-21 10:56:00 Gildardo Zepeda MD SERUM CREATININE 2019-06-21 10:56:00 Gildardo Zepeda MD .GLOMERULAR FILTRATION RATE 2019-06-21 10:56:00 Gildardo Zepeda MD ANION GAP 2019-06-21 10:56:00 Gildardo Zepeda MD BASIC METABOLIC PANEL, CALCIUM TOTAL 2019-06-21 09:02:00 Radha Salinas MD GLUCOSE LEVEL 2019-06-21 09:02:00 Radha Salinas MD BLOOD UREA NITROGEN 2019-06-21 09:02:00 Radha Salinas MD ELECTROLYTE PANEL 2019-06-21 09:02:00 Radha Salinas MD SERUM CREATININE 2019-06-21 09:02:00 Radha Salinas MD .GLOMERULAR FILTRATION RATE 2019-06-21 09:02:00 Radha Salinas MD CALCIUM LEVEL TOTAL 2019-06-21 09:02:00 Radha Salinas MD PREPARE RBC 2019-06-21 01:28:00 Nesha Grimaldo MD TOTAL PROTEIN 2019-06-20 23:40:00 Zofia Lemos MD ALBUMIN LEVEL 2019-06-20 23:40:00 Zofia Leoms MD CALCIUM LEVEL TOTAL 2019-06-20 23:40:00 Zofia Lemos MD PHOSPHORUS LEVEL 2019-06-20 23:40:00 Zofia Lemos MD GLUCOSE, RANDOM 2019-06-20 23:40:00 Zofia Lemos MD BLOOD UREA NITROGEN 2019-06-20 23:40:00 Zofia Lemos MD Bogdanciara gomez SERUM CREATININE 2019-06-20 23:40:00 Zofia Lemos MD URIC ACID 2019-06-20 23:40:00 Zofia Lemos MD FRACTIONATED BILIRUBIN 2019-06-20 23:40:00 Zofia Lemos MD derson ALKALINE PHOSPHATASE 2019-06-20 23:40:00 Zofia Lemos MD Andrea rson LACTATE DEHYDROGENASE 2019-06-20 23:40:00 Zofia Lemos MD And erson ALANINE AMINOTRANSFERASE 2019-06-20 23:40:00 Zofia Lemos MD MAGNESIUM LEVEL 2019-06-20 23:40:00 Zofia Lemos MD ASPARTATE AMINOTRANSFERASE 2019-06-20 23:40:00 Zofia Lemos ELECTROLYTE PANEL 2019-06-20 23:40:00 Zofia Lemos MDo n PROTHROMBIN TIME 2019-06-20 23:40:00 Gildardo Zepeda MD PARTIAL THROMBOPLASTIN TIME 2019-06-20 23:40:00 Gildardo Zepeda MD BETA 2 MICROGLOBULIN 2019-06-20 23:40:00 Gildardo Zepeda MD Andrea rssummer IMMUNOGLOBULIN M SERUM 2019-06-20 23:40:00 Gildardo Zepeda MD FREE LAMBDA LIGHT CHAIN 2019-06-20 23:40:00 Gildardo Zepeda MD nderson IMMUNOFIXATION ELECTROPHORESIS 2019-06-20 23:40:00 Gildardo Zepeda MD FIBRINOGEN ACTIVITY 2019-06-20 23:40:00 Gildardo Zepeda MD Bogdanciara gomez Results CBC 2019-06-20 23:40:00 Zofia Lemos MD MANUAL DIFFERENTIAL 2019-06-20 23:40:00 Zofia Lemos MD SERUM CREATININE 2019-06-20 23:40:00 Zofia Lemos MD .GLOMERULAR FILTRATION RATE 2019-06-20 23:40:00 Zofia Lemos MD ANTIBODY SCREEN 2019-06-20 23:40:00 Zofia Lemos MD TMP INTERP AUTO ANTIBODY SCREEN POSITIVE 2019-06-20 23:40:00 Mauricio Zofia lowe MD ABORH MANUAL 2019-06-20 23:40:00 Zofia Lemos MD CLOT EXPIRATION DATE 2019-06-20 23:40:00 Zofia Lemos MD TMP INTERPRETATION ANTIBODY IDENTIFICATION 2019-06-20 23:40:00 Nicole Zofia antony MD TMP CROSSMATCH INTERPRETATION 2019-06-20 23:40:00 Sophy Lemos FREE KAPPA/FREE LAMBDA RATIO 2019-06-20 23:40:00 Gildardo Zepeda MD .DR. MURPHY PROT ELEC PATH REVIEW 2019-06-20 23:40:00 Gume Zepeda MD .DR. MURPHY YUMIKO PATH REVIEW 2019-06-20 23:40:00 Gildardo Zepeda .TOTAL VOLUME 2019-06-18 14:00:00 Nesha Grimaldo MD Bogdan son FREE LAMBDA LIGHT CHAIN 2019-06-13 22:25:00 Zofia Lemos MD nderson IMMUNOGLOBULIN M SERUM 2019-06-13 22:25:00 Zofia Lemos MD COMPLETE BLOOD COUNT W/ DIFFERENTIAL 2019-06-13 06:36:00 Liss Saba MD SODIUM LEVEL 2019-06-13 06:36:00 Liss Goidnez MD POTASSIUM LEVEL 2019-06-13 06:36:00 Liss Godinez MD CHLORIDE LEVEL 2019-06-13 06:36:00 Liss Godinez MD CARBON DIOXIDE LEVEL 2019-06-13 06:36:00 Liss Godinez BLOOD UREA NITROGEN 2019-06-13 06:36:00 Liss Godinez MD SERUM CREATININE 2019-06-13 06:36:00 Liss Godinez MD GLUCOSE, RANDOM 2019-06-13 06:36:00 Liss Godinez MD LACTATE DEHYDROGENASE 2019-06-13 06:36:00 Liss Godinez MD URIC ACID 2019-06-13 06:36:00 Liss Godinez MD PHOSPHORUS LEVEL 2019-06-13 06:36:00 Liss Godinez MD FRACTIONATED BILIRUBIN 2019-06-13 06:36:00 Liss Godinez MD ALBUMIN LEVEL 2019-06-13 06:36:00 Liss Godinez MD CALCIUM LEVEL TOTAL 2019-06-13 06:36:00 Liss Godinez MD rssummer MAGNESIUM LEVEL 2019-06-13 06:36:00 Liss Godinez MD ALANINE AMINOTRANSFERASE 2019-06-13 06:36:00 Liss Godinez MD ASPARTATE AMINOTRANSFERASE 2019-06-13 06:36:00 Liss Godinez MD ALKALINE PHOSPHATASE 2019-06-13 06:36:00 Liss Godinez MD And erson Results CBC 2019-06-13 06:36:00 Liss Godinez MD MANUAL DIFFERENTIAL 2019-06-13 06:36:00 Liss Godinez MD SERUM CREATININE 2019-06-13 06:36:00 Liss Godinez MD .GLOMERULAR FILTRATION RATE 2019-06-13 06:36:00 Liss Godinez MD ANION GAP 2019-06-13 06:36:00 Liss Godinez MD TYPE AND SCREEN 2019-06-12 10:13:00 Liss Godinez MD ANTIBODY SCREEN 2019-06-12 10:13:00 Liss Godinez MD COMPLETE BLOOD COUNT W/ DIFFERENTIAL 2019-06-12 10:13:00 Liss Saba MD SODIUM LEVEL 2019-06-12 10:13:00 Liss Godinez MD POTASSIUM LEVEL 2019-06-12 10:13:00 Liss Godinez MD CHLORIDE LEVEL 2019-06-12 10:13:00 Liss Godinez MD CARBON DIOXIDE LEVEL 2019-06-12 10:13:00 Liss Godinez MD And erssummer BLOOD UREA NITROGEN 2019-06-12 10:13:00 Liss Godinez MD SERUM CREATININE 2019-06-12 10:13:00 Liss Godinez MD GLUCOSE, RANDOM 2019-06-12 10:13:00 Liss Godinez MD LACTATE DEHYDROGENASE 2019-06-12 10:13:00 Liss Godinez MD derson URIC ACID 2019-06-12 10:13:00 Liss Godinez MD PHOSPHORUS LEVEL 2019-06-12 10:13:00 Liss Godinez MD FRACTIONATED BILIRUBIN 2019-06-12 10:13:00 Liss Godinez MD nderson ALBUMIN LEVEL 2019-06-12 10:13:00 Liss Godinez MD CALCIUM LEVEL TOTAL 2019-06-12 10:13:00 Liss Godinez MD Andrea rson MAGNESIUM LEVEL 2019-06-12 10:13:00 Liss Godinez MD ALANINE AMINOTRANSFERASE 2019-06-12 10:13:00 Liss Godinez MD ASPARTATE AMINOTRANSFERASE 2019-06-12 10:13:00 Liss Godinez MD ALKALINE PHOSPHATASE 2019-06-12 10:13:00 Liss Godinez MD And erson Results CBC 2019-06-12 10:13:00 Liss Godinez MD MANUAL DIFFERENTIAL 2019-06-12 10:13:00 Liss Godinez MD rssummer SERUM CREATININE 2019-06-12 10:13:00 Liss Godinez MD .GLOMERULAR FILTRATION RATE 2019-06-12 10:13:00 Liss Godinez MD ANION GAP 2019-06-12 10:13:00 Liss Godinez MD TMP INTERP AUTO ANTIBODY SCREEN POSITIVE 2019-06-12 10:13:00 Liss Mitchell MD ABORH MANUAL 2019-06-12 10:13:00 Liss Godinez MD CLOT EXPIRATION DATE 2019-06-12 10:13:00 Liss Godinez MD And erson TMP ABORH DISCREPANCY INTERPRETATION 2019-06-12 10:13:00 Liss Saba MD COMPLETE BLOOD COUNT W/ DIFFERENTIAL 2019-06-11 09:23:00 Liss Saba MD SODIUM LEVEL 2019-06-11 09:23:00 Liss Godinez MD POTASSIUM LEVEL 2019-06-11 09:23:00 Liss Godinez MD CHLORIDE LEVEL 2019-06-11 09:23:00 Liss Godinez MD CARBON DIOXIDE LEVEL 2019-06-11 09:23:00 Liss Godinez MD And erson BLOOD UREA NITROGEN 2019-06-11 09:23:00 Liss Godinez MD Andrea rson SERUM CREATININE 2019-06-11 09:23:00 Liss Godinez MD GLUCOSE, RANDOM 2019-06-11 09:23:00 Liss Godinez MD LACTATE DEHYDROGENASE 2019-06-11 09:23:00 Liss Godinez MD derson URIC ACID 2019-06-11 09:23:00 Liss Godinez MD PHOSPHORUS LEVEL 2019-06-11 09:23:00 Liss Godinez MD FRACTIONATED BILIRUBIN 2019-06-11 09:23:00 Liss Godinez MD nderson ALBUMIN LEVEL 2019-06-11 09:23:00 Liss Godinez MD CALCIUM LEVEL TOTAL 2019-06-11 09:23:00 Liss Godinez MD rssummer MAGNESIUM LEVEL 2019-06-11 09:23:00 Liss Godinez MD ALANINE AMINOTRANSFERASE 2019-06-11 09:23:00 Liss Godinez MD ASPARTATE AMINOTRANSFERASE 2019-06-11 09:23:00 Liss Godinez MD ALKALINE PHOSPHATASE 2019-06-11 09:23:00 Liss Godinez MD And erson Results CBC 2019-06-11 09:23:00 Liss Godinez MD MANUAL DIFFERENTIAL 2019-06-11 09:23:00 Liss Godinez MD SERUM CREATININE 2019-06-11 09:23:00 Liss Godinez MD .GLOMERULAR FILTRATION RATE 2019-06-11 09:23:00 Liss Godinez MD ANION GAP 2019-06-11 09:23:00 Liss Godinez MD .DR. MURPHY PROT ELEC PATH REVIEW 2019-06-11 09:23:00 Liss Godinez MD COMPLETE BLOOD COUNT W/ DIFFERENTIAL 2019-06-10 17:03:00 Liss Saba MD SODIUM LEVEL 2019-06-10 17:03:00 Liss Godinez MD POTASSIUM LEVEL 2019-06-10 17:03:00 Liss Godinez MD CHLORIDE LEVEL 2019-06-10 17:03:00 Liss Godinez MD CARBON DIOXIDE LEVEL 2019-06-10 17:03:00 Liss Godinez MD And erson BLOOD UREA NITROGEN 2019-06-10 17:03:00 Liss Godinez MD Andrea rssummer SERUM CREATININE 2019-06-10 17:03:00 Liss Godinez MD GLUCOSE, RANDOM 2019-06-10 17:03:00 Liss Godinez MD LACTATE DEHYDROGENASE 2019-06-10 17:03:00 Liss Godinez MD derson URIC ACID 2019-06-10 17:03:00 Liss Godinez MD PHOSPHORUS LEVEL 2019-06-10 17:03:00 Liss Godinez MD FRACTIONATED BILIRUBIN 2019-06-10 17:03:00 Liss Godinez MD nderson ALBUMIN LEVEL 2019-06-10 17:03:00 Liss Godinez MD CALCIUM LEVEL TOTAL 2019-06-10 17:03:00 Liss Godinez MD Andrea rssummer MAGNESIUM LEVEL 2019-06-10 17:03:00 Liss Godinez MD ALANINE AMINOTRANSFERASE 2019-06-10 17:03:00 Liss Godinez MD ASPARTATE AMINOTRANSFERASE 2019-06-10 17:03:00 Liss Godinez MD ALKALINE PHOSPHATASE 2019-06-10 17:03:00 Liss Godinez MD And erson CREATINE KINASE 2019-06-10 17:03:00 Ailyn Bhatti MD Results CBC 2019-06-10 17:03:00 Liss Godinez MD MANUAL DIFFERENTIAL 2019-06-10 17:03:00 Liss Godinez MD Andrea rssummer SERUM CREATININE 2019-06-10 17:03:00 Liss Godinez MD .GLOMERULAR FILTRATION RATE 2019-06-10 17:03:00 Liss Godinez MD ANION GAP 2019-06-10 17:03:00 Liss Godinez MD .DR. MURPHY PROT ELEC PATH REVIEW 2019-06-10 17:03:00 Liss Godinez MD TRANSFUSE RED BLOOD CELLS 2019-06-10 10:49:15 Zofia Lemos MD PREPARE RBC 2019-06-09 18:36:00 Zofia Lemos MD ANTIBODY SCREEN 2019-06-09 09:51:00 Liss Godinez MD COMPLETE BLOOD COUNT W/ DIFFERENTIAL 2019-06-09 09:51:00 Liss Saba MD SODIUM LEVEL 2019-06-09 09:51:00 Liss Godinez MD POTASSIUM LEVEL 2019-06-09 09:51:00 Liss Godinez MD CHLORIDE LEVEL 2019-06-09 09:51:00 Liss Godinez MD CARBON DIOXIDE LEVEL 2019-06-09 09:51:00 Liss Godinez MD And tyron BLOOD UREA NITROGEN 2019-06-09 09:51:00 Liss Godinez MD rssummer SERUM CREATININE 2019-06-09 09:51:00 Liss Godinez MD GLUCOSE, RANDOM 2019-06-09 09:51:00 Liss Godinez MD LACTATE DEHYDROGENASE 2019-06-09 09:51:00 Liss Godinez MD derson URIC ACID 2019-06-09 09:51:00 Liss Godinez MD PHOSPHORUS LEVEL 2019-06-09 09:51:00 Liss Godinez MD FRACTIONATED BILIRUBIN 2019-06-09 09:51:00 Liss Godinez MD nderson ALBUMIN LEVEL 2019-06-09 09:51:00 Liss Godinez MD CALCIUM LEVEL TOTAL 2019-06-09 09:51:00 Liss Godinez MD Andrea rson MAGNESIUM LEVEL 2019-06-09 09:51:00 Liss Godinez MD ALANINE AMINOTRANSFERASE 2019-06-09 09:51:00 Liss Godinez MD ASPARTATE AMINOTRANSFERASE 2019-06-09 09:51:00 Liss Godinez MD ALKALINE PHOSPHATASE 2019-06-09 09:51:00 Liss Godinez MD And erson IMMUNOGLOBULIN A SERUM 2019-06-09 09:51:00 Liss Godinez MD nderssummer FREE LAMBDA LIGHT CHAIN 2019-06-09 09:51:00 Liss Godinez MD Results CBC 2019-06-09 09:51:00 Liss Godinez MD MANUAL DIFFERENTIAL 2019-06-09 09:51:00 Liss Godinez MD Andrea rson SERUM CREATININE 2019-06-09 09:51:00 Liss Godinez MD Anderso n .GLOMERULAR FILTRATION RATE 2019-06-09 09:51:00 Liss Godinez MD ANION GAP 2019-06-09 09:51:00 Liss Godinez MD FREE KAPPA/FREE LAMBDA RATIO 2019-06-09 09:51:00 Deloris Godinez ABORH MANUAL 2019-06-09 09:51:00 Liss Godinez MD TMP INTERP AUTO ANTIBODY SCREEN POSITIVE 2019-06-09 09:51:00 Liss Mitchell MD CLOT EXPIRATION DATE 2019-06-09 09:51:00 Liss Godinez MD And erson .DR. MURPHY PROT ELEC PATH REVIEW 2019-06-09 09:51:00 Liss Godinez MD TMP CROSSMATCH INTERPRETATION 2019-06-09 09:51:00 Virginia Godinez MD TMP INTERPRETATION ANTIBODY IDENTIFICATION 2019-06-09 09:51:00 Liss Fulton MD TMP INTERPRETATION DIRECT ANTIGLOBULIN TEST 2019-06-09 09:51 :00 Liss Godinez MD CRYPTOCOCCAL ANTIGEN, SERUM 2019-06-08 00:40:00 Nan Lino MD FUNGITELL, SERUM 2019-06-08 00:40:00 Nan Lino MD CRYPTOCOCCAL ANTIGEN, SERUM PATH REVIEW 2019-06-08 00:40:00 Felipe Morales MD MRI ORBITS W WO CONTRAST 2019-06-07 23:37:21 Darell Calixto MD XR CHEST 1 VW 2019-06-07 21:24:38 Nan Lino MD COMPLETE BLOOD COUNT W/ DIFFERENTIAL 2019-06-07 13:55:00 Nesha Wylie MD ELECTROLYTE PANEL 2019-06-07 13:55:00 Nesha Grimaldo MD And erson MAGNESIUM LEVEL 2019-06-07 13:55:00 Nesha Grimaldo MD Bogdan son BLOOD UREA NITROGEN 2019-06-07 13:55:00 Nesha Grimaldo MD nderson SERUM CREATININE 2019-06-07 13:55:00 Nesha Grimaldo MD Andrea rson Results CBC 2019-06-07 13:55:00 Nesha Grimaldo MD Bogdan son MANUAL DIFFERENTIAL 2019-06-07 13:55:00 Nesha Grimaldo MD nderson SERUM CREATININE 2019-06-07 13:55:00 Nesha Grimaldo MD Andrea rson .GLOMERULAR FILTRATION RATE 2019-06-07 13:55:00 Tata Grimaldo MD TRANSFUSE RED BLOOD CELLS 2019-06-01 04:52:06 Gildardo Zepeda MD PREPARE RBC 2019-05-31 20:52:00 Gildardo Zepeda MD GENERAL LABORATORY ADD ON TEST 2019-05-31 17:21:00 Gildardo Zepeda MD COMPLETE BLOOD COUNT W/ DIFFERENTIAL 2019-05-31 15:55:00 Nesha Wylie MD ELECTROLYTE PANEL 2019-05-31 15:55:00 Nesha Grimaldo MD And erson MAGNESIUM LEVEL 2019-05-31 15:55:00 Nesha Grimaldo MD Bogdan son BLOOD UREA NITROGEN 2019-05-31 15:55:00 Nesha Grimaldo MD nderson SERUM CREATININE 2019-05-31 15:55:00 Nesha Grimaldo MD Andrea rson Results CBC 2019-05-31 15:55:00 Nesha Grimaldo MD Bogdan son MANUAL DIFFERENTIAL 2019-05-31 15:55:00 Nesha Grimaldo MD nderson SERUM CREATININE 2019-05-31 15:55:00 Nesha Grimaldo MD Andrea rson .GLOMERULAR FILTRATION RATE 2019-05-31 15:55:00 Tata Grimaldo MD CALCIUM LEVEL TOTAL 2019-05-31 15:55:[address] HEAD W WO CONTRAST 2019-05-30 13:55:36 Wendy Gtz MD And erson VISCOSITY 2019-05-28 23:01:00 Wendy Gtz MD XR CHEST 2 VW 2019-05-28 22:18:03 Wendy Gtz MD RESPIRATORY VIRAL PANEL, NASAL WASH 2019-05-28 20:31:00 Wendy Gtz MD COMPLETE BLOOD COUNT W/ DIFFERENTIAL 2019-05-28 17:58:00 Nesha Wylie MD COMPREHENSIVE METABOLIC PANEL 2019-05-28 17:58:00 Stephanie Grimaldo MD Results CBC 2019-05-28 17:58:00 [facility] 2019-05-28 17:58:00 Nesha Grimaldo MD nderson GLUCOSE LEVEL 2019-05-28 17:58:00 [facility] BLOOD UREA NITROGEN 2019-05-28 17:58:00 Nesha Grimaldo MD nders ELECTROLYTE PANEL 2019-05-28 17:58:00 Nesha Grimaldo MD And [facility] SERUM CREATININE 2019-05-28 17:58:00 Nesha Grimaldo MD Andrea rs .GLOMERULAR FILTRATION RATE 2019-05-28 17:58:00 Tata Grimaldo MD CALCIUM LEVEL TOTAL 2019-05-28 17:58:00 Nesha Grimaldo MD nderson ALBUMIN LEVEL 2019-05-28 17:58:00 Nesha Grimaldo MD [facility] ALKALINE PHOSPHATASE 2019-05-28 17:58:00 Nesha Grimaldo MD ALANINE AMINOTRANSFERASE 2019-05-28 17:58:00 Nesha Grimaldo MD ASPARTATE AMINOTRANSFERASE 2019-05-28 17:58:00 Nesha Grimaldo MD TOTAL PROTEIN 2019-05-28 17:58:00 [facility] FRACTIONATED BILIRUBIN 2019-05-28 17:58:00 Nesha Grimaldo ANTIBODY SCREEN 2019-05-28 17:58:00 Nes[facility] AB[facility]H MANUAL 2019-05-28 17:58:00 Nesha [facility]imaldo [facility] TMP INTERP AUTO ANTIBODY SCREEN POSITIVE 2019-05-28 17:58:00 Nesha Grimaldo MD CLOT EXPIRATION DATE 2019-05-28 17:58:00 Nesha Grimaldo MD TMP INTERPRETATION ANTIBODY IDENTIFICATION 2019-05-28 17:58: 00 Nesha Grimaldo MD TMP INTERPRETATION DIRECT ANTIGLOBULIN TEST 2019-05-28 17:58 :00 Nesha Grimaldo MD TMP CROSSMATCH INTERPRETATION 2019-05-28 17:58:00 Stephanie Grimaldo MD ANTIBODY SCREEN 2019-05-23 22:28:00 Nesha Grimaldo MD son TMP INTERP AUTO ANTIBODY SCREEN POSITIVE 2019-05-23 22:28:00 Nesha Grimaldo MD ABORH MANUAL 2019-05-23 22:28:00 Nes[facility] CLOT EXPIRATION DATE 2019-05-23 22:28:00 Nesha Grimaldo MD TMP INTERPRETATION ANTIBODY IDENTIFICATION 2019-05-23 22:28: 00 Nesha Grimaldo MD TMP CROSSMATCH INTERPRETATION 2019-05-23 22:28:00 Stephanie Grimaldo MD PREPARE RBC 2019-05-23 22:13:00 Nesha Grimaldo MD Bogdan son COMPLETE BLOOD COUNT W/ DIFFERENTIAL 2019-05-23 18:41:00 Nesha Wylie MD COMPREHENSIVE METABOLIC PANEL 2019-05-23 18:41:00 Stephanie Grimaldo MD MAGNESIUM LEVEL 2019-05-23 18:41:00 Nesha Grimaldo MD Bogdan son PHOSPHORUS LEVEL 2019-05-23 18:41:00 Nesha Grimaldo MD Andrea rson URIC ACID 2019-05-23 18:41:00 Nesha Grimaldo MD Bogdan son LACTATE DEHYDROGENASE 2019-05-23 18:41:00 Nesha Grimaldo MD Results CBC 2019-05-23 18:41:00 Nesha Grimaldo MD Bogdan son MANUAL DIFFERENTIAL 2019-05-23 18:41:00 Nesha Grimaldo MD nderson GLUCOSE LEVEL 2019-05-23 18:41:00 Nesha Grimaldo MD Bogdan son BLOOD UREA NITROGEN 2019-05-23 18:41:00 Nesha Grimaldo MDrssummer ELECTROLYTE PANEL 2019-05-23 18:41:00 Nesha Grimaldo MD And erson SERUM CREATININE 2019-05-23 18:41:00 Nesha Grimaldo MD Andrea rson .GLOMERULAR FILTRATION RATE 2019-05-23 18:41:00 Tata Grimaldo MD CALCIUM LEVEL TOTAL 2019-05-23 18:41:00 Nesha Grimaldo MD nderson ALBUMIN LEVEL 2019-05-23 18:41:00 [facility] ALKALINE PHOSPHATASE 2019-05-23 18:41:00 Nesha Grimaldo MD ALANINE AMINOTRANSFERASE 2019-05-23 18:41:00 Nesha Grimaldo MD ASPARTATE AMINOTRANSFERASE 2019-05-23 18:41:00 Nesha Grimaldo MD TOTAL PROTEIN 2019-05-23 18:41:00 Nes[facility] FRACTIONATED BILIRUBIN 2019-05-23 18:41:00 Nesha Grimaldo IMMUNOFIXATION ELECTROPHORESIS 2019-05-23 18:41:00 Petros Grimaldo MD .DR. JEFFREY DIAZ PATH REVIEW 2019-05-23 18:41:00 Canelo Grimaldo MD .DR. JEFFREY CALDERON PATH REVIEW 2019-05-23 18:41:00 Nesha Grimaldo MD TRANSFUSE RED BLOOD CELLS 2019-05-18 03:01:45 Dinorah Cason MD TRANSFUSE RED BLOOD CELLS 2019-05-17 23:52:53 Dinorah Cason MD PREPARE RBC 2019-05-17 17:39:00 Dinorah Cason MD COMPLETE BLOOD COUNT W/ DIFFERENTIAL 2019-05-17 14:42:00 Dinorah Cason MD ELECTROLYTE PANEL 2019-05-17 14:42:00 Dinorah Cason MD Bogdan [facility] MAGNESIUM LEVEL 2019-05-17 14:42:00 Dinroah Cason MD [facility] BLOOD UREA NITROGEN 2019-05-17 14:42:00 Dinorah Cason MD And erson SERUM CREATININE 2019-05-17 14:42:00 Dinorah Cason MD Hola on ANTIBODY SCREEN 2019-05-17 14:42:00 Dinorah Cason MD Anderso n Results CBC 2019-05-17 14:42:00 Dinorah Cason MD Anderso n MANUAL DIFFERENTIAL 2019-05-17 14:42:00 Dinorah Cason MD And erson SERUM CREATININE 2019-05-17 14:42:00 Dinorah Cason MD Hola on .GLOMERULAR FILTRATION RATE 2019-05-17 14:42:00 Dinorah Cason MD ABORH MANUAL 2019-05-17 14:42:00 Dinorah Cason MD Andbetoo owen TMP INTERP AUTO ANTIBODY SCREEN POSITIVE 2019-05-17 14:42:00 Dinorah Landon MD CLOT EXPIRATION DATE 2019-05-17 14:42:00 Dinorah Cason MDson TMP CROSSMATCH INTERPRETATION 2019-05-17 14:42:00 Neisha Cason MD TMP INTERPRETATION ANTIBODY IDENTIFICATION 2019-05-17 14:42: 00 Dinorah Cason MD TYPE AND SCREEN 2019-05-10 14:10:00 Dinorah Cason MD Anderso n COMPLETE BLOOD COUNT W/ DIFFERENTIAL 2019-05-10 14:10:00 Dinorah Cason MD ELECTROLYTE PANEL 2019-05-10 14:10:00 Dinorah Cason MD Bogdan son MAGNESIUM LEVEL 2019-05-10 14:10:00 Dinorah Cason MD Anderso n BLOOD UREA NITROGEN 2019-05-10 14:10:00 Dinorah Cason MD And erson SERUM CREATININE 2019-05-10 14:10:00 Dinorah Cason MD Hola on ANTIBODY SCREEN 2019-05-10 14:10:00 Dinorah Cason MD Anderso n Results CBC 2019-05-10 14:10:00 Dinorah Cason MD Anderso n MANUAL DIFFERENTIAL 2019-05-10 14:10:00 Dinorah Cason MD And erson SERUM CREATININE 2019-05-10 14:10:00 Dinorah Cason MD Hola on .GLOMERULAR FILTRATION RATE 2019-05-10 14:10:00 Dinorah Cason MD ABORH MANUAL 2019-05-10 14:10:00 Dinorah Cason MD Anderso n TMP INTERP AUTO ANTIBODY SCREEN POSITIVE 2019-05-10 14:10:00 Dinorah Landon MD CBC PATHOLOGY REVIEW 2019-05-10 14:10:00 Dinorah Cason MDson PRELIMINARY DIFFERENTIAL 2019-05-10 14:10:00 Dinorah Cason CLOT EXPIRATION DATE 2019-05-10 14:10:00 Dinorah Cason MD TYPE AND SCREEN 2019-05-03 13:30:00 Dinorah Cason MD Anderso n COMPLETE BLOOD COUNT W/ DIFFERENTIAL 2019-05-03 13:30:00 Dinorah Cason MD ELECTROLYTE PANEL 2019-05-03 13:30:00 Dinorah Cason MD Bogdan son MAGNESIUM LEVEL 2019-05-03 13:30:00 Dinorah Cason MD Anderso n BLOOD UREA NITROGEN 2019-05-03 13:30:00 Dinorah Cason MD And erson SERUM CREATININE 2019-05-03 13:30:00 Dinorah Cason MD Hola on ANTIBODY SCREEN 2019-05-03 13:30:00 Dinorah Cason MD Anderso n Results CBC 2019-05-03 13:30:00 Dinorah Cason MD Anderso n MANUAL DIFFERENTIAL 2019-05-03 13:30:00 Dinorah Cason MD And erson SERUM CREATININE 2019-05-03 13:30:00 Dinorah Cason MD Hola on .GLOMERULAR FILTRATION RATE 2019-05-03 13:30:00 Dinorah Cason MD ABORH MANUAL 2019-05-03 13:30:00 Dinorah Cason MD Anderso n TMP INTERP AUTO ANTIBODY SCREEN POSITIVE 2019-05-03 13:30:00 Dinorah Landon MD CLOT EXPIRATION DATE 2019-05-03 13:30:00 Dinorah Cason MD COMPLETE BLOOD COUNT W/ DIFFERENTIAL 2019-04-28 06:22:00 Dinorah Cason MD COMPREHENSIVE METABOLIC PANEL 2019-04-28 06:22:00 Neisha Cason MD LACTATE DEHYDROGENASE 2019-04-28 06:22:00 Dinorah Cason MD nderson MAGNESIUM LEVEL 2019-04-28 06:22:00 Dinorah Cason MD Anderso n PHOSPHORUS LEVEL 2019-04-28 06:22:00 Dinorah Cason MD Hola on URIC ACID 2019-04-28 06:22:00 Dinoarh Cason MD Anderso owen TYPE AND SCREEN 2019-04-28 06:22:00 Dinorah Cason MD Anderso n CALCIUM LEVEL IONIZED 2019-04-28 06:22:00 Dinorah Cason MD nderson ANTIBODY SCREEN 2019-04-28 06:22:00 Dinorah Cason MD Anderso n Results CBC 2019-04-28 06:22:00 Dinorah aCson MD Anderso n MANUAL DIFFERENTIAL 2019-04-28 06:22:00 Dinorah Cason MD And erson GLUCOSE LEVEL 2019-04-28 06:22:00 Dinorah Cason MD Anderso n BLOOD UREA NITROGEN 2019-04-28 06:22:00 Dinorah Cason MD And erson ELECTROLYTE PANEL 2019-04-28 06:22:00 Dinorah Cason MD Bogdan son SERUM CREATININE 2019-04-28 06:22:00 Dinorah Cason MD Hola on .GLOMERULAR FILTRATION RATE 2019-04-28 06:22:00 Dinorah Cason MD CALCIUM LEVEL TOTAL 2019-04-28 06:22:00 Dinorah Cason MD And erson ALBUMIN LEVEL 2019-04-28 06:22:00 Dinorah Cason MD Anderso n ALKALINE PHOSPHATASE 2019-04-28 06:22:00 Dinorah Cason MD ALANINE AMINOTRANSFERASE 2019-04-28 06:22:00 Dinorah Cason ASPARTATE AMINOTRANSFERASE 2019-04-28 06:22:00 Dinorah Cason MD TOTAL PROTEIN 2019-04-28 06:22:00 Dinorah Cason MD Andbetoo owen FRACTIONATED BILIRUBIN 2019-04-28 06:22:00 Dinorah Cason MD CALCIUM IONIZED, VENOUS 2019-04-28 06:22:00 Dinorah Cason MD ABORH MANUAL 2019-04-28 06:22:00 Dinorah Cason MD Anderso owen TMP INTERP AUTO ANTIBODY SCREEN POSITIVE 2019-04-28 06:22:00 Dinorah Landon MD CLOT EXPIRATION DATE 2019-04-28 06:22:00 Dinorah Cason MD derson TMP ABORH DISCREPANCY INTERPRETATION 2019-04-28 06:22:00 Dinorah Cason MD TRANSFUSE RED BLOOD CELLS 2019-04-27 19:27:08 Radha Narayan MD BLOOD UREA NITROGEN 2019-04-27 16:24:00 Dinorah Cason MD And erson SERUM CREATININE 2019-04-27 16:24:00 Dinorah Cason MD Hola on LACTATE DEHYDROGENASE 2019-04-27 16:24:00 Dinorah Cason MD nderson PHOSPHORUS LEVEL 2019-04-27 16:24:00 Dinorah Cason MD Hola on POTASSIUM LEVEL 2019-04-27 16:24:00 Dinorah Cason MD Anderso owen URIC ACID 2019-04-27 16:24:00 Dinorah Cason MD Anderso owen CALCIUM IONIZED, VENOUS 2019-04-27 16:24:00 Dinorah Cason MD COMPREHENSIVE METABOLIC PANEL 2019-04-27 16:24:00 Renae Carlson MD GLUCOSE LEVEL 2019-04-27 16:24:00 Renae Carlson MD ELECTROLYTE PANEL 2019-04-27 16:24:00 Renae Carlson MD SERUM CREATININE 2019-04-27 16:24:00 Renae Carlson MD .GLOMERULAR FILTRATION RATE 2019-04-27 16:24:00 Renae Carlson MD CALCIUM LEVEL TOTAL 2019-04-27 16:24:00 Renae Carlson MD Bogdan son ALBUMIN LEVEL 2019-04-27 16:24:00 Renae Carlson MD ALKALINE PHOSPHATASE 2019-04-27 16:24:00 Renae Carlson MD Andrea rson ALANINE AMINOTRANSFERASE 2019-04-27 16:24:00 Renae Carlson MD ASPARTATE AMINOTRANSFERASE 2019-04-27 16:24:00 Renae Carlson TOTAL PROTEIN 2019-04-27 16:24:00 Renae Carlson MD FRACTIONATED BILIRUBIN 2019-04-27 16:24:[address] [facility] VENOUS BLOOD GAS PLUS 2019-04-27 13:55:00 Nathan Chairez MD And erson PREPARE RBC 2019-04-27 07:38:00 Radha Narayan MD COMPLETE BLOOD COUNT W/ DIFFERENTIAL 2019-04-27 06:17:00 Dinorah Cason MD Results CBC 2019-04-27 06:17:00 Dinorah Cason MD Anderso n MANUAL DIFFERENTIAL 2019-04-27 06:17:00 Dinorah Cason MD And erson CALCIUM LEVEL IONIZED 2019-04-27 06:11:00 Dinorah Cason MD nderson CALCIUM IONIZED, VENOUS 2019-04-27 06:11:00 Dinorah Cason MD BLOOD UREA NITROGEN 2019-04-26 15:21:00 Dinorah Cason MD And erson SERUM CREATININE 2019-04-26 15:21:00 Dinorah Cason MD Hola on LACTATE DEHYDROGENASE 2019-04-26 15:21:00 Dinorha Cason MD nderson PHOSPHORUS LEVEL 2019-04-26 15:21:00 Dinorah Cason MD Hola on POTASSIUM LEVEL 2019-04-26 15:21:00 Dinorah Cason MD Anderso n URIC ACID 2019-04-26 15:21:00 Dinorah Cason MD Anderso n CALCIUM IONIZED, VENOUS 2019-04-26 15:21:00 Dinorah Cason MD SERUM CREATININE 2019-04-26 15:21:00 Dinorah Cason MD Hola on .GLOMERULAR FILTRATION RATE 2019-04-26 15:21:00 Dinorah Cason MD COMPLETE BLOOD COUNT W/ DIFFERENTIAL 2019-04-26 09:08:00 Dinorah Cason MD COMPREHENSIVE METABOLIC PANEL 2019-04-26 09:08:00 Neisha Cason MD LACTATE DEHYDROGENASE 2019-04-26 09:08:00 Dinorah Cason MD nderson MAGNESIUM LEVEL 2019-04-26 09:08:00 Dinorah Cason MD Anderso n PHOSPHORUS LEVEL 2019-04-26 09:08:00 Dinorah Cason MD Hola on URIC ACID 2019-04-26 09:08:00 Dinorah Cason MD Anderso n CALCIUM LEVEL IONIZED 2019-04-26 09:08:00 Dinorah Cason MD nderson Results CBC 2019-04-26 09:08:00 Dinorah Cason MD Anderso n MANUAL DIFFERENTIAL 2019-04-26 09:08:00 Dinorah Cason MD And erson GLUCOSE LEVEL 2019-04-26 09:08:00 Dinorah Cason MD Anderso n BLOOD UREA NITROGEN 2019-04-26 09:08:00 Dinorah Cason MD And erson ELECTROLYTE PANEL 2019-04-26 09:08:00 Dinorah Cason MD Bogdan son SERUM CREATININE 2019-04-26 09:08:00 Dinorah Cason MD Hola on .GLOMERULAR FILTRATION RATE 2019-04-26 09:08:00 Dinorah Cason MD CALCIUM LEVEL TOTAL 2019-04-26 09:08:00 Dinorah Cason MD And erson ALBUMIN LEVEL 2019-04-26 09:08:00 Dinorah Cason MD Anderso n ALKALINE PHOSPHATASE 2019-04-26 09:08:00 Dinorah Cason MD ALANINE AMINOTRANSFERASE 2019-04-26 09:08:00 Dinorah Cason ASPARTATE AMINOTRANSFERASE 2019-04-26 09:08:00 Dinorah Cason MD TOTAL PROTEIN 2019-04-26 09:08:00 Dinorah Cason MD Anderso n FRACTIONATED BILIRUBIN 2019-04-26 09:08:00 Dinorah Cason MD CALCIUM IONIZED, VENOUS 2019-04-26 09:08:00 Dinorah Cason MD PETCT WB SUBSEQUENT TREATMENT STRATEGY 2019-04-25 12:45:00 Dinorah Nicolas MD COMPLETE BLOOD COUNT W/ DIFFERENTIAL 2019-04-25 09:30:00 Dinorah Cason MD COMPREHENSIVE METABOLIC PANEL 2019-04-25 09:30:00 Neisha Cason MD LACTATE DEHYDROGENASE 2019-04-25 09:30:00 Dinorah Cason MD nderson MAGNESIUM LEVEL 2019-04-25 09:30:00 Dinorah Cason MD Anderso n PHOSPHORUS LEVEL 2019-04-25 09:30:00 Dinorah Cason MD Hola on URIC ACID 2019-04-25 09:30:00 Dinorah Cason MD Anderso n FACTOR X ASSAY 2019-04-25 09:30:00 Dinorah Cason MD Anderso n CALCIUM LEVEL IONIZED 2019-04-25 09:30:00 Dinorah Cason MD nderson Results CBC 2019-04-25 09:30:00 Dinorah Cason MD Anderso n MANUAL DIFFERENTIAL 2019-04-25 09:30:00 Dinorah Cason MD And erson GLUCOSE LEVEL 2019-04-25 09:30:00 Dinorah Cason MD Anderso n BLOOD UREA NITROGEN 2019-04-25 09:30:00 Dinorah Cason MD And erson ELECTROLYTE PANEL 2019-04-25 09:30:00 Dinorah Cason MD Bogdan son SERUM CREATININE 2019-04-25 09:30:00 Dinorah Cason MD Hola on .GLOMERULAR FILTRATION RATE 2019-04-25 09:30:00 Dinorah Cason MD CALCIUM LEVEL TOTAL 2019-04-25 09:30:00 DemezaDinorah ALBUMIN LEVEL 2019-04-25 09:30:00 Dinorah Cason MD ALKALINE PHOSPHATASE 2019-04-25 09:30:00 Dinorah Cason MD ALANINE AMINOTRANSFERASE 2019-04-25 09:30:00 Dinorah Cason ASPARTATE AMINOTRANSFERASE 2019-04-25 09:30:00 Dinorah Cason MD TOTAL PROTEIN 2019-04-25 09:30:00 Dinorah Csaon MD FRACTIONATED BILIRUBIN 2019-04-25 09:30:00 Dinorah Cason MD CALCIUM IONIZED, VENOUS 2019-04-25 09:30:00 Dinorah Cason MD ABORH MANUAL 2019-04-25 09:30:00 Dinorah Cason MD CLOT EXPIRATION DATE 2019-04-25 09:30:00 Dinorah Cason MD TMP ABORH DISCREPANCY INTERPRETATION 2019-04-25 09:30:00 Dinorah Cason MD TMP INTERPRETATION MANUAL ANTIBODY SCREEN POSITIVE 2019-04-08 8 09:30:00 Dinorah Cason MD TMP INTERPRETATION ANTIBODY IDENTIFICATION 2019-04-25 09:30: 00 Dinorah Cason MD TMP CROSSMATCH INTERPRETATION 2019-04-25 09:30:00 Neisha Cason MD TRANSFUSE RED BLOOD CELLS 2019-04-25 05:38:37 Dinorah Cason MD TRANSFUSE RED BLOOD CELLS 2019-04-25 01:39:56 Dinorah Cason MD TRANSFUSE RED BLOOD CELLS 2019-04-24 20:32:34 Fran Handy MD GENERAL LABORATORY ADD ON TEST 2019-04-24 16:09:00 Lucía Cason MD PREPARE RBC 2019-04-24 15:50:00 Dinorah Cason MD COMPLETE BLOOD COUNT W/ DIFFERENTIAL 2019-04-24 14:34:00 Fran Larson MD BASIC METABOLIC PANEL, CALCIUM TOTAL 2019-04-24 14:34:00 Fran Larson MD MAGNESIUM LEVEL 2019-04-24 14:34:00 Fran Handy MD on PHOSPHORUS LEVEL 2019-04-24 14:34:00 Fran Handy MD Bogdan son Results CBC 2019-04-24 14:34:00 Fran Handy MD on MANUAL DIFFERENTIAL 2019-04-24 14:34:00 Fran Handy MDson GLUCOSE LEVEL 2019-04-24 14:34:00 Fran Handy MD Hola on BLOOD UREA NITROGEN 2019-04-24 14:34:00 Fran Handy MD ELECTROLYTE PANEL 2019-04-24 14:34:00 Fran Handy MD Andrea rson SERUM CREATININE 2019-04-24 14:34:00 Fran Handy MD Bogdan son .GLOMERULAR FILTRATION RATE 2019-04-24 14:34:00 Fran Handy MD CALCIUM LEVEL TOTAL 2019-04-24 14:34:00 Fran Handy MD TRANSFUSE RED BLOOD CELLS 2019-04-24 13:50:18 Fran Handy MD TRANSFUSE RED BLOOD CELLS 2019-04-24 09:45:30 Fran Handy MD PREPARE RBC 2019-04-24 00:13:00 Fran Handy MD on XR CHEST 2 VW 2019-04-24 00:01:13 Fran Handy MD on US LEG VENOUS DOPPLER RIGHT 2019-04-23 23:38:18 Fran Handy MD BLOODCULTURE 2019-04-23 23:00:00 Fran Handy MD on COMPLETE BLOOD COUNT W/ DIFFERENTIAL 2019-04-23 23:00:00 Fran Larson MD COMPREHENSIVE METABOLIC PANEL 2019-04-23 23:00:00 Ray Handy MD MAGNESIUM LEVEL 2019-04-23 23:00:00 Fran Handy MD on PHOSPHORUS LEVEL 2019-04-23 23:00:00 Fran Handy MD Bogdan son PROTHROMBIN TIME 2019-04-23 23:00:00 Fran Handy MD Bogdan son PARTIAL THROMBOPLASTIN TIME 2019-04-23 23:00:00 Fran Handy MD D DIMER 2019-04-23 23:00:00 Fran Handy MD on TYPE AND SCREEN 2019-04-23 23:00:00 Fran Handy MD on VISCOSITY 2019-04-23 23:00:00 Fran Handy MD on ANTIBODY SCREEN 2019-04-23 23:00:00 Fran Handy MD on Results CBC 2019-04-23 23:00:00 Fran Handy MD on MANUAL DIFFERENTIAL 2019-04-23 23:00:00 Fran Handy MD GLUCOSE LEVEL 2019-04-23 23:00:00 Fran Handy MD on BLOOD UREA NITROGEN 2019-04-23 23:00:00 Fran Handy MD ELECTROLYTE PANEL 2019-04-23 23:00:00 Fran Handy MD Andrea rson SERUM CREATININE 2019-04-23 23:00:00 Fran Handy MD Bogdan son .GLOMERULAR FILTRATION RATE 2019-04-23 23:00:00 Fran Handy MD CALCIUM LEVEL TOTAL 2019-04-23 23:00:00 Fran Handy MD ALBUMIN LEVEL 2019-04-23 23:00:00 Fran Handy MD on ALKALINE PHOSPHATASE 2019-04-23 23:00:00 Fran Handy MDrson ALANINE AMINOTRANSFERASE 2019-04-23 23:00:00 Fran Hnady MD ASPARTATE AMINOTRANSFERASE 2019-04-23 23:00:00 Fran Handy MD TOTAL PROTEIN 2019-04-23 23:00:00 Fran Handy MD on FRACTIONATED BILIRUBIN 2019-04-23 23:00:00 Fran Handy MD ABORH MANUAL 2019-04-23 23:00:00 Fran Handy MD on TMP INTERP AUTO ANTIBODY SCREEN POSITIVE 2019-04-23 23:00:00 Bashir Fran cervantes MD COLD ANTIBODY PANEL 2019-04-23 23:00:00 Fran Handy MD TMP ABORH DISCREPANCY INTERPRETATION 2019-04-23 23:00:00 Fran Larson MD TMP INTERPRETATION ANTIBODY IDENTIFICATION 2019-04-23 23:00: 00 Fran Handy MD CLOT EXPIRATION DATE 2019-04-23 23:00:00 Fran Handy MD nderson TMP INTERPRETATION DIRECT ANTIGLOBULIN TEST 2019-04-23 23:00 :00 Fran Handy MD TMP CROSSMATCH INTERPRETATION 2019-04-23 23:00:00 Ray Handy MD TMP ELUTION INTERPRETATION 2019-04-23 23:00:00 Fran Handy MD TMP INTERPRETATION ELUATE 2019-04-23 23:00:00 Fran Handy MD URINE CULTURE 2019-04-23 22:17:00 Fran Handy MD on URINALYSIS WITH MICROSCOPIC IF INDICATED 2019-04-23 22:17:00 Bashir Fran cervantes MD URINALYSIS MICROSCOPIC 2019-04-23 22:17:00 Fran Handy MD TRANSFUSE RED BLOOD CELLS 2019-04-12 15:33:52 Kade Kelly MD TRANSFUSE RED BLOOD CELLS 2019-04-12 11:53:40 Kade Kelly MD TRANSFUSE RED BLOOD CELLS 2019-04-12 09:19:04 Kade Kelly MD URINE CULTURE 2019-04-12 01:35:00 Kade Kelly MD URINALYSIS WITH MICROSCOPIC IF INDICATED 2019-04-12 01:35:00 Kade De Los Santos MD URINALYSIS MICROSCOPIC 2019-04-12 01:35:00 Kade Kelly MD PREPARE RBC 2019-04-11 19:58:00 Kdae Kelly MD TYPE AND SCREEN 2019-04-11 19:00:00 Nesha Grimaldo MD son ANTIBODY SCREEN 2019-04-11 19:00:00 Nesha Grimaldo MD son ABORH MANUAL 2019-04-11 19:00:00 Nesha Grimaldo MD son TMP INTERP AUTO ANTIBODY SCREEN POSITIVE 2019-04-11 19:00:00 Nesha Grimaldo MD CLOT EXPIRATION DATE 2019-04-11 19:00:00 Nesha Grimaldo MD TMP INTERPRETATION ANTIBODY IDENTIFICATION 2019-04-11 19:00: 00 Nesha Grimaldo MD TMP INTERPRETATION DIRECT ANTIGLOBULIN TEST 2019-04-11 19:00 :00 Nesha Grimaldo MD TMP ELUTION INTERPRETATION 2019-04-11 19:00:00 Nesha Grimaldo MD TMP INTERPRETATION ELUATE 2019-04-11 19:00:00 Nesha Grimaldo MD TMP CROSSMATCH INTERPRETATION 2019-04-11 19:00:00 Stephanie Grimaldo MD PROTEIN ELECTROPHORESIS, SERUM 2019-04-11 17:24:00 Lucía Cason MD IMMUNOGLOBULIN M SERUM 2019-04-11 17:24:00 Dinorah Cason MD FREE LAMBDA LIGHT CHAIN 2019-04-11 17:24:00 Dinorah Cason MD BETA 2 MICROGLOBULIN 2019-04-11 17:24:00 Dinorah Cason MD COMPLETE BLOOD COUNT W/ DIFFERENTIAL 2019-04-11 17:24:00 Dinorah Cason MD TOTAL PROTEIN 2019-04-11 17:24:00 Dinorah Cason MD ALBUMIN LEVEL 2019-04-11 17:24:00 Dinorah Cason MD Andjewels n ELECTROLYTE PANEL 2019-04-11 17:24:00 Dinorah Cason MD Bogdan son MAGNESIUM LEVEL 2019-04-11 17:24:00 Dinorah Cason MD Andbetoo n PHOSPHORUS LEVEL 2019-04-11 17:24:00 Dinorah Cason MD Hola on CALCIUM LEVEL TOTAL 2019-04-11 17:24:00 Dinorah Cason MD And erson GLUCOSE, RANDOM 2019-04-11 17:24:00 Dinorah Cason MD Anderso n BLOOD UREA NITROGEN 2019-04-11 17:24:00 Dinorah Cason MD And erson SERUM CREATININE 2019-04-11 17:24:00 Dinorah Cason MD Hola on URIC ACID 2019-04-11 17:24:00 Dinorah Cason MD ALANINE AMINOTRANSFERASE 2019-04-11 17:24:00 Dinorah Cason ASPARTATE AMINOTRANSFERASE 2019-04-11 17:24:00 Dinorah Cason MD ALKALINE PHOSPHATASE 2019-04-11 17:24:00 Dinorah Cason MD derson FRACTIONATED BILIRUBIN 2019-04-11 17:24:00 Dinorah Cason MD LACTATE DEHYDROGENASE 2019-04-11 17:24:00 Dinorah Cason MD nderson Results CBC 2019-04-11 17:24:00 Dinorah Cason MD MANUAL DIFFERENTIAL 2019-04-11 17:24:00 Dinorah Cason MD And erson SERUM CREATININE 2019-04-11 17:24:00 Dinorah Cason MD Hola on .GLOMERULAR FILTRATION RATE 2019-04-11 17:24:00 Dinorah Cason MD FREE KAPPA/FREE LAMBDA RATIO 2019-04-11 17:24:00 Dinorah Cason MD .DR. LI PROT ELEC PATH REVIEW 2019-04-11 17:24:00 Dulce Maria Cason MD COMPLETE BLOOD COUNT W/ DIFFERENTIAL 2019-03-15 09:33:00 Canelo Bragg MD SODIUM LEVEL 2019-03-15 09:33:00 Angie Bragg MD POTASSIUM LEVEL 2019-03-15 09:33:00 Angie Bragg MD CHLORIDE LEVEL 2019-03-15 09:33:00 Angie Bragg MD CARBON DIOXIDE LEVEL 2019-03-15 09:33:00 Angie Bragg MD Andrea rson BLOOD UREA NITROGEN 2019-03-15 09:33:00 Angie Bragg MD Bogdan son SERUM CREATININE 2019-03-15 09:33:00 Angie Bragg MD GLUCOSE, RANDOM 2019-03-15 09:33:00 Angie Bragg MD LACTATE DEHYDROGENASE 2019-03-15 09:33:00 Angie Bragg MD And erson URIC ACID 2019-03-15 09:33:00 Angie Bragg MD PHOSPHORUS LEVEL 2019-03-15 09:33:00 Angie Bragg MD FRACTIONATED BILIRUBIN 2019-03-15 09:33:00 Angie Bragg MD ALBUMIN LEVEL 2019-03-15 09:33:00 Angie Bragg MD CALCIUM LEVEL TOTAL 2019-03-15 09:33:00 Angie Bragg MD [facility] MAGNESIUM LEVEL 2019-03-15 09:33:00 Angie Bragg MD ALANINE AMINOTRANSFERASE 2019-03-15 09:33:00 Angie Bragg MD ASPARTATE AMINOTRANSFERASE 2019-03-15 09:33:00 Angie Bragg ALKALINE PHOSPHATASE 2019-03-15 09:33:00 Angie Bragg MD rson Results CBC 2019-03-15 09:33:00 Angie Bragg MD MANUAL DIFFERENTIAL 2019-03-15 09:33:00 Angie Bragg MD SERUM CREATININE 2019-03-15 09:33:00 Angie Bragg MD .GLOMERULAR FILTRATION RATE 2019-03-15 09:33:00 Angie Bragg MD ANION GAP 2019-03-15 09:33:00 Angie Bragg MD COMPLETE BLOOD COUNT W/ DIFFERENTIAL 2019-03-14 10:57:00 Canelo Bragg MD SODIUM LEVEL 2019-03-14 10:57:00 Angie Bragg MD POTASSIUM LEVEL 2019-03-14 10:57:00 Angie Bragg MD CHLORIDE LEVEL 2019-03-14 10:57:00 Angie Bragg MD CARBON DIOXIDE LEVEL 2019-03-14 10:57:00 Angie Bragg MD rson BLOOD UREA NITROGEN 2019-03-14 10:57:00 [facility] 2019-03-14 10:57:00 Angie Bragg MD GLUCOSE, RANDOM 2019-03-14 10:57:00 Angie Bragg MD LACTATE DEHYDROGENASE 2019-03-14 10:57:00 Angie Bragg erssummer URIC ACID 2019-03-14 10:57:00 Angie Bragg MD PHOSPHORUS LEVEL 2019-03-14 10:57:00 Angie Bragg MD FRACTIONATED BILIRUBIN 2019-03-14 10:57:00 Angie Bragg MD ALBUMIN LEVEL 2019-03-14 10:57:00 Angie Bragg MD CALCIUM LEVEL TOTAL 2019-03-14 10:57:00 Angie Bragg MD [facility] MAGNESIUM LEVEL 2019-03-14 10:57:00 Angie Bragg MD ALANINE AMINOTRANSFERASE 2019-03-14 10:57:00 Angie Bragg MD ASPARTATE AMINOTRANSFERASE 2019-03-14 10:57:00 Angie Bragg ALKALINE PHOSPHATASE 2019-03-14 10:57:00 Angie Bragg MD Andrea rson THYROID STIMULATING HORMONE 2019-03-14 10:57:00 Dinorah Cason MD FREE THYROXINE 2019-03-14 10:57:00 Dinorah Cason MD TOTAL T3 2019-03-14 10:57:00 Dinorah Cason MD Results CBC 2019-03-14 10:57:00 Angie Bragg MD MANUAL DIFFERENTIAL 2019-03-14 10:57:00 Angie Bragg MD patricia SERUM CREATININE 2019-03-14 10:57:00 Angie Bragg MD .GLOMERULAR FILTRATION RATE 2019-03-14 10:57:00 Angie Bragg MD ANION GAP 2019-03-14 10:57:00 Angie Bragg MD TRANSFUSE RED BLOOD CELLS 2019-03-14 05:55:28 Dinorah Cason MD TRANSFUSE RED BLOOD CELLS 2019-03-13 22:36:33 Dinorah Cason MD URINE TOTAL PROTEIN 2019-03-13 21:45:00 Dinorah Cason MD And erssummer .TOTAL VOLUME 2019-03-13 21:45:00 Dinorah Cason MD .DR. LI UIFE PATH REVIEW 2019-03-13 21:45:00 Dinorah Cason MD .DR. LI U PROT ELEC PATH REVIEW 2019-03-13 21:45:00 Doug Cason MD PREPARE RBC 2019-03-13 14:11:00 Dinorah Cason MD OCCULT BLOOD STOOL 2019-03-13 13:50:00 Antoinette Curtis MD on COMPLETE BLOOD COUNT W/ DIFFERENTIAL 2019-03-13 07:45:00 Canelo Bragg MD SODIUM LEVEL 2019-03-13 07:45:00 Angie Bragg MD POTASSIUM LEVEL 2019-03-13 07:45:00 BraggAngie weaver MD CHLORIDE LEVEL 2019-03-13 07:45:00 BraggAngie weaver MD CARBON DIOXIDE LEVEL 2019-03-13 07:45:00 BraggAngie weaver MD BLOOD UREA NITROGEN 2019-03-13 07:45:00 BraggAngie weaver [facility] 2019-03-13 07:45:00 BraggAngie weaver MD GLUCOSE, RANDOM 2019-03-13 07:45:00 BraggAngie MD LACTATE DEHYDROGENASE 2019-03-13 07:45:00 BraggAngie URIC ACID 2019-03-13 07:45:00 BraggAngie weaver MD PHOSPHORUS LEVEL 2019-03-13 07:45:00 BraggAngie MD FRACTIONATED BILIRUBIN 2019-03-13 07:45:00 BraggAngie MDson ALBUMIN LEVEL 2019-03-13 07:45:00 BraggAngie weaver MD CALCIUM LEVEL TOTAL 2019-03-13 07:45:00 BraggAngie weaver MD [facility] MAGNESIUM LEVEL 2019-03-13 07:45:00 BraggAngie MD ALANINE AMINOTRANSFERASE 2019-03-13 07:45:00 BraggAngie MD ASPARTATE AMINOTRANSFERASE 2019-03-13 07:45:00 BraggAngie weaver ALKALINE PHOSPHATASE 2019-03-13 07:45:00 BraggAngie weaver MD Results CBC 2019-03-13 07:45:00 BraggAngie weaver MD MANUAL DIFFERENTIAL 2019-03-13 07:45:00 BraggAngie weaver MD [facility] SERUM CREATININE 2019-03-13 07:45:00 BraggAngie weaver MD .GLOMERULAR FILTRATION RATE 2019-03-13 07:45:00 BraggAngie weaver MD ANION GAP 2019-03-13 07:45:00 BraggAngie weaver MD BLOODCULTURE 2019-03-12 20:01:00 Geovanni Kelsey MD BETA 2 MICROGLOBULIN 2019-03-12 19:19:00 Dinorah Cason MD FREE LAMBDA LIGHT CHAIN 2019-03-12 19:19:00 Dinorah Cason MD IMMUNOFIXATION ELECTROPHORESIS 2019-03-12 19:19:00 Lucía Cason MD IMMUNOGLOBULIN M SERUM 2019-03-12 19:19:00 Dinorah Cason MD FREE KAPPA/FREE LAMBDA RATIO 2019-03-12 19:19:00 Dinorah Cason MD ABORH MANUAL 2019-03-12 19:19:00 Angie Bragg MD CLOT EXPIRATION DATE 2019-03-12 19:19:00 Angie Bragg MD rson TMP ABORH DISCREPANCY INTERPRETATION 2019-03-12 19:19:00 Canelo Bragg MD .DR. MURPHY PROT ELEC PATH REVIEW 2019-03-12 19:19:00 Dulce Maria Cason MD .DR. MURPHY YUMIKO PATH REVIEW 2019-03-12 19:19:00 Dinorah Cason MD PREPARE RBC 2019-03-12 15:15:00 Dinorah Cason MD COMPLETE BLOOD COUNT W/ DIFFERENTIAL 2019-03-12 11:21:00 Antoinette Curtis MD BASIC METABOLIC PANEL, CALCIUM TOTAL 2019-03-12 11:21:00 Antoinette Curtis MD MAGNESIUM LEVEL 2019-03-12 11:21:00 Antoinette Curtis MD PHOSPHORUS LEVEL 2019-03-12 11:21:00 Antoinette Curtis MD Results CBC 2019-03-12 11:21:00 Antoinette Curtis MD MANUAL DIFFERENTIAL 2019-03-12 11:21:00 Antoinette Curtiser patricia GLUCOSE LEVEL 2019-03-12 11:21:00 Antoinette Curtis MD BLOOD UREA NITROGEN 2019-03-12 11:21:00 Antoinette Curtis MD [facility] ELECTROLYTE PANEL 2019-03-12 11:21:00 Antoinette Curtis MD SERUM CREATININE 2019-03-12 11:21:00 Antoinette Curtis MD .GLOMERULAR FILTRATION RATE 2019-03-12 11:21:00 Antoinette Curtis MD CALCIUM LEVEL TOTAL 2019-03-12 11:21:00 Antoinette Curtis MD TRANSFUSE RED BLOOD CELLS 2019-03-12 09:45:37 Anthony Mak ANTIBODY SCREEN 2019-03-12 01:33:00 Geovanni Kelsey MD ABORH MANUAL 2019-03-12 01:33:00 Geovanni Kelsey MD TMP INTERP AUTO ANTIBODY SCREEN POSITIVE 2019-03-12 01:33:00 Geovanni Kelsey MD CLOT EXPIRATION DATE 2019-03-12 01:33:00 Geovanni Kelsey MD rson TMP INTERPRETATION ANTIBODY IDENTIFICATION 2019-03-12 01:33:00 Geovanni Malloy MD TMP INTERPRETATION DIRECT ANTIGLOBULIN TEST 2019-03-12 01:33:00 Geovanni Kelsey MD TMP ELUTION INTERPRETATION 2019-03-12 01:33:00 Geovanni Kelsey TMP INTERPRETATION ELUATE 2019-03-12 01:33:00 Geovanni Kelsey MD TMP CROSSMATCH INTERPRETATION 2019-03-12 01:33:00 Geovanni Kelsey MD PREPARE RBC 2019-03-12 00:25:00 Anthony Mak MD URINE CULTURE 2019-03-11 17:58:00 Anthony Mak MD URINALYSIS WITH MICROSCOPIC IF INDICATED 2019-03-11 17:58:00 Anthony Zamora MD URINALYSIS MICROSCOPIC 2019-03-11 17:58:00 Antoinette Curtis MD BLOODCULTURE 2019-03-11 17:18:00 Anthony Mak MD COMPLETE BLOOD COUNT W/ DIFFERENTIAL 2019-03-11 17:08:00 Anthony Gaffney MD COMPREHENSIVE METABOLIC PANEL 2019-03-11 17:08:00 Kim Mak MD MAGNESIUM LEVEL 2019-03-11 17:08:00 Anthony Mak MD PHOSPHORUS LEVEL 2019-03-11 17:08:00 Anthony Mak MD Anderso n LACTATE DEHYDROGENASE 2019-03-11 17:08:00 Anthony Mak MDson LACTIC ACID 2019-03-11 17:08:00 Anthony Mak MD AMYLASE LEVEL 2019-03-11 17:08:00 Anthony Mak MD LIPASE LEVEL 2019-03-11 17:08:00 Anthony Mak MD Results CBC 2019-03-11 17:08:00 Antoinette Curtis MD MANUAL DIFFERENTIAL 2019-03-11 17:08:00 [facility] GLUCOSE LEVEL 2019-03-11 17:08:00 Antoinette Curtis MD BLOOD UREA NITROGEN 2019-03-11 17:08:00 Antoinette Curtis MD Bogdan gomez ELECTROLYTE PANEL 2019-03-11 17:08:00 Antoinette Curtis MD SERUM CREATININE 2019-03-11 17:08:00 Antoinette Curtis MD .GLOMERULAR FILTRATION RATE 2019-03-11 17:08:00 Antoinette Curtis MD CALCIUM LEVEL TOTAL 2019-03-11 17:08:00 Antoinette Curtis MD Bogdanciara gomez ALBUMIN LEVEL 2019-03-11 17:08:00 Antoinette Curtis MD ALKALINE PHOSPHATASE 2019-03-11 17:08:00 Antoinette Curtis MD Andreamoriah alcaraz ALANINE AMINOTRANSFERASE 2019-03-11 17:08:00 Antoinette Curtis MD ASPARTATE AMINOTRANSFERASE 2019-03-11 17:08:00 Antoinette Curtis TOTAL PROTEIN 2019-03-11 17:08:00 Antoinette Curtis MD FRACTIONATED BILIRUBIN 2019-03-11 17:08:00 Antoinette Curtis MD EKG, 12-LEAD (PORTABLE) 2019-03-11 00:00:00 Anthony Mak MD TRANSFUSE RED BLOOD CELLS 2019-03-08 08:24:39 Anthony Mak POC TROPONIN I 2019-03-08 05:15:00 Ruth Ventura MD CREATINE KINASE 2019-03-08 05:11:00 Sin Camarena MD Andrea rson CKMB 2019-03-08 05:11:00 Sin Camarena MD Andrea rson TROPONIN T 2019-03-08 05:11:00 Sin Camarena MD Andreamoriah alcaraz XR CHEST 2 VW 2019-03-08 04:29:49 Sin Camarena MD Andrea rssummer PREPARE RBC 2019-03-07 22:09:00 Anthony Mak MD COMPLETE BLOOD COUNT W/ DIFFERENTIAL 2019-03-07 21:52:00 Anthony Gaffney MD COMPREHENSIVE METABOLIC PANEL 2019-03-07 21:52:00 Kim Mak MD MAGNESIUM LEVEL 2019-03-07 21:52:00 Anthony Mak MD PHOSPHORUS LEVEL 2019-03-07 21:52:00 Anthony Mak MD CREATINE KINASE 2019-03-07 21:52:00 Anthony Mak MD CKMB 2019-03-07 21:52:00 Anthony Mak MD TROPONIN T 2019-03-07 21:52:00 Anthony Mak MD PROTHROMBIN TIME 2019-03-07 21:52:00 Chelsea Hamilton MD PARTIAL THROMBOPLASTIN TIME 2019-03-07 21:52:00 Chelsea Hamilton MD Results CBC 2019-03-07 21:52:00 Chelsea Hamilton MD MANUAL DIFFERENTIAL 2019-03-07 21:52:00 Chelsea Hamilton MD GLUCOSE LEVEL 2019-03-07 21:52:00 Chelsea Hamilton MD BLOOD UREA NITROGEN 2019-03-07 21:52:00 Chelsea Hamilton MD [facility] ELECTROLYTE PANEL 2019-03-07 21:52:00 Chelsea Hamilton MD SERUM CREATININE 2019-03-07 21:52:00 Chelsea Hamilton MD .GLOMERULAR FILTRATION RATE 2019-03-07 21:52:00 Chelsea Hamilton MD CALCIUM LEVEL TOTAL 2019-03-07 21:52:00 Chelsea Hamilton MD Bogdan [facility] ALBUMIN LEVEL 2019-03-07 21:52:00 Chelsea Hamilton MD ALKALINE PHOSPHATASE 2019-03-07 21:52:[facility] AMINOTRANSFERASE 2019-03-07 21:52:00 Chelsea Hamilton MD ASPARTATE AMINOTRANSFERASE 2019-03-07 21:52:00 Chelsea Hamilton TOTAL PROTEIN 2019-03-07 21:52:00 Chelsea Hamilton MD FRACTIONATED BILIRUBIN 2019-03-07 21:52:00 Chelsea Hamilton MD An derson ANTIBODY SCREEN 2019-03-07 21:52:00 Chelsea Hamilton MD ABORH MANUAL 2019-03-07 21:52:00 Chelsea Hamilton MD TMP INTERP AUTO ANTIBODY SCREEN POSITIVE 2019-03-07 21:52:00 Chelsea Giraldo MD CLOT EXPIRATION DATE 2019-03-07 21:52:00 Chelsea Hamilton MD rson TMP INTERPRETATION ANTIBODY IDENTIFICATION 2019-03-07 21:52:00 Chelsea Lind MD TMP CROSSMATCH INTERPRETATION 2019-03-07 21:52:00 Ida Hamilton MD EKG, 12-LEAD (PORTABLE) 2019-03-07 00:00:00 Ruht Ventura MD Laparoscopic colectomy 2019-01-15 00:00:00 TANIA MCMANUS [facility] Colostomy 2019-01-15 00:00:[address] [facility] Encounters Start Date/Time End Date/Time Encounter Type Admission Type [facility] Care Department Encounter ID Source 2020-01-13 10:53:17 Outpatient SYSTEM, PROVIDER PERLA DUNCAN [id number] MD [place] 2019-12-31 10:04:12 Outpatient BRITNEY NEWELL MDA, MD [id number] MD [place] 2019-12-05 10:12:43 Inpatient MDA PERLA 10 [id number] MD [place] 2019-12-03 13:32:57 Inpatient ZOFIA LEMOS MDA, MD [id number] MD [place] 2019-12-02 20:34:23 Inpatient ZOFIA LEMOS MDA, MD [id number] MD [facility] 2019-12-02 00:00:00 Inpatient MDA MDA [id number] MD [place] 2019-12-02 00:00:00 Inpatient MDA MDA [id number] MD [place] 2019-12-02 00:00:00 Inpatient MDA MDA [id number] MD [place] 2019-01-13 21:15:00 Admitted Inpatient [facility] [id number] [facility] 2020-02-05 00:00:00 2020-02-05 00:00:00 Outpatient GILDARDO JOHNSON MDA, MDA [id number] MD [place] 2020-02-03 00:00:00 2020-02-03 00:00:00 Outpatient GILDARDO JOHNSON MDA, MDA [id number] [place] 2020-01-16 00:00:00 2020-01-16 00:00:00 Outpatient GILDARDO JOHNSON MDA, MDA [id number] MD [place] 2020-01-16 00:00:00 2020-01-16 00:00:00 Outpatient IGLDARDO JOHNSON MDA MDA [id number] MD [place] 2020-01-14 00:00:00 2020-01-14 00:00:00 Outpatient PETROS MAXWELL MDA MDA [id number] MD [place] 2020-01-08 14:00:00 2020-01-08 23:59:00 Outpatient GILDARDO JOHNSON MDA MDA [id number] MD [place] 2020-01-08 11:30:12 2020-01-08 14:08:30 Outpatient GILDARDO JOHNSON MDA MDA [id number] MD [place] 2020-01-08 11:00:00 2020-01-08 13:59:00 Outpatient GILDARDO JOHNSON MDA MDA [id number] MD [place] 2020-01-08 13:58:08 2020-01-08 13:58:08 Outpatient GILDARDO JOHNSON MDA MDA [id number] MD [place] 2020-01-08 00:00:00 2020-01-08 00:00:00 Outpatient GILDARDO JOHNSON MDA MDA [id number] MD [place] 2020-01-06 10:27:17 2020-01-06 10:35:54 Outpatient GILDARDO JOHNSON MDA MDA [id number] MD [place] 2020-01-01 00:00:00 2020-01-01 00:00:00 Outpatient GILDARDO JOHNSON MDA MDA [id number] MD [place] 2020-01-01 00:00:00 2020-01-01 00:00:00 Outpatient PETROS MAXWELL SALAZAR MDA MDA [id number] MD [place] 2019-12-17 13:25:48 2019-12-17 17:45:51 Outpatient GILDARDO JOHNSON MDA MDA [id number] MD [place] 2019-12-02 07:07:32 2019-12-09 11:27:00 Inpatient ALAYNA REYNA MDA Lymphoma/Mye [id number] MD [place] 2019-12-08 16:06:28 2019-12-08 16:08:17 Inpatient GEOVANNI KELSEY MDA MDA [id number] MD [place] 2019-12-05 00:00:00 2019-12-05 00:00:00 Outpatient GILDARDO JOHNSON MDA MDA [id number] MD [place] Results Test Description Test Time Test Comments Results Result Comments Source CHEST SINGLE (PORTABLE) 2020-02-01 15:22:00 [place] [id number] Patient Name: SHADI DIAZ MR #: [id number] : 1950 Age/Sex: 69/M Req #: [id number] Adm Physician: Ordered by: JOANNA REDDY MD Report #: [id number] Location: ER Room/Bed: Procedure: [id number] DX/CHEST SINGLE (PORTABLE) Exam Date: 02/01/20 Exam [...] 02/01/20 1523 COPY TO: JOANNA REDDY MD TMP Interpretation Crossmatch 2020-01-09 14:06:01 Test Item TMP XM Interp (test code = 7566) RBC units crossmatche d for transfusion appear acceptable. SONNYSHWETHA ESPINOSA JUSTYNA BANKS,Dictated by: TOMASA BANKS,Dictated Date/Time: 01.09.2020 9:05 AM CDT Transcribed Date/Time: 01.09.2020 9:05 AM CDTElectronically Signed By: TOMASA BANKS, on 01.09.2020 9:05 AM Katelynn Anderson Interpretation [id number] 14:06:00* Test Item Value Reference Range Interpretation Comments TMP [facility] [place] CHRISTIANO (test code = 7552) Patient red blood ce lls demonstrate no evidence of detectable IgG antibodies or complement. TOMASA BANKS,Dictated by: TOMASA BANKS,Dictated Date/Time: 01.09.2020 9:05 AM CDT Transcribed Date/Time: 01.09.2020 9:05 AM CDTElectronically Signed By: TOMASA BANKS, on 01.09.2020 9:05 AM Katelynn Anderson Interpretation Antibody [id number] 14:05:59TMP ABID InterpAt the present time, laboratory testing of this patients red blood cell (RBC) antibody screen is positive. DISPENSING CROSSMATCH COMPATIBLE RBC UNITS TO THIS PATIENT MAY REQUIRE ADDITIONAL TIME. This patients plasma re acts WITH ALL CELLS tested used in alloantibody testing. We are unable to rule out if specific alloantibodies are present. All RBC units for transfusion shoul d be crossmatched, and compatible or least incompatible RBC unit(s) should be se lected for transfusion. This will cause a delay in dispensing RBCs. Alloantibod ies directed to RBC surface antigens most often form due to exposure to foreign RBCs during previous transfusion(s) / transplantation, during in femal e patients, or from exposure to environmental antigens similar in structure to R BC antigens. The presence of these actively formed antibodies may fade over emilee e but can reemerge with re-exposure. Passively acquired alloantibodies may be p resent in a patient who recently received intravenous immunoglobulin (IVIg) and may be detected by this test. Additional new alloantibodies can result from rec ent transfusion or ; therefore, we require a repeat type and screen sonya ry three days in patients with continuing transfusion needs.Comment: TOMASA BANKS,Dict ated by: TOMASA BANKS,Dictated Date/Time: 01.09.2020 9:05 AM CDT Transcribed Date/Time: 01.09.2020 9:05 AM CDTElectronically Signed By: TOMASA BANKS, on 01.09.2020 9:05 AM [facility] AdonayPrepare RBC:op, 1 [id number] 00:16:28* Test Item Value Reference Range Interpretation Comments PRBC Product Ready (test code = 51508-6) 1 Red Blood Cells Available - Order Form 03 when ready for product issue. JATINDER (test code = JATINDER) Does the Patient have a Curr ent Signed Informed Consent for Blood Component Transfusion?->Yes MD TenorioDirect Antiglobulin [id number] 21:37:04* Test Item Value Reference Range Interpretation Comments CHRISTIANO Result (test code = 55834-9) IgG neg,C3 neg MD TenorioTMP Interp Auto Antibody Screen [id number] 20:28:23TMP Auto Pos ABSC InterpAt the present time, laboratory testing of this patients red blood cell (RBC) antibody screen is positive. DISPENSING CROSSMATCH COMPATIBLE RBC UNITS TO THIS PATIENT MAY REQUIRE ADDITIONAL TIME. Alloantibodies directed to RBC surface antigens most often form due to exposure to foreign RBCs during previous transfusion(s) / transplantation, during in female patients, or from exposure to environmental antigens similar in structure to RBC antigens. The presence of these actively formed antibodies may fade over time but can reemerge with re-exposure. Passively acquired alloantibodies may be present in a patient who recently received intravenous immunoglobulin (IVIg) and may be detected by this test. Additional new alloantibodies can result from recent tr ansfusion or ; therefore, we require a repeat type and screen every thr ee days in patients with continuing transfusion needs. Comment: TOMASA ABNKS,Dictated by: TOMASA BANKS,Dictated Date/Time: 01.08.2020 15:28 PM C DT Transcribed Date/Time: 01.08.2020 15:28 PM CDTElectronically Signed By: FERNANDO BANKS, on 01.08.2020 15:28 PM [place] [facility] AndersonTMP Interpretation ABORh Bynebpcmgsd6051-05-23 20:28:22* Test Item Value Reference Range Interpretation Comments TMP ABORh Disc Interp (test code = 7534) . TOMASA BANKS,Dictated by: TOMASA BANKS,Dictated Date/Time: 01.08.2020 15:28 PM CDT Transcribed Date/Time: 01.08.2020 15:28 PM CDTElectronically Signed By: TOMASA BANKS, on 01.08.2020 15:28 PM MD TenorioABORh [id number] 19:44:45* Test Item Value Reference Range Interpretation Comments ABORh Manual (test code = 882-1) A NEG MD TenorioClot Expiration [id number] 19:44:44* Test Item Value Reference Range Interpretation Comments T & S Expiration (test code = 5318) 01/11/2020 MD TenorioAntibody [id number] 18:33:00* Test Item Value Reference Range Interpretation Comments ABSC. (test code = 890-4) Positive A Lab Interpretation (test code = 13591-2) Abnormal [facility] Path [id number] 14:33:07U ProE Path IntThe follow-up urine protein electrophoretic pattern shows that the current Bence-Briceño protein excretion is approximately 938 mg/day. This appears to represent an increase when compared to the previous value of 275 mg/day on 12/03/19. Due to the co-migration of the IgA lambda M-protein within this peak in the current study, exact quantitation of the Bence-Briceño protein excretion is d ifficult to achieve. Correlation with the clinical findings, consequently, is re commended. Comment: MD Chasidy BONE [id number] by: MD Chasidy BONE [id number] Date/Time: 020 9:33 AM CDT Transcribed Date/Time: 12.19.2019 9:33 AM CDTElectronically Si gned By: MD Chasidy BONE [id number] on 12.19.2019 9:33 AM [facility] [id number] 14:33:06* Test Item Value Reference Range Interpretation Comments U Albumin % (test code = 7676) 29.8 % 30-50 L U Glob (test code = 8520) 45.5 % 50-66 L U Bence Briceño (test code = 7696) 24.7 % 0-0 H U BJP/TV (test code = 7691) 938 Lab Interpretation (test code = 54320-1) Abnormal [facility] Hospital[facility] Electrophoresis Path Kvionn2629-04-39 16:46:00SPE Path InterpThe follow-up serum protein electrophoretic pattern shows that the three confluent M-protein peaks in the beta-gamma junction region are still present. Overall, they show an increase when compared to the previous combined M-protein value of 5.9 g/dL on 12/03/2019. Normal polyclonal immunoglobulins are also decreased.Please note that due to potential comigration with normal beta glob ulins, sum total M-protein quantification may be less accurate and subject to in creased inter-observer variability. Comment: DIAMOND WILDER MD - [id number] by: MD Chasidy MALDONADO [id number] Date/ Time: 12.18.2019 11:45 AM CDT Transcribed Date/Time: 12.18.2019 11:45 AM CDTEl ectronically Signed By: MD Chasidy MALDONADO [id number] on 12.18.2019 11:45 AM [place] [facility] TenorioUS Leg Venous Doppler [id number] 22:33:31 Negative for deep venous thrombosis in the right lower extremity. I personally reviewed these image(s) along with the resident's/fellow's interpretations, cert kassi that if a procedure was performed I was physically present, and agree with t he final report.Interface, Radiology Results In - 12/17/2019 5:35 PM CDTFULL GLEN SNIDERT:Examination: US LEG VENOUS DOPPLER RIGHT, 12/17/2019 5:00 PMClinical History : Multiple Myeloma.Indication: Other:, swelling please include the calf Compari son: CT abdomen/pelvis 08/04/19 and lower extremity doppler 04/23/19.Technique: G rayscale and color/spectral Doppler ultrasound of the right lower extremity vein s was performed.Findings: The right common femoral, femoral, and popliteal veins demonstrate color flow, compressibility, and response to augmentation. The visu alized posterior tibial, peroneal and anterior tibial veins are patent and compr essible.IMPRESSION:Negative for deep venous thrombosis in the right lower extrem ity.I personally reviewed these image(s) along with the resident's/fellow's inte rpretations, certify that if a procedure was performed I was physically present, and agree with the final report.MD TenorioCzmhsbgb71hs Urine Total Rxtvyyw1682-87-13 20:42:23* Test Item Value Reference Range Interpretation Comments UTP (test code = 7921) 292 mg/dL <=149 H UTP/TV (test code = 7923) 3796 Lab Interpretation (test code = 22276-8) Abnormal MD TenorioGlucose, Aissxg6029-68-70 20:16:59* Test Item Value Reference Range Interpretation Comments Glucose Random (test code = 9360) 122 mg/dL 70-199 Effective 02/02/16, the glucose reference intervals have been updated based on [place] [employer] guidelines (Standards of Medical Care in Diabetes 2016. Diabetes Care 2016; 39: S13-S22).Fasting blood glucose:Normal: 70 99 mg/dLImpaired fasting glucose (increased risk for diabetes or pre-diabetes): 100 125 mg/dLDiabetes mellitus: >/=126 mg/dL Random blood glucose:Normal: 70 199 mg/dLNote: Random glucose >100 mg/dL is associated with increased risk for diabetes MD TenorioTotal Ptutcx1447-63-53 19:45:34* Test Item Value Reference Range Interpretation Comments Total Volume (test code = 7650) 1300 mL 2039-1146 Hrs Collected (test code = 5928) 24 Start Date (test code = 7382) 12/16/2019 End Date (test code = 5510) 12/17/2019 U24 Comment (test code = 8547) 2522-2584 MD TenorioBlood frbfwan0565-41-07 00:30:08* Test Item Value Reference Range Interpretation Comments Final Report (test code = 8488) No growth Path Review - Bottle/Isolator (test code = 8499) Immun ity and antibiotic use may render culture negative. Ongoing infection requires repeat culture.The results have been reviewed and electronically signed by Pathologist:JHONATHAN GANDHI MD #[id number] MD TenorioCarbon Dioxide [id number] 11:12:52* Test Item Value Reference Range Interpretation Comments CO2 (test code = 5227) 20 22- 29 mEq/L L Lab Interpretation (test code = 93445-8) Abnormal MD TenorioAnion [id number] 11:12:45* Test Item Value Reference Range Interpretation Comments Anion Gap (test code = 9325) 15 4- 14 mEq/L H Lab Interpretation (test code = 04466-9) Abnormal AdonayChloride [id number] 11:12:43* Test Item Value Reference Range Interpretation Comments Chloride (test code = 5279) 105 98- 107 mEq/L MD TenorioZajanvadKikjhfxly6730-68-40 11:12:42* Test Item Value Reference Range Interpretation Comments Potassium Lvl (test code = 6854) 3.7 3.5- 5.1 mEq/L MD TenorioSodium [id number] 11:12:41* Test Item Value Reference Range Interpretation Comments Sodium Lvl (test code = 7355) 140 136- 145 mEq/L MD TenorioProtein Electrophoresis Path Rzhbvd2343-29-11 16:08:31SPE Path InterpThe follow-up serum protein electrophoretic pattern shows that the three confluent M-protein peaks in the beta-gamma junction region are still present. Overall, they suggest a borderline decrease when compared to the previous combined M-protein value of 6.1 g/dL on 11/05/2019. Normal polyclonal immunoglo bulins are also decreased.Please note that due to potential comigration with nor mal beta globulins, sum total M-protein quantification may be less accurate and subject to increased inter-observer variability. Comment: ANTOINETTE MURPHY MD PHD [id number] by: Gage ANDERSON PHD [id number] Date/Time: 12.04.2019 11:08 AM CDT Transcribed Date/Time: 12.04.2019 11:08 AM CDTElectronically Signed By: ANTOINETTE MURPHY MD PHD [id number] on 11:08 AM [facility] AndersonIFE Path Review 2019-12-04 16:08:30IFE Path IntThe follow-up serum protein immunofixation electrophoretic patterns obtained with the use of antisera against IgG, IgA, IgM, bound [place] and bound Lambda light chain proteins still suggest the presence of three closely migrating IgA lambda bands in the beta-gamma junction region.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 Comment: ANTOINETTE MURPHY MD PHD [id number] by: ANTOINETTE MURPHY MD PHD [id number] Date/Time: 12.04.2019 11:08 AM CDT Transcribed Date/Time: 12.04.2019 11:08 AM CDTElectronically Signed By: ANTOINETTE MURPHY MD PHD [id number] on 12.04.2019 11:08 AM [facility] RUBYMD AndersonVancomycin Trough Level 2 of 2 for Vancomycin Monitoring: Draw BEFORE administering evening upby0810-33-61 02:18:08 * Test Item Value Reference Range Interpretation Comments Vanco Trough (test code = 8008) 27.7 5.0- 20.0 mcg/mL A Toxic Trough Level: >20 mcg/mL Vanco Tr Dose Time (test code = 8007) See Note Level, date, and time of previous dose is not availablefor this sample. The date reported is the samplecollection date. Vanco Tr Dose Date (test code = 8006) 12/03/2019 JATINDER (test code = JATINDER) Level 2 of 2 for Vancomycin Monitoring: Draw BEFORE administering evening dose Lab Interpretation (test code = 46196-9) Abnormal MD AdonayVancomycin Level Inuwhj5736-47-14 22:35:25* Test Item Value Reference Range Interpretation Comments Vanco Lvl (test code = 8002) 32.8 mcg/mL Therapeutic Random Level: 5-40 mcg/mLToxic random level: >40 mcg/mL Therapeutic Trough Level: 5-20 mcg/mLToxic Trough Level: >20 mcg/mL Therapeutic Peak Level: 25-40 mcg/mLToxic Peak Level: >40 mcg/mL Vanco Dose Time (test code = 8001) See Note Level, date, and time of previous dose is not available for this sample. The date reported is the sample collection date. Vanco Dose Date (test code = 8000) 12/03/2019 JATINDER (test code = JATINDER) Level 1 of 2 for Vancomycin Monitoring: Draw JAIDEN MD TenorioX-ray Chest 1 [id number] 19:33:09Questionable nodule in the right midlung similar relative to the previous study may be due to overlapping vascular structures rather than a parenchymal nodule and follow-up can be performed. Elevation the right hemidiaphragm. Correlation diaphragmatic motion studies can be performed. Lucencies in the clavicles compatible with myelomatous involvement. Interface, Radiology Results In - 12/03/2019 2:35 PM CDTFULL RESULT:Examination: XR CHEST 1 VW, 12/03/2019 2:09 PMClinical History: Multiple myeloma.Indication: Multiple myeloma.Comparison: 10/18/2019Technique: Anteroposterior radiograph of the chest.Findings:The nodular opacity in the right midlung persists and may be due to overlapping vascular structures rather than a parenchymal nodule. No definite sign of consolidation to suggest pneumoni a.The right hemidiaphragm remains elevated relative to left. Correlation diaphra gmatic motion studies can be performed. No pleural effusions.The aorta is tortuo us. Degenerative changes of the spine. There are multiple lucencies in bones com patible with myelomatous involvement such as affecting the clavicles bilaterally IMPRESSION:Questionable nodule in the right midlung similar relative to the prev ious study may be due to overlapping vascular structures rather than a parenchym al nodule and follow-up can be performed.Elevation the right hemidiaphragm. Shiva elation diaphragmatic motion studies can be performed.Lucencies in the clavicles compatible with myelomatous involvement.MD Monzon [id number] 02:19:09 Stable doaz-nh-zkurdzmn hydronephrosis of the left kidney. Normal-appearing rig ht kidney. I personally reviewed these image(s) along with the resident's/fellow 's interpretations, certify that if a procedure was performed I was physically p resent, and agree with the final report.Interface, Radiology Results In - 2019 9:21 PM CDTFULL RESULT:Examination: US RENAL, 12/02/2019 9:03 PMClinical H istory: History of multiple myelomaIndication: Flank / Back PainComparison: Brianna l ultrasound 08/02/2019Technique: Grayscale and color Doppler ultrasound of the k idneys and urinary bladder.Findings:Left kidney: Measures 13.3 cm. Stable mild- moderate hydronephrosis. No evidence of nephrolithiasis .Right kidney: Measures 12.5 cm. No evidence of hydronephrosis, nephrolithiasis, or mass lesion.Urinary bladder: Gonzales catheter in place. Urinary bladder is nearly completely collaps ed.IMPRESSION:Stable hkus-hz-pimigeao hydronephrosis of the left kidney. Normal- appearing right kidney.I personally reviewed these image(s) along with the resid ent's/fellow's interpretations, certify that if a procedure was performed I was physically present, and agree with the final report.MD TenorioUrinalysis with Wdkkfonczmy3288-22-20 22:43:46* Test Item Value Reference Range Interpretation Comments UA WBC (test code = 7904) 81 0- 2 /HPF H UA RBC (test code = 7891) 6 0- 2 /HPF H UA Mucous (test code = 7887) TRACE TRACE /HPF UA Bacteria (test code = 7870) OCC NOT SEEN /HPF UA Squam Epi (test code = 7896) NOT SEEN OCC /HPF UA Gran Cast (test code = 7882) 1 <=0 /LPF H JATINDER (test code = JATINDER) Some reporting parameters wi thin the Urinalysis test have changed due to the implementation of new instrumentation in the [facility], allowing greater sensitivity of measurement. Urinalysis results reported by the [facility] using existing instrumentation, as well as Urinalysis testing performed manually or by backup methodology at the [facility] will remain relatively unchanged. New reporting parameters and units will now be reported for all campuses. Lab Interpretation (test code = 87596-8) Abnormal MD TenorioUrinalysis w/Microscopic if Kwrgafcpr0577-94-86 22:37:39* Test Item Value Reference Range Interpretation Comments UA Color (test code = 7877) Yellow Yellow UA Appear (test code = 7868) Hazy Clear A UA Glucose (test code = 7881) NEG NEG mg/dL UA Bili (test code = 7871) NEG NEG UA Ketones (test code = 7884) NEG NEG mg/dL UA Spec Grav (test code = 7894) 1.016 1.002-1.035 UA Blood (test code = 7872) Moderate NEG A UA pH (test code = 7909) 5.0 4.5-8.0 UA Protein (test code = 7890) 30 mg/dL NEG A UA Urobilinogen (test code = 7903) NEG NEG UA Nitrite (test code = 7888) NEG NEG UA Leuk Est (test code = 7886) Large NEG A Lab Interpretation (test code = 12752-1) Abnormal MD TenorioPartial Thromboplastin [id number] 13:22:12* Test Item Value Reference Range Interpretation Comments PTT (test code = 57773-5) 56.0 24.2- 36.0 second(s) H Lab Interpretation (test code = 72190-3) Abnormal MD TenorioProthrombin Time with [id number] 13:22:11* Test Item Value Reference Range Interpretation Comments PT (test code = 5902-2) 18.3 12.0- 14.3 second(s) H INR (test code = 6301-6) 1.55 0.90-1.10 H Lab Interpretation (test code = 75607-3) Abnormal MD TenorioAmmonia Xydzh8818-26-21 01:25:01* Test Item Value Reference Range Interpretation Comments Ammonia (test code = 4799) 34 16- 60 mcmol/L Specimen is lipemic. Results may be falsely decreased. Repeat test if needed. MD TenorioPOC Glucose [id number] 00:20:22* Test Item Value Reference Range Interpretation Comments POC Glucose (test code = 58839-9) 90 mg/dL 70-99 Capillary blood samples, e.g. obtained by fingerstick, may have inaccurate results in patients with decreased peripheral blood flow. PO Sample Type (test code = 9554) Venous MD TenorioUrine Prot Electrophoresis Path [id number] 15:49:38* Test Item Value Reference Range Interpretation Comments U ProE Path Int (test code = 7803) The follow-up urine protein electrophoretic pattern shows that the current Bence-Briceño protein excretion is 162 mg/day. This represents an increase when compared to the previous value of 80 mg/day on 09/15/2019. ANTOINETTE MURPHY MD PHD [id number] by: ANTOINETTE MURPHY MD PHD [id number] Date/Time: 10.24.2019 10:49 AM CDT Transcribed Date/Time: 10.24.2019 10:49 AM CDTElectronically Signed By: ANTOINETTE MURPHY MD PHD [id number] on 10.24.2019 10:49 AM MD TenorioXsvlykshKCT5373-68-18 15:35:06* Test Item Value Reference Range Interpretation Comments Erythropo Lvl (test code = 5523) 18.1 2.6- 18.5 mIU/mL MD TenorioPETCT WB Subsequent Treatment Ttwrbqsb0344-56-95 17:20:581. FDG-avid lytic skeletal lesions, some of which show associated soft tissue components, and active pleural lesions are consistent with active multiple myeloma. These lesions have increased in size/activity since 04/25/2019 PET/CT with stability to mild increase in size since 08/04/2019 CT. 2. FDG-avid enlargement of the left renal cortex is new since prior PET/CT and raises concern for myelomatous involvement. The anatomic appearance is similar to the more recent CT. 3. The extraskeletal myeloma involving the left fiscal assistant space shows decreased extent /intensity of activity, representing response to interval radiation therapy. It is possible that the residual activity all relates to reactive post therapeutic change. Interface, Radiology Results In - 10/22/2019 12:23 PM CDTFULL RESULT:E xamination: FDG PET/CT, 10/22/2019 10:56 AMClinical History: 69-year-old male wit h multiple myeloma with treatment including systemic therapy and radiation to a left fiscal assistant mass and the left clavicle.Indication: Reevaluate extent of FDG- avid disease, for subsequent treatment strategy purposes.Comparison: PET/CT date d 04/25/[address] abdomen/pelvis dated 08/04/2019Technique: F-18 fluorodeoxyglu cose (FDG) 8.8 mCi was administered intravenously via the left wrist. To allow for distribution and uptake of radiotracer, the patient was asked to rest quietl y for approximately 60-90 minutes. PET/CT imaging was performed from the skull vertex to the toes. Serum blood glucose at the time of the injection was 79 mg/d L. CT scanning was done for attenuation correction, image registration, and diag nosis with scan parameters optimized to minimize radiation exposure to the patie nt. SUV measurements are reported as maximum SUV based on body weight unless oth erwise specified.Findings: Head and Neck: There is significant decrease in exten t/intensity of FDG-avidity at the radiated mass involving the left fiscal assistant sp mariann with current SUV of 5.4 compared to 10.3 (example image 51 versus 53). Promi nent linear activity within the left neck represents benign muscle activation/st rain. No cervical lymphadenopathy is identified.The sinuses are well aerated. Th ere is no focal abnormal metabolic activity within the brain.Chest: FDG-avid les ions along the pleura are consistent with active multiple myeloma. The most cons picuous lesion is located along the medial left aspect of T6 and appears anatomi jinny and metabolically stable with current SUV of 8.6 compared to 7.9 (image 12 1 versus 123). However, some of the other pleural lesions have mildly increased in size with new mild conspicuous activity since prior PET/CT. This is illustrat ed at a lesion along the posterior eighth rib which now measures about 2.1 x 1.0 cm with SUV of 2.9 compared to 1.4 x 0.8 cm (image 134 versus 136). These lesio ns appear anatomically stable since more recent CT.There is no pleural nor peric ardial effusion. No enlarged or FDG-avid mediastinal, hilar, or axillary lymph n odes are present. Linear opacities within the right lower lobe show no correspon ding activity and are consistent with atelectasis. No distinct pulmonary nodules are noted, and there is no abnormal activity within the lungs.Abdomen and Pelvi s: Mild left hydronephrosis is stable since recent CT. The left renal cortex has enlarged since prior PET/CT and now demonstrates areas of abnormal activity, as illustrated inferiorly (example image 218); the appearance is generally stable since more recent CT. Splenomegaly is stable. Small calcified gallstones are pre sent. There is a left lower quadrant colostomy. Evaluation of the unenhanced xin er, pancreas, adrenal glands, and right kidney is unremarkable. No lymphadenopat hy is identified within the abdomen, pelvis, or inguinal regions, and there is n o ascites.Musculoskeletal: Multiple sites of abnormal FDG-avidity are noted with in the skeleton, some of which show associated soft tissue lesions. These sites of activity are new or increased since prior PET/CT. For example, FDG-avid abnor mal soft tissue in association with lytic change involving the manubrium has inc reased in size and activity with current SUV of 5.2 compared to 2.8 (image 109 v ersus 110). As an additional example, new focal activity is seen within the righ t upper scapula with SUV of of 10.2 (image 86) and also within the right posteri or iliac bone with SUV of 7.2 (image 231 versus 232). A lytic lesion with a soft tissue component involving the right posterior iliac bone is anatomically lakeshia rable with more recent CT and show some increase in size; the soft tissue now me asures a sample 3.3 cm in diameter compared to 2.6 cm (image 226 versus series 3 image 136) with SUV of 25.1.A pathologic fracture of the left distal clavicle i s new since prior PET/CT. The associated activity could relate to chronic skelet al remodeling at the fracture.IMPRESSION:1. FDG-avid lytic skeletal lesions, melissa e of which show associated soft tissue components, and active pleural lesions ar e consistent with active multiple myeloma. These lesions have increased in size/ activity since 04/25/2019 PET/CT with stability to mild increase in size since CT.2. FDG-avid enlargement of the left renal cortex is new since prior PET/CT and raises concern for myelomatous involvement. The anatomic appearance i s similar to the more recent CT.3. The extraskeletal myeloma involving the left fiscal assistant space shows decreased extent/intensity of activity, representing resp onse to interval radiation therapy. It is possible that the residual activity al l relates to reactive post therapeutic change.MD TenorioXR Clavicle Left 2019-10-20 15:09:31Unchanged myelomatous involvement of left clavicle with pathological fracture without interval progressive healingInterface, Radiology Results In - 10/20/2019 10:11 AM CDTFULL RESULT:Examination: XR CLAVICLE LEFT, 10/20/2019 10:00 AM.Clinical History: 69-year-old man with multiple myeloma. Left clavicular pathological fracture. Radiotherapy.Indication: Evaluate lytic lesion, fractureComparison: Left clavicle September 27, 2019Technique: XR CLAVICLE LEFTFindings: Lytic myelomatous lesions involving the mid and distal left clavicle with pathological fracture at about the junction of the middle and distal thirds. Features are fairly similar to those present September 27, 2019. The amount of displacement at the fracture site is less. No evidence of interval progressive healing. IMPRESSION:Unchanged myelomatous involvement of left clavicle with pathological fracture without interval progressive healingMD TenorioAmikacin Level, [id number] 14:32:40* Test Item Value Reference Range Interpretation Comments Amikacin Lvl (test code = 4792) 12.5 mcg/mL No reference ranges established for random levels, please refer to trough and/or peak levels provided: Toxic random level: >30 mcg/mL Therapeutic Trough Level: 5 - 10 mcg/mLToxic Trough Level: >10 mcg/mL Therapeutic Peak Level: 20 - 25 mcg/mLToxic Peak Level: >30 mcg/mL Amik Dose Dt (test code = 4786) 10/18/2019 Amik Dose Tm (test code = 4787) see note Level, date, and time of previous dose is not availablefor this sample. The date reported is the samplecollection date. MD TenorioMD COVID-19 (SARS-CoV-2) [id number] 14:28:24* Test Item Value Reference Range Interpretation Comments COVID19 SARS Result (test code = 70437) Not Detected Not Detected COVID19 SARS Interpretation (test code = 57858) SARS-CoV-2 NOT Dete cted. MD TenorioRespiratory PCR Panel Path [id number] 00:19:22RMP PRReviewed and Electronically signed by Pathologist:JHONATHAN GANDHI MD #[id number] Comment: Performed by real-time PCR methodology.This assay detects presence of nucleic acid (DNA or RNA) for the pathogens reported.A result of "Not Detected" does not exclude the the possibility of the presence of oneor more pathogens at less than the detection limits of this assay. This assay is FDAcleared for na sopharyngeal specimens only. All other sources are non-standardized. [facility] AndersonRespiratory PCR Panel, HAND STAMPER [id number] 23:05:23* Test Item Value Reference Range Interpretation Comments Adenovirus (test code = 4748) Not Detected Not Detected Coronavirus 229E (test code = 5349) Not Detected Not Detected Coronavirus HKU1 (test code = 5350) Not Detected Not Detected Coronavirus NL63 (test code = 5351) Not Detected Not Detected Coronavirus OC43 (test code = 5352) Not Detected Not Detected Human Metapneumovirus (test code = 6401) Not Detected Not Detected Human Rhinovirus/Enterovirus (test code = 7212) Not Detected Not De tected Influenza A (test code = 5618) Not Detected Not Detected Influenza A H1 (test code = 5619) Not Detected Not Detected Influenza A H1 2009 (test code = 5620) Not Detected Not Detected Influenza A H3 (test code = 5621) Not Detected Not Detected Influenza B (test code = 5622) Not Detected Not Detected Parainfluenza 1 (test code = 6779) Not Detected Not Detected Parainfluenza 2 (test code = 6780) Not Detected Not Detected Parainfluenza 3 (test code = 6781) Not Detected Not Detected Parainfluenza 4 (test code = 6782) Not Detected Not Detected Respiratory Syncytial Virus (test code = 7157) Not Detected Not Det ected Bordetella pertussis (test code = 4854) Not Detected Not Detected Chlamydiophila pneumoniae (test code = 5139) Not Detected Not Detec alirio Mycoplasma pneumoniae (test code = 6203) Not Detected Not Detected MD TenorioX-ray Abdomen [id number] 21:28:04 Stool in portions of the proximal and transverse colon. Nonobstructed bowel gas pattern.Interface, Radiology Results In - 10/18/2019 4:30 PM CDTFULL RESULT:Examination: XR ABDOMEN AP on 10/18/2019 2:27 PMClinical History: Multiple myelomaIndication: ConstipationComparison: 09/19/2018Technique: XR ABDOMEN APFindings: Stool is seen in the proximal and portions of the transverse colon. No dilated loops of small bowel. Degenerative changes in the spine. Surgical changes are noted in the left pelvis.IMPRESSION:Stool in portions of the proximal and transverse colon.Nonobstructed bowel gas pattern.MD TenorioYuliana [id number] 19:55:19* Test Item Value Reference Range Interpretation Comments V Lactate (test code = 2519-7) 2.1 mmol/L 0.5-1.6 H Lab Interpretation (test code = 15525-5) Abnormal MD TenorioIndra Interpretation Manual Antibody Screen [id number] 17:24:09 TMP Pos ABSC Interp At the present time, laboratory testing of this patients red blood cell (RBC) antibody screen is positive. DISPENSING CROSSMATCH COMPATI BLE RBC UNITS TO THIS PATIENT MAY REQUIRE ADDITIONAL TIME. Alloantibodies direct ed to RBC surface antigens most often form due to exposure to foreign RBCs durin g previous transfusion(s) / transplantation, during in female patients , or from exposure to environmental antigens similar in structure to RBC antigen s. The presence of these actively formed antibodies may fade over time but can reemerge with re-exposure. Passively acquired alloantibodies may be present in a patient who recently received intravenous immunoglobulin (IVIg) and may be det ected by this test. Additional new alloantibodies can result from recent transf usion or ; therefore, we require a repeat type and screen every three d ays in patients with continuing transfusion needs. Comment: THERESA BYNUM,Dictated by: THERESA BYNUM ,Dictated Date/Time: 09.28.2019 12:24 PM CDT Transcribed Date/Time: 09.28.2019 12:24 PM CDTElectronically Signed By: THERESA BYNUM, on 09.28.2019 12:24 P [facility] RUBYMD AndersonAntibody Screen [id number] 16:29:02* Test Item Value Reference Range Interpretation Comments ABSC Interp (test code = 890-4) Positive A Lab Interpretation (test code = 25707-7) Abnormal MD TenorioFhbbhpmjCqsrkjbopv6967-71-38 16:24:05* Test Item Value Reference Range Interpretation Comments Prealbumin (test code = 6855) 17.2 mg/dL 20-40 L Lab Interpretation (test code = 99219-4) Abnormal MD TenorioHemoglobin [id number] 11:34:46* Test Item Value Reference Range Interpretation Comments A1C (test code = 4632) 6.8 % 4.3-5.6 H HbA1c values >=6.5% are diagnostic of diabetes mellitus.Diagnosis should be confirmed by repeat testing.Therapeutic Action suggested: >8.0% HbA1c; Goal oftherapy: <7.0% HbA1c Lab Interpretation (test code = 25536-2) Abnormal MD TenorioCT Head without [id number] 23:18:541. No acute intracranial abnormalities. If there is concern for acute stroke, recommend diffusion- weighted imaging.2. Left infratemporal fossa soft tissue mass is slightly improved when comparing to 06/07/2019, and accounting for differences in imaging technique.3. Calvarial lytic lesions are once again noted, in keeping with the history of myeloma.Interface, Radiology Results In - 08/27/2019 5:20 PM CSTFULL RESULT:Examination: CT HEAD WO CONTRAST on 08/27/2019 5:02 PMClinical History: 06/07/2019Indication: Trauma above clavicle, fell from car and hit headComparison: 05/30/2019Technique: Noncontrast axial images were obtained from the skull base through the vertex. Sagittal and coronal reconstructed images were also obtained.Findings: There is no acute hemorrhage, focal mass effect, mi dline shift, hydrocephalus, or acute cortically-based stroke. Overall plaza-white differentiation is preserved. There remains mass effect in the left fiscal assistant space that is better evaluated on the MRI dated 06/07/2019, and when accounting for differences in imaging technique, findings are slightly improved. There are lytic lesions within the calvarium and skull base including the left clivus (ama ge 24 of series 5), in keeping with the provided history of myeloma.Visualized p aranasal sinuses and mastoids are clear. No air-fluid levels are seen.IMPRESSION :1. No acute intracranial abnormalities. If there is concern for acute stroke, recommend diffusion-weighted imaging.2. Left infratemporal fossa soft tissue m ass is slightly improved when comparing to 06/07/2019, and accounting for differ ences in imaging technique.3. Calvarial lytic lesions are once again noted, in keeping with the history of myeloma.MD TenorioX-ray Shoulder 2+ Views Left 2019-08-27 22:56:36Left clavicle with large lytic lesion at risk of fracture.Interface, Radiology Results In - 08/27/2019 4:58 PM CSTFULL RESULT:Examination: XR SHOULDER 2+ VW LEFT, 08/27/2019 4:40 PM.Clinical History: 69-year-old man with multiple myeloma.Indication: PainComparison: NoneTechnique: XR SHOULDER 2+ VW LEFTFindings: 1. Multiple lucencies in the region imaged consistent with myeloma. The most in port and one is in the mid clavicle where half of the thickness of the clavicle has been destroyed and placing the clavicle at risk of fracture. IMPRESSION:Left clavicle with large lytic lesion at risk of fracture.MD TenorioUgusyqhwNPXLz0823-07-41 20:19:43* Test Item Value Reference Range Interpretation Comments ABORh. (test code = 882-1) A NEG MD TenorioDifferential [id number] 12:15:21* Test Item Value Reference Range Interpretation Comments Diff Cancelled (test code = 8954) See Note Due to low WBC, the differential will not be performed and it is not possible to calculate ANC. MD TenorioOsmolality [id number] 21:00:07* Test Item Value Reference Range Interpretation Comments U Osmolality (test code = 2695-5) 466 500- 850 mOsm/kg H2O L Units in mOsm per Kg of water. Lab Interpretation (test code = 51341-6) Abnormal MD TenorioArjmqnwjEcopbrsiyc0071-12-65 20:10:10* Test Item Value Reference Range Interpretation Comments Osmolality (test code = 2692-2) 299 289- 308 mOsm/kg Units in mOsm per kg of water. MD TenorioSodium [id number] 20:02:02* Test Item Value Reference Range Interpretation Comments U Sodium (test code = 7809) 128 mEq/L Normal range not available for collections less than 24 hours in duration. MD TenorioCT Abdomen Pelvis with [id number] 22:29:08 1. Extensive myelomatous changes throughout the bony skeleton, several which are associated with cortical disruptions with a significant extraskeletal soft tissue components. It is difficult to compare with most recent PET/CT of 04/2019, a lthough the majority were probably present.2. Soft tissue nodules primarily in t he posterior chest wall and right gluteus, again it is difficult to compare with the PET/CT, although the majority were probably present previously.3. Enlarging splenomegaly.4. Mild left hydronephrosis, possibly associated with retroperiton eal infiltration. There is no intraluminal obstructing lesion. Diffusely thicken ed bladder can be inflammatory. Infiltration process is not excluded. Clinical c orrelation is recommended.Interface, Radiology Results In - 08/04/2019 4:31 PM CSTFULL RESULT:Examination: CT ABDOMEN PELVIS W CONTRAST, 08/04/2019 3:42 PMClini pat History:Indication: 69 yo male with myeloma and possible hydronephrosis, CT KUB to further delineate hydronephrosis and any causeComparison: Initial exam a t this institution. Correlation is made with PET/CT of the 04/25/[address] 2 of 10/09/2018Technique: CT of the abdomen and pelvis was performed with intra venous contrast. Findings:The lung bases unremarkable. Punctate hypoattenuating density in the right lobe of liver can be a cyst. The liver is within normal marquez it in size and configuration. The spleen is increased in size, measuring approxi mately 16.8 x 9.2 cm in its greatest cross-sectional dimension. This was approxi mately 15 x 6.6 cm on the PET/CT of the 04/2019. Gallbladder is packed with gall stones. Adrenals are within normal limits bilaterally. Spleen is unremarkable.Th e right kidney is within normal limit without hydronephrosis. The left kidney ap pears a slightly diminished in function with mild hydronephrosis extending to th e ureterovesical junction. There is a periureteral fat strandings and ureteral t hickenings along the way, which can be infiltrating process, responsible for hyd ronephrosis. The bladder is diffusely thickened but is asymmetric and contracted , diffuse infiltration is a possibility. Inflammation is probably the most likel y. Clinical correlation is recommended. No evidence of right hydronephrosis.Ther e are multiple soft tissue nodules at the bilateral posterior chest wall (image #[id number], series 3), many of which are associated with bone lesions with cortical disruptions and some can be perineural nodules. Similar, destructive bone lesion s along with extraskeletal soft tissue and the soft tissue masses are noted in t he pelvis. It is difficult to compare with PET/CT but the majority were probably present. Compared to the chest CT of the 10/2018, the nodules in the posterior c hest wall are new. There is an approximately 1.6 cm nodule/node in the left ante rior pelvis, near the destructive mass involving the left superior pubic ramus ( image 178 series 3). This was approximately 1.6 cm on the PET/CT. The largest so ft tissue mass in the right gluteus measures approximately 5.9 x 3.3 cm.Extensiv e myelomatous changes are noted throughout the most of the skeleton. Dystrophic calcification is noted posterior to the right femoral neck, grossly unchanged PE T/CT.Rectal stump in the central pelvis. Unremarkable colostomy in the left lowe r quadrant.IMPRESSION:1. Extensive myelomatous changes throughout the bony skele ton, several which are associated with cortical disruptions with a significant e xtraskeletal soft tissue components. It is difficult to compare with most recent PET/CT of 04/2019, although the majority were probably present.2. Soft tissue n odules primarily in the posterior chest wall and right gluteus, again it is diff icult to compare with the PET/CT, although the majority were probably present pr eviously.3. Enlarging splenomegaly.4. Mild left hydronephrosis, possibly associa alirio with retroperitoneal infiltration. There is no intraluminal obstructing lesi on. Diffusely thickened bladder can be inflammatory. Infiltration process is not excluded. Clinical correlation is recommended.MD TenoroiFerritin Level 2019-08-03 15:49:08* Test Item Value Reference Range Interpretation Comments Ferritin Lvl (test code = 5608) 2033 ng/mL 30-400 H Lab Interpretation (test code = 90945-2) Abnormal MD TenorioTransferrin with [id number] 13:15:46* Test Item Value Reference Range Interpretation Comments Transferrin (test code = 7653) 130 mg/dL 200-360 L TIBC (test code = 7532) 182 250- 450 mcg/dL L Lab Interpretation (test code = 09197-6) Abnormal MD TenorioIron [id number] 13:15:45* Test Item Value Reference Range Interpretation Comments Iron (test code = 6066) 170 59- 158 mcg/dL H Lab Interpretation (test code = 20759-8) Abnormal MD TenorioRetic [id number] 12:45:21* Test Item Value Reference Range Interpretation Comments Retic Cnt Auto (test code = 11356-9) 0.4 % 0.5-1.5 L RETHE (test code = 6973) 29.2 pg 23.2-37.5 IRF (test code = 26020-3) 1.8 % 2.3-18 L Lab Interpretation (test code = 34837-8) Abnormal MD Bishop Respiratory Culture w/Gram [id number] 13:00:18* Test Item Value Reference Range Interpretation Comments Final Report (test code = 8488) Normal site sharath pres ent.Generally of low significance.Correlate with clinical data and culture history. A Path Review (test code = 8492) The results have been r eviewed and electronically signed by Pathologist:Abelardo Gamble MD, PhD #[id number] A Gram Stain Report (test code = 648-6) Few WBC's seenEp ithelial cells seenMany Gram Negative RodsModerate Gram Positive Cocci A Lab Interpretation (test code = 90111-7) Abnormal MD TenorioTM Interpretation RBC Pheno by Molecular [id number] 16:58:46 * Test Item Value Reference Range Interpretation Comments TMP Interp RBC Molec Method (test code = 7554) See Comment The results of this study reveals that there might a possibility for the development of Anti-C, Anti-E, Anti-K, Anti-Kpa, Anti-Jsa, Anti-Fyb, Anti-N and Anti-s.Testing Performed at [facility], [address] [place] [address], [place] [address]. MD TenorioRB Antigens Molecular [id number] 11:31:09* Test Item Value Reference Range Interpretation Comments Phenotype (test code = 1261-7) N- Phenotype (test code = 1072-8) Jka+ Phenotype (test code = 1021-5) E- Phenotype (test code = 1033-0) Fyb- Phenotype (test code = 1084-3) Jsa- Phenotype (test code = 948-0) C- Phenotype (test code = 1078-5) Jkb+ Phenotype (test code = 1102-3) Kpa- Phenotype (test code = 1320-1) S+ Phenotype (test code = 4461) A1(TNP) Phenotype (test code = 1096-7) K- Phenotype (test code = 1090-0) Jsb+ Phenotype (test code = 1231-0) M+ Phenotype (test code = 1165-0) e+. Phenotype (test code = 1108-0) Kpb+ Phenotype (test code = 1213-8) s-. Phenotype (test code = 1027-2) Fya+ Phenotype (test code = 1159-3) c+. Phenotype (test code = 1195-7) k+. MD TenorioHSV/VZV DNA [id number] 18:30:02* Test Item Value Reference Range Interpretation Comments HSV/VZV Specimen Info (test code = 9626) Oral HSV-1 DNA (test code = 9623) Positive Negative A HSV-2 DNA (test code = 9624) Negative Negative VZV DNA (test code = 9625) Negative Negative H SV 1+2/VZV DNA is a nucleic acid amplification test (NAAT) intended for the qualitative detection and differentiation of herpes simplex virus type 1, herpes simplex virus type 2, and varicella-zoster virus DNA isolated and purified from cutaneous or mucocutaneous lesions from symptomatic patients.Reference Range: DNA NegativeWhen invalid results are obtained, a new specimen should be collected for repeat testing if clinically indicated. Lab Interpretation (test code = 65307-8) Abnormal MD TenorioTobramycin [id number] 00:07:14* Test Item Value Reference Range Interpretation Comments Tobra Lvl (test code = 7625) 4.00 mcg/mL No reference ranges established for random levels, please refer to trough and/or peak levels provided: Toxic random level: >10 mcg/mL Therapeutic Trough Level: <=2 mcg/mLToxic Trough Level: >2 mcg/mL Therapeutic Peak Level: 5-10 mcg/mLToxic Peak Level: >10 mcg/mL Tobra Ds Dt (test code = 7623) 07/19/2019 Level, date, and time of previous dose is not availablefor this sample. The date reported is the samplecollection date. Tobra Ds Tm (test code = 7624) see note Level, date, and time of previous dose is not availablefor this sample. The date reported is the samplecollection date. MD TenorioX-ray Chest 1 View [id number] 13:02:20No acute abnormality identified. I personally reviewed these image(s) along with the resident's/fellow's interpretations, certify that if a procedure was performed I was physically present, and agree with the final report.Interface, Radiology Results In - 07/18/2019 7:04 AM CSTFULL RESULT:Examination: XR CHEST 1 VW P ORTABLE, 07/18/2019 1:27 AMClinical History: Multiple myelomaIndication: FeverCom parison: Chest radiograph on 06/21/2019 and a PET/CT on 04/25/2019Technique: Sin gle portable anteroposterior radiograph of the chest.Findings:Interval removal o f right-sided central catheter is identified. Lungs are clear. No pleural effusi on or pneumothorax is identified. No mediastinal or hilar adenopathy is observed . Mild tortuosity of thoracic aorta is seen. The mediastinal contours are otherw ise unremarkable. Stable lucent lesions are seen in the bilateral clavicles. Deg enerative changes are again noted throughout the lumbar spine. IMPRESSION:No acu te abnormality identified.I personally reviewed these image(s) along with the re sident's/fellow's interpretations, certify that if a procedure was performed I w as physically present, and agree with the final report.MD [id number] 09:23:43* Test Item Value Reference Range Interpretation Comments CRP (test code = 5235) 205.40 mg/L Refer ence ranges for HS CRP assay are as follows: Reference ranges when used to assess cardiac risk: <1.00 mg/L Low cardiovascular risk 1.00-3.00 mg/L Average cardiovascular risk >3.00 mg/L High cardiovascular risk.Reference ranges when used to assess inflammatory responses: Less than or equal to 10.00 mg/L. MD TenorioRwsxzwxjNdjtmlgoauawp3886-86-68 09:10:54* Test Item Value Reference Range Interpretation Comments Procalcitonin (test code = 9379) 0.46 ng/mL <=0.08 H Procalcitonin > 2.00 ng/mL: Procalcitonin levels above 2.00 ng/mL are highly suggestive of a high risk for systematic bacterial infection/ severe sepsis and/or septic shock. Procalcitonin < 0.50 ng/mL: Procalcitonin levels below 0.50 ng/mL are at low risk for progression to severe sepsis and/ or septic shock. Procalcitonin (ProCT) between 0.15 and 2.0 ng/mL do not exclude infection, because localized infections (without systemic signs) may be associated with such low levels. Results greater than 400 ng/mL may not be reliable due to the matrix effect with extended dilution as it exceeds the plastics supervisor's recommended limit. Caution should be exercised when interpreting such values and done in conjunction with clinical context. 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 Comment: MD Chasidy MODI [id number] by: MD Chasidy MODIDictated Date/Time: 07.17.2019 18:57 PM GRAPHIC ART SALES REPRESENTATIVE Transcribed Date/Time: 07.17.2019 18:57 PM CSTElectronically Signed By: MD Chasidy MODI on 07.17.2019 18:57 PM [facility] ERMD AndersonProtein Electrophoresis Path [id number] 00:57:14SPE Path InterpThe follow-up serum protein electrophoretic pattern showsthat the M- protein peaks are still present. However, taken together, theyshow a decrease when compared to the previous M-proteinvalues of 0.8,4.6 and 1.7 gm/100 ml on 08/21/2018. Comment: MD Chasidy MODI [id number] by: MD Chasidy MODI67Dicta alirio Date/Time: 07.17.2019 18:57 PM GRAPHIC [employer] SALES REPRESENTATIVE Transcribed Date/Time: 07.17.2019 18:57 PM CSTElectronically Signed By: MD Chasidy MODI67 on 020 18:57 PM [facility] SERVICESMD AndersonFree [id number] 11:25:14* Test Item Value Reference Range Interpretation Comments Cortisol Free-Aldana (test code = 2145-1) 0.184 mcg/dL REFERENCE VALUE 6:00-10:30 AM Collection 0.121-1.065 mcg/dL ADDITIONAL INFORMATION This test was developed and its performance characteristicsdetermined by [facility] in a manner consistent with CLIArequirements. This test has not been cleared or approved bythe U.S. Food and Drug Administration. Test Performed by:[facility] [place] [id number] Director: Slim Larose M.D. Ph.D.; CLIA# [id number] MD Carlisle Poneax8198-18-84 00:58:13* Test Item Value Reference Range Interpretation Comments pH Francisco (test code = 2746-6) 7.39 7.31-7.41 Results are corrected for a body temp of 37C pCO2 Francisco (test code = 2021-4) 33 35- 50 mmHg L pO2 Francisco (test code = 2705-2) 35 35- 50 mmHg HCO3 Francisco (test code = 09380-6) 20 mmol/L Base Excess Francisco (test code = 1927-3) -4 mmol/L O2 Sat Francisco (test code = 6513) 65 % Lab Interpretation (test code = 26252-3) Abnormal MD TenorioXR Chest 1 View Post Lspbfct0142-99-27 23:08:40Central venous catheter placement without evidence of complications. Interface, Radiology Results In - 06/21/2019 5:10 PM CSTFULL RESULT:Examination: XR CHEST 1 VW POST IMPLANT, 06/21/2019 3:16 PMClinical History: Multiple myelomaIndication: Check Central Line placementComparison: 06/07/2019Technique: Single portable anteroposterior radiograph of the chest.Findings:A] given central venous sheila ter has its tip overlying the superior vena cava.The lungs are normal. There is no pleural effusion or pneumothorax. There is no mediastinal or hilar adenopathy . Cardiac silhouette is normal. Stable appearance of lucent lesions in the left clavicle. Degenerative changes in the thoracic spine.IMPRESSION:Central venous c atheter placement without evidence of complications.MD Cornelius Vascular Access Device: Non-Tunneled: [id number] 22:59:21Breana Tolbert NP 06/21/2019 5:01 PMProcedure: central venous catheter placementDate/Time: 06/21/2019 4:59 PM Provider Information:Performed by: Breana Tolbert NPAuthorized by: DEBORAH Lundberg Personal Lines Account Manager present: no Patient Diagnosis:Pre-operative diagnosis: MMPost-operative diagnosis: unchanged Indications:Indications: vascular access Pre-Procedure Note:Patient examined pre-procedure: yesChart reviewed pre-procedure, including labs, images, history and physical exam: yesMedical sign language interpreter: sign language interpreter not needed Pre-procedure patient condition: alert Anesthesia:Anesthesia: local infiltrationLocal anesth etic: lidocaine 1% without epinephrineAnesthetic total (ml): 12 Sedation:Patient sedated?: yesSedation type: anxiolysis Sedation: midazolam and see MAR for det ailsVital signs: vital signs monitored during sedation Central Venous Catheter Placement:Preparation: equipment and IV tubing prepared, patient ready for proce dure, insertion site prepped and cleaned with aseptic technique and insertion si te area shavedSkin prep agent dried: skin prep agent completely dried prior to p rocedureSterile barriers: maximum sterile barriers were used: cap, mask, sterile gown, sterile gloves, and large sterile sheetHand hygiene: hand hygiene perform ed prior to central venous catheter insertionLocation: right subclavianPatient p osition: TrendelenburgCatheter type: double lumenInstruments used: central venou s catheter trayPre-procedure: landmarks identifiedUltrasound guidance: yesSteril e ultrasound techniques: sterile gel and probe cover used in ultrasound-guided c entral venous catheter insertionNeedle introduced into anesthetized area: Macy amador Seldinger technique used: Seldinger technique usedMicroIntroducer with rooney th inserted: yesDrip test performed: yesDilator inserted gently over guidewire: yesDilator with peel away sheath inserted: noCatheter inserted: yesIV tubing att ached to catheter: yesReverse Trendelenburg position discontinued: yes Each lume n evacuated of air and flushed with sterile saline: yesCatheter size: 11 FrNumbe r of attempts: 2Successful placement: yesEstimated blood loss: none Post-procedu re:Post-procedure: line sutured and dressing appliedAssessment: blood return thr ough all ports, free fluid flow, placement verified by x-ray and no pneumothorax on x-rayPatient condition: patient does not report adverse symptoms, patient to lerated the procedure well with no immediate complications, patient remained hem odynamically stable throughout the procedure and patient is warm and well perfus edResponsiveness: awake and alertPatient disposition: remain in inpatient bed Co mments:Chest x ray shows right subclavian vein central venous catheter in good p osition for infusion with tip in the cavo atrial junction. MD TenorioPreparmoriah fresh frozen plasma:Transfusion Date: 06/21/2019; Transfusion Indications: Other (page Transfusion Medicine Physician); A consult with transfusion medicine is required if patient does not meet criteria. Pager [phone] Has consult occ...2019-06-21 20:54:51* Test Item Value Reference Range Interpretation Comments FFP Product Ready (test code = 26301-4) Plasma Exchange Fresh Frozen Plasma Available - Order Form 03 when ready for product issue. Unit Number (test code = 7002) [id number] Product Code (test code = 7003) [id number] Unit Expiration (test code = 261341) [id number] Unit Blood Type (test code = 7004) 6200 Product Code Text (test code = 313588) PLASMA IR CPD Unit Irradiated (test code = 090269) IRRADIATED Dispense Status (test code = 7001) ISSUED Unit Blood Type (test code = 7005) A Positive [facility] Add-On Gbbm0405-35-54 20:52:42* Test Item Value Reference Range Interpretation Comments Ordered (test code = 6568) Test Added Test Needed (test code = 7604) please add on BMP for latest osmolar ity MD TenorioIvzchrsjQWC2107-19-94 18:47:07* Test Item Value Reference Range Interpretation Comments TSH (test code = 7578) 1.08 0.27- 4.20 mcunit/mL MD TenorioChloride Bnhqc2437-95-92 17:51:09* Test Item Value Reference Range Interpretation Comments U Chloride (test code = 7709) 110 mEq/L Normal range not available for collections less than 24 hours in duration. MD TenorioPotassium Yjdhg1920-50-85 17:51:08* Test Item Value Reference Range Interpretation Comments U Potassium (test code = 7802) 72 mEq/L Normal range not available for collections less than 24 hours in duration. MD TenorioCreatinine Aczqs8235-24-54 17:51:07* Test Item Value Reference Range Interpretation Comments U Creatinine (test code = 7725) 78.9 mg/dL 40-278 The reference range listed is for first morning urine collection. MD TenorioOsbpdwwsFzmhnijmwu9420-52-51 16:58:32* Test Item Value Reference Range Interpretation Comments Fibrinogen (test code = 3255-7) 239 mg/dL 214-503 MD TenorioGyzqbanwRUO9481-29-48 16:02:31* Test Item Value Reference Range Interpretation Comments pH Art (test code = 2744-1) 7.46 7.35-7.45 H Results are corrected for a body temp of 37C. pCO2 Art (test code = 2019-8) 25 35- 45 mmHg L pO2 Art (test code = 2708-6) 130 83- 108 mmHg H HCO3 Art (test code = 1960-4) 18 mmol/L 22-26 L Base Excess Art (test code = 1925-7) -5 mmol/L -2-3 L O2 Sat Art (test code = 6512) 99 % 92-98 H Lab Interpretation (test code = 82157-7) Abnormal AdonayEzra, Udpha0319-07-34 11:57:45* Test Item Value Reference Range Interpretation Comments Fungitell S-V (test code = 9239) <31 <80 pg/mL Interpretation: The Fungitell assay does not detect certain fungalspecies such as the genus Cryptococcus (Isabel et al. 1991) whichproduces very low levels of (1-3)-Vlsx-Y-Szepuv. The assay also doesnot detect the Zygomycetes such as Absidia, Mucor and Rhizopus(Dashawn et al. 1994) which are not known to produce(1-3)-Jqtc-T-Ssriyu. In addition, the yeast phase of Blastomycesdermatitidis produces little (1-3)-Csgw-P-Xrhdpi and may not bedetected by the assay (Gibson et al. 2007).Reference Range:Less than 60 pg/mL. Glucan values of less than 60 pg/mL areinterpreted as negative.Glucan values of 60 to 79 pg/mL are interpreted as indeterminate,and suggest a possible fungal infection. Additional sampling andtesting of sera is required to interpret the results.Glucan values of greater than or equal to 80 pg/mL are interpretedas positive.Due to the potential for environmental contamination whentransferred to pour-off tubes, which can lead to false positiveresults, interpret positive results from samples provided inpour- off tubes with caution. Results should be used in conjunctionwith clinical findings, and should not form the sole basis for adiagnosis or treatment decision. The Fungitell test is approved orcleared for in vitro diagnostic use by the U.S Food and DrugAdministration. Modifications to the approved package insert havebeen made and the performance characteristics for thesemodifications were determined by [employer] ([employer]).If sample result is greater than 500 pg/mL, physician may order atiter of the sample. Please contact [employer] [facility]) if you wouldlike to order a retest of this sample to obtain an actual value.Samples are held for 1 week after initial testing date. Testing Performed At:[facility] [place] [address] [id number] MD TenorioCryptococcal Ag Serum Path Tczvnr5243-46-67 16:31:20Crypto Ag, Serum PRReviewed and Electronically signed by Pathologist:JHONATHAN GANDHI MD #[id number] Comment: Reference Range: NEGATIVE The Cryptococcal Antigen Lateral Flow Assay is a dipstick sandwich immunographic assay. Positive results will be titered. Jhonathan casillas MD - [id number] by: MD Chasidy Osorio [id number] Date/Time: 10:31 AM GRAPHIC ART SALES REPRESENTATIVE Transcribed Date/Time: 06.08.2019 10:31 AM CSTElectronica lly Signed By: MD Chasidy Osorio [id number] on 06.08.2019 10:31 AM [facility] AndersonCryptococcal Antigen, [id number] 12:39:33* Test Item Value Reference Range Interpretation Comments Cryptococcal Antigen Screen, Serum (test code = 98640-8) Negative Negative MD Price Orbits with and without Ldekoxvv1345-45-59 23:59:131. Inflammatory process involving the left preseptal soft tissues and left lacrimal gland. No intraconal involvement or drainable fluid collections are seen.2. Air-fluid levels in the bilateral maxillary sinuses may represent acute sinusi tis in the appropriate clinical context.3. 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 No drainable flui d collection is seen. There is trace mucosal thickening of the ethmoid air cells and circumferential mucosal thickening of the maxillary sinuses with superimpos ed air-fluid levels. The globes and extraocular muscles are unremarkable. The in traconal fat has normal signal intensity.An enhancing mass in the left masticato r space measuring 3.6 x 3.3 cm, immediately adjacent to the left sphenoid bone i s unchanged since prior CT. The imaged intracranial compartment is unremarkable. Major intracranial flow voids are maintained at the skull base. No definite cer vical lymphadenopathy is seen. Diffuse bone marrow signal heterogeneity in keepi ng with known multiple myeloma.IMPRESSION:1. Inflammatory process involving the left preseptal soft tissues and left lacrimal gland. No intraconal involvement or drainable fluid collections are seen.2. Air-fluid levels in the bilateral ma xillary sinuses may represent acute sinusitis in the appropriate clinical contex t.3. Stable appearance of left fiscal assistant space mass presumed to represent extr aosseous myeloma.MD TenorioIoylezslMseygtexg3600-92-93 00:57:49* Test Item Value Reference Range Interpretation Comments Viscosity-[place] (test code = 3128-6) 2.9 cP <=1.5 H Suggest serum Monoclonal Protein Studies. ADDITIONAL INFORMATION This test has been modified from the plastics supervisor'sinstructions. Its performance characteristics weredetermined by [facility] in a manner consistent with CLIArequirements. This test has not been cleared or approved bythe U.S. Food and Drug Administration. Test Performed by:[facility] - [address] [address]Aza Director: Slim Larose M.D. Ph.D.; CLIA# [id number] Lab Interpretation (test code = 86700-0) Abnormal MD TenorioRespiratory Viral Panel, Nasal Benp5009-25-98 17:42:28* Test Item Value Reference Range Interpretation Comments RVP Adenovirus NW (test code = 45764) Not Detected Not Detected Detects Serotypes B and E. Detection of Serotype C may be limited.If Adenovirus infection is suspected and a Not Detected result isreturned the sample should be re-tested for adenovirus using anindependent method (e.g. [employer] ([facility]) Adenovirus QuantitativeReal-time PCR test). RVP Enterovirus NW (test code = 24076) Not Detected Not Detected Cross- reactivity has been observed between certain Rhinovirusstrains and the Enterovirus assay. RVP Bocavirus NW (test code = 73795) Not Detected Not Detected RVP Coronavirus NW (test code = 54099) Not Detected Not Detected The Human Coronavirus assay detects Human coronavirus types 229E,OC43, NL63, and HKU1. RVP Metapneumovirus NW (test code = 04291) Not Detected Not Detecte d RVP Influenza A NW (test code = 00030) Not Detected Not Detected RVP Influenza A-P9H8-17 NW (test code = 59049) Not Detected Not Det ected RVP Influenza B NW (test code = 52840) Not Detected Not Detected RVP Parainfluenza NW (test code = 07083) Not Detected Not Detected RVP Resp Syncytial Virus NW (test code = 60001) Not Detected Not De tected The Respiratory Syncytial Viral assay detects both types A and B,however it does not distinguish between the two. RVP Rhinovirus NW (test code = 76828) Not Detected Not Detected Cross- reactivity has been observed between certain Rhinovirusstrains and the Enterovirus assay.Target Enriched Multiplex Polymerase Chain Reaction (TEM-PCR) allowsfor the detection of multiple pathogens out of a single reaction.This test was developed and its performance characteristicsdetermined by [facility] [employer] ([facility]). It has not been cleared or approvedby the U.S. Food and Drug Administration. Results should be used inconjunction with clinical findings, and should not form the solebasis for a diagnosis or treatment decision.TEM-PCR is a licensed technology of [employer]. Testing Performed At:[facility] [place] [address] AlpenaCT Head with and without Krjzyulg9165-86-00 15:55:32 1. No acute intracranial abnormality such as hemorrhage.2. Multiple calvarial and skull base lytic lesions in keeping with patient's history of multiple myeloma.3. Left fiscal assistant space enhancing mass which likely represent extraosseous myeloma. Interface, Radiology Results In - 05/30/2019 9:57 AM CSTFULL RESULT:E XAMINATION: CT HEAD W WO CONTRAST on 05/30/2019 7:55 AMCOMPARISON: PET/CT 2018, CT head 09/18/2018HISTORY: Multiple myeloma, previously treated with system ic therapy.INDICATION: Headache, concerning for bleedingTECHNIQUE: CT scan of th e brain was performed with and without intravenous contrast as per departmental protocol. FINDINGS: No intra or extra-axial hemorrhage, mass effect or midline s hift. Hemispheric cortical sulci and ventricles are within normal limits. No abn ormal parenchymal or leptomeningeal enhancement is seen. There are multiple lyti c lesions involving calvarial bones and skull base which have slightly increased since prior study. There is enhancing soft tissue mass associated with left sph enoid wing lytic lesion, measuring 3.3 x 3.1 cm in the left fiscal assistant space. Th is mass demonstrated FDG uptake on prior PET/CT and likely represent extraosseou s myeloma. There is new mucosal thickening within the maxillary sinus with patc hy opacification of the ethmoid air cells. Sphenoid sinus is well-aerated.IMPRES GINNY:1. No acute intracranial abnormality such as hemorrhage.2. Multiple jhonny rial and skull base lytic lesions in keeping with patient's history of multiple myeloma.3. Left fiscal assistant space enhancing mass which likely represent extraoss eous myeloma.MD TenorioX-ray Chest 2 Zktyb2003-92-30 22:33:14No acute cardiac or pulmonary abnormality is detected. Abnormalities detected on PET/CT imaging in raising the possibility of a of multiple myeloma are not visualized radiographically Interface, Radiology Results In - 05/28/2019 4:35 PM CSTFULL RESULT:Examination: XR CHEST 2 VW, 05/28/2019 4:18 PM.Clinical History: Multiple myeloma.Indication: Cough [R05 (ICD-10-CM)]. Restaging.Comparison: PET/CT 04/25/2019. Technique: Posteroanterior, lateral and dual-energy radiographs of the chest.Findings:1. There are no focal abnormal pulmonary opacities suspicio us for acute infection or malignancy.2. Focal regions of increased FDG uptake a djacent to the posterior aspect of right ninth rib and in the mediastinum suspic ious for malignancy are not visualized radiographically.IMPRESSION:No acute card iac or pulmonary abnormality is detected. Abnormalities detected on PET/CT imagi ng in raising the possibility of a of multiple myeloma are not visualized radiog raphicallyYavapai [facility] Pathology Qyvfwc4838-51-80 20:56:21* Test Item Value Reference Range Interpretation Comments CBC Path Interp (test code = 5181) Neutrophilia with p rominent Rouleaux formation and a circulating plasma cell are seen on scan in a previously diagnosed plasma cell myeloma patient. Suggest correlation with bone marrow, immunophenotype and serum and urine protein studies. MD Chasidy MODI [id number] by: MD Chasidy MODI [id number] Date/Time: 05.11.2019 14:56 PM GRAPHIC ART SALES REPRESENTATIVE Transcribed Date/Time: 05.11.2019 14:56 PM CSTElectronically Signed By: MD Chasidy MODI [id number] on 05.11.2019 14:56 PM JATINDER (test code = JATINDER) Differential is referred to Pathologist for gracia crocker. MD TenorioPreliminary Kgexwvjkbkjy4902-26-34 16:57:18* Test Item Value Reference Range Interpretation Comments Preliminary Diff Comment (test code = 9643) See Note A This differential requires pathologist review. These results are preliminary and all elements are subject to change. Please use caution in evaluating your patient based on preliminary results. Preliminary Neutrophil % (test code = 9644) 59.0 % 42-66 Preliminary Lymphocyte % (test code = 9645) 24.0 % 24-44 Preliminary Monocyte % (test code = 9646) 11.0 % 2-7 H Preliminary Eosinophil % (test code = 9647) 5.0 % 1-4 H Preliminary Metamyelocyte (test code = 9649) 1.0 % <=0.0 H Preliminary ANC (test code = 9654) 2.12 K/uL 1.7-7.3 Lab Interpretation (test code = 26337-6) Abnormal MD TenorioVBG+2019-04-27 14:16:43* Test Item Value Reference Range Interpretation Comments V Na (test code = 19957-2) 146 135- 147 mEq/L V K (test code = 94795-3) 4.0 3.5- 5.0 mEq/L V Cl (test code = 76932-1) 109 98- 108 mEq/L H V Gluc (test code = 69019-2) 104 mg/dL 67-93 H V HCT (test code = 41915-6) 25 % 35-53 L V Lactate (test code = 2519-7) 1.4 mmol/L 0.5-2 V Ion Ca (test code = 48168-5) 1.29 mmol/L 1.13-1.32 pH Francisco (test code = 2746-6) 7.44 7.31-7.41 H Results are corrected for a body temp of 37C pCO2 Francisco (test code = 2021-4) 31 35- 50 mmHg L pO2 Francisco (test code = 2705-2) 45 35- 50 mmHg HCO3 Francisco (test code = 19899-6) 21 mmol/L V Anion Gap (test code = 9328) 16 mmol/L 4-14 H Base Excess Francisco (test code = 1927-3) -3 mmol/L O2 Sat Francisco (test code = 6513) 82 % Lab Interpretation (test code = 48553-8) Abnormal MD TenorioFactor [id number] 20:40:33* Test Item Value Reference Range Interpretation Comments Factor X (test code = 5587) 88.0 % 70-120 Performing Lab: [facility], [address] [place] [address]. MD TenorioTMP Elution Jegtpuflmseudv1476-11-76 16:32:51* Test Item Value Reference Range Interpretation Comments TMP Elution Interpretation (test code = 7541) Patient red blood cells demonstrate the presence of IgG antibody(ies) of unknown specificity that are reacting with all reagent RBCs used for alloantibody testing. We are unable to rule out specific RBC alloantibodies. TOMASA BANKS,Dictated by: TOMASA BANKS,Dictated Date/Time: 04.24.2019 11:32 AM CDT Transcribed Date/Time: 04.24.2019 11:32 AM CDTElectronically Signed By: TOMASA BANKS, on 04.24.2019 11:32 AM MD TenorioTMP Interpretation Gfrenx1349-59-99 15:43:24* Test Item Value Reference Range Interpretation Comments TMP Eluate ABID Interp (test code = 7540) Patient elut ion study plasma is reacting with all reagent RBCs used for alloantibody testing. We are unable to rule out specific RBC alloantibodies. TOMASA BANKS,Dictated by: TOMASA BANKS,Dictated Date/Time: 04.24.2019 10:43 AM CDT Transcribed Date/Time: 04.24.2019 10:43 AM CDTElectronically Signed By: TOMASA BANKS, on 04.24.2019 10:43 AM MD TenorioAntibody Screen, Dxelmg9479-27-25 05:58:03* Test Item Value Reference Range Interpretation Comments Elution Screen Result (test code = 897-9) RACT A Lab Interpretation (test code = 64937-8) Abnormal MD TenorioCold Antibody Vucudtsnirrlou2537-96-72 03:53:46* Test Item Value Reference Range Interpretation Comments MC intrerp (test code = 4408) CR MD Matute Arzea0302-55-74 00:30:12* Test Item Value Reference Range Interpretation Comments D-Dimer (test code = 62401-3) 3.71 0.00- 0.40 mcg/ml FEU H Repeated and VerifiedThe cut off value for exclusion of venous thromboembolismis <0.40 mcg/mL FEUs (fibrinogen equivalent units). 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 An IgA lambda M-protein is also present. Comment: MD Chasidy BONE [id number] ctated by: MD Chasidy BONE [id number] Date/Time: 03.18.2019 14:30 PM CDT Transcribed Date/Time: 03.18.2019 14:30 PM CDTElectronically Signed By: MD Chasidy BONE [id number] on 03.18.2019 14:30 PM [facility] Adonay YUMIKO Ppzev8085-74-66 19:30:40* Test Item Value Reference Range Interpretation Comments UIFE (test code = 7916) Lambda + AL. MD TenorioFree [id number] 12:22:36* Test Item Value Reference Range Interpretation Comments T4 Free (test code = 7502) 0.99 ng/dL 0.93-1.7 MD TenorioVrxswdrqW45716-25-29 12:20:46* Test Item Value Reference Range Interpretation Comments T3 Total (test code = 7491) 79 ng/dL 80-200 L Lab Interpretation (test code = 86925-1) Abnormal MD TenorioOccult Blood Uiynx7071-13-94 20:41:47* Test Item Value Reference Range Interpretation Comments Fecal Occult Bld (test code = 5604) Negative Negative Test performed by latex immunoassay methodology. MD TenorioRtttpgxhIsxixa8785-74-63 18:17:16* Test Item Value Reference Range Interpretation Comments Lipase Lvl (test code = 6165) 28 U/L 13-60 MD TenorioHdvzhlkxGyrreoh7851-39-35 18:17:15* Test Item Value Reference Range Interpretation Comments Amylase Lvl (test code = 4806) 53 U/L 28-100 MD TenorioTroponin T (In-House)2019-03-08 05:57:07* Test Item Value Reference Range Interpretation Comments Troponin T (test code = 9384) 38 ng/L <=18 H < 19 ng/L Suggest retest at 3 to 6 hours later to rule out myocardial infarction >= 19 to <=52 ng/L Possible myocardial injury. Suggest retest at 3 h ours. - a change of < 20 ng/L, retest at 6 hours - a change of >= 20 ng/L, suggestive of myocardial infarction > 52 ng/L Suggestive of myocardial infarction Critical value will be reported when cTnT isf > 52 ng/L and only reported for the first in a series. Lab Interpretation (test code = 16760-3) Abnormal MD [id number] 05:57:05* Test Item Value Reference Range Interpretation Comments CK MB (test code = 5209) <1.0 <=10.4 ng/mL [facility] Troponin [id number] 05:30:23* Test Item Value Reference Range Interpretation Comments POC CTNI (test code = 07582-8) 0.01 ng/mL 0-0.08 This cTnI test is performed by the Ufhqx-ms-Kvoy analyzer method,and the result may be different from the Clinical LaboratoryMethod. Abnormal test results are recommended for confirmatorytest by Clinical laboratory method. Patients with normal testresults but clinically suspicious for acute myocardial infarctionshould be tested by Clinical Laboratory method. POC Clean Dev (test code = 6672) Yes MD TenorioSodium [id number] 07:20:00* Test Item Value Reference Range Interpretation Comments Sodium Level (test code = 2951-2) 142 136-145 [facility]villePotassium Nqhay2611-05-18 07:20:00* Test Item Value Reference Range Interpretation Comments Potassium Level (test code = 2823-3) 4.5 3.5-5.1 [facility]villeChloride [id number] 07:20:00* Test Item Value Reference Range Interpretation Comments Chloride Level (test code = 2075-0) 105 98-107 [facility] StephenvilleCarbon Dioxide [id number] 07:20:00* Test Item Value Reference Range Interpretation Comments Carbon Dioxide Level (test code = 2028-9) 24 22-29 [facility] StephenvilleAnion [id number] 07:20:00* Test Item Value Reference Range Interpretation Comments Anion Gap (test code = 90455-2) 17.5 8-16 H [facility] StephenvilleBlood Urea [id number] 07:20:00* Test Item Value Reference Range Interpretation Comments Blood Urea Nitrogen (test code = 3094-0) 15 7-26 [facility]villeCreatinine2019-07-21 07:20:00* Test Item Value Reference Range Interpretation Comments Creatinine (test code = 2160-0) 0.62 0.72-1.25 L [facility] StephenvilleBUN/Creatinine Todqw1234-37-31 07:20:00* Test Item Value Reference Range Interpretation Comments BUN/Creatinine Ratio (test code = 3097-3) 24 6-25 [facility] StephenvilleEstimat Glomerular Filtration Rate 2019-01-26 07:20:00* Test Item Value Reference Range Interpretation Comments Estimat Glomerular Filtration Rate (test code = 543441482) > 60 >60 Ranges were taken from the National Kidney Disease Education Program and the [facility] Kidney Foundation literature.Reference ranges:60 or greater: Djxipq55-68 ( for 3 consecutive months): Chronic kidney disease 15 or less: Kidney failureTexas [facility] Hospital StephenvilleGlucose Fhhic6453-59-96 07:20:00* Test Item Value Reference Range Interpretation Comments Glucose Level (test code = FZE0849) 78 74-118 [facility] StephenvilleCalcium Iomys6241-03-91 07:20:00* Test Item Value Reference Range Interpretation Comments Calcium Level (test code = 65350-3) 9.9 8.4-10.2 [facility] StephenvilleTotal Fypsibfqg9281-44-29 07:20:00* Test Item Value Reference Range Interpretation Comments Total Bilirubin (test code = 1975-2) 0.3 0.2-1.2 [facility] StephenvilleAspartate Amino Transf (AST/SGOT) 2019-01-26 07:20:00* Test Item Value Reference Range Interpretation Comments Aspartate Amino Transf (AST/SGOT) (test code = Aspartate Amino Transf (AST/SGOT)) 20 5-34 [facility]villeAlanine Aminotransferase (ALT/SGPT) 2019-01-26 07:20:00* Test Item Value Reference Range Interpretation Comments Alanine Aminotransferase (ALT/SGPT) (test code = 1742-6) 11 0-55 [facility] StephenvilleTotal Gvzlztq9942-50-71 07:20:00* Test Item Value Reference Range Interpretation Comments Total Protein (test code = 2885-2) 8.6 6.5-8.1 H [facility] StephenvilleAlbumin2019-07-21 07:20:00* Test Item Value Reference Range Interpretation Comments Albumin (test code = 1751-7) 2.0 3.5-5.0 L [facility] StephenvilleGlobulin2019-07-21 07:20:00* Test Item Value Reference Range Interpretation Comments Globulin (test code = 08156-0) 6.6 2.3-3.5 H [facility] StephenvilleAlbumin/Globulin Jyidf4830-87-67 07:20:00 * Test Item Value Reference Range Interpretation Comments Albumin/Globulin Ratio (test code = 1759-0) 0.3 0.8-2.0 L [facility] StephenvilleAlkaline Pktvsounqjv7440-84-84 07:20:00* Test Item Value Reference Range Interpretation Comments Alkaline Phosphatase (test code = 6768-6) 63 40-150 [facility] StephenvilleWhite Blood Ordbn3405-36-33 06:59:00* Test Item Value Reference Range Interpretation Comments White Blood Count (test code = 6690-2) 4.75 4.8-10.8 L [facility] StephenvilleRed Blood [id number] 06:59:00* Test Item Value Reference Range Interpretation Comments Red Blood Count (test code = 789-8) 3.48 4.3-5.7 L [facility]villeHemoglobin2019-07-21 06:59:00* Test Item Value Reference Range Interpretation Comments Hemoglobin (test code = 53272-1) 8.1 14.0-18.0 L [facility]villeHematocrit2019-07-21 06:59:00* Test Item Value Reference Range Interpretation Comments Hematocrit (test code = 4544-3) 25.4 38.2-49.6 L [facility] StephenvilleMean Corpuscular [id number] 06:59:00* Test Item Value Reference Range Interpretation Comments Mean Corpuscular Volume (test code = 787-2) 73.0 81-99 L [facility]villeMean Corpuscular Yiyflahfmw0162-71-68 06:59:00* Test Item Value Reference Range Interpretation Comments Mean Corpuscular Hemoglobin (test code = 785-6) 23.3 28-32 L [facility] StephenvilleMean Corpuscular Hemoglobin Concent 2019-01-26 06:59:00* Test Item Value Reference Range Interpretation Comments Mean Corpuscular Hemoglobin Concent (test code = 786-4) 31.9 31-35 [facility] StephenvilleRed Cell Distribution [id number] 06:59:00* Test Item Value Reference Range Interpretation Comments Red Cell Distribution Width (test code = 03016-3) 21.2 11.7 -14.4 H [facility] StephenvillePlatelet Qhdkh2593-30-04 06:59:00* Test Item Value Reference Range Interpretation Comments Platelet Count (test code = 777-3) 276 140-360 [facility] StephenvilleNeutrophils (%) (Auto)2019-01-26 06:59:00 * Test Item Value Reference Range Interpretation Comments Neutrophils (%) (Auto) (test code = 14192-1) 57.3 38.7-80.0 [facility] StephenvilleLymphocytes (%) (Auto)2019-01-26 06:59:00 * Test Item Value Reference Range Interpretation Comments Lymphocytes (%) (Auto) (test code = 736-9) 24.0 18.0-39.1 [facility] StephenvilleMonocytes (%) (Auto)2019-01-26 06:59:00* Test Item Value Reference Range Interpretation Comments Monocytes (%) (Auto) (test code = 5905-5) 9.5 4.4-11.3 [facility]villeEosinophils (%) (Auto)2019-01-26 06:59:00 * Test Item Value Reference Range Interpretation Comments Eosinophils (%) (Auto) (test code = 713-8) 8.4 0.0-6.0 H [facility] StephenvilleBasophils (%) (Auto)2019-01-26 06:59:00* Test Item Value Reference Range Interpretation Comments Basophils (%) (Auto) (test code = 706-2) 0.4 0.0-1.0 [facility] StephenvilleIM GRANULOCYTES %2019-01-26 06:59:00* Test Item Value Reference Range Interpretation Comments IM GRANULOCYTES % (test code = IM GRANULOCYTES %) 0.4 0.0- 1.0 [facility]villeNeutrophils # (Auto)2019-01-26 06:59:00* Test Item Value Reference Range Interpretation Comments Neutrophils # (Auto) (test code = 751-8) 2.7 2.1-6.9 [facility] StephenvilleLymphocytes # (Auto)2019-01-26 06:59:00* Test Item Value Reference Range Interpretation Comments Lymphocytes # (Auto) (test code = 40752-0) 1.1 1.0-3.2 [facility]villeMonocytes # (Auto)2019-01-26 06:59:00* Test Item Value Reference Range Interpretation Comments Monocytes # (Auto) (test code = 742-7) 0.5 0.2-0.8 [facility]villeEosinophils # (Auto)2019-01-26 06:59:00* Test Item Value Reference Range Interpretation Comments Eosinophils # (Auto) (test code = 711-2) 0.4 0.0-0.4 [facility] StephenvilleBasophils # (Auto)2019-01-26 06:59:00* Test Item Value Reference Range Interpretation Comments Basophils # (Auto) (test code = 704-7) 0.0 0.0-0.1 [facility] StephenvilleAbsolute Immature Granulocyte (auto 2019-01-26 06:59:00* Test Item Value Reference Range Interpretation Comments Absolute Immature Granulocyte (auto (misha t code = Absolute Immature Granulocyte (auto) 0.02 0-0.1 [facility] StephenvilleVancomycin Level [id number] 09:42:00* Test Item Value Reference Range Interpretation Comments Vancomycin Level Trough (test code = 4092-3) 10.2 5.0-10.0 HH Results repeated and called to JERI PEÑA RN at 0941 on 01/25/19 by Aida wei. Read back and verified.[facility] StephenvilleWound Ymwkonb7621-22-09 07:21:00* Test Item Value Reference Range Interpretation Comments Wound Culture (test code = 6462-6) Organism: PROTEUS MIRABILIS [facility] StephenvilleBedside [id number] 06:42:00* Test Item Value Reference Range Interpretation Comments Bedside Glucose (test code = 24219-1) 97 70-120 Meter ID: [id number] [facility]
--- NOTE | 2020-02-06 19:00 | NUR ---
Resumed care of patient. Patient awake and resting in bed, respirations even and unlabored on room air, no s/s of distress at this time. Wound vac in place to sacrum. Gonzales catheter patent and draining to gravity. Bed locked and in lowest position, side rails upx3, call light placed within reach. Patient instructed to call for assistance if needed, verbalized understanding. All safety measures in place.
[2020-02-07] VITALS (8 sets, daily range): BP systolic 123–148; BP diastolic 79–92
--- NOTE | 2020-02-07 00:07 | NUR ---
Patient refusing colostomy bag change at this time, stating that he will do it himself later. Emptied bag. 250 ml of stool noted.
--- NOTE | 2020-02-07 04:44 | NUR ---
Patient refusing wound care at this time, stating that it was done at 5PM yesterday. Dressings appear CDI. Wound vac in place to left buttock. Will hold off on daily dressing changes until later today.
--- NOTE | 2020-02-07 06:21 | NUR ---
Patient resting quietly in bed, respirations even and unlabored on room air, no s/s of distress at this time. Gonzales catheter patent and draining to gravity. Wound vac in place. All safety measures in place.
--- NOTE | 2020-02-07 07:00 | NUR ---
received report, pt is alert resting in bed, no s/s of distress. call light within reach and instructed pt to call RN for help
[2020-02-07] MEDS: SERTRALINE HCL 50 MG TAB PO SCH (08:59)
[2020-02-07] MEDS: BACLOFEN 10 MG TAB PO SCH ×2 (08:59→17:29)
[2020-02-07] MEDS: BUSPIRONE HCL 5 MG TAB PO SCH ×2 (08:59→17:29)
[2020-02-07] MEDS: APIXAB 2.5 MG TABLET PO SCH ×2 (08:59→17:29)
[2020-02-07] MEDS: AMLODIPINE BESYLATE 10 MG TAB PO SCH (08:59)
[2020-02-07] MEDS: FERROUS SULFATE 325 MG TAB PO SCH ×2 (08:59→17:29)
[2020-02-07] MEDS: BALSAM PERU/CASTOR OIL 60 GM OINT...G. TP SCH (09:00)
[2020-02-07] MEDS: COLLAGENASE 5 GM TUBE TP SCH ×2 (09:00→22:06)
[2020-02-07 09:21] LABS: BASOPHILS % 0.5 % (0.0-1.0); EOSINOPHILS # (AUTO) 0.2 (0.0-0.4); HEMATOCRIT 23.1 % (38.2-49.6); HEMOGLOBIN 7.3 g/dL (14.0-18.0); LYMPHOCYTES % 45.1 % (18.0-39.1); MEAN CORPUSCULAR HEMOGLOBIN 23.1 pg (28-32); MEAN CORPUSCULAR HGB CONC 31.6 g/dL (31-35); MEAN CORPUSCULAR VOLUME 73.1 fL (81-99); MONOCYTES # (AUTO) 0.3 (0.2-0.8); MONOCYTES % 12.2 % (4.4-11.3); NEUTROPHILS # (AUTO) 0.7 (2.1-6.9); NEUTROPHILS % 34.2 % (38.7-80.0); PLATELET COUNT 140 x10e3/uL (140-360); RED BLOOD COUNT 3.16 x10e6/uL (4.3-5.7); RED CELL DISTRIBUTION WIDTH 21.1 % (11.7-14.4)
[2020-02-07 09:28] LABS: ANION GAP 22.9 mmol/L (8-16); CALCIUM 9.8 mg/dL (8.4-10.2); CREATININE, SERUM 1.35 mg/dL (0.72-1.25); POTASSIUM 3.9 mmol/L (3.5-5.1)
--- NOTE | 2020-02-07 10:39 | Diagnostic Imaging Report ---
History: Pain, anemia, multiple myeloma Comparison studies: None Technique: Sagittal T1, T2 and IR, axial T2 and axial gradient echo Intravenous contrast: None Findings: Several pulse sequences are limited by artifacts related to patient motion. In spite of limitations: Alignment: Normal cervical lordosis. Approximately 2 mm retrolisthesis of C3 on C4. Cervicomedullary junction: No abnormalities. Patent foramen magnum. Soft tissues: No T2 hyperintense inflammatory changes. Spinal cord: Focal increased T2 signal in the cord at the superior C3 level is likely sequela of remote nonspecific insult. No other gross cord signal abnormalities. Surgical changes: Prior C4-C6 anterior cervical discectomy and fusion (ACDF). Cannot further evaluate a final hardware by MRI. Vertebrae: Diffuse decreased T1 marrow signal changes with multiple T2/STIR hyperintense lesions throughout the cervical and included thoracic spine with involvement of both vertebral bodies and posterior elements consistent with history of multiple myeloma and anemia. Degenerative changes: C2-C3: Mildly degenerated disc. Asymmetric right disc osteophyte complex does not result in canal stenosis. Moderate right and mild left foraminal stenosis due to uncovertebral arthrosis. C3-C4: Moderately degenerated disc. Minimal retrolisthesis of C3 on C4 with associated uncovered disc/disc osteophyte complex and thickened ligamentum flavum result in mild canal stenosis. Moderate bilateral foraminal stenosis due to uncovertebral facet arthrosis. C4-C5: Surgical level. Patent spinal canal. Mild bilateral foraminal stenosis due to uncovertebral and facet arthrosis. C5-C6: Surgical level. Patent spinal canal. Moderate left and mild right foraminal stenosis due to uncovertebral and facet arthrosis. C6-C7: Moderately degenerated disc. Disc osteophyte complex results in minimal canal stenosis. Moderate left and mild right foraminal stenosis due to uncovertebral arthrosis. C7-T1: Mildly degenerated disc. Asymmetric right disc osteophyte complex does not result in significant canal stenosis. Mild right foraminal stenosis due to uncovertebral arthrosis. Additional findings: Decreased T1 marrow changes with multiple T2/STIR hyperintense lesions related to myeloma within partially imaged thoracic ribs, within the interspinous spaces at C3-C4 and C4-C5 and along the interspinous ligament at C7. Signal changes in the clivus are nonspecific and may also be reactive or related to myeloma. IMPRESSION: 1. Diffuse reactive bone marrow changes with innumerable lesion throughout the the spine and ribs consistent with history of myeloma. No gross associated epidural disease. 2. Surgical changes of C4-C6 ACDF. 3. Degenerative changes with multilevel disc degeneration, mild canal stenosis at C3-C4 and multilevel moderate cervical foraminal stenosis. 4. Focal nonspecific chronic cord signal abnormality at the C3 level. Signed by: Dr. Adi Abraham M.D. on 02/07/2020 10:36 AM
[2020-02-07] MEDS ORDERED: LACTULOSE SYRUP 20 GM/30 ML UDC PO PRN (11:00)
--- NOTE | 2020-02-07 11:00 | NUR ---
awake calm 98.7 144/81 eomi perrl face symmetric speech clear CARDIOVASCULAR: Regular rate and rhythm. PULMONARY: Clear to auscultation. ABDOMEN: Soft and nontender. EXTREMITIES: Lower extremities are paralyzed to apparently 0/5 movement with some sensory, but minimal sensory modality, upper extremities are 5/5. Normal sensory. Not able to elicit the negative myoclonia, asterixis, or tremors at this time. VITAL SIGNS: Temperature is afebrile, blood pressure 131/76, and heart rate is 83. ASSESSMENT AND PLAN: intermitent asterixes elevated ammonia level- start lactulose
[2020-02-07] MEDS: VANCOMYCIN 1GM/NS 250 ML 250 ML IV SCH (12:57)
--- NOTE | 2020-02-07 12:58 | Progress Note ---
DATE: 02/07/2020 CHIEF COMPLAINT/HISTORY OF PRESENT ILLNESS: This is a 69-year-old man, who has history of multiple myeloma as well +as paraplegia secondary to his multiple myeloma. Moreover, he has a chronic stage IV sacral decubitus ulcer. During his hospitalization, he was diagnosed with an infective sacral decubitus ulcer. Specifically, the wound is growing MRSA Staphylococcus aureus and Enterobacter cloacae bacterial species. Moreover, the patient's urine is revealing E. coli bacterial species. Today's blood work reveals a white blood cell count of 2100 with 34% segmented neutrophils. The patient's hemoglobin 7.3 g/dL. The patient was transfused 2 units of packed red blood cells soon after admission. The patient's platelet count is 140,000. The patient's BUN and creatinine today is 21 and 1.35 respectively. The patient's serum ammonia today is 130. REVIEW OF SYSTEMS: As per HPI. PHYSICAL EXAMINATION: GENERAL: He is awake, he is alert and he is oriented. Height 5 feet 9 inches, weight 134 pounds, BMI 25, blood pressure 124/80, pulse 84, respiratory rate 18, temperature 98.3, oxygen saturation 98% on room air. INTEGUMENT: Skin is warm and dry. Slight pallor. No jaundice or diaphoresis. The patient has a stage IV sacral decubitus ulcer with a wound VAC in place. HEENT: Anicteric sclerae. Moist mucous membranes. NECK: Supple. CARDIOVASCULAR: Distant heart sounds. Regular rate and rhythm. LUNGS: No rales, no rhonchi or wheezes. ABDOMEN: Soft. : The patient has Gonzales catheter in place. EXTREMITIES: No edema in the legs, but he does have muscle wasting. NEUROLOGIC: He is paraplegic from his multiple myeloma. DIAGNOSES: 1. Acute on chronic anemia requiring blood transfusion. 2. Escherichia coli urinary tract infection. 3. Enterobacter cloacae and MRSA infected stage IV sacral decubitus ulcer. 4. Paraplegia secondary to multiple myeloma. 5. Multiple myeloma. 6. Severe protein calorie malnutrition. 7. Stage 3 chronic kidney disease. 8. Anemia secondary to chronic kidney disease. 9. Hyperuricemia. PLAN: 1. Follow hemoglobin and hematocrit. 2. Continue wound VAC to the patient's stage IV sacral decubitus ulcer. 3. Continue intravenous vancomycin for the patient's MRI say infected stage IV sacral decubitus ulcer. 4. We will add intravenous meropenem for the patient's E. coli urinary tract infection and Enterobacter cloacae infected stage IV sacral decubitus ulcer. 5. The patient will be transferred to a long-term acute care facility for continued aggressive daily wound care and intravenous and for infusion of multiple intravenous antibiotics for his multisite infections. I spent 25 minutes in the care of this patient. MD ROCHELLE Villa/VANEL /[id number] MTDBen
[2020-02-07] MEDS: MEROPENEM 500MG/ NS 50ML 50 ML IV SCH ×2 (15:16→22:06)
--- NOTE | 2020-02-07 17:42 | NUR ---
HISTORY OF PRESENT ILLNESS: Mr. Diaz is well known to me from previous admission. He is a very pleasant gentleman, who is bedbound. He was recently diagnosed with multiple myeloma, became paralyzed. He developed decubitus ulcer. He had surgical debridement. He has a flap back on 01/14/2019. He was sent to [facility]. The patient from there went home. The patient, who is currently admitted because there were 3 wounds on the sacral area. The patient denies any fever or chills. He is otherwise lying in bed comfortably. REVIEW OF SYSTEMS: Otherwise, HEENT: Negative. PULMONARY: Negative. CARDIAC: Negative. LABORATORY DATA: reviewed RADIOLOGICAL DATA: reviewed IMPRESSION: 1. Decubitus ulcer. 2. Chronic kidney disease. 3. Multiple myeloma. 4. Debility 5. MRSA Bacteremia PLAN: s/p debridement On Vancomycin and Merrem D/c plans to be discussed with primary MD PT SEEN AND EVALUATED BY DR. RICHARDSON
--- NOTE | 2020-02-07 19:04 | NUR ---
Resumed care of patient. Patient awake and sitting up in bed, vital signs stable, no s/s of distress at this time. Gonzales catheter patent and draining to gravity, bag hung below bladder. Wound vac to left buttock. Bed locked and in lowest position, side rails upx3, call light placed within reach. Patient instructed to call for assistance if needed, verbalized understanding. All safety measures in place.
[2020-02-07] MEDS: ACETAMINOPHEN 325 MG TAB PO PRN (19:20)
--- NOTE | 2020-02-07 22:07 | NUR ---
Wound care performed and colostomy bag changed. Patient tolerated well.
[2020-02-08] VITALS (8 sets, daily range): BP systolic 127–146; BP diastolic 81–91
[2020-02-08] MEDS: MEROPENEM 500MG/ NS 50ML 50 ML IV SCH ×3 (06:02→22:00)
[2020-02-08 06:26] LABS: BASOPHILS % 0.5 % (0.0-1.0); EOSINOPHILS # (AUTO) 0.1 (0.0-0.4); EOSINOPHILS % 7.7 % (0.0-6.0); HEMATOCRIT 22.6 % (38.2-49.6); HEMOGLOBIN 7.2 g/dL (14.0-18.0); LYMPHOCYTES # (AUTO) 0.9 (1.0-3.2); LYMPHOCYTES % 48.6 % (18.0-39.1); MEAN CORPUSCULAR HEMOGLOBIN 23.1 pg (28-32); MEAN CORPUSCULAR HGB CONC 31.9 g/dL (31-35); MEAN CORPUSCULAR VOLUME 72.4 fL (81-99); MONOCYTES # (AUTO) 0.2 (0.2-0.8); NEUTROPHILS # (AUTO) 0.6 (2.1-6.9); NEUTROPHILS % 31.2 % (38.7-80.0); PLATELET COUNT 124 x10e3/uL (140-360); RED BLOOD COUNT 3.12 x10e6/uL (4.3-5.7); RED CELL DISTRIBUTION WIDTH 21.2 % (11.7-14.4)
--- NOTE | 2020-02-08 06:32 | NUR ---
Patient resting quietly in bed, respirations even and unlabored on room air, no s/s of distress at this time. Gonzales catheter patent and draining to gravity. Wound vac in place to left lateral hip/buttock. Bed locked and in lowest position, side rails upx3, alarm on, call light placed within reach. All safety measures in place.
[2020-02-08 06:57] LABS: ALBUMIN 1.9 g/dL (3.5-5.0); ALBUMIN/GLOBULIN RATIO 0.2 (0.8-2.0); ANION GAP 21.7 mmol/L (8-16); CALCIUM 10.1 mg/dL (8.4-10.2); CREATININE, SERUM 1.33 mg/dL (0.72-1.25); POTASSIUM 3.7 mmol/L (3.5-5.1)
--- NOTE | 2020-02-08 07:00 | NUR ---
received report, pt is alert resting in bed, no s/s of distress. call light within reach and instructed pt to call for help
--- NOTE | 2020-02-08 07:05 | NUR ---
Lab reported critical lab result: WBC 1.[address] Ciara Kimball's answering service, Dr. Mancilla is educational resource coordinator. waiting for call back
--- NOTE | 2020-02-08 07:07 | NUR ---
received call back from Dr. Mancilla, no new orders
[2020-02-08] MEDS: BACLOFEN 10 MG TAB PO SCH ×2 (08:04→17:58)
[2020-02-08] MEDS: APIXAB 2.5 MG TABLET PO SCH ×2 (08:04→17:58)
[2020-02-08] MEDS: BALSAM PERU/CASTOR OIL 60 GM OINT...G. TP SCH (08:04)
[2020-02-08] MEDS: FERROUS SULFATE 325 MG TAB PO SCH ×2 (08:04→17:58)
[2020-02-08] MEDS: BUSPIRONE HCL 5 MG TAB PO SCH ×2 (08:04→17:58)
[2020-02-08] MEDS: SERTRALINE HCL 50 MG TAB PO SCH (08:04)
[2020-02-08] MEDS: AMLODIPINE BESYLATE 10 MG TAB PO SCH (08:04)
[2020-02-08] MEDS: ALLOPURINOL 300 MG TAB PO SCH (09:34)
--- NOTE | 2020-02-08 10:12 | Progress Note ---
DATE: 02/08/2020 CHIEF COMPLAINT/HISTORY OF PRESENT ILLNESS: This is a 69-year-old man whose primary treating diagnosis is MRSA and Enterobacter cloacae infected stage IV sacral decubitus ulcer. Moreover, he has underlying history of paraplegia secondary to his underlying multiple myeloma. He also has stage 3 chronic kidney disease. The patient's blood work was done today and was found to have white blood cell count of 1800 with 31% segmented neutrophils. The patient's hemoglobin is 7.2 g/dL. The patient's platelet count is 124,000. The patient's BUN and creatinine today is 19 and 1.33 respectively. The patient's serum bicarbonate is 8.7 g/dL. The patient's serum bicarbonate is 17. The patient's serum ammonia is 102, which is slightly elevated. REVIEW OF SYSTEMS: As per HPI. PHYSICAL EXAMINATION: GENERAL: He is awake, alert, he is oriented and does not seem to be confused. VITAL SIGNS: Height 5 feet 9 inches, weight 124 pounds, BMI 25. Blood pressure is 138/90, pulse 84, respiratory rate 16, oxygen saturation 95% on room air, temperature 97.5. INTEGUMENT: Skin is warm and dry. Slight pallor. No jaundice or diaphoresis. He has stage IV sacral decubitus ulcer with a wound VAC in place. HEENT: Anterior sclerae with moist mucous membranes. NECK: Supple. CARDIOVASCULAR: Distant heart sounds. Tachycardic rate with a regular rhythm. LUNGS: No rales, rhonchi, or wheezes. ABDOMEN: Soft. : The patient has a Gonzales catheter in place. EXTREMITIES: No edema in legs but he has muscle wasting. NEUROLOGIC: He is paraplegic from multiple myeloma. DIAGNOSES: 1. Pancytopenia, likely secondary to multiple myeloma. 2. Leukopenia secondary to sepsis, likely. 3. Acute on chronic anemia requiring blood transfusion. 4. E. coli urinary tract infection. 5. Enterobacter cloacae and MRSA infected stage IV sacral decubitus ulcer. 6. Paraplegia secondary to multiple myeloma. 7. Multiple myeloma. 8. Severe protein calorie malnutrition. 9. Stage 3 chronic kidney disease. 10. Hyperuricemia. 11. Anemia secondary to chronic disease. 12. Depression (situational, likely). PLAN: 1. Follow hemoglobin and hematocrit. 2. Follow white blood cell count. 3. Continue intravenous antibiotics, namely vancomycin and meropenem for the patient's E. coli urinary tract infection and infected sacral decubitus ulcer. 4. We will start allopurinol 300 mg daily for the patient's hyperuricemia. 5. We will check 25-hydroxy vitamin D level. 6. Continue wound care to the patient's sacral decubitus ulcer, specifically wound VAC care. 7. Await transfer to long-term acute care facility for continued aggressive wound care and infusion of multiple intravenous antibiotics for his multisite infections. 8. We will order a chest film today. 9. Empathetic listening and reassurance. 10. Start desvenlafaxine for patient's situational depression. I spent 30 minutes in the care of the patient. MD ROCHELLE Villa/HUMA /[id number] JOSE A
[2020-02-08] MEDS: VANCOMYCIN 1GM/NS 250 ML 250 ML IV SCH (11:22)
[2020-02-08] MEDS: DESVENLAFAXINE SUCCINATE 50 MG TAB.SR.24H PO SCH (11:22)
--- NOTE | 2020-02-08 11:28 | Diagnostic Imaging Report ---
EXAMINATION: CHEST SINGLE (PORTABLE) INDICATION: Evaluation for bibasilar pneumonia. COMPARISON: Chest x-ray on 01/12/2020. FINDINGS: TUBES and LINES: None. LUNGS: Low lung volumes with bronchovascular crowding. There are patchy interstitial and airspace opacities at the lung bases, slightly improved from prior examination. PLEURA: No pleural effusion or pneumothorax. HEART AND MEDIASTINUM: The cardiomediastinal silhouette is unremarkable. BONES AND SOFT TISSUES: No acute osseous lesion. Soft tissues are unremarkable. UPPER ABDOMEN: No free air under the diaphragm. IMPRESSION: Interval improvement in patchy opacities at bilateral lung bases which most likely represents atelectasis and/or multifocal pneumonia. Signed by: Divina Garland MD on 02/08/2020 11:25 AM
--- NOTE | 2020-02-08 12:58 | NUR ---
INFECTIOUS DISEASE PROGRESS NOTE DR. RICHARDSON HISTORY OF PRESENT ILLNESS: Mr. Diaz is well known to me from previous admission. He is a very pleasant gentleman, who is bedbound. He was recently diagnosed with multiple myeloma, became paralyzed. He developed decubitus ulcer. He had surgical debridement. He has a flap back on 01/14/2019. He was sent to [place]. The patient from there went home. The patient, who is currently admitted because there were 3 wounds on the sacral area. The patient denies any fever or chills. He is otherwise lying in bed comfortably. REVIEW OF SYSTEMS: Otherwise, HEENT: Negative. PULMONARY: Negative. CARDIAC: Negative. LABORATORY DATA: reviewed RADIOLOGICAL DATA: reviewed IMPRESSION: 1. MRSA Enterobactor Stave IV sacral decubitus ulcer 2. Chronic kidney disease. 3. Multiple myeloma. 4. Debility 5. MRSA Bacteremia 6. Multiple Myeloma PLAN: s/p debridement On Vancomycin and Merrem -hold vanc due to trough, get random tomorrow D/c plans to be discussed with primary MD
--- NOTE | 2020-02-08 13:14 | NUR ---
awake calm 97.7 120/64 91 eomi perrl face symmetric speech clear CARDIOVASCULAR: Regular rate and rhythm. PULMONARY: Clear to auscultation. ABDOMEN: Soft and nontender. EXTREMITIES: Lower extremities are paralyzed to apparently 0/5 movement with some sensory, but minimal sensory modality, upper extremities are 5/5. Normal sensory. Not able to elicit the negative myoclonia, asterixis, or tremors at this time. VITAL SIGNS: Temperature is afebrile, blood pressure 131/76, and heart rate is 83. ASSESSMENT AND PLAN: intermitent asterixes elevated ammonia level- start lactulose neuro ok to dc hepatic /liver gi follow up as outpt recommended for asterixes
--- NOTE | 2020-02-08 13:30 | NUR ---
pt safely transferred to room 204, pt was oriented to room and call light placed within reach
--- NOTE | 2020-02-08 19:00 | NUR ---
Resumed care of patient. Patient awake and sitting up in bed, respirations even and unlabored on room air, no s/s of distress at this time. Bed locked and in lowest position, side rails upx3, alarm on, call light placed within reach. Patient instructed to call for assistance if needed, verbalized understanding. All safety measures in place.
[2020-02-08] MEDS: ACETAMINOPHEN 325 MG TAB PO PRN (23:10)
[2020-02-09] VITALS (9 sets, daily range): BP systolic 108–140; BP diastolic 74–84
[2020-02-09] MEDS: MEROPENEM 500MG/ NS 50ML 50 ML IV SCH ×3 (05:38→22:11)
[2020-02-09 06:05] LABS: BASOPHILS % 0.5 % (0.0-1.0); EOSINOPHILS # (AUTO) 0.1 (0.0-0.4); EOSINOPHILS % 6.3 % (0.0-6.0); HEMATOCRIT 22.1 % (38.2-49.6); LYMPHOCYTES # (AUTO) 0.9 (1.0-3.2); MEAN CORPUSCULAR HEMOGLOBIN 22.8 pg (28-32); MEAN CORPUSCULAR HGB CONC 31.7 g/dL (31-35); MONOCYTES # (AUTO) 0.2 (0.2-0.8); MONOCYTES % 9.3 % (4.4-11.3); NEUTROPHILS # (AUTO) 0.9 (2.1-6.9); NEUTROPHILS % 41.4 % (38.7-80.0); PLATELET COUNT 132 x10e3/uL (140-360); RED BLOOD COUNT 3.07 x10e6/uL (4.3-5.7); RED CELL DISTRIBUTION WIDTH 20.8 % (11.7-14.4)
[2020-02-09 06:20] LABS: ALBUMIN 1.8 g/dL (3.5-5.0); ALBUMIN/GLOBULIN RATIO 0.2 (0.8-2.0); ANION GAP 20.8 mmol/L (8-16); CREATININE, SERUM 1.4 mg/dL (0.72-1.25); POTASSIUM 3.8 mmol/L (3.5-5.1)
--- NOTE | 2020-02-09 06:30 | NUR ---
Colostomy bag changed. Patient awake and sitting up in bed, no s/s of distress at this time. All safety measures in place.
--- NOTE | 2020-02-09 07:00 | NUR ---
BEDSIDE SHIFT REPORT RECEIVED FROM THE STARCH DUMPER RN. EDUCATED PT ABOUT FALL PRECAUTIONS. PT VERBALIZED UNDERSTANDING. BED IS LOW AND LOCKED. SIDE RAILS X2. CALL LIGHT WITH IN EASY REACH. BED ALARM IS ON. ALL SAFETY MEASURES IN PLACE. PT DENIES NEEDS AT THIS TIME.
[2020-02-09] MEDS: APIXAB 2.5 MG TABLET PO SCH ×2 (08:15→17:17)
[2020-02-09] MEDS: BACLOFEN 10 MG TAB PO SCH ×2 (09:08→17:17)
[2020-02-09] MEDS: BUSPIRONE HCL 5 MG TAB PO SCH ×2 (09:08→17:17)
[2020-02-09] MEDS: FERROUS SULFATE 325 MG TAB PO SCH ×2 (09:08→17:17)
[2020-02-09] MEDS: AMLODIPINE BESYLATE 10 MG TAB PO SCH (09:09)
[2020-02-09] MEDS: DESVENLAFAXINE SUCCINATE 50 MG TAB.SR.24H PO SCH (09:10)
[2020-02-09] MEDS: ALLOPURINOL 300 MG TAB PO SCH (09:11)
[2020-02-09] MEDS: SERTRALINE HCL 50 MG TAB PO SCH (09:11)
--- NOTE | 2020-02-09 09:27 | NUR ---
Updated clinicals faxed to [place] at [phone].
[2020-02-09] MEDS ORDERED: ONDANSETRON HCL 4 MG ORAL DISINTEGRATING TAB PO PRN (09:30)
--- NOTE | 2020-02-09 09:45 | NUR ---
PAGED DR. DE SOUZA REGARDING PT HGB 7.0. WAITING FOR THE CALL BACK FROM THE
[2020-02-09] MEDS: COLLAGENASE 5 GM TUBE TP SCH (10:00)
[2020-02-09] MEDS: BALSAM PERU/CASTOR OIL 60 GM OINT...G. TP SCH (10:00)
[2020-02-09] MEDS ORDERED: SODIUM CHLORIDE 0.9% 250ML 250 ML IV ONE ×2 (11:15→20:00)
--- NOTE | 2020-02-09 13:40 | NUR ---
PAGED LAB REGARDING BLOOD. WILL TAKE TIME TO GET THE BLOOD READY DUE TO ANTIBODIES PER THE LAB.
--- NOTE | 2020-02-09 14:00 | NUR ---
PAGED DR. DE SOUZA AND INFORMED DELAY IN BLOOD TRANSFUSION DUE TO ANTIBODIES.
--- NOTE | 2020-02-09 15:58 | NUR ---
Per Anamaria with [facility], pt has been approved. Currently pending bed assignment. MOT initiated and placed with pt's packet at nurses station. CARMEN Aldana was updated. Anamaria with call MOT to nurses station once available.
--- NOTE | 2020-02-09 17:12 | NUR ---
INFECTIOUS DISEASE PROGRESS NOTE DR. RICHARDSON doing well HISTORY OF PRESENT ILLNESS: Mr. Diaz is well known to me from previous admission. He is a very pleasant gentleman, who is bedbound. He was recently diagnosed with multiple myeloma, became paralyzed. He developed decubitus ulcer. He had surgical debridement. He has a flap back on 01/14/2019. He was sent to [place]. The patient from there went home. The patient, who is currently admitted because there were 3 wounds on the sacral area. The patient denies any fever or chills. He is otherwise lying in bed comfortably. REVIEW OF SYSTEMS: Otherwise, HEENT: Negative. PULMONARY: Negative. CARDIAC: Negative. LABORATORY DATA: reviewed RADIOLOGICAL DATA: reviewed IMPRESSION: 1. MRSA Enterobactor Stave IV sacral decubitus ulcer 2. Chronic kidney disease. 3. Multiple myeloma. 4. Debility 5. MRSA Bacteremia 6. Multiple Myeloma PLAN: s/p debridement On Vancomycin and Merrem -hold vanc due to trough, get random tomorrow D/c plans to be discussed with primary MD await dc plans agree with [facility]
--- NOTE | 2020-02-09 17:25 | NUR ---
Nutrition Intervention Note RD Recommendation(s) for Physician: -Continue Regular diet -Recommend Ensure Enlive BID -Recommend Abhi 1 packet BID, zinc sulfate, and vitamin C to promote wound healing Plan of Care: RD following, monitoring for tolerance and adequacy Nutrition reason for involvement: follow up RD Assessment 02/08: Follow up. Pt with 50-75% po intake. Current rec's remain appropriate for wound healing. Chart reviewed. Pt pending discharge to LT[facility]. Will continue to monitor. (02/02/20) Pt is a 69 year old male admitted with anemia, multiple myeloma, pressure ulcer of buttock, pressure ulcer of sacrum, renal insufficiency, and UTI. COVID test results are pending. RD called pt over the phone. Pt stated he has been eating about 50% of his meals. It is recorded pt consumed 100% of breakfast this morning. No weight loss reported and pt stated he usually weighs 170-175 lbs; however, pt currently has a weight of 183 lbs in chart. No N/V/D/C or chewing/swallowing issues. RD offered the pt Abhi to promote wound healing, but the pt declined. Will continue to monitor Principal Problems/Diagnoses: anemia, multiple myeloma, pressure ulcer of buttock, pressure ulcer of sacrum, renal insufficiency, and UTI PMH: multiple myeloma diagnosed in July 2018, paraplegia, fecal incontinence GI: LBM 02/08 Skin: stage 2 sacral ulceration, right gluteal lower upper thigh crease unstageable ulceration, left gluteal stage 3 ulceration Labs: 02/08: Na 143, K 3.8, BUN 18, Cr 1.4, Gluc 73 (02/01) Na 142, K 4.4, BUN 25, Cr 1.31, Glu 76 Meds: feosol, abx, allopurinol, baclofen, zofran (PRN), lactulose (PRN) Ht: 69 inches Wt: 183 lbs BMI: 27 kg/m2 IBW: 160 lbs Malnutrition Evaluation (02/02/20) The patient does not meet criteria for a specified degree of malnutrition at this time. Will re-evaluate at follow-up as appropriate. Nutrition Prescription (Diet Order): Regular Estimated Nutritional Needs: 6108-4704 calories/day (30-35 kcal/kg CBW) 100-125 g protein/day (1.2-1.5 g pro/kg CBW) Diet Adequacy: Pt meeting kcal and protein needs, 75% po intake Tolerance: Tolerating PO Diet Education Needs Assessment: Diet education is not indicated Nutrition Care Level: low Nutrition Diagnosis: Increased nutrient needs related to increased demand for protein and calories as evidenced by pressure ulcers. Goal: Patient will meet 75-100% of estimated needs by follow up Progress: Progressing Interventions: -General healthful diet, Commercial beverage, Recommended Modifications, Multivitamin/mineral supplement therapy Monitoring/Evaluation: -Total energy intake, Total protein intake, Liquid supplement, Weight change Signed: Carrie Irby RD, LD, CNSC
--- NOTE | 2020-02-09 18:33 | NUR ---
awake calm 98.2 84 134/75 eomi perrl face symmetric speech clear CARDIOVASCULAR: Regular rate and rhythm. PULMONARY: Clear to auscultation. ABDOMEN: Soft and nontender. EXTREMITIES: Lower extremities are paralyzed to apparently 0/5 movement with some sensory, but minimal sensory modality, upper extremities are 5/5. Normal sensory. Not able to elicit the negative myoclonia, asterixis, or tremors at this time. VITAL SIGNS: Temperature is afebrile, blood pressure 131/76, and heart rate is 83. ASSESSMENT AND PLAN: asterixes associated w/ hyperamoniamia EEG wnl
--- NOTE | 2020-02-09 18:35 | NUR ---
eeg -= 30 min study being done to eval neurophysiological status and etiology of movement disorder 10/20 international electrode placement system read in bipolar and transverse montage EEG data: 9-10 hz pdr, >20mV ryhtmic and reactive to eye opening and closure anterior beta frequency noted no sleep captured EEG interpretation: EEG is within normal limits no evidence of epileptogenicity or neurophysiological dysfunciton
--- NOTE | 2020-02-09 18:35 | NUR ---
PAGED LAB REGARDING BLOOD TRANSFUSION. WAITING PER THE LAB.
--- NOTE | 2020-02-09 19:00 | NUR ---
BEDSIDE SHIFT REPORT GIVEN TO THE SLATE SPLITTER RN. PT DENIED FURTHER NEEDS.
--- NOTE | 2020-02-09 20:05 | NUR ---
Spoke to Walker in the lab, he stated blood has not been received yet.
[2020-02-09] MEDS ORDERED: SODIUM CHLORIDE 0.9% 250ML 250 ML ONE (23:27)
--- NOTE | 2020-02-10 02:30 | NUR ---
2nd unit of blood started with no issues. Patient has no complaints and denies needing anything at this time, call light in reach
[2020-02-10] MEDS ORDERED: SODIUM CHLORIDE 0.9% 250ML 250 ML ONE ×2 (02:35→21:22)
[2020-02-10 04:00] VITALS: BP 119/75
[2020-02-10] MEDS: MEROPENEM 500MG/ NS 50ML 50 ML IV SCH ×3 (05:00→21:15)
--- NOTE | 2020-02-10 07:00 | NUR ---
RECEIVED BEDSIDE SHIFT REPORT FROM CARMEN MCGILL. PT DENIES NEEDS AT THIS TIME.
[2020-02-10 07:40] VITALS: BP 134/80
[2020-02-10] MEDS: DESVENLAFAXINE SUCCINATE 50 MG TAB.SR.24H PO SCH (08:49)
[2020-02-10] MEDS: BACLOFEN 10 MG TAB PO SCH ×2 (08:49→17:28)
[2020-02-10] MEDS: BUSPIRONE HCL 5 MG TAB PO SCH ×2 (08:49→17:28)
[2020-02-10] MEDS: AMLODIPINE BESYLATE 10 MG TAB PO SCH (08:49)
[2020-02-10] MEDS: APIXAB 2.5 MG TABLET PO SCH ×2 (08:49→17:28)
[2020-02-10] MEDS: FERROUS SULFATE 325 MG TAB PO SCH ×2 (08:49→17:28)
[2020-02-10] MEDS: BALSAM PERU/CASTOR OIL 60 GM OINT...G. TP SCH (08:50)
[2020-02-10] MEDS: COLLAGENASE 5 GM TUBE TP SCH (08:50)
[2020-02-10] MEDS: SERTRALINE HCL 50 MG TAB PO SCH (08:50)
[2020-02-10] MEDS: ALLOPURINOL 300 MG TAB PO SCH (08:50)
[2020-02-10 08:51] VITALS: BP 134/80
[2020-02-10 11:17] VITALS: BP 135/75
--- NOTE | 2020-02-10 15:50 | NUR ---
Spoke with Anamaria with [facility]. They are pending discharges for beds. She will call nurses station with [facility] once available.
--- NOTE | 2020-02-10 15:57 | NUR ---
awake calm 97.9 69 119/75 eomi perrl face symmetric speech clear CARDIOVASCULAR: Regular rate and rhythm. PULMONARY: Clear to auscultation. ABDOMEN: Soft and nontender. EXTREMITIES: Lower extremities are paralyzed to apparently 0/5 movement with some sensory, but minimal sensory modality, upper extremities are 5/5. Normal sensory. Not able to elicit the negative myoclonia, asterixis, or tremors at this time. VITAL SIGNS: Temperature is afebrile, blood pressure 131/76, and heart rate is 83. ASSESSMENT AND PLAN: asterixes associated w/ hyperamoniamia EEG wnl will monitor for hepatic encephalopathy
[2020-02-10 16:00] VITALS: BP 134/82
[2020-02-10] MEDS ORDERED: SODIUM CHLORIDE 0.9% 250ML 250 ML IV NR (18:45)
--- NOTE | 2020-02-10 19:19 | Progress Note ---
DATE: SUBJECTIVE: Mr. Diaz has received 2 units of blood. He is doing good. There is no new complaint. He is still weak. PHYSICAL EXAMINATION: GENERAL: He is currently alert, oriented. VITAL SIGNS: Stable, currently afebrile. HEENT: He is not icteric. NECK: Supple. CHEST: Clear. HEART: S1, S2. ABDOMEN: Soft. LABORATORY DATA: White count is 2.05 up to 1.3. Sodium 143, potassium 3.8, and creatinine 1.40. IMPRESSION AND PLAN: Decubitus ulcer. Continue with antibiotic. He is currently on meropenem. Leukopenia, probably due to vancomycin, which was discontinued. Continue with supportive care from Infectious Disease point of view. MD ROXY Carpenter/HUMA /[id number]
[2020-02-10 20:00] VITALS: BP 135/78
--- NOTE | 2020-02-10 23:34 | NUR ---
CALLED Yareli DE SOUZA. LEFT MESSAGE WITH ANSWERING SERVICE. AWAITING CALL BACK.
[2020-02-11] VITALS (9 sets, daily range): BP systolic 121–146; BP diastolic 79–91
--- NOTE | 2020-02-11 | NUR ---
SPOKE TO MD DE SOUZA REGARDING C/O PAIN. NEW ORDERS RECEIVED.
[2020-02-11] MEDS ORDERED: TRAMADOL HCL 50 MG TAB PO PRN (00:15)
--- NOTE | 2020-02-11 01:20 | NUR ---
WOUND CARE PROVIDED PER MD ORDER. [facility] PROVIDED VIA SOAP AND WATER.
[2020-02-11] MEDS: MEROPENEM 500MG/ NS 50ML 50 ML IV SCH ×3 (05:12→22:00)
[2020-02-11] MEDS ORDERED: FUROSEMIDE INJ 10 MG/ML 2 ML VIAL IV NR (06:00)
--- NOTE | 2020-02-11 06:50 | NUR ---
awake calm 98.4 135/75 eomi perrl face symmetric speech clear CARDIOVASCULAR: Regular rate and rhythm. PULMONARY: Clear to auscultation. ABDOMEN: Soft and nontender. EXTREMITIES: Lower extremities are paralyzed to apparently 0/5 movement with some sensory, but minimal sensory modality, upper extremities are 5/5. Normal sensory. Not able to elicit the negative myoclonia, asterixis, or tremors at this time. VITAL SIGNS: Temperature is afebrile, blood pressure 131/76, and heart rate is 83. ASSESSMENT AND PLAN: asterixes associated w/ hyperamoniamia EEG wnl will monitor for hepatic encephalopathy awaiting placement
--- NOTE | 2020-02-11 07:12 | NUR ---
REPORT GIVEN TO DAYSHIFT NURSE. RESTING IN BED. NO SIGNS IV INFILTRATION. BED LOCKED AND IN LOW POSITION. CALL LIGHT WITHIN REACH. BED ALARM ACTIVATED.
--- NOTE | 2020-02-11 07:13 | NUR ---
WALKING ROUNDS COMPLETED WITH PM NURSE. RECEIVED CHANGE OF SHIFT REPORT. PT IN STABLE CONDITION.
[2020-02-11] MEDS: BUSPIRONE HCL 5 MG TAB PO SCH ×2 (08:37→17:47)
[2020-02-11] MEDS: APIXAB 2.5 MG TABLET PO SCH ×2 (08:37→17:47)
--- NOTE | 2020-02-11 08:37 | NUR ---
Spoke with Anamaria with [facility]. Still pending bed. Will let CM know once one is available.
[2020-02-11] MEDS: FERROUS SULFATE 325 MG TAB PO SCH ×2 (08:38→17:47)
[2020-02-11] MEDS: BACLOFEN 10 MG TAB PO SCH ×2 (08:38→17:47)
[2020-02-11] MEDS: AMLODIPINE BESYLATE 10 MG TAB PO SCH (08:39)
[2020-02-11] MEDS: ALLOPURINOL 300 MG TAB PO SCH (08:40)
[2020-02-11] MEDS: SERTRALINE HCL 50 MG TAB PO SCH (08:40)
[2020-02-11] MEDS: DESVENLAFAXINE SUCCINATE 50 MG TAB.SR.24H PO SCH (08:40)
[2020-02-11] MEDS ORDERED: SODIUM CHLORIDE 0.9% 250ML 250 ML ONE ×2 (10:05→15:57)
[2020-02-11] MEDS ORDERED: FUROSEMIDE INJ 10 MG/ML 2 ML VIAL IV PRN ×2 (10:30→16:00)
--- NOTE | 2020-02-11 10:30 | NUR ---
1st of 2 units of packed RBC's infusing.
--- NOTE | 2020-02-11 12:50 | NUR ---
unit of blood completed infusion. pt tolerated well.
[2020-02-11] MEDS ORDERED: FUROSEMIDE INJ 10 MG/ML 4 ML VIAL ONE (16:00)
--- NOTE | 2020-02-11 16:00 | NUR ---
started 2nd unit of blood transfusing.
--- NOTE | 2020-02-11 16:03 | NUR ---
LONG-TERM ACUTE CARE DISCHARGE INFORMATION PATIENT HAS BEEN ACCEPTED TO: [address] [address] ACCEPTING PRODUCTION PLANNING MANAGER: Mark Harvey, PHOTOVOLTAIC TESTING TECHNICIAN ACCEPTING MD: Dr. Kimball ROOM: 233 NURSE CALL REPORT TO: [phone] THE FOLLOWING DOCUMENTS MUST ACCOMPANY PATIENT FOR TRANSFER: Copy of chart, transfer MAR COPIED CHART: equal employment opportunity officer MOT INFO RECEIVED FROM: Anamaria Ross PHYSICIANS ORDER/RECONCILED MED LIST: to be obtained by bedside RN [id number] DNR: n/a MOT completed and placed with pt's packet at nurse's station. CARMEN Farley was informed of MOT. Call report and transfer AFTER 1900.
--- NOTE | 2020-02-11 17:14 | Progress Note ---
DATE: SUBJECTIVE: Mr. Diaz is doing well. There is no new complaint. PHYSICAL EXAMINATION: GENERAL: He is currently alert, oriented. VITAL SIGNS: Stable, afebrile. HEENT: He is not icteric. NECK: Supple. CHEST: Clear. IMPRESSION: Sacral wound. Continue antibiotic as ordered. Continue local care. Discharge planning to finish 14 days. MD ROXY Carpenter/HUMA /[id number]
[2020-02-11] MEDS: COLLAGENASE 5 GM TUBE TP SCH (17:44)
[2020-02-11] MEDS: BALSAM PERU/CASTOR OIL 60 GM OINT...G. TP SCH (17:44)
--- NOTE | 2020-02-12 04:33 | NUR ---
DAILY WOUND CARE PROVIDED PER MD ORDER. [facility] PROVIDED VIA CASTILE SOAP WIPES.
[2020-02-12 04:52] VITALS: BP 147/92
[2020-02-12 06:04] LABS: BASOPHILS % 1.4 % (0.0-1.0); EOSINOPHILS # (AUTO) 0.1 (0.0-0.4); EOSINOPHILS % 5.7 % (0.0-6.0); HEMATOCRIT 31.5 % (38.2-49.6); HEMOGLOBIN 10.4 g/dL (14.0-18.0); LYMPHOCYTES # (AUTO) 0.8 (1.0-3.2); LYMPHOCYTES % 54.6 % (18.0-39.1); MEAN CORPUSCULAR HEMOGLOBIN 25.4 pg (28-32); MEAN CORPUSCULAR VOLUME 76.8 fL (81-99); MONOCYTES # (AUTO) 0.1 (0.2-0.8); MONOCYTES % 8.5 % (4.4-11.3); NEUTROPHILS # (AUTO) 0.4 (2.1-6.9); NEUTROPHILS % 29.8 % (38.7-80.0); PLATELET COUNT 93 x10e3/uL (140-360); RED CELL DISTRIBUTION WIDTH 21.4 % (11.7-14.4)
--- NOTE | 2020-02-12 06:20 | NUR ---
[facility] PROVIDED VIA CASTILE SOAP WIPES.
[2020-02-12 06:24] LABS: ANION GAP 21.6 mmol/L (8-16); CALCIUM 10.5 mg/dL (8.4-10.2); CREATININE, SERUM 1.41 mg/dL (0.72-1.25); POTASSIUM 3.6 mmol/L (3.5-5.1)
--- NOTE | 2020-02-12 06:30 | NUR ---
CALLED MD Yareli DE SOUZA. LEFT MESSAGE WBC 1.41. AWAITING CALL BACK.
[2020-02-12] MEDS: MEROPENEM 500MG/ NS 50ML 50 ML IV SCH (07:11)
--- NOTE | 2020-02-12 07:13 | NUR ---
REPORT GIVEN TO DAYSHIFT NURSE. ALERT AND RESTING IN BED. NO SIGNS IV INFILTRATION. BED LOCKED AND IN LOW POSITION. CALL LIGHT WITHIN REACH. BED ALARM ACTIVATED.
--- NOTE | 2020-02-12 07:14 | NUR ---
BEDSIDE SHIFT REPORT RECEIVED FROM PM NURSE. PT IN STABLE CONDITION.
[2020-02-12 08:00] VITALS: BP 147/88
[2020-02-12] MEDS: BALSAM PERU/CASTOR OIL 60 GM OINT...G. TP SCH (08:04)
[2020-02-12] MEDS: COLLAGENASE 5 GM TUBE TP SCH (08:04)
--- NOTE | 2020-02-12 08:07 | NUR ---
PAGED DR. DE SOUZA FOR DISCHARGE ORDERS.
--- NOTE | 2020-02-12 08:26 | NUR ---
CALLED REPORT TO SHAWN SAUCEDA ROSCOE. PT BEING TRANSPORTED TO ROOM 233.
[2020-02-12] MEDS: AMLODIPINE BESYLATE 10 MG TAB PO SCH (08:33)
[2020-02-12] MEDS: BUSPIRONE HCL 5 MG TAB PO SCH (08:33)
[2020-02-12] MEDS: FERROUS SULFATE 325 MG TAB PO SCH (08:33)
[2020-02-12] MEDS: DESVENLAFAXINE SUCCINATE 50 MG TAB.SR.24H PO SCH (08:33)
[2020-02-12] MEDS: BACLOFEN 10 MG TAB PO SCH (08:33)
[2020-02-12] MEDS: APIXAB 2.5 MG TABLET PO SCH (08:33)
[2020-02-12] MEDS: ALLOPURINOL 300 MG TAB PO SCH (08:33)
[2020-02-12] MEDS: SERTRALINE HCL 50 MG TAB PO SCH (08:33)
[2020-02-12 09:00] VITALS: BP 147/88
[2020-02-12] MEDS ORDERED: FILGRASTIM 480 MCG SYR SQ SCH (10:00)
--- NOTE | 2020-02-12 12:22 | Consultation ---
DATE OF CONSULTATION: 02/08/[address] Reece Kimball. HISTORY OF PRESENT ILLNESS: Mr. Diaz is a 69-year-old male, referred to me for pancytopenia, history of multiple myeloma, being treated at [facility] with Revlimid and Decadron, history of paraplegia. SOCIAL HISTORY: Noncontributory. FAMILY HISTORY: Noncontributory. ALLERGIES: REPORTED NONE. MEDICATIONS: At this time. 1. Vancomycin. 2. Meropenem. 3. Morphine. 4. Ondansetron. 5. Tylenol. 6. Amlodipine. 7. Apixaban. 8. Baclofen. 9. Dexamethasone. 10. Ferrous sulfate. 11. Tramadol. 12. Balsam Raymond castor oil. 13. Collagenase. 14. Buspar. 15. Zoloft. 16. Lactulose. 17. Allopurinol. 18. Desvenlafaxine. REVIEW OF SYSTEMS: HEENT: Normal. CARDIAC: Normal. RESPIRATORY: Bilateral bronchopneumonia. GI: Normal. : The patient has had no problems. MUSCULOSKELETAL: History of paraplegia. NEUROENDOCRINE: Essentially normal. HEMATOLOGICAL: History of IgA myeloma, treated by Dr. Contreras at [facility]. PHYSICAL EXAMINATION: GENERAL: A moderately built male, anemic. No adenopathy. HEART: Within normal limits. LUNGS: Coarse crepitations. ABDOMEN: Soft. RECTAL: Could not be done. CENTRAL NERVOUS SYSTEM: Paraplegic. LABORATORY DATA: Labs show a white count 1830, platelets of 124,000, and hemoglobin of 7.2 with low indices. Sodium 144, potassium 3.7, chloride 109, CO2 of 17, BUN 19, and creatinine 1.3. Chest x-ray shows bilateral bronchopneumonia. INR 1.37. Bilirubin 0.3, SGOT 18, SGPT 6, and alkaline phosphatase 40. IMPRESSION: 1. Iron deficiency anemia. 2. Neutropenia acquired. 3. Thrombocytopenia acquired. 4. Chronic renal failure. 5. Hypoproteinemia. 6. Hypoalbuminemia. 7. Hyperglobulinemia, IgA myeloma. 8. Bilateral bronchopneumonia. 9. Gout. 10. Anxiety disorder. 11. Depression disorder. 12. Cervical laminectomy. 13. Paraplegia. 14. Ischemic decubitus over the ischium, treated by Dr. Ferguson. 15. Urinary tract infection. PLAN, COMMENTS, AND SUGGESTION: I will confine myself to Hematology only. The neutropenia is because of Revlimid. If the patient drops the ANC to less than 1500, I will give him Neupogen. Blood transfusion is suggested. Hold off the Revlimid. Thank you very much for allowing me to participate in management of this patient. The patient was treated. The patient is being transferred to [place] on 02/11. MD CATHI Allan/MODL /[id number] cc: Rolanda Ferguson MD
== END 2020-02-12 10:55 | DRG 592 ==
LOC: ER 12:51 → ERHOLD 15:39 → MED/SURG3 16:29 → MED/SURG2 02-08 13:19
PROC: 30233N1 Transfusion of Nonautologous Red Blood Cells into Peripheral Vein, Percutaneous Approach (ICD-10-PCS; principal; 2020-02-01)
PROC: 30233N1 Transfusion of Nonautologous Red Blood Cells into Peripheral Vein, Percutaneous Approach (ICD-10-PCS; 2020-02-02)
PROC: 30233N1 Transfusion of Nonautologous Red Blood Cells into Peripheral Vein, Percutaneous Approach (ICD-10-PCS; 2020-02-09)
PROC: 30233N1 Transfusion of Nonautologous Red Blood Cells into Peripheral Vein, Percutaneous Approach (ICD-10-PCS; 2020-02-10)
PROC: 30233N1 Transfusion of Nonautologous Red Blood Cells into Peripheral Vein, Percutaneous Approach (ICD-10-PCS; 2020-02-11)
DX: L89.154 Pressure ulcer of sacral region, stage 4 (principal); E43 Unspecified severe protein-calorie malnutrition; J18.0 Bronchopneumonia, unspecified organism; C90.00 Multiple myeloma not having achieved remission; I13.0 Hypertensive heart and chronic kidney disease with heart failure and stage 1 through stage 4 chronic kidney disease, or unspecified chronic kidney disease; G82.20 Paraplegia, unspecified; N39.0 Urinary tract infection, site not specified; E72.4 Disorders of ornithine metabolism; L89.310 Pressure ulcer of right buttock, unstageable; I50.9 Heart failure, unspecified; D64.9 Anemia, unspecified; Z74.01 Bed confinement status; B96.89 Other specified bacterial agents as the cause of diseases classified elsewhere; B95.62 Methicillin resistant Staphylococcus aureus infection as the cause of diseases classified elsewhere; R27.8 Other lack of coordination; B96.20 Unspecified Escherichia coli [E. coli] as the cause of diseases classified elsewhere; N18.3 Chronic kidney disease, stage 3 (moderate); E79.0 Hyperuricemia without signs of inflammatory arthritis and tophaceous disease; R53.81 Other malaise; Z68.25 Body mass index [BMI] 25.0-25.9, adult; F32.9 Major depressive disorder, single episode, unspecified; D70.2 Other drug-induced agranulocytosis; T36.8X5A Adverse effect of other systemic antibiotics, initial encounter; D50.9 Iron deficiency anemia, unspecified; D70.9 Neutropenia, unspecified; D69.6 Thrombocytopenia, unspecified; E77.8 Other disorders of glycoprotein metabolism; R77.1 Abnormality of globulin; M10.9 Gout, unspecified; F41.9 Anxiety disorder, unspecified
CPT/HCPCS: 36415; 71045; 72141; 80048; 80053; 80202; 81001; 82140; 82306; 82550; 82553; 82784; 83605; 83880; 84260; 84484; 84550; 85025; 85610; 85730; 86850; 86870; 86880; 86900; 86905; 86920; 86922; 87040; 87071; 87086; 87186; 87205; 93005; 95812; 97605; 97606; 99001; 99284; J0696; J1442; J1940; J2270; J2405; J2543; J3370; J7030; J7050; P9016; U0002